=== PATIENT | male | born 1935 | race Caucasian/White ===

== ENCOUNTER → 2016-09-06 | Outpatient (CLI) | payer MEDICARE, BC | END | disposition home or self-care (01) | LOC: LABWHC1 11:57 | PROVIDERS: ATTEND Family Medicine | DX: E78.5 Hyperlipidemia, unspecified (principal) | CPT/HCPCS: 36415; 84132 ==

== ENCOUNTER → 2016-10-19 | Outpatient (CLI) | payer MEDICARE, BC ==
--- NOTE | 2016-10-20 10:49 | XR ---
Thoracic spine HISTORY: Pain 3 views of the thoracic spine Thoracic vertebral bodies show preserved height. There is a rotatory scoliosis S-shaped within the th oracic spine. Multilevel spondylosis is present. Bone mineralization is mildly reduced. Mild loss of disc height the lower intervertebral levels. IMPRESSION: Scoliosis, degenerative disc disease.
== END | disposition home or self-care (01) ==
LOC: RADXRYALE 14:40
PROVIDERS: ATTEND Family Medicine
DX: M41.9 Scoliosis, unspecified (principal); M51.34 Other intervertebral disc degeneration, thoracic region
CPT/HCPCS: 72072

== ENCOUNTER → 2016-11-09 | Outpatient (CLI) | payer MEDICARE, BC ==
--- NOTE | 2016-11-09 11:01 | MR ---
EXAMINATION TYPE: MR thoracic spine wo con DATE OF EXAM ORDERED: 11/09/2016 10:20 AM HISTORY: M546 tsp pain. COMPARISON: None. FINDINGS: There is a thoracic aortic aneurysm. The level of the distal large the aorta measures 3 cm . At the level of the aortic hiatus the aorta measures 3.6 cm. Paraspinal soft tissues are otherwise unremarkable. There is an S-shaped scoliosis involving the thoracic spine convex to the left in the upper thoracic spine and to the right in the lower thoracic spine. Vertebral body height and alignment are maintaine d. No fractures are seen. Cord signal is maintained. There is mild, bilateral intervertebral foraminal narrowing at C7-T1. There is mild, diffuse hypertro phic spondylosis throughout the thoracic spine. There is bilateral intervertebral foraminal narrowing at T1 to, worse on the left than the right. There is no significant compressive discopathy. At T2-3, there is bilateral intervertebral foraminal narrowing. There is a small right paracentral di sc displacement. This mildly deforming the thecal sac without cord contact. At T3-4, there is bilateral intervertebral foraminal narrowing, greater on the right than the left. T here is no significant compressive discopathy. At T4-5 and T5-6, no definite abnormality is seen. At T6-7, there is mild, bilateral intervertebral foraminal narrowing. There is no significant everardo sive discopathy. At T7-8, the intervertebral foramina are incompletely visualized. There is a diffuse disc displacemen t. This is deforming the thecal sac without cord contact. At T8-9, there is disc space loss. The intervertebral foramina are incompletely visualized. There is no significant compressive discopathy. At T9-10, the intervertebral foramina are well maintained. There is a right paracentral disc protrusi on mildly deforming the thecal sac without cord contact. At T10-11, there is a bilobed disc displacement. Intervertebral foramina appear reasonably well-maint ained. T11-12, there is disc space loss. There is hypertrophic spondylosis both anteriorly and posteriorly. There is a bilobed disc displacement. There is hypertrophic change and capsulitis within the facets. There is mild central canal stenosis. There is bilateral intervertebral foraminal narrowing. At T12-L1, the intervertebral foramina are well maintained. There is no significant compressive disco jef. There is hypertrophic change in the facets. IMPRESSION: 1. DIFFUSE DEGENERATIVE DISC DISEASE. 2. MULTILEVEL INTERVERTEBRAL FORAMINAL NARROWING. 3. RIGHT PARACENTRAL DISC PROTRUSION, T9-10, MILDLY DEFORMING THE THECAL SAC WITHOUT CORD CONTACT. 4. THORACIC AORTIC ANEURYSM. 5. FACET ARTHROPATHY AT T11-12 AND T12-L1.
== END | disposition home or self-care (01) ==
LOC: RADMRIMAIN 09:18
PROVIDERS: ATTEND Family Medicine
DX: M99.72 Connective tissue and disc stenosis of intervertebral foramina of thoracic region (principal); M51.24 Other intervertebral disc displacement, thoracic region; M51.34 Other intervertebral disc degeneration, thoracic region; M46.94 Unspecified inflammatory spondylopathy, thoracic region
CPT/HCPCS: 72146

== ENCOUNTER 2017-01-15 12:58 | Inpatient (IN) | payer MEDICARE, BC ==
--- NOTE | 2017-01-15 13:21 | ED ---
General Adult HPI - General Chief complaint: Chest Pain Stated complaint: Chest Tightness Time Seen by Provider: 01/15/17 13:00 Source: patient, RN notes reviewed Mode of arrival: ambulatory Limitations: no limitations - History of Present Illness Initial comments: This is a 81-year-old male who presents to the emergency department complaining of chest pain this morning while in bed. Patient states the pain was a heaviness on the left side of his chest and then became a tightness. Patient states he thinks when he takes a deep breath might be a little worse. Patient did not notice any shortness of breath patient denied any radiation of the pain. Patient denies any fever chills or cough. Patient denies any headache patient denies numbness weakness. Patient denies lightheadedness dizziness or near syncopal episode. - Related Data Home Medications Medication Instructions Recorded Confirmed Citalopram Hydrobromide 40 mg PO DAILY 07/15/14 01/15/17 [Citalopram HBr] Levothyroxine Sodium [Synthroid] 150 mcg PO DAILY 07/15/14 01/15/17 Losartan Potassium 50 mg PO DAILY 07/15/14 01/15/17 Aspirin EC [Ecotrin Low Dose] 81 mg PO DAILY 05/08/16 01/15/17 HYDROcodone/APAP 7.5-325MG [[place] 1 tab PO TID 05/08/16 01/15/17 7.5-325] Multivitamins, Thera [Multivitamin 1 tab PO DAILY 05/08/16 01/15/17 (formulary)] Terazosin [Hytrin] 5 mg PO HS 05/08/16 01/15/17 Montelukast Sodium [Singulair] 10 mg PO HS 01/15/17 01/15/17 Ranitidine HCl 300 mg PO BID 01/15/17 01/15/17 Allergies Allergy/AdvReac Type Severity Reaction Status Date / Time iodine AdvReac Anaphylaxis Verified 01/15/17 14:35 Penicillins AdvReac Rash/Hives Verified 01/15/17 14:35 Review of Systems ROS Statement: Those systems with pertinent positive or pertinent negative responses have been documented in the HPI. ROS Other: All systems not noted in ROS Statement are negative. Past Medical History Past Medical History: GERD/Reflux, Hypertension, Pulmonary Embolus (PE), Sleep Apnea/CPAP/BIPAP, Syncope, Thyroid Disorder Additional Past Medical History / Comment(s): cardai arrest d/t pe in 1985, bronchitis, cysts on kidneys-some los of kidney fx, psoriases,arthirstis, chronic back pain, cataracts, red cliff wears linda hearing aids,glasses,upper partial plate. History of Any Multi-Drug Resistant Organisms: None Reported Past Surgical History: Adenoidectomy, Back Surgery, Orthopedic Surgery, Tonsillectomy Additional Past Surgical History / Comment(s): left shoulder hemiarthroplasty then 2nd sx-total replacment, x3 back sx, rt knee replacement, rt shoulder rotator cuff sx, lt heel spur, egd/colonoscopy, rt inguinal hernia repair, lt ear drum repair, CATARACTS, PT STATED HAS 3 ANEURYSMS "AAA AND GROIN AREA" Past Anesthesia/Blood Transfusion Reactions: Postoperative Nausea & Vomiting ( PONV) Past Psychological History: Depression Smoking Status: Former smoker Past Alcohol Use History: None Reported Past Drug Use History: None Reported - Past Family History Father Family Medical History: Asthma Mother Family Medical History: Coronary Artery Disease (CAD) Additional Family Medical History / Comment(s): PACEMAKER General Exam - General Exam Comments Initial Comments: GENERAL: Patient is well-developed and well-nourished. Patient is nontoxic and well- hydrated and is in mild distress. ENT: Neck is soft and supple. No significant lymphadenopathy is noted. Oropharynx is clear. Moist mucous membranes. Neck has full range of motion without eliciting any pain. EYES: The sclera were anicteric and conjunctiva were pink and moist. Extraocular movements were intact and pupils were equal round and reactive to light. Eyelids were unremarkable. PULMONARY: Unlabored respirations. Good breath sounds bilaterally. No audible rales rhonchi or wheezing was noted. CARDIOVASCULAR: There is a regular rate and rhythm without any murmurs gallops or rubs. ABDOMEN: Soft and nontender with normal bowel sounds. No palpable organomegaly was noted. There is no palpable pulsatile mass. SKIN: Skin is clear with no lesions or rashes and otherwise unremarkable. NEUROLOGIC: Patient is alert and oriented x3. Cranial nerves II through XII are grossly intact. Motor and sensory are also intact. Normal speech, volume and content. Symmetrical smile. MUSCULOSKELETAL: Normal extremities with adequate strength and full range of motion. No lower extremity swelling or edema. No calf tenderness. LYMPHATICS: No significant lymphadenopathy is noted PSYCHIATRIC: Normal psychiatric evaluation. Limitations: no limitations Course Vital Signs 01/15/17 13:01 Temperature 98.6 F Pulse Rate 98 Respiratory 18 Rate Blood Pressure 166/92 O2 Sat by Pulse 100 Oximetry Medical Decision Making - Medical Decision Making EKG shows sinus rhythm with occasional PAC at 71 bpm [place] interval 190 QRS 98 QT interval is 44 QTC is 439. Patient's EKG shows no ST segment elevation or depression or T wave normalities are noted. Chest x-ray shows no acute abnormality. Patient continues to have intermittent chest pain while in the emergency department. I spoke with Dr. Forbes he agreed to admit the patient I wrote admitting orders and I consult to cardiology - Lab Data Result diagrams: 01/15/17 13:40 01/15/17 13:40 Lab Results 01/15/17 01/15/17 01/15/17 Range/Units 13:40 13:40 13:40 WBC 8.4 (3.8-10.6) k/uL RBC 3.77 L (4.30-5.90) m/uL Hgb 12.4 L (13.0-17.5) gm/dL Hct 36.3 L (39.0-53.0) % MCV 96.3 (80.0-100.0) fL MCH 33.0 (25.0-35.0) pg MCHC 34.2 (31.0-37.0) g/dL RDW 12.8 (11.5-15.5) % Plt Count 173 (150-450) k/uL Neutrophils % 78 % Lymphocytes % 11 % Monocytes % 6 % Eosinophils % 3 % Basophils % 1 % Neutrophils # 6.6 (1.3-7.7) k/uL Lymphocytes # 0.9 L (1.0-4.8) k/uL Monocytes # 0.5 (0-1.0) k/uL Eosinophils # 0.2 (0-0.7) k/uL Basophils # 0.0 (0-0.2) k/uL PT (9.0-12.0) sec INR (<1.2) APTT (22.0-30.0) sec Sodium 138 (137-145) mmol/L Potassium 4.7 (3.5-5.1) mmol/L Chloride 104 (98-107) mmol/L Carbon Dioxide 24 (22-30) mmol/L Anion Gap 10 mmol/L BUN 25 H (9-20) mg/dL Creatinine 1.80 H (0.66-1.25) mg/dL Est GFR (MDRD) Af Amer 44 (>60 ml/min/1.73 sqM) Est GFR (MDRD) Non-Af 37 (>60 ml/min/1.73 sqM) Glucose 129 H (74-99) mg/dL Calcium 9.3 (8.4-10.2) mg/dL Magnesium 1.8 (1.6-2.3) mg/dL Total Bilirubin 0.5 (0.2-1.3) mg/dL AST 24 (17-59) U/L ALT 40 (21-72) U/L Alkaline Phosphatase 77 (38-126) U/L Total Creatine Kinase 110 (55-170) U/L CK-MB (CK-2) 2.8 H* (0.0-2.4) ng/mL CK-MB (CK-2) Rel Index 2.5 Troponin I <0.012 (0.000-0.034) ng/mL Total Protein 7.0 (6.3-8.2) g/dL Albumin 4.0 (3.5-5.0) g/dL 01/15/17 Range/Units 13:40 WBC (3.8-10.6) k/uL RBC (4.30-5.90) m/uL Hgb (13.0-17.5) gm/dL Hct (39.0-53.0) % MCV (80.0-100.0) fL MCH (25.0-35.0) pg MCHC (31.0-37.0) g/dL RDW (11.5-15.5) % Plt Count (150-450) k/uL Neutrophils % % Lymphocytes % % Monocytes % % Eosinophils % % Basophils % % Neutrophils # (1.3-7.7) k/uL Lymphocytes # (1.0-4.8) k/uL Monocytes # (0-1.0) k/uL Eosinophils # (0-0.7) k/uL Basophils # (0-0.2) k/uL PT 11.0 (9.0-12.0) sec INR 1.1 (<1.2) APTT 24.8 (22.0-30.0) sec Sodium (137-145) mmol/L Potassium (3.5-5.1) mmol/L Chloride (98-107) mmol/L Carbon Dioxide (22-30) mmol/L Anion Gap mmol/L BUN (9-20) mg/dL Creatinine (0.66-1.25) mg/dL Est GFR (MDRD) Af Amer (>60 ml/min/1.73 sqM) Est GFR (MDRD) Non-Af (>60 ml/min/1.73 sqM) Glucose (74-99) mg/dL Calcium (8.4-10.2) mg/dL Magnesium (1.6-2.3) mg/dL Total Bilirubin (0.2-1.3) mg/dL AST (17-59) U/L ALT (21-72) U/L Alkaline Phosphatase (38-126) U/L Total Creatine Kinase (55-170) U/L CK-MB (CK-2) (0.0-2.4) ng/mL CK-MB (CK-2) Rel Index Troponin I (0.000-0.034) ng/mL Total Protein (6.3-8.2) g/dL Albumin (3.5-5.0) g/dL Disposition Clinical Impression: Chest pain Disposition: ADMITTED IP TO THIS HOSP Referrals: Guera Vieira DO [Primary Care Provider] - 1-2 days Time of Disposition: 15:17
[2017-01-15] MEDS ORDERED: ASPIRIN 81 MG CHEW PO STA (13:36)
[2017-01-15] MEDS ORDERED: NITROGLYCERIN OINT 1 INCH/GM PACKET TOPICAL STA (13:36)
[2017-01-15] MEDS ORDERED: SODIUM CHLORIDE 0.9% 500 ML IV ONE (13:42)
[2017-01-15] MEDS ORDERED: MECLIZINE 25 MG TAB PO STA (13:42)
[2017-01-15] MEDS ORDERED: DIAZEPAM 5 MG/ML 2 ML SYRINGE IVP STA (13:42)
[2017-01-15 13:58] LABS: Basophils % (A) 1 %; CH 33.4; CHCM 34.8; Eosinophils # (A) 0.2 k/uL (0-0.7); Eosinophils % (A) 3 %; HCT 36.3 % (39.0-53.0); HGB 12.4 gm/dL (13.0-17.5); Luc % (Auto) 2; Lymphocytes # (A) 0.9 k/uL (1.0-4.8); Lymphocytes % (A) 11 %; MCHC 34.2 g/dL (31.0-37.0); MCV 96.3 fL (80.0-100.0); Mean Platelet Volume 7.6; Monocytes # (A) 0.5 k/uL (0-1.0); Monocytes % (A) 6 %; Neutrophils # (A) 6.6 k/uL (1.3-7.7); Neutrophils % (A) 78 %; RBC 3.77 m/uL (4.30-5.90); RDW 12.8 % (11.5-15.5); WBC 8.4 k/uL (3.8-10.6); WBC (Perox) 9.04
[2017-01-15 14:03] LABS: Calcium 9.3 mg/dL (8.4-10.2); Magnesium 1.8 mg/dL (1.6-2.3); Potassium 4.7 mmol/L (3.5-5.1); Total Bilirubin 0.5 mg/dL (0.2-1.3)
[2017-01-15 14:08] LABS: INR 1.1 (<1.2); Partial Thromboplastin Time 24.8 sec (22.0-30.0)
[2017-01-15 14:21] LABS: Creatine Kinase 110 U/L (55-170)
--- NOTE | 2017-01-15 14:25 | XR ---
EXAMINATION TYPE: XR chest 2V DATE OF EXAM: 01/15/2017 COMPARISON: Chest x-ray May 08, 2016 HISTORY: Chest pain. TECHNIQUE: Frontal and lateral views of the chest are obtained. FINDINGS: There is no focal air space opacity, pleural effusion, or pneumothorax seen. The cardiac silhouette size is within normal limits. Metallic hardware from left shoulder arthroplasty is redemon strated. Degenerative spurring right glenohumeral joint is redemonstrated. IMPRESSION: No acute cardiopulmonary process. No significant change from prior.
[2017-01-15 14:33] LABS: Troponin I <0.012 ng/mL (0.000-0.034)
[2017-01-15 14:39] LABS: Creatine Kinase MB 2.8 ng/mL (0.0-2.4)
--- NOTE | 2017-01-15 14:42 | CT ---
EXAMINATION TYPE: CT brain wo con DATE OF EXAM: 01/15/2017 HISTORY: Headache per order. CT DLP: 1064.3 mGycm. Automated Exposure Control for Dose Reduction was Utilized. TECHNIQUE: CT scan of the head is performed without contrast. COMPARISON: CT brain May 08, 2016 FINDINGS: There is no acute intracranial hemorrhage or midline shift identified. There is diffuse v entricular and sulcal prominence consistent with diffuse age-related cerebral atrophy. There is low- attenuation in the periventricular white matter consistent with chronic small vessel ischemic change. There is persistent mild mucosal thickening involving ethmoid sinuses bilaterally and visualized por tion of bilateral maxillary sinuses. There is air-fluid level dependently in right maxillary sinus on axial image 6. There is dependent and patchy opacification in the left maxillary sinus on axial imag e 1. There is evidence of prior sinus surgery level ostiomeatal complex bilaterally. The globes are i ntact bilaterally. There complete opacification of left mastoid air cells is redemonstrated IMPRESSION: No acute intracranial hemorrhage or midline shift. There is mild diffuse age-related ce rebral atrophy and chronic small vessel ischemic change redemonstrated without significant interval c chris. Possible left-sided mastoiditis, clinical correlation advised, no significant change from prio r. Possible mild bilateral acute maxillary sinus disease, clinical correlation advised.
[2017-01-15] MEDS ORDERED: NITROGLYCERIN SL TABS 0.4 MG TAB SUBLINGUAL PRN (15:18)
[2017-01-15] MEDS ORDERED: RX INFO: IV CONTRAST WAS GIVEN 1 EACH MISC MISCELLANE PRN (15:43)
[2017-01-15] MEDS ORDERED: SODIUM CHLORIDE 0.9% 1,000 ML IV ONE (15:50)
[2017-01-15] MEDS ORDERED: diphenhydrAMINE 50 MG/ML 1 ML VIAL IVP STA (15:50)
[2017-01-15] MEDS ORDERED: FAMOTIDINE 20 MG/2 ML VIAL IV STA (15:50)
[2017-01-15] MEDS ORDERED: methylPREDNISolone SOD SUCCI 125 MG/2 ML VIAL IV STA (15:50)
--- NOTE | 2017-01-15 16:58 | CT ---
EXAMINATION TYPE: CT chest angio for PE DATE OF EXAM: 01/15/2017 COMPARISON: NONE HISTORY: Difficulty breathing. CT DLP: 451.5 mGycm Automated exposure control for dose reduction was used. CONTRAST: CT Chest for pulmonary embolism performed with with IV Contrast, patient injected with 70 mL of Visip aque 320. There are 3-D post processed images. FINDINGS: The lungs are clear of consolidation. There is no pleural effusion. Heart size is normal. There is no pericardial effusion. I see no filling defects in the pulmonary arteries. Thoracic aorta is atheromatous. There is ectasia of the aorta that measures up to 4 cm. There is coronary artery calcification. The bony thorax appear s intact. There is spurring in the thoracic spine. There is mild linear density at the lung bases. There is no mediastinal adenopathy. There are no hilar masses. IMPRESSION: No evidence of pulmonary embolism. Atheromatous aorta with minimal 4 cm aortic aneurysm. Atherosclero tic vascular disease. Minimal subsegmental atelectasis or scarring at the lung bases. Large right janna al cortical cyst is noted.
[2017-01-15] MEDS ORDERED: TEMAZEPAM 15 MG CAP PO PRN (18:18)
[2017-01-15] MEDS ORDERED: HYDROmorphone 1 MG/ML 1 ML SYRINGE IVP PRN (18:18)
[2017-01-15] MEDS ORDERED: ALPRAZolam 0.25 MG TAB PO PRN (18:18)
[2017-01-15] MEDS: NITROGLYCERIN OINT 1 INCH/GM PACKET TOPICAL SCH ×2 (18:40→23:41)
[2017-01-15 19:45] LABS: Creatine Kinase 83 U/L (55-170)
[2017-01-15 19:58] LABS: Troponin I <0.012 ng/mL (0.000-0.034)
[2017-01-15 20:08] LABS: Appearance,Urine Clear (Clear); Bilirubin,Urine Negative (Negative); Glucose,Urine (UA) Negative (Negative); Ketones,Urine Negative (Negative); Leukocyte Esterase,Urine Negative (Negative); Nitrite,Urine Negative (Negative); Protein,Urine Negative (Negative); Specific Gravity,Urine 1.011 (1.001-1.035); UA Billing (MACRO vs. MICRO) CHEM; Urobilinogen,Urine <2.0 mg/dL (<2.0)
[2017-01-15] MEDS: FAMOTIDINE 20 MG TAB PO SCH (20:13)
[2017-01-15] MEDS: MONTELUKAST 10 MG TAB PO SCH (20:13)
[2017-01-15] MEDS: HYDROcodone/APAP 7.5-325MG 1 EACH TAB PO PRN (20:13)
[2017-01-15] MEDS: TERAZOSIN 5 MG CAP PO SCH (20:13)
[2017-01-16 06:34] LABS: Basophils % (A) 0 %; CH 33.4; CHCM 34.4; Eosinophils % (A) 0 %; HCT 37.4 % (39.0-53.0); HDW 2.66; HGB 12.5 gm/dL (13.0-17.5); Luc # (Auto) 0.03; Luc % (Auto) 0; Lymphocytes # (A) 0.7 k/uL (1.0-4.8); Lymphocytes % (A) 6 %; MCH 32.7 pg (25.0-35.0); MCHC 33.5 g/dL (31.0-37.0); MCV 97.6 fL (80.0-100.0); Mean Platelet Volume 7.8; Monocytes # (A) 0.2 k/uL (0-1.0); Monocytes % (A) 2 %; Neutrophils # (A) 10.1 k/uL (1.3-7.7); Neutrophils % (A) 92 %; RBC 3.84 m/uL (4.30-5.90); RDW 12.8 % (11.5-15.5); WBC (Perox) 11.48
[2017-01-16] MEDS: NITROGLYCERIN OINT 1 INCH/GM PACKET TOPICAL SCH ×3 (06:54→22:30)
[2017-01-16] MEDS: LEVOTHYROXINE 75 MCG TAB PO SCH (06:55)
[2017-01-16 07:00] LABS: Calcium 9.3 mg/dL (8.4-10.2); Potassium 4.8 mmol/L (3.5-5.1)
[2017-01-16 07:08] LABS: Creatine Kinase 57 U/L (55-170)
[2017-01-16 07:20] LABS: Creatine Kinase MB 1.5 ng/mL (0.0-2.4); Troponin I <0.012 ng/mL (0.000-0.034)
[2017-01-16] MEDS ORDERED: NON-FORMULARY DRUG (Aspirin Ec 81 MG) PO SCH (09:00)
[2017-01-16] MEDS ORDERED: AMINOPHYLLINE 500 MG/20 ML VIAL IV PRN (10:09)
[2017-01-16] MEDS ORDERED: REGADENOSON 0.4 MG/5 ML SYRINGE IV ONE (10:09)
--- NOTE | 2017-01-16 10:41 | HP ---
DATE OF ADMISSION: 01/15/17 CHIEF COMPLAINT: Chest pain. HISTORY OF PRESENT ILLNESS: This 81-year-old gentleman with past medical history of multiple medical problems including GERD, hypertension, history of pulmonary embolism, being followed by Dr. Vieira in the outpatient setting also had history of aneurysm also. The patient complained of chest pain, started this morning which is felt in the epigastrium initially but subsequently after two hours, the patient had chest pressure which was felt in the anterior part of the chest without any radiation. The pain is also increased with inspiration and the patient came to [facility] and was admitted to the hospital for further evaluation and treatment. The patient had multiple evaluations and CKMB was 2.8. Otherwise, troponins are negative. The EKG done in the emergency room showed no acute changes. Otherwise, the brain Ct was done. The patient also complaining of right sided numbness. CT of the brain showed no acute abnormality, otherwise, chest x-ray was done which showed no acute abnormality and chest CT was also done which showed no evidence of pulmonary embolism. 4 cm aortic aneurysm was also noted. There is no history of fever, rigors or chills. No history of headache, loss of consciousness or seizure. Past medical history of GERD, hypertension, pulmonary embolism, sleep apnea. Medications prior to admission are: Home medications are: 1. Hytrin 5 mg po q.h.s. 2. Ranitidine 300 mg b.i.d. 3. Multivitamins one po daily. 4. Singulair 10 mg q.h.s. 5. Losartan 50 mg daily. 6. Synthroid 150 mcg po daily. 7. [place] t.i.d. 8. Celexa 40 mg daily. 9. Ecotrin 81 mg daily. ALLERGIES: IODINE, PENICILLIN. FAMILY HISTORY: History of asthma, pacemaker. SOCIAL HISTORY: Previous history of smoking. No history of alcohol. REVIEW OF SYSTEMS: HEENT: No diminished vision. No diminished hearing. Cardiovascular system: As mentioned earlier. Respiratory: As mentioned earlier. GI: No nausea or vomiting. : No dysuria. Nervous system: No numbness or weakness. Allergy/Immunology: No asthma or hayfever. Musculoskeletal: As mentioned earlier. Hematology/oncology: No history of anemia. Endocrine: No history of diabetes. Constitutional: As mentioned earlier. Dermatology: Negative. Rheumatology: Negative. Psychiatry: As mentioned earlier. PHYSICAL EXAMINATION: Alert and oriented times three. Pulse 70. Blood pressure 103/59. Respiratory rate 17, temperature 98.1 degrees. Pulse ox 97% on 2 L. HEENT: Conjunctivae normal. Oral mucosa moist. NECK: No JVD. Cardiovascular: S1, S2 muffled. Respiratory: Breath sounds diminished at the bases. A few scattered rhonchi and no crackles. Abdomen is soft. Nontender. No mass. Legs: No edema. No swelling. Nervous system: No focal deficits. LABS: Hemoglobin 12.4, creatinine 1.8. D. dimer 4.20. ASSESSMENT: 1. Chest pain for evaluation, rule out coronary artery disease. 2. Rule out pericarditis. 3. Elevated D. dimer without any evidence of pulmonary embolism. 4. Chronic kidney disease stage III. 5. Anemia, normocytic. 6. History of pulmonary embolism. 7. History of hypertension. 8. Gastroesophageal reflux disease. 9. Adenoidectomy. 10. Depression. RECOMMENDATIONS AND DISCUSSION: In this 81 -year-old gentleman who presented with multiple complex medical issues, we will monitor the patient closely, continue the current medications. Continue symptomatic treatment. Unstable angina protocol. Cardiology consultation. Possible stress test. I would also recommend repeat labs in the morning and would also obtain a 2D echo to rule out the possibility of pericardial effusion. Otherwise, we will continue to monitor. Resume the home medications. Further recommendations to follow. A copy of dictation being forwarded to Dr. Vieira who is the primary care physician. Discussed with the patient, understands and agrees. LATOSHA
--- NOTE | 2017-01-16 11:13 | ECHOF ---
Referral Reason:pericarditis MEASUREMENTS -------- HEIGHT: 180.3 cm WEIGHT: 99.3 kg BP: 141/80 RVIDd: 3.3 cm (< 3.3) IVSd: 1.2 cm (0.6 - 1.1) LVIDd: 5.1 cm (3.9 - 5.3) LVPWd: 1.3 cm (0.6 - 1.1) EDV(Teich): 124 ml IVSs: 1.6 cm LVIDs: 3.8 cm LVPWs: 1.7 cm %IVS Thck: 38 % ESV(Teich): 61 ml EF(Teich): 51 % %FS: 26 % SV(Teich): 63 ml LA Diam: 4.4 cm (2.7 - 3.8) LVOT Diam: 2.3 cm IVC: 1.9 cm LALs A4C: 4.9 cm LAAs A4C: 19.4 cm LAESV A-L A4C: 65 ml LAESV MOD A4C: 59 ml LALs A2C: 5.6 cm LAAs A2C: 18.7 cm LAESV A-L A2C: 52 ml LAESV MOD A2C: 52 ml LAESV(A-L): 63 ml LAESV Index (A-L): 28.56 ml/m Ao Diam: 3.5 cm (2.0 - 3.7) AV Cusp: 2.1 cm (1.5 - 2.6) MV EXCURSION: 11.800 mm (> 18.000) MV EF SLOPE: 45 mm/s (70 - 150) EPSS: 1.2 cm MV E Kai: 0.81 m/s MV DecT: 188 ms MV Dec [place]: 4.3 m/s MV A Kai: 0.97 m/s MV E/A Ratio: 0.83 MV PHT: 55 ms E/E': 11.90 E': 0.07 m/s AV Vmax: 1.71 m/s AV maxP.65 mmHg TR Vmax: 2.15 m/s TR maxP.43 mmHg RAP: 5.00 mmHg RVSP: 23.43 mmHg FINDINGS -------- Sinus rhythm. This was a technically good study. The left ventricular size is normal. There is mild concentric left ventricular hypertrophy. Overall left ventricular systolic function is normal with, an EF between 55 - 60 %. The right ventricle is mildly enlarged. Normal LA size by volume 22+/-6 ml/m2. The right atrium is normal in size. Aortic valve is trileaflet and is mildly thickened. Trace tricuspid regurgitation present. Right ventricular systolic pressure is normal at < 35 mmHg. Trace/mild (physiologic) pulmonic regurgitation. The aortic root size is normal. Normal inferior vena cava with normal inspiratory collapse consistent with estimated right atrial pressure of 5 mmHg. There is no pericardial effusion. CONCLUSIONS -------- 1. Sinus rhythm. 2. Trace tricuspid regurgitation present. 3. Right ventricular systolic pressure is normal at < 35 mmHg. 4. Trace/mild (physiologic) pulmonic regurgitation. 5. The aortic root size is normal. 6. Normal inferior vena cava with normal inspiratory collapse consistent with estimated right atrial pressure of 5 mmHg. 7. There is no pericardial effusion. 8. This was a technically good study. 9. The left ventricular size is normal. 10. There is mild concentric left ventricular hypertrophy. 11. Overall left ventricular systolic function is normal with, an EF between 55 - 60 %. 12. The right ventricle is mildly enlarged. 13. Normal LA size by volume 22+/-6 ml/m2. 14. The right atrium is normal in size. 15. Aortic valve is trileaflet and is mildly thickened. EDGE STAINER MACHINE: Beverly Kendall RDCS
--- NOTE | 2017-01-16 12:04 | P.STRESS ---
- Stress Test Note Stress Test Results/Findings: Exam Performed: NM stress lexiscan cardiolite Exam Date: 01/16/17 Reason for Exam: chest pain Height: 5 ft 5 in Weight: 99.4 kg Protocol: Nichole Stage: N/A Duration of Exercise: N/A Resting Heart Rate: 85 Resting Blood Pressure: 146/72 Maximum Achieved Heart Rate: 104 Maximum Achieved Blood Pressure: 153/83 85% PMHR: 129 100% PMHR: 141 METS: N/A Technologist Comment: Stress Test Results/Findings: Patient was given Lexiscan injection over a period of 15 seconds. Resting EKG shows normal sinus rhythm without any ischemic changes. No ST segment depression suggestive ischemia was noted after the Lexiscan injection. Results of the nuclear study will follow.
[2017-01-16] MEDS: CITALOPRAM HYDROBROMIDE 20 MG TAB PO SCH (12:49)
[2017-01-16] MEDS: PANTOPRAZOLE 40 MG TABLET PO SCH (12:49)
[2017-01-16] MEDS: LOSARTAN 50 MG TAB PO SCH (12:49)
[2017-01-16] MEDS: FAMOTIDINE 20 MG TAB PO SCH ×2 (12:49→21:34)
[2017-01-16] MEDS: MULTIVITAMINS, THERA 1 EACH TAB PO SCH (12:50)
[2017-01-16] MEDS: ASPIRIN 325 MG TAB PO SCH (12:55)
--- NOTE | 2017-01-16 13:24 | NM ---
EXAMINATION TYPE: NM stress lexiscan cardiolite DATE OF EXAM: 01/16/2017 COMPARISON: Chest CT 01/15/2017 HISTORY: Chest pain TECHNIQUE: After the intravenous administration of 11.0 mCi Tc 99m Sestamibi - Cardiolite resting SP ECT images acquired 45 minutes post injection. The patient received 0.4mg Lexiscan, 23.9 mCi Tc 99m Sestamibi - Stress images obtained [address] injection FINDINGS: Review of stress and rest SPECT images demonstrates decreased radio pharmaceutical uptake along the i nferior wall of the left ventricle. Decreased reaffirms uptake along the anteroseptal and apical reg ions on stress images as compared to rest images also noted. Gated analysis shows normal wall motion with an estimated left ventricular ejection fraction of 56 %. 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
[2017-01-16] MEDS ORDERED: ALPRAZolam 0.25 MG TAB PO PRN (14:16)
[2017-01-16] MEDS ORDERED: NITROGLYCERIN SL TABS 0.4 MG TAB SUBLINGUAL PRN (14:16)
[2017-01-16] MEDS ORDERED: ALPRAZolam 0.5 MG TAB PO PRN (14:16)
[2017-01-16] MEDS ORDERED: SODIUM CHLORIDE 0.9% 1,000 ML in EMPTY BAG 1 BAG IV ONE (14:16)
[2017-01-16] MEDS ORDERED: ASPIRIN 325 MG TAB PO STA (14:16)
[2017-01-16] MEDS ORDERED: ATORVASTATIN 80 MG TAB PO STA (14:16)
--- NOTE | 2017-01-16 14:16 | P.CRDCN ---
History of Present Illness Consult date: 01/16/17 History of present illness: This is a 81-year-old male who presents to the emergency department with complaints of epigastric pain. He states he woke up tonight felt the discomfort. He was able to fall back asleep without difficulty. When he arose again around 9 AM the pain was there and stronger. He states the pain is worse with inspiration and is associated with shortness of breath. He cannot verbalize any specific alleviating or aggravating factors. Upon examination he is seen resting comfortably in bed in no acute distress. He also complained of some right arm numbness, CT of the head was negative for acute process. Chest x -ray shows no acute abnormality. Patient has significant history for pulmonary embolism in the past with cardiac arrest. CT angios was negative for PE at this time. He has a significant history of GERD, hypertension, PE and vertigo. He states he does not have a allergy specialist. His current medications include Hytrin 5 mg by mouth daily, aspirin 81 mg by mouth daily. Review of Systems REVIEW OF SYSTEMS: Patient denies any shortness of breath at this time. No diaphoresis. He denies headache, dizziness, blurred vision, double vision. No dyspnea on exertion. Patient denies any stomach discomfort. No nausea, vomiting. No hematochezia. No hematemesis. Denies any black stools or blood in his stools. No syncope. No palpitations. No cough. No recent fever or chills. Denies dysuria or hematuria. 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 History of Any Multi-Drug Resistant Organisms: None Reported Past Surgical History: Adenoidectomy, Back Surgery, Orthopedic Surgery, Tonsillectomy Additional Past Surgical History / Comment(s): left shoulder hemiarthroplasty then 2nd sx-total replacment, x3 back sx, rt knee replacement, rt shoulder rotator cuff sx, lt heel spur, egd/colonoscopy, rt inguinal hernia repair, lt ear drum sx"failed", CATARACTS. Past Anesthesia/Blood Transfusion Reactions: Postoperative Nausea & Vomiting ( PONV) Smoking Status: Former smoker - Past Family History Father Family Medical History: Asthma Mother Family Medical History: Coronary Artery Disease (CAD) Additional Family Medical History / Comment(s): PACEMAKER Medications and Allergies Home Medications Medication Instructions Recorded Confirmed Type Citalopram Hydrobromide 40 mg PO DAILY 07/15/14 01/15/17 History [Citalopram HBr] Levothyroxine Sodium [Synthroid] 150 mcg PO DAILY 07/15/14 01/15/17 History Losartan Potassium 50 mg PO DAILY 07/15/14 01/15/17 History Aspirin EC [Ecotrin Low Dose] 81 mg PO DAILY 05/08/16 01/15/17 History HYDROcodone/APAP 7.5-325MG [[place] 1 tab PO TID 05/08/16 01/15/17 History 7.5-325] Multivitamins, Thera [Multivitamin 1 tab PO DAILY 05/08/16 01/15/17 History (formulary)] Terazosin [Hytrin] 5 mg PO HS 05/08/16 01/15/17 History Montelukast Sodium [Singulair] 10 mg PO HS 01/15/17 01/15/17 History Ranitidine HCl 300 mg PO BID 01/15/17 01/15/17 History Allergies Allergy/AdvReac Type Severity Reaction Status Date / Time iodine AdvReac Anaphylaxis Verified 01/15/17 14:35 Penicillins AdvReac Rash/Hives Verified 01/15/17 14:35 Physical Exam Vitals: Vital Signs Temp Pulse Pulse Resp BP BP Pulse Ox 01/16/17 08:00 97.5 F L 85 18 145/84 97 01/16/17 04:00 18 01/16/17 03:52 97.7 F 81 18 141/80 99 01/16/17 00:00 16 01/15/17 23:14 98.3 F 68 16 144/79 97 01/15/17 20:00 16 01/15/17 19:41 98.9 F 65 16 129/75 97 01/15/17 17:57 70 17 01/15/17 17:39 98.1 F 70 17 103/59 97 01/15/17 16:05 78 18 155/87 99 01/15/17 15:04 67 16 147/86 99 Intake and Output 01/15/17 01/16/17 01/16/17 22:59 06:59 14:59 Other: Voiding Method Toilet Toilet Toilet # Voids 1 1 Weight 99.4 kg GENERAL: This is a 81-year-old male in no apparent distress at the time of my examination. HEENT: Head is atraumatic, normocephalic. Pupils are equal, round. Sclerae anicteric. Conjunctivae are clear. Mucous membranes of the mouth are moist. Neck is supple. There is no jugular venous distention. No carotid bruit is heard. LUNGS: Clear to auscultation and precussion. No chest wall tenderness is noted on palpation or with deep breathing. HEART: Regular rate and rhythm without murmurs, rubs or gallops. S1 and S2 heard. ABDOMEN: Soft, nontender. Bowel sounds are heard. No organomegaly noted. EXTREMITIES: 2+ peripheral pulses with trace evidence of edema to left lower extremity, no calf tenderness noted. NEUROLOGIC: Patient is awake, alert and oriented x3. Results 01/16/17 06:00 01/16/17 06:00 Cardiac Enzymes 01/15/17 01/15/17 01/15/17 Range/Units 13:40 13:40 19:12 AST 24 (17-59) U/L CK-MB (CK-2) 2.8 H* 2.0 (0.0-2.4) ng/mL Troponin I <0.012 <0.012 (0.000-0.034) ng/mL 01/15/17 01/16/17 Range/Units 23:34 06:00 AST (17-59) U/L CK-MB (CK-2) 1.5 (0.0-2.4) ng/mL Troponin I <0.012 <0.012 (0.000-0.034) ng/mL Coagulation 01/15/17 Range/Units 13:40 PT 11.0 (9.0-12.0) sec APTT 24.8 (22.0-30.0) sec Lipids 01/16/17 Range/Units 06:00 Triglycerides 80 (<150) mg/dL Cholesterol 157 (<200) mg/dL HDL Cholesterol 36 L (40-60) mg/dL CBC 01/15/17 01/16/17 Range/Units 13:40 06:00 WBC 8.4 11.0 H (3.8-10.6) k/uL RBC 3.77 L 3.84 L (4.30-5.90) m/uL Hgb 12.4 L 12.5 L (13.0-17.5) gm/dL Hct 36.3 L 37.4 L (39.0-53.0) % Plt Count 173 170 (150-450) k/uL Comprehensive Metabolic Panel 01/15/17 01/16/17 Range/Units 13:40 06:00 Sodium 138 140 (137-145) mmol/L Potassium 4.7 4.8 (3.5-5.1) mmol/L Chloride 104 107 (98-107) mmol/L Carbon Dioxide 24 21 L (22-30) mmol/L BUN 25 H 25 H (9-20) mg/dL Creatinine 1.80 H 1.88 H (0.66-1.25) mg/dL Glucose 129 H 139 H (74-99) mg/dL Calcium 9.3 9.3 (8.4-10.2) mg/dL AST 24 (17-59) U/L ALT 40 (21-72) U/L Alkaline Phosphatase 77 (38-126) U/L Total Protein 7.0 (6.3-8.2) g/dL Albumin 4.0 (3.5-5.0) g/dL Current Medications Generic Name Dose Route Start Last Admin Trade Name Freq PRN Reason Stop Dose Admin Hydrocodone Bitart/Acetaminophen 1 each 01/15/17 16:24 01/15/17 20:13 [place] 7.5-325 PO 1 each TID PRN Administration Pain Alprazolam 0.25 mg 01/15/17 18:18 Xanax PO TID PRN Anxiety Aminophylline 100 mg 01/16/17 10:09 Aminophylline IV 01/16/17 23:00 ONCE PRN Patient Response Aspirin 325 mg 01/16/17 09:00 01/16/17 12:55 Aspirin PO Not Given DAILY AZAEL Citalopram Hydrobromide 40 mg 01/16/17 09:00 01/16/17 12:49 Celexa PO 40 mg DAILY AZAEL Administration Famotidine 20 mg 01/15/17 21:00 01/16/17 12:49 Pepcid PO 20 mg BID AZAEL Administration Hydromorphone HCl 0.5 mg 01/15/17 18:18 Dilaudid IVP Q6HR PRN Severe Pain Levothyroxine Sodium 150 mcg 01/16/17 06:30 01/16/17 06:55 Synthroid PO 150 mcg DAILY@0630 AZAEL Administration Losartan Potassium 50 mg 01/16/17 09:00 01/16/17 12:49 Cozaar PO 50 mg DAILY AZAEL Administration Miscellaneous Information 1 each 01/15/17 15:43 Rx Info: Iv Contrast Was Given MISCELLANE 01/17/17 15:43 DAILY PRN Per Protocol Montelukast Sodium 10 mg 01/15/17 21:00 01/15/17 20:13 Singulair PO 10 mg HS [facility] Administration Multivitamins 1 each 01/16/17 12:00 01/16/17 12:50 Theragran PO 1 each DAILY@1200 [facility] Administration Nitroglycerin 1 inch 01/15/17 18:00 01/16/17 12:55 Nitro-Bid Oint TOPICAL Not Given Q6HR [facility] Nitroglycerin 0.4 mg 01/15/17 15:18 Nitrostat SUBLINGUAL Q5M PRN Chest Pain Pantoprazole Sodium 40 mg 01/16/17 07:30 01/16/17 12:49 Protonix PO 40 mg [id number] [facility] Administration Temazepam 15 mg 01/15/17 18:18 Restoril PO HS PRN Insomnia Terazosin HCl 5 mg 01/15/17 21:00 01/15/17 20:13 Hytrin PO 5 mg HS [facility] Administration Intake and Output 01/15/17 01/16/17 01/16/17 22:59 06:59 14:59 Other: Voiding Method Toilet Toilet Toilet # Voids 1 1 Weight 99.4 kg 01/16/17 06:00 01/16/17 06:00 - EKG Interpretation EKG: sinus rhythm, normal ST/T Assessment and Plan Plan: ASSESSMENT 1. Chest pain, suggestive of unstable angina. 2. Hypertension. 3. Hyperlipidemia. PLAN We will order a Cardiolite Lexiscan stress test and echocardiogram. We will also add Lipitor 80 mg by mouth daily to his daily regimen. Patient's symptoms are suggestive of unstable angina. Further recommendations to follow. Nurse Practitioner note has been reviewed, I agree with a documented findings and plan of care. Patient was seen and examined.
[2017-01-16] MEDS: HYDROcodone/APAP 7.5-325MG 1 EACH TAB PO PRN (17:30)
[2017-01-16] MEDS: TERAZOSIN 5 MG CAP PO SCH (21:34)
[2017-01-16] MEDS: MONTELUKAST 10 MG TAB PO SCH (21:34)
[2017-01-17] MEDS: NITROGLYCERIN OINT 1 INCH/GM PACKET TOPICAL SCH ×2 (03:46→12:27)
[2017-01-17] MEDS: LEVOTHYROXINE 75 MCG TAB PO SCH (06:57)
[2017-01-17] MEDS: CITALOPRAM HYDROBROMIDE 20 MG TAB PO SCH (06:57)
[2017-01-17] MEDS: FAMOTIDINE 20 MG TAB PO SCH ×2 (06:57→21:04)
[2017-01-17] MEDS: LOSARTAN 50 MG TAB PO SCH (06:57)
[2017-01-17] MEDS: ASPIRIN 325 MG TAB PO SCH (06:59)
[2017-01-17] MEDS: PANTOPRAZOLE 40 MG TABLET PO SCH (07:01)
[2017-01-17] MEDS: MULTIVITAMINS, THERA 1 EACH TAB PO SCH (09:39)
--- NOTE | 2017-01-17 11:47 | PN ---
DATE OF SERVICE: 01/16/2017 This 81-year-old gentleman admitted with chest pain, is being closely monitored at this time. The patient had Lexiscan stress test, which showed pharmacologic induced left ventricular myocardial ischemia of ludwin-infarct areas of the left ventricular. On exam, patient is alert and oriented x3. Pulse is 80, blood pressure 150/84, respirations 18, temperature 98 degrees, pulse ox 98% on 3-L. HEENT: Conjunctivae normal. NECK: No jugular venous distention. CARDIOVASCULAR: S1, S2 muffled. RESPIRATORY: Breath sounds diminished at the bases. A few scattered rhonchi. No crackles. ABDOMEN: Soft, nontender, no mass palpable. LEGS: No edema, no swelling. NERVOUS SYSTEM: No focal deficits. LABS: WBC 11, hemoglobin 12.5, and creatinine is 1.88. ASSESSMENT: 1. Chest pain, possibly coronary artery disease with positive stress test. 2. Rule out pericarditis. 3. Elevated d-dimer without any evidence of pulmonary embolism. 4. Chronic kidney disease, stage III. 5. Anemia, normocytic. 6. History of pulmonary embolism. 7. History of hypertension. 8. History of gastroesophageal reflux disease. 9. Adenoidectomy. 10. History of depression. RECOMMENDATIONS AND DISCUSSION: In this 81-year-old gentleman who presented with multiple complex medical issues, we well monitor the patient closely. Continue the current medications. Otherwise guarded prognosis. Abnormal stress test is a concern. We will continue to follow with Cardiology. Otherwise a 2-D echo was also done which showed ejection fraction of 50 to 60%. [facility]
[2017-01-17] MEDS ORDERED: LIDOCAINE 2% INJ 20 MG/ML (20 ML MDV) ONE (12:08)
[2017-01-17] MEDS ORDERED: fentaNYL (PF) 50 MCG/ML 2 ML AMP ONE (12:08)
[2017-01-17] MEDS ORDERED: MIDAZOLAM 2 MG/2 ML VIAL ONE (12:08)
[2017-01-17] MEDS ORDERED: diphenhydrAMINE 50 MG/ML 1 ML VIAL ONE (12:24)
[2017-01-17] MEDS ORDERED: methylPREDNISolone SOD SUCCI 125 MG/2 ML VIAL ONE (12:25)
[2017-01-17] MEDS ORDERED: SODIUM CHLORIDE 0.9% 1,000 ML IV ONE (12:26)
[2017-01-17] MEDS ORDERED: methylPREDNISolone SOD SUCCI 125 MG/2 ML VIAL IV ONE (12:47)
[2017-01-17] MEDS ORDERED: diphenhydrAMINE 50 MG/ML 1 ML VIAL IVP ONE (12:47)
[2017-01-17] MEDS ORDERED: MIDAZOLAM 2 MG/2 ML VIAL IVP ONE (12:47)
[2017-01-17] MEDS ORDERED: fentaNYL (PF) 50 MCG/ML 2 ML AMP IV ONE (12:47)
[2017-01-17] MEDS ORDERED: LIDOCAINE 2% INJ 20 MG/ML SQ ONE (12:53)
[2017-01-17] MEDS ORDERED: IODIXANOL 320 MG/ML 100 ML INTRAARTER ONE (13:13)
--- NOTE | 2017-01-17 13:38 | P.OP ---
Preoperative Diagnosis: Postoperative Diagnosis: Procedure(s) Performed: Implants: Indications for Procedure: Operative Findings: Description of Procedure: Cardiac catheterization report on Lebron Vila. History. Mr. Vila is a 81-year-old gentleman who was admitted to the hospital with the symptoms suggestive of unstable angina syndrome. EKG and the cardiac enzymes are normal. Stress test showed fixed defect in the inferior wall and reversible perfusion defect in the apical septum echocardiogram was normal as a history of chronic kidney disease U of the abnormal stress test patient was recommended to have a cardiac catheterization for definitive diagnosis. Procedure right groin was prepped and draped in the usual manner and the right femoral artery was entered using Seldinger technique #6-Turkmen sheath was placed in active coronary angiography was then performed in multiple projections and left ventricular pressures were obtained and tolerated the procedure well. Sheath was removed and the good hemostasis was achieved with the use of Angio-Seal. Hemodynamics left ventricle and diastolic pressure is 18-20 mmHg. No gradient is noted across the aortic valve. Coronary angiography. Main coronary artery shows a distal 50-60% stenosis. LAD is a good caliber blood vessels and is calcified. The LAD has a 90% stenosis. Circumflex coronary artery is of good caliber blood vessel. Mid circumflex coronary artery has about 50% stenosis. Right coronary artery is diffusely calcified and proximally has a 85-90% stenosis. Mid RCA has a diffuse atherosclerotic process noted. Impression study reveals a diffuse triple-vessel disease. Patient has a 50-60% left main stenosis. LAD has a 90% stenosis. Complex coronary artery has a 50% stenosis. Right coronary artery proximally as a 85-90% stenosis. His blood vessels are diffusely calcified. We will get a surgical opinion for coronary artery bypass surgery.
[2017-01-17] MEDS ORDERED: RX INFO: IV CONTRAST WAS GIVEN 1 EACH MISC MISCELLANE PRN (15:45)
[2017-01-17] MEDS ORDERED: MD COMMUNICATION TO PHARMACY 1 EACH MISC PO ONE (16:07)
[2017-01-17] MEDS: HYDROcodone/APAP 7.5-325MG 1 EACH TAB PO PRN (16:59)
[2017-01-17] MEDS: SODIUM CHLORIDE 0.9% 1,000 ML IV SCH (18:01)
[2017-01-17 18:21] LABS: ALT 37 U/L (21-72); AST 18 U/L (17-59); Alkaline Phosphatase 66 U/L (38-126); Anion Gap 10 mmol/L; Basophils % (A) 0 %; Blood Urea Nitrogen 32 mg/dL (9-20); CH 33.3; CHCM 34.2; Calcium 9.1 mg/dL (8.4-10.2); Carbon Dioxide 21 mmol/L (22-30); Chloride 108 mmol/L (98-107); Eosinophils % (A) 0 %; Glucose 161 mg/dL (74-99); HCT 37.5 % (39.0-53.0); HDW 2.63; HGB 12.7 gm/dL (13.0-17.5); Luc # (Auto) 0.02; Luc % (Auto) 0; Lymphocytes # (A) 0.4 k/uL (1.0-4.8); Lymphocytes % (A) 5 %; MCH 33.1 pg (25.0-35.0); MCHC 33.8 g/dL (31.0-37.0); Magnesium 1.8 mg/dL (1.6-2.3); Mean Platelet Volume 7.8; Monocytes # (A) 0.1 k/uL (0-1.0); Monocytes % (A) 1 %; Neutrophils # (A) 7.7 k/uL (1.3-7.7); Neutrophils % (A) 94 %; Non-African American GFR(MDRD) 35 (>60 ml/min/1.73 sqM); Potassium 4.3 mmol/L (3.5-5.1); RBC 3.82 m/uL (4.30-5.90); RDW 12.8 % (11.5-15.5); Sodium 139 mmol/L (137-145); Total Bilirubin 0.5 mg/dL (0.2-1.3); Total Protein 7.1 g/dL (6.3-8.2); WBC 8.2 k/uL (3.8-10.6); WBC (Perox) 8.52
[2017-01-17 18:25] LABS: INR 1.1 (<1.2); Prothrombin Time 10.9 sec (9.0-12.0)
[2017-01-17 18:52] LABS: Hepatitis B Surface Ag Index 0.06
[2017-01-17 18:58] LABS: Hepatitis B Core IgM Index 0.02
[2017-01-17 19:09] LABS: Hepatitis C Virus IgG Ab Negative (Negative); Hepatitis C Virus IgG Index 0.11
[2017-01-17] MEDS: METOPROLOL TARTRATE 25 MG TAB PO SCH (21:04)
[2017-01-17] MEDS: ATORVASTATIN 40 MG TAB PO SCH (21:04)
[2017-01-17] MEDS: TERAZOSIN 5 MG CAP PO SCH (21:04)
[2017-01-17] MEDS: MONTELUKAST 10 MG TAB PO SCH (21:04)
--- NOTE | 2017-01-17 22:25 | PN ---
DATE OF SERVICE: 01/17/17 This 81 -year-old gentleman admitted with chest pain, had abnormal stress test. No fever. No cough. On exam, alert and oriented times three. Pulse 85, Blood pressure 114/80. Respiratory rate 16. Temperature 98.2 degrees. Pulse ox 98% on room air. HEENT: Conjunctivae normal. NECK: No JVD. CARDIOVASCULAR: S1, S2 muffled. RESPIRATORY: Breath sounds diminished at the bases. No rhonchi and no crackles. Abdomen is soft. Nontender. LEGS: No edema. No swelling. Nervous system: No focal deficits. LABS: WBC 11, otherwise creatinine 1.8. ASSESSMENT: 1. Chest pain, possible coronary artery disease, positive stress test. 2. Rule out pericarditis. 3. Elevated D. dimer without any evidence of pulmonary embolism. 4. Chronic renal disease Stage III. RECOMMENDATIONS AND DISCUSSION: Continue the current medications. Continue symptomatic treatment. Monitor creatinine closely. Cardiac catheterization by cardiology. Guarded prognosis. Further recommendations to follow. MEENAKSHID
[2017-01-18 03:36] LABS: Appearance,Urine Clear (Clear); Bilirubin,Urine Negative (Negative); Glucose,Urine (UA) Negative (Negative); Ketones,Urine Negative (Negative); Leukocyte Esterase,Urine Negative (Negative); Nitrite,Urine Negative (Negative); Particle Count 379; Protein,Urine Negative (Negative); RBC,Urine 1 /hpf (0-5); Specific Gravity,Urine 1.019 (1.001-1.035); UA Billing (MACRO vs. MICRO) CHEM; Urobilinogen,Urine <2.0 mg/dL (<2.0); WBC,Urine <1 /hpf (0-5)
[2017-01-18] MEDS: SODIUM CHLORIDE 0.9% 1,000 ML IV SCH (05:54)
[2017-01-18] MEDS: LEVOTHYROXINE 75 MCG TAB PO SCH (06:06)
[2017-01-18 06:33] LABS: Calcium 9.1 mg/dL (8.4-10.2); Potassium 4.7 mmol/L (3.5-5.1)
--- NOTE | 2017-01-18 08:16 | US ---
EXAMINATION TYPE: US carotid duplex BILAT DATE OF EXAM: 01/18/2017 COMPARISON: US CLINICAL HISTORY: Ankle Brachial Index ([place]) . Pre Op CABG EXAM MEASUREMENTS: RIGHT: Peak Systolic Velocity (PSV) cm/sec ----- Right CCA: 59.7 ----- Right ICA: 70.2 ----- Right ECA: 71.8 ICA/CCA ratio: 1.2 RIGHT: End Diastole cm/sec ----- Right CCA: 10.9 ----- Right ICA: 30.1 ----- Right ECA: 11.7 LEFT: Peak Systolic Velocity (PSV) cm/sec ----- Left CCA: 64.3 ----- Left ICA: 70.9 ----- Left ECA: 86.0 ICA/CCA ratio: 1.1 LEFT: End Diastole cm/sec ----- Left CCA: 19.3 ----- Left ICA: 23.3 ----- Left ECA: 15.7 VERTEBRALS (direction of flow): Right Vertebral: Antegrade Left Vertebral: Antegrade No elevated velocities, no significant stenosis IMPRESSION: No evidence of hemodynamically significant stenosis without either carotid system.
[2017-01-18] MEDS: CITALOPRAM HYDROBROMIDE 20 MG TAB PO SCH (09:27)
[2017-01-18] MEDS: ASPIRIN 325 MG TAB PO SCH (09:27)
[2017-01-18] MEDS: FAMOTIDINE 20 MG TAB PO SCH (09:27)
[2017-01-18] MEDS: ISOSORBIDE MONONITRATE ER 30 MG TAB.ER.24H PO SCH (09:27)
[2017-01-18] MEDS: METOPROLOL TARTRATE 25 MG TAB PO SCH ×2 (09:27→21:13)
[2017-01-18] MEDS: LOSARTAN 50 MG TAB PO SCH (09:27)
--- NOTE | 2017-01-18 11:28 | P.GSCN ---
History of Present Illness Consult date: 01/17/17 Reason for Consult: Severe triple vessel coronary artery disease including left main stenosis, surgical recommendations. Requesting physician: Pamela Finn History of present illness: This 81-year-old gentleman presented to the emergency department with complaints of chest pain while in bed. Apparently he woke up with the feeling of heaviness over the left side is chest which progressed to tightness. He denies that he had any shortness of breath, nausea, radiation of the chest pain. He also denied any lightheadedness, dizziness, syncope. In the emergency room he had a 12-lead EKG which demonstrated normal sinus rhythm with no ischemic changes. He had a chest x-ray which demonstrated no acute process. He had a CTA of the chest which did not show any evidence of pulmonary embolism. He was admitted for chest pain workup with a consult for cardiology associates. He had an echocardiogram which demonstrated an ejection fraction between 55-60%, trace tricuspid regurgitation, physiologic pulmonic regurgitation, and mild concentric left ventricular hypertrophy. In addition he had a Lexiscan Cardiolite stress test which demonstrated decreased uptake along the inferior wall as well as decreased uptake along the anterior septal and apical regions on the stress images with normal wall motion and an ejection fraction of 56%. Subsequently he underwent a heart catheterization by Dr. Finn which demonstrated left main distal stenosis 50-60%, LAD with 90% stenosis, mid circumflex with 50% stenosis, and right coronary artery with proximal 85-90% stenosis. Due to these findings, Dr. Munoz from cardiothoracic surgery was consulted for surgical recommendations. Review of Systems 14 point review of systems was completed and was negative except as noted. 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 History of Any Multi-Drug Resistant Organisms: None Reported Past Surgical History: Adenoidectomy, Back Surgery, Orthopedic Surgery, Tonsillectomy Additional Past Surgical History / Comment(s): left shoulder hemiarthroplasty then 2nd sx-total replacment, x3 back sx, rt knee replacement, rt shoulder rotator cuff sx, lt heel spur, egd/colonoscopy, rt inguinal hernia repair, lt ear drum sx"failed", CATARACTS. Past Anesthesia/Blood Transfusion Reactions: Postoperative Nausea & Vomiting ( PONV) Past Psychological History: Depression Smoking Status: Former smoker Past Alcohol Use History: None Reported Past Drug Use History: None Reported - Past Family History Father Family Medical History: Asthma Mother Family Medical History: Coronary Artery Disease (CAD) Additional Family Medical History / Comment(s): PACEMAKER Brother(s) Family Medical History: Coronary Artery Disease (CAD) Additional Family Medical History / Comment(s): Brother had recent double coronary artery bypass graft surgery. Medications and Allergies Home Medications Medication Instructions Recorded Confirmed Type Citalopram Hydrobromide 40 mg PO DAILY 07/15/14 01/15/17 History [Citalopram HBr] Levothyroxine Sodium [Synthroid] 150 mcg PO DAILY 07/15/14 01/15/17 History Losartan Potassium 50 mg PO DAILY 07/15/14 01/15/17 History Aspirin EC [Ecotrin Low Dose] 81 mg PO DAILY 05/08/16 01/15/17 History HYDROcodone/APAP 7.5-325MG [[place] 1 tab PO TID 05/08/16 01/15/17 History 7.5-325] Multivitamins, Thera [Multivitamin 1 tab PO DAILY 05/08/16 01/15/17 History (formulary)] Terazosin [Hytrin] 5 mg PO HS 05/08/16 01/15/17 History Montelukast Sodium [Singulair] 10 mg PO HS 01/15/17 01/15/17 History Ranitidine HCl 300 mg PO BID 01/15/17 01/15/17 History Allergies Allergy/AdvReac Type Severity Reaction Status Date / Time iodine AdvReac Anaphylaxis Verified 01/15/17 14:35 Penicillins AdvReac Rash/Hives Verified 01/15/17 14:35 Surgical - Exam Vital Signs Temp Pulse Resp BP Pulse Ox 98.6 F 98 18 166/92 100 01/15/17 13:01 01/15/17 13:01 01/15/17 13:01 01/15/17 13:01 01/15/17 13:01 - General well developed, well nourished, no distress, no pain - Eyes normal ocular movement - ENT decreased hearing - Neck no masses, no bruits, trachea midline, no lymphadectomy, no venous distension - Respiratory Respirations even, nonlabored. Currently on room air with oxygen saturation 93- 95%. normal expansion, normal respiratory effort, clear to auscultation - Cardiovascular Normal sinus rhythm on telemetry. Palpable radial/DP/PT pulses bilaterally. Bilateral lower extremities without significant varicosities. No edema present. Rhythm: regular Heart Sounds: normal: S1, S2 - Abdomen Abdomen: soft, non tender, bowel sounds - Genitourinary Deferred - Rectum Deferred - Integumentary no rash, no growths - Neurologic normal coordination, normal sensation - Musculoskeletal normal gait, normal posture - Psychiatric oriented to time, oriented to person, oriented to place, speech is normal, memory intact Results - Labs 01/17/17 18:00 01/18/17 05:49 Abnormal Lab Results - Last 24 Hours (Table) 01/17/17 01/17/17 01/18/17 Range/Units 18:00 18:00 05:49 RBC 3.82 L (4.30-5.90) m/uL Hgb 12.7 L (13.0-17.5) gm/dL Hct 37.5 L (39.0-53.0) % Lymphocytes # 0.4 L (1.0-4.8) k/uL Chloride 108 H 108 H (98-107) mmol/L Carbon Dioxide 21 L (22-30) mmol/L BUN 32 H 35 H (9-20) mg/dL Creatinine 1.87 H 1.79 H (0.66-1.25) mg/dL Glucose 161 H 115 H (74-99) mg/dL Microbiology - Last 24 Hours (Table) 01/17/17 18:55 Urine Culture - Preliminary Urine,Voided Diabetes panel 01/17/17 01/18/17 Range/Units 18:00 05:49 Sodium 139 140 (137-145) mmol/L Potassium 4.3 4.7 (3.5-5.1) mmol/L Chloride 108 H 108 H (98-107) mmol/L Carbon Dioxide 21 L 23 (22-30) mmol/L BUN 32 H 35 H (9-20) mg/dL Creatinine 1.87 H 1.79 H (0.66-1.25) mg/dL Glucose 161 H 115 H (74-99) mg/dL Calcium 9.1 9.1 (8.4-10.2) mg/dL AST 18 (17-59) U/L ALT 37 (21-72) U/L Alkaline Phosphatase 66 (38-126) U/L Total Protein 7.1 (6.3-8.2) g/dL Albumin 4.0 (3.5-5.0) g/dL Thyroid panel 01/17/17 Range/Units 18:00 TSH 0.524 (0.465-4.680) mIU/L Calcium panel 01/17/17 01/18/17 Range/Units 18:00 05:49 Calcium 9.1 9.1 (8.4-10.2) mg/dL Albumin 4.0 (3.5-5.0) g/dL Pituitary panel 01/17/17 01/18/17 Range/Units 18:00 05:49 Sodium 139 140 (137-145) mmol/L Potassium 4.3 4.7 (3.5-5.1) mmol/L Chloride 108 H 108 H (98-107) mmol/L Carbon Dioxide 21 L 23 (22-30) mmol/L BUN 32 H 35 H (9-20) mg/dL Creatinine 1.87 H 1.79 H (0.66-1.25) mg/dL Glucose 161 H 115 H (74-99) mg/dL Calcium 9.1 9.1 (8.4-10.2) mg/dL TSH 0.524 (0.465-4.680) mIU/L Adrenal panel 01/17/17 01/18/17 Range/Units 18:00 05:49 Sodium 139 140 (137-145) mmol/L Potassium 4.3 4.7 (3.5-5.1) mmol/L Chloride 108 H 108 H (98-107) mmol/L Carbon Dioxide 21 L 23 (22-30) mmol/L BUN 32 H 35 H (9-20) mg/dL Creatinine 1.87 H 1.79 H (0.66-1.25) mg/dL Glucose 161 H 115 H (74-99) mg/dL Calcium 9.1 9.1 (8.4-10.2) mg/dL Total Bilirubin 0.5 (0.2-1.3) mg/dL AST 18 (17-59) U/L ALT 37 (21-72) U/L Alkaline Phosphatase 66 (38-126) U/L Total Protein 7.1 (6.3-8.2) g/dL Albumin 4.0 (3.5-5.0) g/dL - Imaging Chest x-ray: report reviewed, image reviewed CT scan - chest: report reviewed, image reviewed EKG: image reviewed Additional studies: Carotid Doppler, echocardiogram, cardiac catheterization reviewed. Assessment and Plan (1) Chest pain Status: Acute (2) Hypertension Status: Acute (3) History of pulmonary embolism Status: Acute (4) History of cardiac arrest Status: Acute (5) Hypothyroid Status: Acute (6) Chronic kidney disease Status: Acute (7) Tobacco dependence in remission Status: Acute (8) Family history of coronary artery disease Status: Acute (9) Chronic low back pain Status: Acute (10) History of syncope Status: Acute (11) Obstructive sleep apnea on CPAP Status: Acute Plan: 1. Continue aspirin, Lipitor, Cozaar, Lopressor. 2. Preoperative testing completed and reviewed. 3. Preoperative teaching initiated, will reinforce. 4. Risks and benefits were explained in detail to the patient and his . They are agreeable to surgery. Anticipate coronary artery bypass graft surgery on 01/22/2017. 5. Supportive care. Medical management per primary care service. Thank you Dr. Finn for this consult. We look forward to working to the care of your patient. Time with Patient: Greater than 30
[2017-01-18 12:23] LABS: Hemoglobin A1C 5.3 % (4.2-6.1)
--- NOTE | 2017-01-18 12:49 | P.PN ---
Subjective Principal diagnosis: CAD This is a 81-year-old gentleman with history of hypertension, hypothyroidism, sleep apnea, prior PE, who presented to the hospital with symptoms of chest discomfort. He was taken to the cardiac catheterization lab by Dr. VC Finn, and was found to have significant triple-vessel coronary artery disease. He was seen in consultation by cardiothoracic surgery and is scheduled to undergo coronary artery bypass grafting surgery tomorrow. Patient was seen and examined this morning, denies any chest pain or difficulty in breathing. He has been up ambulating without any difficulty. BUN 35, creatinine 1.7 today. Objective - Vital Signs Vital signs: Vital Signs Temp 98.4 F 01/18/17 08:00 Pulse 77 01/18/17 08:00 Resp 16 01/18/17 08:00 BP 169/92 01/18/17 08:00 Pulse Ox 93 L 01/18/17 04:00 Intake & Output 01/17/17 01/18/17 01/18/17 18:59 06:59 18:59 Intake Total 400 240 Output Total 300 600 Balance 100 -600 240 Weight 94.9 kg Intake: IV 200 Sodium Chloride 0.9% 1, 100 000 ml As IV .[facility] Rx#:[id number] Oral 200 240 Output: Urine 300 600 Other: Voiding Method Urinal Urinal Urinal # Voids 1 - Exam PHYSICAL EXAMINATION: HEENT: Head is atraumatic, normocephalic. Pupils equal, round. Neck is supple. There is no elevated jugular venous pressure. HEART EXAMINATION: Heart S1, S2 normal. No murmur or gallop heard. CHEST EXAMINATION: Lungs are clear to auscultation and precussion. No chest wall tenderness is noted on palpation or with deep breathing. ABDOMEN: Soft, nontender. Bowel sounds are heard. No organomegaly noted. Right groin soft, no evidence of any hematoma. EXTREMITIES: 2+ peripheral pulses with no evidence of peripheral edema and no calf tenderness noted. NEUROLOGIC patient is awake, alert and oriented -3. . - Labs CBC & Chem 7: 01/17/17 18:00 01/18/17 05:49 Labs: Abnormal Lab Results - Last 24 Hours (Table) 01/17/17 01/17/17 01/18/17 Range/Units 18:00 18:00 05:49 RBC 3.82 L (4.30-5.90) m/uL Hgb 12.7 L (13.0-17.5) gm/dL Hct 37.5 L (39.0-53.0) % Lymphocytes # 0.4 L (1.0-4.8) k/uL Chloride 108 H 108 H (98-107) mmol/L Carbon Dioxide 21 L (22-30) mmol/L BUN 32 H 35 H (9-20) mg/dL Creatinine 1.87 H 1.79 H (0.66-1.25) mg/dL Glucose 161 H 115 H (74-99) mg/dL Microbiology - Last 24 Hours (Table) 01/18/17 06:00 Nasal Screen MRSA/MSSA (DEVIN) - Preliminary Nasal Swab 01/17/17 18:55 Urine Culture - Preliminary Urine,Voided Assessment and Plan (1) Hyperlipemia Status: Acute (2) S/P cardiac catheterization Status: Acute (3) CAD (coronary artery disease) Status: Acute (4) Chest pain Status: Acute (5) Chronic kidney disease Status: Acute (6) Family history of coronary artery disease Status: Acute (7) History of pulmonary embolism Status: Acute (8) Hypertension Status: Acute (9) Hypothyroid Status: Acute (10) Obstructive sleep apnea on CPAP Status: Acute Plan: From cardiology's perspective, we will continue the patient on his current medications. He will be scheduled to undergo coronary artery bypass grafting surgery on Sunday. We will continue to follow. DNP note has been reviewed, I agree with a documented findings and plan of care. Patient was seen and examined.
[2017-01-18] MEDS: MULTIVITAMINS, THERA 1 EACH TAB PO SCH (12:58)
[2017-01-18] MEDS: ATORVASTATIN 40 MG TAB PO SCH (21:13)
[2017-01-18] MEDS: MONTELUKAST 10 MG TAB PO SCH (21:13)
[2017-01-18] MEDS: TERAZOSIN 5 MG CAP PO SCH (21:13)
[2017-01-19] MEDS: MUPIROCIN 2% OINT 22 GM TUBE NASAL SCH ×3 (06:15→22:31)
[2017-01-19] MEDS: SODIUM CHLORIDE 0.9% 1,000 ML IV SCH ×4 (06:17→15:25)
[2017-01-19] MEDS: LEVOTHYROXINE 75 MCG TAB PO SCH (06:24)
--- NOTE | 2017-01-19 07:42 | PN ---
DATE OF SERVICE: 01/18/2017 This is a 81-year-old gentleman admitted with chest pain, had abnormal stress test and 3-vessel coronary artery disease. The patient is slated to have CABG. No chest pain or palpitation, no fever. On exam, alert and oriented x3. Pulse 61, blood pressure 122/65, respirations 18 , temperature is normal, pulse ox is 98% on room air. HEENT: Conjunctivae normal. NECK: No jugular venous distension. CARDIOVASCULAR SYSTEM: S1, S2. RESPIRATORY: Breath sounds diminished at the bases. No rhonchi, no crackles. ABDOMEN: Soft, nontender. LEGS: No edema, no swelling. NERVOUS SYSTEM: No focal deficits. LABS: WBC is 8.8, hemoglobin is 12.7 and creatinine is 1.79. ASSESSMENT: 1. Coronary artery disease, status post cardiac catheterization, 3-vessel coronary artery disease. 2. Chronic kidney disease, stage III. 3. Anemia. 4. Elevated d-dimer without any evidence of pulmonary embolism. RECOMMENDATION: Recommend to continue with the current medication. Continue with the symptomatic treatment. Otherwise, at this time I would recommend continue with the patient closely with Cardiothoracic Surgery. Otherwise, I would also recommend consultation with Dr. Chang because of the chronic kidney disease, also. Otherwise, will follow the patient closely with you and repeat labs, monitor for ( ) closely. Prognosis guarded. Discussed with patient and family who understand and further recommendations to follow. LATOSHA
[2017-01-19] MEDS: ASPIRIN 325 MG TAB PO SCH (08:28)
[2017-01-19] MEDS: ISOSORBIDE MONONITRATE ER 30 MG TAB.ER.24H PO SCH (08:28)
[2017-01-19] MEDS: LOSARTAN 50 MG TAB PO SCH (08:28)
[2017-01-19] MEDS: METOPROLOL TARTRATE 25 MG TAB PO SCH ×2 (08:28→22:30)
[2017-01-19] MEDS: CITALOPRAM HYDROBROMIDE 20 MG TAB PO SCH (08:28)
[2017-01-19] MEDS: FAMOTIDINE 20 MG TAB PO SCH (08:28)
[2017-01-19 10:22] LABS: CH 32.9; CHCM 34.2; HCT 37.3 % (39.0-53.0); HDW 2.67; HGB 12.8 gm/dL (13.0-17.5); MCH 33.3 pg (25.0-35.0); MCHC 34.3 g/dL (31.0-37.0); MCV 96.8 fL (80.0-100.0); Mean Platelet Volume 7.4; RBC 3.86 m/uL (4.30-5.90); RDW 12.5 % (11.5-15.5); WBC 7.8 k/uL (3.8-10.6)
[2017-01-19 10:29] LABS: Potassium 4.4 mmol/L (3.5-5.1)
--- NOTE | 2017-01-19 13:49 | CONS ---
REASON FOR CONSULTATION: Renal failure. HISTORY OF PRESENT ILLNESS: The patient is a 81-year-old white male who was admitted to the hospital on 01/15/2017 with complaints of chest pain. The patients cardiac enzymes were not elevated. The patient had a stress test which turned out to be positive and he is scheduled for coronary artery bypass surgery on 01/22/2017. The cardiac catheterization was done on 01/17/17. The patient was found to have 90% stenosis of LAD. Circumflex was about 50% stenosis and right coronary artery was diffusely calcified with 85 to 90% stenosis. The patient also had chest CTA on 01/15/2017 at the time of admission to rule out underlying PE. This was negative. Serum creatinine was at 1.8 at the time of admission. It is at 2.07 today. Previously at noon, in the computer it showed reading of 1.[address] back to 2013. Currently, the patient is not on IV fluids. He did receive IV hydration at the time of the cardiac catheterization. The patient denies any difficulty in passing urine. His blood pressures have been around 120s for systolic blood pressure. The patient is on Cozaar at 50 mg daily. He is voiding in a urinal. PAST MEDICAL HISTORY: CKD serum creatinine has been at 1.[address] back to 2013, NKF stage IIIB. Etiology is nephrosclerosis with urinalysis completely benign with no evidence of blood or protein in the urine. Hypertension. Previous history of PE. Obstructive sleep apnea, hypothyroidism , history of cardiac arrest, hearing loss. Past surgical history: Appendectomy, back surgery, orthopedic surgery, tonsillectomy, left shoulder hemiarthroplasty, right knee arthroplasty, surgery for right and left heel spur, EGD, right inguinal hernia repair, cataract surgery. SOCIAL HISTORY: The patient is an ex-smoker. No history of drug abuse or alcohol use. ALLERGIES: PENICILLIN AND IODINE WHICH CAUSED RASH AND HIVES. REVIEW OF SYSTEMS: As per HPI. Other systems negative. Medications at home prior to admission include: 1. Citalopram. 2. Synthroid. 3. Losartan. 4. Aspirin. 5. Cleghorn. 6. Hytrin. 7. Singulair. 8. Ranitidine. On examination, the patient is comfortable, awake, not in any acute distress. Blood pressure is 122/65, heart rate 60 per minute, he is afebrile. Examination of the heart S1, S2. Examination of the lungs bilateral breath sounds are heard. Abdomen soft, nontender. Examination of the lower extremities shows no evidence of edema. EDITOR PUBLICATIONS: Grossly intact. Moves all four extremities. Labs show from today sodium 141, potassium 4.4, chloride 105, BUN 37, and serum creatinine 2.07, hemoglobin 12.8. Urine is completely benign with no evidence of blood or protein. ASSESSMENT: 1. Acute kidney injury most likely acute tubular necrosis, currently nonoliguric. The patient has had IV contrast twice during this admission. Initially he had TPA on 01/15/2017 and then had cardiac catheterization on 01/17. He is currently nonoliguric. The patient is maintained on Cozaar. His creatinine did go up from 1.7 to 2.0. His blood pressure is slightly on the lower side. I will decrease Cozaar and if the renal function continues worsen, we will need to hold the Cozaar for now. 2. Chronic kidney disease, NKF Stage IIIB with renal function at about Stage III with GFR [address] back to 2013 secondary to nephrosclerosis. We will check ultrasound of the kidneys if not done yet. 3. Unstable angina with significant coronary artery disease, scheduled for coronary artery bypass surgery on 01/22/2017. 4. Hypertension, blood pressure is slightly on the lower side. Decrease Cozaar. PLAN: Decrease Cozaar. Check ultrasound of the kidneys. Repeat labs in the a.m. We may need to hold off on Cozaar if renal function continues to worsen. Thank you for this consultation. I will continue to follow the patient with you during this hospitalization. LATOSHA
--- NOTE | 2017-01-19 14:11 | P.CNPUL ---
History of Present Illness Consult date: 01/19/17 Requesting physician: Cristo Munoz Reason for consult: other Chief complaint: Chest pain History of present illness: This is a very pleasant 81-year-old gentleman follows with Dr. Antonio as his primary care physician. He has a history of esophageal reflux disease, hypertension, pulmonary embolism causing cardiac arrest in 1985, obstructive sleep apnea, hypothyroidism, arthritis, chronic back pain, multiple orthopedic surgeries, depression. He has a remote history of smoking for approximate 10 years 1-2 packs per day but quit 43 years ago. He presented here on 01/15/2017 with complaints of left-sided chest pain. He had been seen and followed by cardiology. He had undergone a stress testing which revealed some evidence of ischemia with subsequent cardiac catheterization revealing diffuse triple- vessel disease including a 50-60% left main stenosis, 90% LAD stenosis, 50% circumflex and 85-90% right coronary artery stenosis. Echocardiogram revealed preserved left ventricular systolic function with estimated ejection fraction 55 -60%. CT angiogram ruled out pulmonary embolism. The lungs were clear of consolidation. No pleural effusion. He is seen today in consultation in anticipation of coronary artery revascularization on 01/22/2017. He is awake and alert in no acute distress. He has been up ambulating in the hallway without any significant chest discomfort, no palpitations, lightheadedness or dizziness. No worsening shortness of breath. No cough or congestion. No leukocytosis. Hemoglobin 12.8. Creatinine 2.07. He is maintaining good O2 saturations in the upper 90s on room air. He is afebrile. Hemodynamically stable. Review of Systems 14 point review of system was conducted. All negative other than as mentioned the HPI. 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 History of Any Multi-Drug Resistant Organisms: None Reported Past Surgical History: Adenoidectomy, Back Surgery, Orthopedic Surgery, Tonsillectomy Additional Past Surgical History / Comment(s): left shoulder hemiarthroplasty then 2nd sx-total replacment, x3 back sx, rt knee replacement, rt shoulder rotator cuff sx, lt heel spur, egd/colonoscopy, rt inguinal hernia repair, lt ear drum sx"failed", CATARACTS. Past Anesthesia/Blood Transfusion Reactions: Postoperative Nausea & Vomiting ( PONV) Past Psychological History: Depression Smoking Status: Former smoker Past Alcohol Use History: None Reported Past Drug Use History: None Reported - Past Family History Father Family Medical History: Asthma Mother Family Medical History: Coronary Artery Disease (CAD) Additional Family Medical History / Comment(s): PACEMAKER Brother(s) Family Medical History: Coronary Artery Disease (CAD) Additional Family Medical History / Comment(s): Brother had recent double coronary artery bypass graft surgery. Medications and Allergies Home Medications Medication Instructions Recorded Confirmed Type Citalopram Hydrobromide 40 mg PO DAILY 07/15/14 01/15/17 History [Citalopram HBr] Levothyroxine Sodium [Synthroid] 150 mcg PO DAILY 07/15/14 01/15/17 History Losartan Potassium 50 mg PO DAILY 07/15/14 01/15/17 History Aspirin EC [Ecotrin Low Dose] 81 mg PO DAILY 05/08/16 01/15/17 History HYDROcodone/APAP 7.5-325MG [[place] 1 tab PO TID 05/08/16 01/15/17 History 7.5-325] Multivitamins, Thera [Multivitamin 1 tab PO DAILY 05/08/16 01/15/17 History (formulary)] Terazosin [Hytrin] 5 mg PO HS 05/08/16 01/15/17 History Montelukast Sodium [Singulair] 10 mg PO HS 01/15/17 01/15/17 History Ranitidine HCl 300 mg PO BID 01/15/17 01/15/17 History Allergies Allergy/AdvReac Type Severity Reaction Status Date / Time iodine AdvReac Anaphylaxis Verified 01/15/17 14:35 Penicillins AdvReac Rash/Hives Verified 01/15/17 14:35 Physical Exam Vitals: Vital Signs Temp Pulse Resp BP Pulse Ox 01/19/17 12:00 63 16 117/75 98 01/19/17 08:00 98.0 F 66 18 154/77 96 01/19/17 04:00 96.7 F L 60 18 122/65 96 01/19/17 03:00 96.7 F L 60 18 122/65 96 01/19/17 00:00 97.2 F L 62 18 129/75 97 01/18/17 20:00 98.5 F 61 18 126/75 95 01/18/17 16:00 63 18 130/69 94 L Intake and Output 01/18/17 01/19/17 01/19/17 22:59 06:59 14:59 Intake Total 480 320 Balance 480 320 Intake: Oral 480 320 Other: Voiding Method Urinal Urinal Weight 94.6 kg 94.6 kg Patient Weight 01/20/17 06:59 Weight 94.6 kg GENERAL EXAM: Alert, active, comfortable in no apparent distress. HEAD: Normocephalic. EYES: Normal reaction of pupils, equal size. NOSE: Clear with pink turbinates. THROAT: No erythema or exudates. NECK: No masses, no JVD. CHEST: No chest wall deformity. LUNGS: Equal air entry with no crackles, wheeze, rhonchi or dullness. CVS: S1 and S2 normal with no audible murmurs, regular rhythm. ABDOMEN: No hepatosplenomegaly, normal bowel sounds, no guarding or rigidity. SPINE: No scoliosis or deformity SKIN: No rashes CENTRAL NERVOUS SYSTEM: No focal deficits, tone is normal in all 4 extremities. Extremities: There is no peripheral edema. No clubbing, no cyanosis. Peripheral pulses are intact. Results - Laboratory Findings CBC and BMP: 01/19/17 09:55 01/19/17 09:55 PT/INR, D-dimer PT 10.9 sec (9.0-12.0) 01/17/17 18:00 INR 1.1 (<1.2) 01/17/17 18:00 D-Dimer 4.20 mg/L FEU (<0.60) H 01/15/17 13:40 Abnormal lab findings: Abnormal Labs 01/15/17 01/15/17 01/15/17 13:40 13:40 13:40 WBC RBC 3.77 L Hgb 12.4 L Hct 36.3 L Neutrophils # Lymphocytes # 0.9 L ESR D-Dimer Chloride Carbon Dioxide BUN 25 H Creatinine 1.80 H Glucose 129 H CK-MB (CK-2) 2.8 H* LDL Cholesterol, Calc HDL Cholesterol 01/15/17 01/15/17 01/16/17 13:40 13:40 06:00 WBC RBC Hgb Hct Neutrophils # Lymphocytes # ESR 25 H D-Dimer 4.20 H Chloride Carbon Dioxide 21 L BUN 25 H Creatinine 1.88 H Glucose 139 H CK-MB (CK-2) LDL Cholesterol, Calc 105 H HDL Cholesterol 36 L 01/16/17 01/17/17 01/17/17 06:00 18:00 18:00 WBC 11.0 H RBC 3.84 L 3.82 L Hgb 12.5 L 12.7 L Hct 37.4 L 37.5 L Neutrophils # 10.1 H Lymphocytes # 0.7 L 0.4 L ESR D-Dimer Chloride 108 H Carbon Dioxide 21 L BUN 32 H Creatinine 1.87 H Glucose 161 H CK-MB (CK-2) LDL Cholesterol, Calc HDL Cholesterol 01/18/17 01/19/17 01/19/17 05:49 09:55 09:55 WBC RBC 3.86 L Hgb 12.8 L Hct 37.3 L Neutrophils # Lymphocytes # ESR D-Dimer Chloride 108 H Carbon Dioxide BUN 35 H 37 H Creatinine 1.79 H 2.07 H Glucose 115 H CK-MB (CK-2) LDL Cholesterol, Calc HDL Cholesterol - Diagnostic Findings Chest x-ray: image reviewed Assessment and Plan Plan: Impression: #1 Chest pain in a patient found to have diffuse triple-vessel disease with preserved left ventricular systolic function. The plan is for coronary revascularization on 01/22/2017. #2 Remote history of chronic tobacco dependence. #3 Hypertension. #4 Hyperlipidemia. #5 History of cardiac arrest secondary to pulmonary embolism back in 1985. #6 Hypothyroidism. #7 Chronic back pain. #8 Obstructive sleep apnea. Plan: The patient was seen and evaluated by Dr. Monae. His chest x-ray and CT angiograms were reviewed. There is no immediate concerns regarding postoperative pulmonary issues. He is educated regarding the use of the incentive spirometer and cough and deep breathing exercises. He'll be on bronchodilators. We will follow him closely in the postoperative period. Time with Patient: Greater than 30
--- NOTE | 2017-01-19 14:32 | P.PN ---
Subjective Principal diagnosis: Severe triple-vessel coronary artery disease, including left main stenosis, history of pulmonary embolus, sleep apnea with CPAP, syncope, thyroid disorder, history of cyst on his kidneys with chronic kidney disease, stage III, hypertension and hyperlipidemia. He is scheduled for coronary artery bypass grafting surgery on Sunday, 2016 which is to be performed by Dr. Cristo Munoz. He is sitting up to the edge of his bed, eating his breakfast. He denies complaints of pain, denies complaints of chest pain and reports that his last episode of chest pain was Sunday evening. No acute distress. Objective - Vital Signs Vital signs: Vital Signs Temp 98.0 F 01/19/17 08:00 Pulse 66 01/19/17 08:00 Resp 18 01/19/17 08:00 BP 154/77 01/19/17 08:00 Pulse Ox 96 01/19/17 08:00 Intake & Output 01/18/17 01/19/17 01/19/17 18:59 06:59 18:59 Intake Total 960 320 Balance 960 320 Weight 94.6 kg 94.6 kg Intake: Oral 960 320 Other: Voiding Method Urinal Urinal Urinal - Constitutional General appearance: Present: cooperative, no acute distress - EENT Eyes: Present: PERRLA, normal appearance ENT: Present: hearing grossly normal - Neck Details: No JVD. - Respiratory Details: Essentially clear throughout, diminished to his bilateral bases. Respirations are symmetrical and unlabored. Oxygen saturations are 98% on room air. He is achieving 3750 mL on his incentive spirometry. His FEV1 predicted is 86%. - Cardiovascular Details: Regular rhythm and rate, normal S1-S2. Negative for S3, gallop or murmur. Remote telemetry showing normal sinus rhythm heart rate 68. No edema present. Knee-high SUZY hose and sequential compression devices in place to his bilateral lower extremities. - Gastrointestinal Gastrointestinal Comment(s): Abdomen is soft, nontender and nondistended. Positive bowel sounds to all 4 abdominal quadrants. - Genitourinary Genitourinary Comment(s): Adequate urine output. Clear yellow urine. - Integumentary Integumentary: Present: normal, normal turgor - Neurologic Neurologic: Present: CNII-XII intact - Musculoskeletal Musculoskeletal: Present: gait normal, strength equal bilaterally - Psychiatric Psychiatric: Present: A&O x's 3, appropriate affect, intact judgment & insight - Allied health notes Allied health notes reviewed: nursing - Labs CBC & Chem 7: 01/19/17 09:55 01/19/17 09:55 Labs: Abnormal Lab Results - Last 24 Hours (Table) 01/19/17 01/19/17 Range/Units 09:55 09:55 RBC 3.86 L (4.30-5.90) m/uL Hgb 12.8 L (13.0-17.5) gm/dL Hct 37.3 L (39.0-53.0) % BUN 37 H (9-20) mg/dL Creatinine 2.07 H (0.66-1.25) mg/dL Microbiology - Last 24 Hours (Table) 01/18/17 06:00 Nasal Screen MRSA/MSSA (DEVIN) - Final Nasal Swab 01/17/17 18:55 Urine Culture - Final Urine,Voided - Imaging and Cardiology Chest x-ray: report reviewed, image reviewed Carotid Doppler report reviewed. Vein mapping report reviewed. Bedside FEV1 report reviewed. 2-D echo report reviewed, trace tricuspid regurgitation, mild pulmonic regurgitation, overall left ventricular systolic function is normal with an ejection fraction between 55 and 60%. 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 He is scheduled for an on pump coronary artery bypass grafting surgery with placement of his left internal mammary artery, endoscopic vein harvesting, intraoperative epi-aortic scanning, transesophageal echocardiogram and graft flow measurement using the [employer] ([employer]IE)stim system. 2. 5 m walk test completed by cardiac rehab Time1 :4.78 ,Time 2: 3.78, Time 3: 4.16. 3. STS risk score discussed with the patient by Dr. Munoz. 4. Preoperative teaching reinforced with patient. 5. Supportive care, medical management per primary care services Time with Patient: Greater than 30
--- NOTE | 2017-01-19 15:20 | P.PN ---
Subjective This is a 81-year-old gentleman with history of hypertension, hypothyroidism, sleep apnea, prior PE, who presented to the hospital with symptoms of chest discomfort. He was taken to the cardiac catheterization lab by Dr. VC Finn, and was found to have significant triple-vessel coronary artery disease. He was seen in consultation by cardiothoracic surgery and is scheduled to undergo coronary artery bypass grafting surgery tomorrow. Patient was seen and examined this morning, denies any chest pain or difficulty in breathing. He has been up ambulating without any difficulty. BUN 37, creatinine 2.07 today. Objective - Vital Signs Vital signs: Vital Signs Temp 98.0 F 01/19/17 08:00 Pulse 63 01/19/17 12:00 Resp 16 01/19/17 12:00 BP 117/75 01/19/17 12:00 Pulse Ox 98 01/19/17 12:00 Intake & Output 01/18/17 01/19/17 01/19/17 18:59 06:59 18:59 Intake Total 960 320 Balance 960 320 Weight 94.6 kg 94.6 kg Intake: Oral 960 320 Other: Voiding Method Urinal Urinal Urinal - Exam PHYSICAL EXAMINATION: HEENT: Head is atraumatic, normocephalic. Pupils equal, round. Neck is supple. There is no elevated jugular venous pressure. HEART EXAMINATION: Heart S1, S2 normal. No murmur or gallop heard. CHEST EXAMINATION: Lungs are clear to auscultation and precussion. No chest wall tenderness is noted on palpation or with deep breathing. ABDOMEN: Soft, nontender. Bowel sounds are heard. No organomegaly noted. Right groin soft, no evidence of any hematoma. EXTREMITIES: 2+ peripheral pulses with no evidence of peripheral edema and no calf tenderness noted. NEUROLOGIC patient is awake, alert and oriented x3. - Labs CBC & Chem 7: 01/19/17 09:55 01/19/17 09:55 Labs: Abnormal Lab Results - Last 24 Hours (Table) 01/19/17 01/19/17 Range/Units 09:55 09:55 RBC 3.86 L (4.30-5.90) m/uL Hgb 12.8 L (13.0-17.5) gm/dL Hct 37.3 L (39.0-53.0) % BUN 37 H (9-20) mg/dL Creatinine 2.07 H (0.66-1.25) mg/dL Microbiology - Last 24 Hours (Table) 01/18/17 06:00 Nasal Screen MRSA/MSSA (DEVIN) - Final Nasal Swab 01/17/17 18:55 Urine Culture - Final Urine,Voided Assessment and Plan Plan: Assessment and plan #1 hyperlipidemia #2 coronary artery disease, awaiting CABG #3 chest pain #4 chronic kidney disease #5 history of PE #6 hypertension 7 hypothyroidism #8 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 He is scheduled to undergo coronary artery bypass grafting surgery on Sunday. We will continue to follow the patient and provide further recommendations accordingly. OVEN STRIPPER note has been reviewed, I agree with a documented findings and plan of care. Patient was seen and examined.
[2017-01-19] MEDS: MULTIVITAMINS, THERA 1 EACH TAB PO SCH (15:24)
--- NOTE | 2017-01-19 16:46 | PN ---
DATE OF SERVICE: 01/19/2017 This 81-year-old gentleman who was admitted with CAD has had a cardiac catheterization, coronary artery disease. The patient is slated for CABG. No chest pain, no palpitation, no fever. The patient was started on IV fluids for renal failure. On exam, alert and oriented x3. Pulse 63, blood pressure 111/75, respirations 16, temperature 98 degrees, pulse ox 98% on room air. HEENT: Conjunctivae normal. NECK: No JVD. CARDIAC: S1/S2 normal. RESPIRATORY: Diminished breath sounds at the bases. Scattered rhonchi, no crackles. ABDOMEN: Soft, nontender. LEGS: No swelling. NEURO: No focal deficit. LABS: WBC 7, hemoglobin 12.8. Creatinine is 2.07. ASSESSMENT: 1. Coronary artery disease status post cardiac catheterization, coronary artery disease. 2. Chronic kidney disease stage 3. 3. Anemia. 4. Elevated d-dimer without any evidence of pulmonary embolism. RECOMMENDATIONS AND DISCUSSION: Continue current medication, continue to monitor, continue symptomatic treatment. Otherwise, continue with IV fluids. Monitor creatinine closely. Prognosis guarded. Further recommendations to follow. MTDD
[2017-01-19] MEDS: MONTELUKAST 10 MG TAB PO SCH (22:30)
[2017-01-19] MEDS: TERAZOSIN 5 MG CAP PO SCH (22:31)
[2017-01-19] MEDS: ATORVASTATIN 40 MG TAB PO SCH (22:31)
[2017-01-20] MEDS: HYDROcodone/APAP 7.5-325MG 1 EACH TAB PO PRN (00:09)
[2017-01-20] MEDS: SODIUM CHLORIDE 0.9% 1,000 ML IV SCH ×3 (06:24→23:59)
[2017-01-20 06:35] LABS: Calcium 8.6 mg/dL (8.4-10.2); Potassium 4.3 mmol/L (3.5-5.1)
[2017-01-20] MEDS: ASPIRIN 325 MG TAB PO SCH (08:52)
[2017-01-20] MEDS: FAMOTIDINE 20 MG TAB PO SCH (08:53)
[2017-01-20] MEDS: ISOSORBIDE MONONITRATE ER 30 MG TAB.ER.24H PO SCH (08:53)
[2017-01-20] MEDS: CITALOPRAM HYDROBROMIDE 20 MG TAB PO SCH (08:53)
[2017-01-20] MEDS: METOPROLOL TARTRATE 25 MG TAB PO SCH ×2 (08:53→20:44)
--- NOTE | 2017-01-20 09:28 | P.PN ---
Subjective Principal diagnosis: This is a 81-year-old male with acute kidney injury secondary to contrast and chronic kidney disease with baseline creatinine of 1.6-1.7 in 2014 and subsequently. He was admitted with chest pain. He has history of hypertension , hypothyroidism, sleep apnea, prior PE,. He was taken to the cardiac catheterization lab by Dr. VC Finn, and was found to have significant triple- vessel coronary artery disease. He was seen in consultation by cardiothoracic surgery and is scheduled to undergo coronary artery bypass grafting surgery day after tomorrow Sunday. His creatinine after peaking at 2 has come down to 1.8 as of this morning. Objective is feeling well no chest pain shortness of breath dizziness no nausea vomiting diarrhea abdominal pain no leg pain. Had a good night sleep. Objective - Vital Signs Vital signs: Vital Signs Temp 96.7 F L 01/20/17 04:00 Pulse 55 L 01/20/17 04:00 Resp 16 01/20/17 04:00 BP 120/84 01/20/17 04:00 Pulse Ox 99 01/20/17 04:00 Intake & Output 01/19/17 01/20/17 01/20/17 18:59 06:59 18:59 Intake Total 560 180 Output Total 1200 300 Balance 560 -1200 -120 Weight 94.6 kg 93.8 kg Intake: Oral 560 180 Output: Urine 1200 300 Other: Voiding Method Urinal Urinal # Voids 1 Admission is awake alert oriented comfortable A chin exam no JVP neck is supple no facial asymmetry Lungs are clear to auscultation percussion good air entry bilaterally Heart sounds are unremarkable for any murmur rub gallop Abdomen soft nontender no masses felt. Extremity exam was no edema Neurologically awake alert oriented No Focal motor deficit - Labs CBC & Chem 7: 01/19/17 09:55 01/20/17 05:32 Labs: Abnormal Lab Results - Last 24 Hours (Table) 01/19/17 01/19/17 01/20/17 Range/Units 09:55 09:55 05:32 RBC 3.86 L (4.30-5.90) m/uL Hgb 12.8 L (13.0-17.5) gm/dL Hct 37.3 L (39.0-53.0) % BUN 37 H 34 H (9-20) mg/dL Creatinine 2.07 H 1.81 H (0.66-1.25) mg/dL Microbiology - Last 24 Hours (Table) 01/18/17 06:00 Nasal Screen MRSA/MSSA (DEVIN) - Final Nasal Swab Assessment and Plan Plan: Impression. 1. Acute kidney injury secondary to contrast. Creatinine back down to nearly baseline 1.8 as of this morning, his baseline is 1.6 mg to 1.7. 2. Hypertension controlled, off ARB 3. Coronary artery disease, status post cardiac cath 4. History of PE, rule out this admission with CTA. 5. History of obstructive sleep apnea. Recommendations. Maintain current medications. Maintain current blood pressure. Is cleared to undergo coronary artery bypass graft blood pressure at target should be 120 mm to 140 mm. Follow-up renal function postop
--- NOTE | 2017-01-20 10:02 | P.PN ---
Subjective Principal diagnosis: Severe triple vessel coronary artery disease including left main stenosis. Hypertension. History of pulmonary embolus. Obstructive sleep apnea with CPAP use. History of syncope. Hypothyroid. History of cardiac arrest. Chronic kidney disease stage III. Chronic low back pain. Previous tobacco dependence. Family history of coronary artery disease. Currently ambulating in the room in no acute distress. States he is ready for surgery. Denies chest pain. Objective - Vital Signs Vital signs: Vital Signs Temp 97.1 F L 01/20/17 09:02 Pulse 62 01/20/17 09:02 Resp 17 01/20/17 09:02 BP 118/83 01/20/17 09:02 Pulse Ox 98 01/20/17 09:02 Intake & Output 01/19/17 01/20/17 01/20/17 18:59 06:59 18:59 Intake Total 560 180 Output Total 1200 300 Balance 560 -1200 -120 Weight 94.6 kg 93.8 kg Intake: Oral 560 180 Output: Urine 1200 300 Other: Voiding Method Urinal Urinal Toilet # Voids 1 - Constitutional General appearance: Present: cooperative, no acute distress - Respiratory Details: Lungs sounds diminished bilaterally. Respirations even, nonlabored. Currently on room air with oxygen saturation 99%. - Cardiovascular Details: S1, S2 present. Slow rate and rhythm, sinus bradycardia on telemetry. No edema present. Palpable pulses bilaterally. - Gastrointestinal Gastrointestinal Comment(s): Abdomen soft, nontender, nondistended. Active bowel sounds 4 quadrants. Tolerating diet. - Genitourinary Genitourinary Comment(s): Continues to void clear, yellow urine. - Musculoskeletal Musculoskeletal: Present: gait normal, strength equal bilaterally - Psychiatric Psychiatric: Present: A&O x's 3, appropriate affect, intact judgment & insight - Allied health notes Allied health notes reviewed: nursing - Labs CBC & Chem 7: 01/19/17 09:55 01/20/17 05:32 Labs: Abnormal Lab Results - Last 24 Hours (Table) 01/19/17 01/19/17 01/20/17 Range/Units 09:55 09:55 05:32 RBC 3.86 L (4.30-5.90) m/uL Hgb 12.8 L (13.0-17.5) gm/dL Hct 37.3 L (39.0-53.0) % BUN 37 H 34 H (9-20) mg/dL Creatinine 2.07 H 1.81 H (0.66-1.25) mg/dL Microbiology - Last 24 Hours (Table) 01/18/17 06:00 Nasal Screen MRSA/MSSA (DEVIN) - Final Nasal Swab Assessment and Plan (1) Chest pain Status: Acute (2) Hypertension Status: Acute (3) History of pulmonary embolism Status: Acute (4) History of cardiac arrest Status: Acute (5) Hypothyroid Status: Acute (6) Chronic kidney disease Status: Acute (7) Tobacco dependence in remission Status: Acute (8) Family history of coronary artery disease Status: Acute (9) Chronic low back pain Status: Acute (10) History of syncope Status: Acute (11) Obstructive sleep apnea on CPAP Status: Acute Plan: 1. Continue aspirin, Lipitor, Lopressor. 2. Preoperative testing completed and reviewed. 3. Preoperative teaching reinforced. 4. Ultrasound of kidneys completed per nephrology. Target systolic blood pressure should remain 120-140mmHg. 5. Continue supportive care. Encourage incentive spirometry use, ambulation in the hallway. 6. Will monitor daily lab work. 7. Plan is for on pump coronary artery bypass graft surgery on Sunday, 2016. 8. More recommendations as patient progresses. Time with Patient: Greater than 30
--- NOTE | 2017-01-20 10:08 | P.PN ---
Subjective Principal diagnosis: CAD This is a 81-year-old gentleman with history of hypertension, hypothyroidism, sleep apnea, prior PE, who presented to the hospital with symptoms of chest discomfort. He was taken to the cardiac catheterization lab by Dr. VC Finn, and was found to have significant triple-vessel coronary artery disease. He was seen in consultation by cardiothoracic surgery and is scheduled to undergo coronary artery bypass grafting surgery tomorrow. Patient was seen and examined this morning, denies any chest pain or difficulty in breathing. He has been up ambulating without any difficulty. BUN 35, creatinine 1.7 today. 01/20/2017 Patient seen and examined this morning, denies any chest pain or difficulty in breathing. Scheduled for coronary artery bypass grafting surgery tomorrow. Let pressure 118/80 with a heart rate in the 60s. Objective - Vital Signs Vital signs: Vital Signs Temp 97.1 F L 01/20/17 09:02 Pulse 62 01/20/17 09:02 Resp 17 01/20/17 09:02 BP 118/83 01/20/17 09:02 Pulse Ox 98 01/20/17 09:02 Intake & Output 01/19/17 01/20/17 01/20/17 18:59 06:59 18:59 Intake Total 560 180 Output Total 1200 300 Balance 560 -1200 -120 Weight 94.6 kg 93.8 kg Intake: Oral 560 180 Output: Urine 1200 300 Other: Voiding Method Urinal Urinal Toilet # Voids 1 - Exam PHYSICAL EXAMINATION: HEENT: Head is atraumatic, normocephalic. Pupils equal, round. Neck is supple. There is no elevated jugular venous pressure. HEART EXAMINATION: Heart S1, S2 normal. No murmur or gallop heard. CHEST EXAMINATION: Lungs are clear to auscultation and precussion. No chest wall tenderness is noted on palpation or with deep breathing. ABDOMEN: Soft, nontender. Bowel sounds are heard. No organomegaly noted. Right groin soft, no evidence of any hematoma. EXTREMITIES: 2+ peripheral pulses with no evidence of peripheral edema and no calf tenderness noted. NEUROLOGIC patient is awake, alert and oriented -3. . - Labs CBC & Chem 7: 01/19/17 09:55 01/20/17 05:32 Labs: Abnormal Lab Results - Last 24 Hours (Table) 01/19/17 01/19/17 01/20/17 Range/Units 09:55 09:55 05:32 RBC 3.86 L (4.30-5.90) m/uL Hgb 12.8 L (13.0-17.5) gm/dL Hct 37.3 L (39.0-53.0) % BUN 37 H 34 H (9-20) mg/dL Creatinine 2.07 H 1.81 H (0.66-1.25) mg/dL Microbiology - Last 24 Hours (Table) 01/18/17 06:00 Nasal Screen MRSA/MSSA (DEVIN) - Final Nasal Swab Assessment and Plan (1) Hyperlipemia Status: Acute (2) S/P cardiac catheterization Status: Acute (3) CAD (coronary artery disease) Status: Acute (4) Chest pain Status: Acute (5) Chronic kidney disease Status: Acute (6) Family history of coronary artery disease Status: Acute (7) History of pulmonary embolism Status: Acute (8) Hypertension Status: Acute (9) Hypothyroid Status: Acute (10) Obstructive sleep apnea on CPAP Status: Acute Plan: From cardiology's perspective, we will continue the patient on his current medications. He will be scheduled to undergo coronary artery bypass grafting surgery on Sunday. We will continue to follow. DNP note has been reviewed, I agree with a documented findings and plan of care. Patient was seen and examined.
[2017-01-20] MEDS: LEVOTHYROXINE 75 MCG TAB PO SCH (12:02)
[2017-01-20] MEDS: MUPIROCIN 2% OINT 22 GM TUBE NASAL SCH ×2 (12:02→20:44)
[2017-01-20] MEDS: MULTIVITAMINS, THERA 1 EACH TAB PO SCH (12:02)
--- NOTE | 2017-01-20 13:25 | P.PN ---
Subjective This is a very pleasant 81-year-old gentleman follows with Dr. Antonio as his primary care physician. He has a history of esophageal reflux disease, hypertension, pulmonary embolism causing cardiac arrest in 1985, obstructive sleep apnea, hypothyroidism, arthritis, chronic back pain, multiple orthopedic surgeries, depression. He has a remote history of smoking for approximate 10 years 1-2 packs per day but quit 43 years ago. He presented here on 01/15/2017 with complaints of left-sided chest pain. He had been seen and followed by cardiology. He had undergone a stress testing which revealed some evidence of ischemia with subsequent cardiac catheterization revealing diffuse triple- vessel disease including a 50-60% left main stenosis, 90% LAD stenosis, 50% circumflex and 85-90% right coronary artery stenosis. Echocardiogram revealed preserved left ventricular systolic function with estimated ejection fraction 55 -60%. CT angiogram ruled out pulmonary embolism. The lungs were clear of consolidation. No pleural effusion. He is seen today in consultation in anticipation of coronary artery revascularization on 01/22/2017. He is awake and alert in no acute distress. He has been up ambulating in the hallway without any significant chest discomfort, no palpitations, lightheadedness or dizziness. No worsening shortness of breath. No cough or congestion. No leukocytosis. Hemoglobin 12.8. Creatinine 2.07. He is maintaining good O2 saturations in the upper 90s on room air. He is afebrile. Hemodynamically stable. The patient is seen again today 01/20/2017 in follow-up on the selective care unit. He is awake and alert in no acute distress. He is now ambulating in the hallway. He states he did have some level of anxiety last evening and did receive Xanax. He slept well after that. He denies any chest pain currently. No shortness of breath cough or congestion. Continues to maintain good O2 saturations in the high 90s on room air. He is afebrile. Hemodynamically stable. His creatinine is improving currently 1.81. Objective - Vital Signs Vital signs: Vital Signs Temp 97.1 F L 01/20/17 09:02 Pulse 62 01/20/17 09:02 Resp 17 01/20/17 09:02 BP 118/83 01/20/17 09:02 Pulse Ox 98 01/20/17 09:02 Intake & Output 08/10/0201/20/17 01/20/17 18:59 06:59 18:59 Intake Total 560 180 Output Total 1200 300 Balance 560 -1200 -120 Weight 94.6 kg 93.8 kg Intake: Oral 560 180 Output: Urine 1200 300 Other: Voiding Method Urinal Urinal Toilet # Voids 1 - Exam GENERAL EXAM: Alert, active, comfortable in no apparent distress. HEAD: Normocephalic. EYES: Normal reaction of pupils, equal size. NOSE: Clear with pink turbinates. THROAT: No erythema or exudates. NECK: No masses, no JVD. CHEST: No chest wall deformity. LUNGS: Equal air entry with no crackles, wheeze, rhonchi or dullness. CVS: S1 and S2 normal with no audible murmurs, regular rhythm. ABDOMEN: No hepatosplenomegaly, normal bowel sounds, no guarding or rigidity. SPINE: No scoliosis or deformity SKIN: No rashes CENTRAL NERVOUS SYSTEM: No focal deficits, tone is normal in all 4 extremities. Extremities: There is no peripheral edema. No clubbing, no cyanosis. Peripheral pulses are intact. - Labs CBC & Chem 7: 01/19/17 09:55 01/20/17 05:32 Labs: Abnormal Lab Results - Last 24 Hours (Table) 01/20/17 Range/Units 05:32 BUN 34 H (9-20) mg/dL Creatinine 1.81 H (0.66-1.25) mg/dL Microbiology - Last 24 Hours (Table) 01/18/17 06:00 Nasal Screen MRSA/MSSA (DEVIN) - Final Nasal Swab Assessment and Plan Plan: Impression: #1 Chest pain in a patient found to have diffuse triple-vessel disease with preserved left ventricular systolic function. The plan is for coronary revascularization on 01/22/2017. #2 Remote history of chronic tobacco dependence. #3 Hypertension. #4 Hyperlipidemia. #5 History of cardiac arrest secondary to pulmonary embolism back in 1985. #6 Hypothyroidism. #7 Chronic back pain. #8 Obstructive sleep apnea. Plan: The patient was seen and evaluated by Dr. Monae. He is currently stable from the pulmonary standpoint. He is in again educated regarding the use of the incentive spirometer and cough and deep breathing exercises. We will follow him closely in the postoperative period.
[2017-01-20] MEDS: ATORVASTATIN 40 MG TAB PO SCH (20:44)
[2017-01-20] MEDS: TERAZOSIN 5 MG CAP PO SCH (20:44)
[2017-01-20] MEDS: MONTELUKAST 10 MG TAB PO SCH (20:44)
[2017-01-21] MEDS: LEVOTHYROXINE 75 MCG TAB PO SCH (06:00)
[2017-01-21 06:35] LABS: Basophils % (A) 0 %; CH 33.1; CHCM 34.4; Eosinophils # (A) 0.7 k/uL (0-0.7); Eosinophils % (A) 7 %; HCT 37.1 % (39.0-53.0); HDW 2.66; HGB 12.8 gm/dL (13.0-17.5); Luc # (Auto) 0.15; Luc % (Auto) 2; Lymphocytes # (A) 1.5 k/uL (1.0-4.8); Lymphocytes % (A) 15 %; MCH 33.4 pg (25.0-35.0); MCHC 34.5 g/dL (31.0-37.0); MCV 96.7 fL (80.0-100.0); Mean Platelet Volume 7.3; Monocytes # (A) 0.6 k/uL (0-1.0); Monocytes % (A) 6 %; Neutrophils # (A) 6.6 k/uL (1.3-7.7); Neutrophils % (A) 69 %; RBC 3.84 m/uL (4.30-5.90); RDW 12.5 % (11.5-15.5); WBC 9.6 k/uL (3.8-10.6); WBC (Perox) 10.08
[2017-01-21 06:50] LABS: Calcium 8.9 mg/dL (8.4-10.2); Potassium 4.9 mmol/L (3.5-5.1)
[2017-01-21] MEDS: ASPIRIN 325 MG TAB PO SCH (08:30)
[2017-01-21] MEDS: MUPIROCIN 2% OINT 22 GM TUBE NASAL SCH ×2 (08:30→21:30)
[2017-01-21] MEDS: CITALOPRAM HYDROBROMIDE 20 MG TAB PO SCH (08:30)
[2017-01-21] MEDS: FAMOTIDINE 20 MG TAB PO SCH (08:30)
[2017-01-21] MEDS: ISOSORBIDE MONONITRATE ER 30 MG TAB.ER.24H PO SCH (08:30)
[2017-01-21] MEDS: METOPROLOL TARTRATE 25 MG TAB PO SCH ×2 (08:31→21:52)
--- NOTE | 2017-01-21 09:07 | PN ---
DATE OF SERVICE: 01/20/2017 This 81-year-old gentleman who was admitted with previously coronary artery disease being closely monitored. The patient also had chronic renal failure and also CABG planned. On exam, alert and oriented x3. Pulse 60, blood pressure 124/76, respirations 18, temperature 97.0, pulse ox 99% on room air. HEENT: Conjunctivae normal. NECK: No JVD. CARDIOVASCULAR: S1/S2. RESPIRATORY: Diminished breath sounds especially in the bases. No rhonchi, no crackle.s ABDOMEN: Soft, nontender. No mass palpable. NERVOUS SYSTEM: No focal deficits. LABS: Creatinine 1.81. Hemoglobin is 12.8. ASSESSMENT: 1. Coronary artery disease status post cardiac catheterization and three vessel coronary artery disease. 2. Chronic kidney disease stage 3. 3. Anemia. 4. Elevated d-dimer without any evidence of pulmonary embolism. RECOMMENDATIONS AND DISCUSSION: Recommend to continue current medication, continue to monitor, continue symptomatic treatment. Monitor creatinine closely. CABG per cardiology. Continue the rest of the medications. Further recommendations to follow. The patient is stable. MTDD
--- NOTE | 2017-01-21 09:11 | P.PN ---
Subjective Principal diagnosis: This is a 81-year-old male with acute kidney injury secondary to contrast and chronic kidney disease with baseline creatinine of 1.6-1.7 in 2014 and subsequently. He was admitted with chest pain. He underwent computed tomography scan to rule out a PE as well as a heart catheterization. He has history of hypertension, hypothyroidism, sleep apnea, prior PE,. He was taken to the cardiac catheterization lab by Dr. VC Finn, and was found to have significant triple-vessel coronary artery disease. He was seen in consultation by cardiothoracic surgery and is scheduled to undergo coronary artery bypass grafting surgery tomorrow Sunday. His creatinine after peaking at 2 has come down to 1.7 as of this morning. He continues to be stable without any chest pain shortness of breath dizziness fever chills cough. No nausea vomiting appetite is good. Slept well. His vital signs are stable. He is making fair amount of urine Objective - Vital Signs Vital signs: Vital Signs Temp 97.8 F 01/21/17 08:00 Pulse 62 01/21/17 08:49 Resp 16 01/21/17 08:49 BP 152/83 01/21/17 08:00 Pulse Ox 97 01/21/17 08:00 Intake & Output 01/20/17 01/21/17 01/21/17 18:59 06:59 18:59 Intake Total 180 Output Total 600 2350 Balance -420 -2350 Weight 93.8 kg Intake: Oral 180 Output: Urine 600 2350 Other: Voiding Method Toilet Toilet Toilet Urinal Urinal # Voids 2 On examination is awake alert oriented comfortable HEENT exam no JVP lymphadenopathy neck is supple no facial asymmetry Lungs are clear to auscultation percussion good air entry bilaterally. Heart sounds are unremarkable for any murmur rub gallop Abdomen soft nontender no organomegaly status masses Extremity exam was no edema Warm to touch. Neurologically awake alert oriented without any focal motor deficit - Labs CBC & Chem 7: 01/21/17 05:47 01/21/17 05:47 Labs: Abnormal Lab Results - Last 24 Hours (Table) 01/21/17 01/21/17 01/21/17 Range/Units 05:47 05:47 05:47 RBC 3.84 L (4.30-5.90) m/uL Hgb 12.8 L (13.0-17.5) gm/dL Hct 37.1 L (39.0-53.0) % BUN 31 H (9-20) mg/dL Creatinine 1.75 H (0.66-1.25) mg/dL Crossmatch See Detail Assessment and Plan Plan: Impression. 1. Acute kidney injury secondary to contrast. Creatinine back down to nearly baseline 1.7 as of this morning, his baseline is 1.6 mg to 1.7. 2. Hypertension slightly about target, off ARB 3. Coronary artery disease, status post cardiac cath 4. History of PE, ruled out this admission with CTA. 5. History of obstructive sleep apnea. Recommendations. Maintain current medications. Maintain current blood pressure. Follow-up renal function postop. He is cleared to undergo surgery tomorrow for a coronary artery bypass graft. Discontinue his IV fluid and hopefully his blood pressure may be somewhat better
--- NOTE | 2017-01-21 10:08 | P.PN ---
Subjective Principal diagnosis: Severe triple vessel coronary artery disease including left main stenosis. Hypertension. History of pulmonary embolus. Obstructive sleep apnea with CPAP use. History of syncope. Hypothyroid. History of cardiac arrest. Chronic kidney disease stage III. Chronic low back pain. Previous tobacco dependence. Family history of coronary artery disease. Preoperative coronary artery bypass graft surgery. Currently ambulating in the hallway in no acute distress. States he is ready for surgery. Denies chest pain. No new questions at this time Objective - Vital Signs Vital signs: Vital Signs Temp 97.8 F 01/21/17 08:00 Pulse 62 01/21/17 08:49 Resp 16 01/21/17 08:49 BP 152/83 01/21/17 08:00 Pulse Ox 97 01/21/17 08:00 Intake & Output 01/20/17 01/21/17 01/21/17 18:59 06:59 18:59 Intake Total 180 Output Total 600 2350 Balance -420 -2350 Weight 93.8 kg Intake: Oral 180 Output: Urine 600 2350 Other: Voiding Method Toilet Toilet Toilet Urinal Urinal # Voids 2 - Constitutional General appearance: Present: cooperative, no acute distress - Respiratory Details: Lungs sounds clear to auscultation. Respirations even, nonlabored. Currently on room air with oxygen saturation 99%. Able to achieve 4000 mL on his incentive spirometry. - Cardiovascular Details: S1, S2 present. Slow rate and rhythm, sinus bradycardia on telemetry. No edema present. Palpable pulses bilaterally. - Gastrointestinal Gastrointestinal Comment(s): Abdomen soft, nontender, nondistended. Active bowel sounds 4 quadrants. Tolerating diet. - Genitourinary Genitourinary Comment(s): Continues to void clear, yellow urine. - Musculoskeletal Musculoskeletal: Present: gait normal, strength equal bilaterally - Psychiatric Psychiatric: Present: A&O x's 3, appropriate affect, intact judgment & insight - Allied health notes Allied health notes reviewed: nursing - Labs CBC & Chem 7: 01/21/17 05:47 01/21/17 05:47 Labs: Abnormal Lab Results - Last 24 Hours (Table) 01/21/17 01/21/17 01/21/17 Range/Units 05:47 05:47 05:47 RBC 3.84 L (4.30-5.90) m/uL Hgb 12.8 L (13.0-17.5) gm/dL Hct 37.1 L (39.0-53.0) % BUN 31 H (9-20) mg/dL Creatinine 1.75 H (0.66-1.25) mg/dL Crossmatch See Detail Assessment and Plan (1) Chest pain Status: Acute (2) Hypertension Status: Acute (3) History of pulmonary embolism Status: Acute (4) History of cardiac arrest Status: Acute (5) Hypothyroid Status: Acute (6) Chronic kidney disease Status: Acute (7) Tobacco dependence in remission Status: Acute (8) Family history of coronary artery disease Status: Acute (9) Chronic low back pain Status: Acute (10) History of syncope Status: Acute (11) Obstructive sleep apnea on CPAP Status: Acute Plan: 1. Continue aspirin, Lipitor, Lopressor. 2. Preoperative testing completed and reviewed. 3. Preoperative teaching reinforced. 4. Ultrasound of kidneys completed per nephrology. Target systolic blood pressure should remain 120-140mmHg. 5. Continue supportive care. Encourage incentive spirometry use, ambulation in the hallway. 6. Plan is for on pump coronary artery bypass graft surgery on Sunday, 2016. 7. More recommendations as patient progresses. Time with Patient: Greater than 30
--- NOTE | 2017-01-21 12:49 | P.PN ---
Subjective Principal diagnosis: Severe CAD This is a pleasant 81-year-old gentleman who presented to the hospital with a chest discomfort and underwent a heart catheterization by Dr. 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 The patient was seen and evaluated by surgeon and he is going to undergo CABG tomorrow. From a perivascular standpoint of view she is asymptomatic. Objective - Vital Signs Vital signs: Vital Signs Temp 97.8 F 01/21/17 08:00 Pulse 62 01/21/17 08:49 Resp 16 01/21/17 08:49 BP 152/83 01/21/17 08:00 Pulse Ox 97 01/21/17 08:00 Intake & Output 01/20/17 01/21/17 01/21/17 18:59 06:59 18:59 Intake Total 180 Output Total 600 2350 Balance -420 -2350 Weight 93.8 kg Intake: Oral 180 Output: Urine 600 2350 Other: Voiding Method Toilet Toilet Toilet Urinal Urinal # Voids 2 - Constitutional General appearance: Present: no acute distress - Respiratory Respiratory: bilateral: CTA - Cardiovascular Rhythm: regular - Labs CBC & Chem 7: 01/21/17 05:47 01/21/17 05:47 Labs: Abnormal Lab Results - Last 24 Hours (Table) 01/21/17 01/21/17 01/21/17 Range/Units 05:47 05:47 05:47 RBC 3.84 L (4.30-5.90) m/uL Hgb 12.8 L (13.0-17.5) gm/dL Hct 37.1 L (39.0-53.0) % BUN 31 H (9-20) mg/dL Creatinine 1.75 H (0.66-1.25) mg/dL Crossmatch See Detail Assessment and Plan Plan: This is a pleasant 81-year-old gentleman who was found to have severe triple CAD and he is going to have CABG tomorrow.
[2017-01-21] MEDS: HEPARIN SODIUM,PORCINE 5,000 UNIT/ML 1 ML VIAL SQ SCH ×2 (12:58→16:02)
[2017-01-21] MEDS: MULTIVITAMINS, THERA 1 EACH TAB PO SCH (12:58)
[2017-01-21] MEDS: SODIUM CHLORIDE 0.9% 1,000 ML IV SCH ×2 (12:59)
[2017-01-21] MEDS: TERAZOSIN 5 MG CAP PO SCH (21:30)
[2017-01-21] MEDS: ATORVASTATIN 40 MG TAB PO SCH (21:52)
[2017-01-21] MEDS: MONTELUKAST 10 MG TAB PO SCH (21:53)
[2017-01-21] MEDS: HYDROcodone/APAP 7.5-325MG 1 EACH TAB PO PRN (21:53)
[2017-01-22] MEDS ORDERED: MANNITOL 25% 12.5 GM/50 ML VIAL IV ONE ×2 (05:00)
[2017-01-22] MEDS ORDERED: CALCIUM CHLORIDE 100 MG/ML 10 ML SYRINGE IVP ONE (05:00)
[2017-01-22] MEDS ORDERED: DEXTROSE 5% IN WATER 1,000 ML with POTASSIUM CHLORIDE 25 MEQ, SODIUM CHLORIDE 4MEQ/ML V... IV ONE ×6 (05:00)
[2017-01-22] MEDS ORDERED: MAGNESIUM SULFATE SYG 4.06 MEQ/ML SYRINGE IV ONE (05:00)
[2017-01-22] MEDS ORDERED: NOREPINEPHRIN 4 MG-0.9% NS PMX 4 MG/250 ML ML IV SCH (05:00)
[2017-01-22] MEDS ORDERED: HEPARIN SODIUM,PORCINE 5,000 UNIT in SODIUM CHLORIDE 0.9% 500 ML IV ONE (05:00)
[2017-01-22] MEDS ORDERED: AMINOCAPROIC ACID 250 MG/ML 20 ML VIAL IV ONE (05:00)
[2017-01-22] MEDS ORDERED: CLEVIDIPINE BUTYRATE 25 MG in EMPTY BAG 1 BAG IV ONE (05:00)
[2017-01-22] MEDS ORDERED: CHLORHEXIDINE GLUCONATE 15 ML CUP MUCOUS MEM ONE (05:00)
[2017-01-22] MEDS ORDERED: METOPROLOL TARTRATE 12.5 MG TAB PO ONE (05:00)
[2017-01-22] MEDS ORDERED: ceFAZolin 2,000 MG in SODIUM CHLORIDE 0.9% 30 ML IVPB ONE (05:00)
[2017-01-22] MEDS ORDERED: ASPIRIN 325 MG TAB PO ONE (05:00)
[2017-01-22] MEDS ORDERED: DEXTROSE 5% IN WATER 1,000 ML with POTASSIUM CHLORIDE 110 MEQ, MAGNESIUM SULFATE 16 MEQ... IV ONE ×5 (05:00)
[2017-01-22] MEDS ORDERED: ceFAZolin 2 GM in SODIUM CHLORIDE 0.9% 30 ML IVPB ONE (05:00)
[2017-01-22] MEDS ORDERED: PHENYLEPHRINE-0.9% NACL SYG 1 MG/10 ML SYRINGE IV ONE ×4 (05:00)
[2017-01-22] MEDS ORDERED: NITROGLYCERIN-D5W PMX 50 MG in DEXTROSE/WATER 1 250ML.BAG IV ONE (05:00)
[2017-01-22] MEDS ORDERED: ceFAZolin 1,000 MG in SODIUM CHLORIDE 0.9% IRRIGATIO 1,000 ML IRRIGATION ONE (05:00)
[2017-01-22] MEDS ORDERED: HEPARIN SODIUM 1,000 UN/ML (10ML VL) IV ONE (05:00)
[2017-01-22] MEDS ORDERED: PROTAMINE SULFATE 10 MG/ML 25 ML VIAL IV ONE ×2 (05:00→08:10)
[2017-01-22] MEDS ORDERED: ALBUMIN HUMAN 25% 50 ML in EMPTY BAG 1 BAG IVPB ONE (05:00)
[2017-01-22] MEDS ORDERED: AMINOCAPROIC ACID 5,000 MG in DEXTROSE 5% IN WATER 50 ML IV ONE ×4 (05:00)
[2017-01-22] MEDS ORDERED: PROTAMINE SULFATE 250 MG in EMPTY BAG 1 BAG IV ONE (05:00)
[2017-01-22] MEDS ORDERED: ALBUMIN HUMAN 5% 500 ML in EMPTY BAG 1 BAG IVPB ONE ×6 (05:00)
[2017-01-22] MEDS ORDERED: ATORVASTATIN 10 MG TAB PO ONE (05:00)
[2017-01-22] MEDS ORDERED: INSULIN REGULAR 100 UNIT in SODIUM CHLORIDE 0.9% 100 ML IV ONE (05:00)
[2017-01-22] MEDS ORDERED: NITROGLYCERIN-D5W PMX 25 MG/250 ML BTL IV ONE (05:00)
[2017-01-22] MEDS ORDERED: PAPAVERINE 360 MG in SODIUM CHLORIDE 0.9% 90 ML IV ONE (05:00)
[2017-01-22] MEDS: SODIUM CHLORIDE 0.9% 1,000 ML IV SCH ×3 (05:09→17:11)
[2017-01-22] MEDS: HYDROcodone/APAP 7.5-325MG 1 EACH TAB PO PRN (05:11)
[2017-01-22] MEDS ORDERED: LACTATED RINGERS 1,000 ML IV SCH (05:17)
[2017-01-22] MEDS ORDERED: MIDAZOLAM 2 MG/2 ML VIAL IV PRN (05:17)
[2017-01-22] MEDS ORDERED: PHENYLEPHRINE 40 MG in SODIUM CHLORIDE 0.9% 250 ML IV SCH (06:30)
[2017-01-22 06:49] LABS: CH 33.2; CHCM 34.6; HDW 2.68; Lymphocytes % (A) 18 %; MCH 33.1 pg (25.0-35.0); MCHC 34.3 g/dL (31.0-37.0); MCV 96.4 fL (80.0-100.0); Mean Platelet Volume 7.5; Monocytes % (A) 8 %; Neutrophils % (A) 65 %; RBC 3.63 m/uL (4.30-5.90); RDW 12.7 % (11.5-15.5); WBC 8.2 k/uL (3.8-10.6); WBC (Perox) 8.94
[2017-01-22 06:50] LABS: Basophils % (A) 0 %; Eosinophils # (A) 0.5 k/uL (0-0.7); Eosinophils % (A) 7 %; Luc # (Auto) 0.15; Luc % (Auto) 2; Lymphocytes # (A) 1.5 k/uL (1.0-4.8); Monocytes # (A) 0.7 k/uL (0-1.0); Neutrophils # (A) 5.4 k/uL (1.3-7.7)
[2017-01-22 07:07] LABS: Calcium 8.8 mg/dL (8.4-10.2); Potassium 4.4 mmol/L (3.5-5.1); Total Bilirubin 0.7 mg/dL (0.2-1.3); Total Protein 6.2 g/dL (6.3-8.2)
--- NOTE | 2017-01-22 08:06 | US ---
"EXAMINATION TYPE: US renals and bladder DATE OF EXAM: 01/19/2017 COMPARISON: NONE CLINICAL HISTORY: renal failure. renal cysts EXAM MEASUREMENTS: Right Kidney: 12.7 x 11.8 x 6.5 cm Left Kidney: 12.5 x 8.1 x 5.5 cm Post Void Residual Volume: not assessed on inpatient mL Poor corticomedullary differentiation and cortical thinning is noted bilaterally. Right Kidney: multiple renal cysts throughout with largest at midpole = 7.5 x 9.4 x 5.8 Left Kidney: couple renal cysts with larger at upper pole = 3.4 x 3.1 x 3.0 cm; crescentic area of hy poechogenicity is noted along the mid and lower pole adjacent to renal periphery on image #53 and 46a a. Bladder: wnl Bilateral Jets seen: Yes IMPRESSION: 1. Crescentic area of hypoechogenicity along the left renal periphery which may represent perinephric fluid, subcapsular hematoma, or partial visualization of an exophytic elongated renal cyst. CT abdom en pelvis could be performed for further characterization. 2. Multiple bilateral renal cysts in the setting of medical renal disease, the largest on the right m easuring up to 9.4 cm. A [employer] message has been communicated to Kacy Chang MD~[id number] via the [employer] | Critical Re sult system on 01/22/2017 8:03 AM, Message ID [id number]."
[2017-01-22] MEDS ORDERED: VECURONIUM 10 MG VIAL IV ONE (08:10)
[2017-01-22] MEDS ORDERED: fentaNYL (PF) 50 MCG/ML 2 ML AMP ONE (08:10)
[2017-01-22] MEDS ORDERED: LIDOCAINE 2% SYG (PF) 100 MG/5 ML ONE (08:10)
[2017-01-22] MEDS ORDERED: HEPARIN SODIUM,PORCINE 10,000 UNIT/ML 1 ML VIAL ONE (08:10)
[2017-01-22] MEDS ORDERED: fentaNYL (PF) 50 MCG/ML 50 ML VIAL ONE (08:10)
[2017-01-22] MEDS ORDERED: GLYCOPYRROLATE 0.2 MG/ML 2 ML VIAL ONE (08:10)
[2017-01-22] MEDS ORDERED: MAGNESIUM SULFATE 4 MEQ/ML 2 ML VIAL ONE (08:10)
[2017-01-22] MEDS ORDERED: MIDAZOLAM 2 MG/2 ML VIAL ONE (08:10)
[2017-01-22] MEDS ORDERED: PROPOFOL 10 MG/ML 20 ML VIAL IV ONE (08:10)
[2017-01-22 08:50] LABS: Glucose,Whole Blood 104 mg/dL (75-99)
--- NOTE | 2017-01-22 09:13 | PN ---
This is a very pleasant 81-year-old male who was discovered to have a triple vessel coronary artery disease after he presented to the hospital with chest discomfort. He is scheduled to have revascularization surgery tomorrow with Dr. Munoz on January 22, 2017. He has a history of remote tobacco use, hypertension, hyperlipidemia, cardiac arrest secondary to PE back in 1985, hypothyroidism, chronic back pain and sleep apnea syndrome. The patient is doing relatively well. Has had some restless nights here. Some of it relates to anxiety more than anything else. Currently, vital signs are stable. Temperature is 97.8, heart rate 62, respiratory rate 16, blood pressure 152/83, mean 106, room air saturation 99%. Appears in no acute distress. Lots of family members in the room. HEENT examination is grossly unremarkable. Mucous membranes are moist. NECK: Supple. Full range of motion. No adenopathy or thyromegaly or neck vein distention. Cardiovascular examination reveals regular rhythm and rate. S1 and S2 normal. Lungs are clear. Breath sounds are equal. No wheezing, rhonchi or crackles. Abdomen is soft. Bowel sounds are heard. Extremities are intact. No cyanosis, clubbing or edema Skin without rash. Neurologic examination is ( ), but nonfocal. Labs are reviewed. White count 9.6, hemoglobin 12.8, hematocrit 37.1, platelet count normal. Sodium, potassium, chloride, CO2 all normal. Anion gap normal. BUN and creatinine were 31 and 1.75. No recent chest x-ray to review. ASSESSMENT: 1. Chest pain, in a patient discovered to have diffuse severe triple vessel disease with preserved ventricular systolic function, to undergo bypass grafting tomorrow. 2. Remote history of chronic tobacco dependence, without any significant chronic obstructive pulmonary disease. 3. Hypertension. 4. Hyperlipidemia. 5. History of prior PE back in 1985, which resulted in a cardiac arrest. 6. Hypothyroidism. 7. Chronic back pain. 8. Sleep apnea syndrome. PLAN: The patient looks like he is ready for surgery. No additional recommendations made. Will continue to follow. Prognosis is generally good. No additional recommendations are made. [facility]
[2017-01-22 11:39] LABS: Glucose,Whole Blood 96 mg/dL (75-99)
--- NOTE | 2017-01-22 11:55 | PN ---
DATE OF SERVICE: 01/21/2017 This 81-year-old gentleman admitted after CAD, had a cardiac catheterization. Patient awaiting CABG tomorrow. No chest pain or palpitation. No fever. On exam, alert and oriented x3. Pules 64, blood pressure is 143/82, respirations 18, temperature 97.2, pulse ox 97% on room air. HEENT: Conjunctivae normal. NECK: No jugular venous distention. CARDIOVASCULAR: S1 and S2 muffled. RESPIRATORY: Breath sounds diminished at the bases. No rhonchi. No crackles. Abdomen is soft, nontender. NERVOUS SYSTEM: No focal deficits. Labs are creatinine 1.75. Hemoglobin 12.8. ASSESSMENT: 1. Coronary artery disease, status post cardiac catheterization with 3-vessel coronary artery disease for CABG. 2. Chronic kidney disease, stage III, stable. 3. Anemia. 4. Elevated D-dimer without any evidence of pulmonary embolism. RECOMMENDATIONS AND DISCUSSION: Continue current medications. Continue symptomatic treatment. Monitor closely. Follow closely with cardiothoracic surgery. Further recommendations to follow. [facility]
[2017-01-22 12:19] LABS: Glucose,Whole Blood 217 mg/dL (75-99)
[2017-01-22 13:06] LABS: Glucose,Whole Blood 218 mg/dL (75-99)
[2017-01-22 13:38] LABS: Glucose,Whole Blood 241 mg/dL (75-99)
[2017-01-22 14:26] LABS: Glucose,Whole Blood 201 mg/dL (75-99)
[2017-01-22] MEDS ORDERED: DESMOPRESSIN IVPB ONE (15:00)
[2017-01-22] MEDS ORDERED: SODIUM CHLORIDE 0.9% IVPB ONE (15:00)
[2017-01-22] MEDS ORDERED: Phosphorus Replacement Protoco 1 EACH MISC MISCELLANE PRN (16:02)
[2017-01-22] MEDS ORDERED: BENZOCAINE/MENTHOL LOZENG 1 EACH LOZENGE MUCOUS MEM PRN (16:02)
[2017-01-22] MEDS ORDERED: Potassium Replacement Protocol 1 EACH MISC MISCELLANE PRN (16:02)
[2017-01-22] MEDS ORDERED: CLEVIDIPINE BUTYRATE 25 MG in EMPTY BAG 1 BAG IV SCH (16:02)
[2017-01-22] MEDS ORDERED: PROPOFOL 1,000 MG/100 ML VIAL IV SCH (16:02)
[2017-01-22] MEDS ORDERED: MORPHINE SULFATE 2 MG/ML SYRINGE IVP PRN (16:02)
[2017-01-22] MEDS ORDERED: METOCLOPRAMIDE 5 MG/ML 2 ML VIAL IVP PRN (16:02)
[2017-01-22] MEDS ORDERED: ONDANSETRON 4 MG/2 ML VIAL IVP PRN (16:02)
[2017-01-22] MEDS ORDERED: Magnesium Replacement Protocol 1 EACH MISC MISCELLANE PRN (16:02)
[2017-01-22 16:07] LABS: Glucose,Whole Blood 156 mg/dL (75-99)
[2017-01-22 16:19] LABS: Ionized Calcium 4.5 mg/dL (4.5-5.3)
[2017-01-22 16:21] LABS: CH 32.7; HCT 22.7 % (39.0-53.0); MCHC 34.2 g/dL (31.0-37.0); MCV 96.6 fL (80.0-100.0); Mean Platelet Volume 7.9; RBC 2.35 m/uL (4.30-5.90); RDW 12.7 % (11.5-15.5); WBC 12.2 k/uL (3.8-10.6); WBC (Perox) 12.07
[2017-01-22 16:22] LABS: HGB 7.7 gm/dL (13.0-17.5)
[2017-01-22 16:30] LABS: Calcium 7.3 mg/dL (8.4-10.2); Magnesium 2.2 mg/dL (1.6-2.3); Potassium 4.5 mmol/L (3.5-5.1); Total Bilirubin 0.8 mg/dL (0.2-1.3); Total Protein 4.6 g/dL (6.3-8.2)
[2017-01-22] MEDS: ceFAZolin 2 GM in SODIUM CHLORIDE 0.9% 100 ML IVPB SCH (16:39)
[2017-01-22] MEDS: LACTATED RINGERS 1,000 ML IV SCH (16:39)
[2017-01-22 16:44] LABS: ABG Base Excess -4.1 mmol/L; ABG HCO3 22 mmol/L (21-25); ABG PCO2 48 mmHg (35-45); ABG PH 7.28 (7.35-7.45); ABG PO2 381 mmHg (83-108); ABG TCO2 23 mmol/L (19-24)
--- NOTE | 2017-01-22 16:52 | XR ---
EXAMINATION TYPE: XR chest 1V portable DATE OF EXAM: 01/22/2017 COMPARISON: Prior chest x-ray 01/15/2017 HISTORY: Postop cardiac surgery TECHNIQUE: Single frontal view of the chest is obtained. FINDINGS: Patient is post median sternotomy. Endotracheal tube, NG tube, left and right chest tube, right jugular central venous catheter and epicardial pacing leads are present and overlying appropria te position. No sizable pneumothorax. There may be small left pleural effusion, left hemidiaphragm is obscured by retrocardiac density. There are overlying cardiac leads. Heart is enlarged although lashonda ent is rotated. Lung volumes are low. Perihilar increased density is present. No other significant in terval changes. IMPRESSION: Satisfactory postoperative chest x-ray. There may be component of volume overload, pulmo nary venous hypertension and interstitial edema, left lower lobe atelectasis and associated effusion.
[2017-01-22] MEDS ORDERED: PROPOFOL 1,000 MG/100 ML VIAL IV ONE (17:00)
[2017-01-22] MEDS ORDERED: CALCIUM GLUCONATE 2,000 MG in SODIUM CHLORIDE 0.9% 100 ML IVPB PRN (17:00)
[2017-01-22 17:07] LABS: Glucose,Whole Blood 145 mg/dL (75-99)
[2017-01-22] MEDS ORDERED: INSULIN REGULAR 100 UNIT in SODIUM CHLORIDE 0.9% 100 ML IV SCH (17:15)
[2017-01-22 17:27] LABS: Add Differential Manual Differential
[2017-01-22 17:31] LABS: Nucleated Red Blood Cells 0 /100 WBC (0-0); Total Cells Counted 100
[2017-01-22 17:32] LABS: Manual Review Performed; RBC Morphology Normal; Toxic Granulation Present
--- NOTE | 2017-01-22 18:00 | P.PN ---
Subjective This is a very pleasant 81-year-old gentleman follows with Dr. Antonio as his primary care physician. He has a history of esophageal reflux disease, hypertension, pulmonary embolism causing cardiac arrest in 1985, obstructive sleep apnea, hypothyroidism, arthritis, chronic back pain, multiple orthopedic surgeries, depression. He has a remote history of smoking for approximate 10 years 1-2 packs per day but quit 43 years ago. He presented here on 01/15/2017 with complaints of left-sided chest pain. He had been seen and followed by cardiology. He had undergone a stress testing which revealed some evidence of ischemia with subsequent cardiac catheterization revealing diffuse triple- vessel disease including a 50-60% left main stenosis, 90% LAD stenosis, 50% circumflex and 85-90% right coronary artery stenosis. Echocardiogram revealed preserved left ventricular systolic function with estimated ejection fraction 55 -60%. CT angiogram ruled out pulmonary embolism. The lungs were clear of consolidation. No pleural effusion. On 01/22/2017 I'm seeing this patient in follow-up. The patient underwent coronary artery bypass surgery, 5-vessel bypass and currently is in the intensive care unit. He is on sedation with 25 mics of the prevent. Is on a mechanical ventilator on assist control mode rate of 12, tidal volume of 500, FiO2 of 100% and PEEP of 5. The blood gases showed a pH of 7.28 with a pCO2 of 48 and pO2 of 381. Based on this, I increase the tidal volume to 600 and drop the FiO2 down to 50%. His chest x-ray showed adequate expansion of both lungs. There may be a component of volume overload. Left basilar atelectatic changes seen. The patient has an ET tube in place, NG tube in place, 2 pleural chest tubes the right and left and mediastinal chest tube in place, and Edwall- Yulia catheter in place. Cardiac output is 10 with an index of 5.0. PA artery pressures are 32/15. Producing adequate amount of urine output. Ultrasound the chest tubes out approximately 30-40 mL an hour from each of the chest tubes. Postoperative hemoglobin is at 7.7 with a platelet count of 67. The patient has a component of chronic renal failure. Postoperative renal function showed a creatinine of 1.42. Objective - Vital Signs Vital signs: Vital Signs Temp 95.8 F L 01/22/17 17:00 Pulse 76 01/22/17 17:30 Resp 16 01/22/17 06:25 BP 158/88 01/22/17 06:25 Pulse Ox 100 01/22/17 17:30 Intake & Output 01/21/17 01/22/17 01/22/17 18:59 06:59 18:59 Intake Total 83 Output Total 950 3460 Balance -950 -6437 Weight 93.8 kg 93.8 kg Intake: IV 33 Intake, IV Titration 50 Amount Lactated Ringers 1,000 ml 50 @ 50 mls/hr IV .Q20H [facility] Rx#:[id number] Output: Chest Tube Drainage 230 Chest Tube Left Pleural/ 80 Mediastinal Chest Tube Mediastinal 70 Chest Tube Right 80 Drainage 60 Left Calf 40 Right Calf 20 Urine 950 1170 Estimated Blood Loss 2000 Other: Voiding Method Toilet Toilet Urinal Urinal # Voids 2 ABP, PAP, CO, CI - Last Documented Arterial Blood Pressure 119/54 Pulmonary Artery Pressure 58/25 Cardiac Output 10 Cardiac Index 4.5 - Exam Head exam was generally normal. There was no scleral icterus or corneal arcus. Mucous membranes were moist.Neck was supple and without jugular venous distension, thyromegaly, or carotid bruits. Carotids were easily palpable bilaterally. There was no adenopathy. Patient has a right IJ Edwall-Yulia catheter and the Cordis in place. The patient has an orogastric tube and orotracheal tube which is a #92. No neck stiffness. Lungs are equal and symmetrical breath sounds and there is no wheeze or rhonchi any crackles. Heart sounds are regular, normal S1-S2, no significant murmurs, no significant drops, sternum stable clean and intact. 3 chest tubes right pleural, left pleural, and mediastinal.Abdominal exam revealed normal bowel sounds. The abdomen was soft, non-tender, and without masses, organomegaly, or appreciable enlargement of the abdominal aorta.Examination of the extremities revealed easily palpable radial, femoral and pedal pulses. There was no cyanosis, clubbing or edema. The patient has a soft hematoma extubating in the medial aspect of the left thigh. A smaller one is also noted on the right. Pulses in lower eczematous of diminished at the present. No cyanosis or clubbing at this point. Neurologically patient is sedated. - Labs CBC & Chem 7: 01/22/17 16:00 01/22/17 16:00 Labs: Abnormal Lab Results - Last 24 Hours (Table) 01/21/17 01/22/17 01/22/17 Range/Units 05:47 05:32 05:32 WBC (3.8-10.6) k/uL RBC 3.63 L (4.30-5.90) m/uL Hgb 12.0 L (13.0-17.5) gm/dL Hct 35.0 L (39.0-53.0) % Plt Count (150-450) k/uL Neutrophils # (Manual) (1.3-7.7) k/uL ABG pH (7.35-7.45) ABG pCO2 (35-45) mmHg ABG pO2 (83-108) mmHg ABG O2 Saturation (94-97) % Carbon Dioxide 21 L (22-30) mmol/L BUN 29 H (9-20) mg/dL Creatinine 1.90 H (0.66-1.25) mg/dL Glucose (74-99) mg/dL POC Glucose (mg/dL) (75-99) mg/dL Calcium (8.4-10.2) mg/dL AST 14 L (17-59) U/L ALT (21-72) U/L Alkaline Phosphatase (38-126) U/L Total Protein 6.2 L (6.3-8.2) g/dL Albumin (3.5-5.0) g/dL Crossmatch See Detail 01/22/17 01/22/17 01/22/17 Range/Units 08:47 12:17 12:52 WBC (3.8-10.6) k/uL RBC (4.30-5.90) m/uL Hgb (13.0-17.5) gm/dL Hct (39.0-53.0) % Plt Count (150-450) k/uL Neutrophils # (Manual) (1.3-7.7) k/uL ABG pH (7.35-7.45) ABG pCO2 (35-45) mmHg ABG pO2 (83-108) mmHg ABG O2 Saturation (94-97) % Carbon Dioxide (22-30) mmol/L BUN (9-20) mg/dL Creatinine (0.66-1.25) mg/dL Glucose (74-99) mg/dL POC Glucose (mg/dL) 104 H 217 H 218 H (75-99) mg/dL Calcium (8.4-10.2) mg/dL AST (17-59) U/L ALT (21-72) U/L Alkaline Phosphatase (38-126) U/L Total Protein (6.3-8.2) g/dL Albumin (3.5-5.0) g/dL Crossmatch 01/22/17 01/22/17 01/22/17 Range/Units 13:36 14:25 16:00 WBC 12.2 H (3.8-10.6) k/uL RBC 2.35 L (4.30-5.90) m/uL Hgb 7.7 L D (13.0-17.5) gm/dL Hct 22.7 L (39.0-53.0) % Plt Count 67 L D (150-450) k/uL Neutrophils # (Manual) 10.6 H (1.3-7.7) k/uL ABG pH (7.35-7.45) ABG pCO2 (35-45) mmHg ABG pO2 (83-108) mmHg ABG O2 Saturation (94-97) % Carbon Dioxide (22-30) mmol/L BUN (9-20) mg/dL Creatinine (0.66-1.25) mg/dL Glucose (74-99) mg/dL POC Glucose (mg/dL) 241 H 201 H (75-99) mg/dL Calcium (8.4-10.2) mg/dL AST (17-59) U/L ALT (21-72) U/L Alkaline Phosphatase (38-126) U/L Total Protein (6.3-8.2) g/dL Albumin (3.5-5.0) g/dL Crossmatch 01/22/17 01/22/17 01/22/17 Range/Units 16:00 16:05 16:35 WBC (3.8-10.6) k/uL RBC (4.30-5.90) m/uL Hgb (13.0-17.5) gm/dL Hct (39.0-53.0) % Plt Count (150-450) k/uL Neutrophils # (Manual) (1.3-7.7) k/uL ABG pH 7.28 L (7.35-7.45) ABG pCO2 48 H (35-45) mmHg ABG pO2 381 H (83-108) mmHg ABG O2 Saturation 100.0 H (94-97) % Carbon Dioxide 20 L (22-30) mmol/L BUN 23 H (9-20) mg/dL Creatinine 1.42 H (0.66-1.25) mg/dL Glucose 124 H (74-99) mg/dL POC Glucose (mg/dL) 156 H (75-99) mg/dL Calcium 7.3 L (8.4-10.2) mg/dL AST (17-59) U/L ALT 20 L (21-72) U/L Alkaline Phosphatase 28 L (38-126) U/L Total Protein 4.6 L (6.3-8.2) g/dL Albumin 2.9 L (3.5-5.0) g/dL Crossmatch 01/22/17 Range/Units 17:06 WBC (3.8-10.6) k/uL RBC (4.30-5.90) m/uL Hgb (13.0-17.5) gm/dL Hct (39.0-53.0) % Plt Count (150-450) k/uL Neutrophils # (Manual) (1.3-7.7) k/uL ABG pH (7.35-7.45) ABG pCO2 (35-45) mmHg ABG pO2 (83-108) mmHg ABG O2 Saturation (94-97) % Carbon Dioxide (22-30) mmol/L BUN (9-20) mg/dL Creatinine (0.66-1.25) mg/dL Glucose (74-99) mg/dL POC Glucose (mg/dL) 145 H (75-99) mg/dL Calcium (8.4-10.2) mg/dL AST (17-59) U/L ALT (21-72) U/L Alkaline Phosphatase (38-126) U/L Total Protein (6.3-8.2) g/dL Albumin (3.5-5.0) g/dL Crossmatch Assessment and Plan Plan: Assessment 1 Multivessel coronary artery disease/diffuse triple-vessel coronary artery disease status post carotid bypass surgery. The patient underwent 5-vessel bypass. Currently postop day #0 2 postoperative intubation mechanical ventilator. Expected outcome of coronary artery bypass surgery. The patient is in the process of being weaned 3 postoperative chest tubes, 2 pleural and 1 mediastinal within output ranging between 30-50 mL an hour. 4 postoperative anemia with a hemoglobin of 7.7, and expected outcome of surgery 5 postoperative thrombocytopenia, and expected outcome of surgery 6 hypertension 7 hyperlipidemia 8 and send her for blood sugar control 9 hypothyroidism 10 chronic back pain 11 obstructive sleep apnea. Plan Discussed with cardiothoracic surgery. Consider packed RBC and platelet transfusion specially the chest tube output is quite considerably high summer between 30-50 mL an hour. Meanwhile, for the pulmonary standpoint, keep the patient assist-control mode with tidal volume of 600. Up to further down to 40 % as long as saturation allows and maintain a pulse ox above 92%. Anticipate extubation if the patient remains hemodynamically stable without any bleeding complication over the next few hours. Hemodynamically stable at this point. Continue insulin drip. Proceed with a
[2017-01-22 18:13] LABS: Glucose,Whole Blood 136 mg/dL (75-99)
[2017-01-22] MEDS: ACETAMINOPHEN IV (For NPO) 1,000 MG in EMPTY BAG 1 BAG IVPB SCH ×2 (18:31→23:27)
[2017-01-22 18:57] LABS: Glucose,Whole Blood 135 mg/dL (75-99)
[2017-01-22 19:44] LABS: Glucose,Whole Blood 132 mg/dL (75-99)
[2017-01-22] MEDS ORDERED: IPRATROPIUM-ALBUTEROL 3 ML NEB INHALATION SCH (20:00)
[2017-01-22 20:05] LABS: Basophils % (A) 0 %; CH 33.5; Eosinophils # (A) 0.1 k/uL (0-0.7); Eosinophils % (A) 1 %; HCT 24.3 % (39.0-53.0); HDW 2.67; HGB 8.2 gm/dL (13.0-17.5); Luc # (Auto) 0.06; Luc % (Auto) 1; Lymphocytes # (A) 0.5 k/uL (1.0-4.8); Lymphocytes % (A) 6 %; MCH 33.1 pg (25.0-35.0); MCHC 33.5 g/dL (31.0-37.0); MCV 98.9 fL (80.0-100.0); Monocytes # (A) 0.5 k/uL (0-1.0); Monocytes % (A) 5 %; Neutrophils # (A) 7.6 k/uL (1.3-7.7); Neutrophils % (A) 87 %; RBC 2.46 m/uL (4.30-5.90); RDW 13.4 % (11.5-15.5); WBC 8.8 k/uL (3.8-10.6); WBC (Perox) 8.76
[2017-01-22 20:11] LABS: Ionized Calcium 4.6 mg/dL (4.5-5.3)
[2017-01-22 20:14] LABS: INR 1.3 (<1.2); Partial Thromboplastin Time 29.8 sec (22.0-30.0); Prothrombin Time 12.8 sec (9.0-12.0)
[2017-01-22 20:22] LABS: Calcium 7.6 mg/dL (8.4-10.2); Magnesium 2.2 mg/dL (1.6-2.3); Phosphorous 4.2 mg/dL (2.5-4.5); Potassium 4.9 mmol/L (3.5-5.1)
[2017-01-22 20:57] LABS: Glucose,Whole Blood 131 mg/dL (75-99)
[2017-01-22] MEDS: MUPIROCIN 2% OINT 22 GM TUBE NASAL SCH (21:11)
[2017-01-22 21:39] LABS: ABG HCO3 21 mmol/L (21-25); ABG PCO2 42 mmHg (35-45); ABG PH 7.32 (7.35-7.45); ABG PO2 139 mmHg (83-108); ABG TCO2 23 mmol/L (19-24)
[2017-01-22 21:40] LABS: ABG Base Excess -3.8 mmol/L
[2017-01-22 22:11] LABS: Glucose,Whole Blood 149 mg/dL (75-99)
[2017-01-22 22:21] LABS: Basophils % (A) 0 %; CH 33.3; CHCM 33.6; Eosinophils # (A) 0.1 k/uL (0-0.7); Eosinophils % (A) 1 %; HCT 25.8 % (39.0-53.0); HDW 2.67; HGB 8.3 gm/dL (13.0-17.5); Luc # (Auto) 0.09; Luc % (Auto) 1; Lymphocytes # (A) 0.5 k/uL (1.0-4.8); Lymphocytes % (A) 5 %; MCH 32.1 pg (25.0-35.0); MCHC 32.2 g/dL (31.0-37.0); MCV 99.6 fL (80.0-100.0); Mean Platelet Volume 9.7; Monocytes # (A) 0.5 k/uL (0-1.0); Monocytes % (A) 5 %; Neutrophils # (A) 7.7 k/uL (1.3-7.7); Neutrophils % (A) 88 %; RBC 2.59 m/uL (4.30-5.90); RDW 13.2 % (11.5-15.5); WBC 8.8 k/uL (3.8-10.6); WBC (Perox) 9.03
[2017-01-22 22:30] LABS: INR 1.2 (<1.2); Ionized Calcium 4.7 mg/dL (4.5-5.3); Partial Thromboplastin Time 32.3 sec (22.0-30.0); Prothrombin Time 12.3 sec (9.0-12.0)
[2017-01-22 22:38] LABS: Calcium 7.9 mg/dL (8.4-10.2); Magnesium 2.1 mg/dL (1.6-2.3); Phosphorous 4.5 mg/dL (2.5-4.5); Potassium 4.9 mmol/L (3.5-5.1)
[2017-01-22 23:03] LABS: Glucose,Whole Blood 152 mg/dL (75-99)
[2017-01-23] MEDS: HEPARIN SODIUM,PORCINE 5,000 UNIT/ML 1 ML VIAL SQ SCH ×3 (00:02→18:15)
[2017-01-23 00:07] LABS: Glucose,Whole Blood 141 mg/dL (75-99)
[2017-01-23] MEDS: ceFAZolin 2 GM in SODIUM CHLORIDE 0.9% 100 ML IVPB SCH ×2 (00:14→08:08)
[2017-01-23 01:11] LABS: Glucose,Whole Blood 135 mg/dL (75-99)
[2017-01-23 02:05] LABS: Glucose,Whole Blood 126 mg/dL (75-99)
[2017-01-23 03:03] LABS: Glucose,Whole Blood 129 mg/dL (75-99)
[2017-01-23 04:03] LABS: Glucose,Whole Blood 133 mg/dL (75-99)
[2017-01-23 04:08] LABS: Basophils % (A) 0 %; CH 33.3; CHCM 33.6; Eosinophils % (A) 0 %; HCT 26.3 % (39.0-53.0); HDW 2.72; HGB 8.6 gm/dL (13.0-17.5); Luc # (Auto) 0.09; Luc % (Auto) 1; Lymphocytes # (A) 0.5 k/uL (1.0-4.8); Lymphocytes % (A) 6 %; MCH 32.7 pg (25.0-35.0); MCHC 32.8 g/dL (31.0-37.0); MCV 99.7 fL (80.0-100.0); Mean Platelet Volume 10.2; Monocytes # (A) 0.5 k/uL (0-1.0); Monocytes % (A) 6 %; Neutrophils # (A) 8.4 k/uL (1.3-7.7); Neutrophils % (A) 88 %; RBC 2.64 m/uL (4.30-5.90); RDW 13.3 % (11.5-15.5); WBC 9.6 k/uL (3.8-10.6); WBC (Perox) 9.57
[2017-01-23 04:22] LABS: INR 1.2 (<1.2); Partial Thromboplastin Time 25.5 sec (22.0-30.0); Prothrombin Time 12.1 sec (9.0-12.0)
[2017-01-23 04:28] LABS: Ionized Calcium 4.7 mg/dL (4.5-5.3)
[2017-01-23 04:35] LABS: Calcium 8.1 mg/dL (8.4-10.2); Magnesium 2.2 mg/dL (1.6-2.3); Phosphorous 5.6 mg/dL (2.5-4.5); Potassium 5.2 mmol/L (3.5-5.1); Total Bilirubin 0.5 mg/dL (0.2-1.3); Total Protein 5.1 g/dL (6.3-8.2)
[2017-01-23] MEDS ORDERED: SODIUM BICARB 8.4% 50 ML SYR (1 MEQ/ML) IV ONE (05:00)
[2017-01-23 05:59] LABS: Glucose,Whole Blood 136 mg/dL (75-99)
[2017-01-23] MEDS: ACETAMINOPHEN IV (For NPO) 1,000 MG in EMPTY BAG 1 BAG IVPB SCH ×3 (06:09→18:16)
[2017-01-23] MEDS: ALBUMIN HUMAN 5% 250 ML in EMPTY BAG 1 BAG IVPB PRN ×3 (06:14→18:19)
[2017-01-23 06:42] LABS: Glucose,Whole Blood 121 mg/dL (75-99)
[2017-01-23 08:03] LABS: Glucose,Whole Blood 140 mg/dL (75-99)
[2017-01-23] MEDS: LEVOTHYROXINE 75 MCG TAB PO SCH (08:07)
[2017-01-23] MEDS: CLOPIDOGREL 75 MG TAB PO SCH (08:08)
[2017-01-23] MEDS: ASPIRIN 325 MG TAB PO SCH (08:08)
[2017-01-23] MEDS: ATORVASTATIN 40 MG TAB PO SCH (08:08)
[2017-01-23] MEDS: PANTOPRAZOLE 40 MG TABLET PO SCH (08:08)
[2017-01-23] MEDS: MUPIROCIN 2% OINT 22 GM TUBE NASAL SCH ×2 (08:09→20:26)
[2017-01-23] MEDS: METOPROLOL TARTRATE 12.5 MG TAB PO SCH ×2 (08:09→20:26)
[2017-01-23] MEDS: CITALOPRAM HYDROBROMIDE 20 MG TAB PO SCH (08:09)
[2017-01-23] MEDS ORDERED: METOCLOPRAMIDE 5 MG/ML 2 ML VIAL IVP STA (08:30)
--- NOTE | 2017-01-23 08:49 | XR ---
EXAMINATION TYPE: XR chest 1V portable DATE OF EXAM: 01/23/2017 COMPARISON: Prior chest x-ray 01/22/2017 HISTORY: Chest tube, extubated TECHNIQUE: Single frontal view of the chest is obtained. FINDINGS: Left and right chest tubes, right jugular central venous catheter, mediastinal drain remai n in place. There are overlying cardiac leads. Interval removal of the endotracheal tube and NG tube. Lung volumes are low and the patient is rotated. No sizable pneumothorax is evident. Patchy basilar density is present, no definite effusion. Postop changes are noted to the shoulders. IMPRESSION: Interval extubation. Probable basilar atelectasis. Expiratory rotated exam, follow-up re commended.
--- NOTE | 2017-01-23 08:56 | P.PN ---
Subjective This is a very pleasant 81-year-old gentleman follows with Dr. Antonio as his primary care physician. He has a history of esophageal reflux disease, hypertension, pulmonary embolism causing cardiac arrest in 1985, obstructive sleep apnea, hypothyroidism, arthritis, chronic back pain, multiple orthopedic surgeries, depression. He has a remote history of smoking for approximate 10 years 1-2 packs per day but quit 43 years ago. He presented here on 01/15/2017 with complaints of left-sided chest pain. He had been seen and followed by cardiology. He had undergone a stress testing which revealed some evidence of ischemia with subsequent cardiac catheterization revealing diffuse triple- vessel disease including a 50-60% left main stenosis, 90% LAD stenosis, 50% circumflex and 85-90% right coronary artery stenosis. Echocardiogram revealed preserved left ventricular systolic function with estimated ejection fraction 55 -60%. CT angiogram ruled out pulmonary embolism. The lungs were clear of consolidation. No pleural effusion. On 01/22/2017 I'm seeing this patient in follow-up. The patient underwent coronary artery bypass surgery, 5-vessel bypass and currently is in the intensive care unit. He is on sedation with 25 mics of the prevent. Is on a mechanical ventilator on assist control mode rate of 12, tidal volume of 500, FiO2 of 100% and PEEP of 5. The blood gases showed a pH of 7.28 with a pCO2 of 48 and pO2 of 381. Based on this, I increase the tidal volume to 600 and drop the FiO2 down to 50%. His chest x-ray showed adequate expansion of both lungs. There may be a component of volume overload. Left basilar atelectatic changes seen. The patient has an ET tube in place, NG tube in place, 2 pleural chest tubes the right and left and mediastinal chest tube in place, and Norfolk- Yulia catheter in place. Cardiac output is 10 with an index of 5.0. PA artery pressures are 32/15. Producing adequate amount of urine output. Ultrasound the chest tubes out approximately 30-40 mL an hour from each of the chest tubes. Postoperative hemoglobin is at 7.7 with a platelet count of 67. The patient has a component of chronic renal failure. Postoperative renal function showed a creatinine of 1.42. On 01/23/2017 I'm seeing this patient in follow-up. The patient underwent four- vessel bypass surgery. The patient was weaned off the mechanical ventilator other major difficulties and he was extubated yesterday at around 9 PM. It morning it is on oxygen at 2 L per minute nasal cannula. His chest x-ray showing postoperative surgical changes with some elevation of left hemidiaphragm. The mediastinal chest tubes and pleural chest tubes are all in place. Output from the chest tube has been approximately 50 mL an hour total. The patient did not require any packed RBC transfusions. His hemoglobin is up to 8.6. The patient also has a chronic renal failure. Creatinine is at 2.0. Producing adequate amount of urine output. No nausea. No vomiting no focal logical deficits. Patient is counseled also improving is up to 86. Objective - Vital Signs Vital signs: Vital Signs Temp 95.8 F L 01/22/17 17:00 Pulse 66 01/23/17 08:00 Resp 14 01/23/17 08:00 BP 158/88 01/22/17 06:25 Pulse Ox 98 01/23/17 08:00 Intake & Output 01/22/17 01/23/17 01/23/17 18:59 06:59 18:59 Intake Total 383 1041.416 284.511 Output Total 3690 1600 100 Balance -3307 -558.584 184.511 Weight 93.8 kg 96.9 kg 96.9 kg Intake: IV 33 969 160 0.9 flush 69 ACETAMINOPHEN IV (For NPO 100 ) 1,000 mg In Empty Bag 1 bag @ 400 mls/hr IVPB Q6HR [facility] Rx#:[id number] Lactated Ringers 1,000 ml 570 50 @ 20 mls/hr IV .Q24H [facility] Rx#:[id number] cardiac output 130 10 ceFAZolin 2 gm In Sodium 100 100 Chloride 0.9% 100 ml @ 100 mls/hr IVPB Q8HR [facility] Rx#:[id number] Intake, IV Titration 350 72.416 4.511 Amount ACETAMINOPHEN IV (For NPO 100 ) 1,000 mg In Empty Bag 1 bag @ 400 mls/hr IVPB Q6HR [facility] Rx#:[id number] Insulin Regular 100 unit 18.101 4.511 In Sodium Chloride 0.9% 100 ml @ Per Protocol IV .Q0M [facility] Rx#:[id number] Lactated Ringers 1,000 ml 150 50 @ 20 mls/hr IV .Q24H [facility] Rx#:[id number] Propofol 1,000 mg In 100 4.315 ml @ Titrate IV .Q0M [facility] Rx#:[id number] ceFAZolin 2 gm In Sodium 100 Chloride 0.9% 100 ml @ 100 mls/hr IVPB Q8HR [facility] Rx#:[id number] Oral 120 Output: Chest Tube Drainage 330 575 50 Chest Tube Left Pleural/ 115 79 0 Mediastinal Chest Tube Mediastinal 125 400 50 Chest Tube Right 90 96 0 Drainage 60 80 Left Calf 40 30 Right Calf 20 50 Urine 1300 945 50 Estimated Blood Loss 1999 Other: Voiding Method Indwelling Catheter Indwelling Catheter Indwelling Catheter ABP, PAP, CO, CI - Last Documented Arterial Blood Pressure 125/58 Pulmonary Artery Pressure 36/19 Cardiac Output 7.4 Cardiac Index 3.7 - Exam Head exam was generally normal. There was no scleral icterus or corneal arcus. Mucous membranes were moist.Neck was supple and without jugular venous distension, thyromegaly, or carotid bruits. Carotids were easily palpable bilaterally. There was no adenopathy. The patient has a right IJ Norfolk-Yulia catheter and Cordis in place. Lung sounds are diminished bilaterally otherwise clear. Sternum stable clean and intact. Chest tubes are all in place.Cardiac exam revealed the PMI to be normally situated and sized. The rhythm was regular and no extrasystoles were noted during several minutes of auscultation. The first and second heart sounds were normal and physiologic splitting of the second heart sound was noted. There were no murmurs, rubs, clicks, or gallops.Abdominal exam revealed normal bowel sounds. The abdomen was soft, non- tender, and without masses, organomegaly, or appreciable enlargement of the abdominal aorta.Examination of the extremities revealed easily palpable radial, femoral and pedal pulses. There was no cyanosis, clubbing or edema. The hematoma in the left thigh is unchanged on today's evaluation. Patient has 2 WESLY drains one in each lower extremity at the surgical wound site. Total amount of output has been around 70 over the past 12 hours - Labs CBC & Chem 7: 01/23/17 04:01 01/23/17 04:01 Labs: Abnormal Lab Results - Last 24 Hours (Table) 01/21/17 01/22/17 01/22/17 Range/Units 05:47 08:47 12:17 WBC (3.8-10.6) k/uL RBC (4.30-5.90) m/uL Hgb (13.0-17.5) gm/dL Hct (39.0-53.0) % Plt Count (150-450) k/uL Neutrophils # (1.3-7.7) k/uL Neutrophils # (Manual) (1.3-7.7) k/uL Lymphocytes # (1.0-4.8) k/uL PT (9.0-12.0) sec INR (<1.2) APTT (22.0-30.0) sec ABG pH (7.35-7.45) ABG pCO2 (35-45) mmHg ABG pO2 (83-108) mmHg ABG O2 Saturation (94-97) % Sodium (137-145) mmol/L Potassium (3.5-5.1) mmol/L Carbon Dioxide (22-30) mmol/L BUN (9-20) mg/dL Creatinine (0.66-1.25) mg/dL Glucose (74-99) mg/dL POC Glucose (mg/dL) 104 H 217 H (75-99) mg/dL Calcium (8.4-10.2) mg/dL Phosphorus (2.5-4.5) mg/dL ALT (21-72) U/L Alkaline Phosphatase (38-126) U/L Total Protein (6.3-8.2) g/dL Albumin (3.5-5.0) g/dL Crossmatch See Detail 01/22/17 01/22/17 01/22/17 Range/Units 12:52 13:36 14:25 WBC (3.8-10.6) k/uL RBC (4.30-5.90) m/uL Hgb (13.0-17.5) gm/dL Hct (39.0-53.0) % Plt Count (150-450) k/uL Neutrophils # (1.3-7.7) k/uL Neutrophils # (Manual) (1.3-7.7) k/uL Lymphocytes # (1.0-4.8) k/uL PT (9.0-12.0) sec INR (<1.2) APTT (22.0-30.0) sec ABG pH (7.35-7.45) ABG pCO2 (35-45) mmHg ABG pO2 (83-108) mmHg ABG O2 Saturation (94-97) % Sodium (137-145) mmol/L Potassium (3.5-5.1) mmol/L Carbon Dioxide (22-30) mmol/L BUN (9-20) mg/dL Creatinine (0.66-1.25) mg/dL Glucose (74-99) mg/dL POC Glucose (mg/dL) 218 H 241 H 201 H (75-99) mg/dL Calcium (8.4-10.2) mg/dL Phosphorus (2.5-4.5) mg/dL ALT (21-72) U/L Alkaline Phosphatase (38-126) U/L Total Protein (6.3-8.2) g/dL Albumin (3.5-5.0) g/dL Crossmatch 01/22/17 01/22/17 01/22/17 Range/Units 16:00 16:00 16:05 WBC 12.2 H (3.8-10.6) k/uL RBC 2.35 L (4.30-5.90) m/uL Hgb 7.7 L D (13.0-17.5) gm/dL Hct 22.7 L (39.0-53.0) % Plt Count 67 L D (150-450) k/uL Neutrophils # (1.3-7.7) k/uL Neutrophils # (Manual) 10.6 H (1.3-7.7) k/uL Lymphocytes # (1.0-4.8) k/uL PT (9.0-12.0) sec INR (<1.2) APTT (22.0-30.0) sec ABG pH (7.35-7.45) ABG pCO2 (35-45) mmHg ABG pO2 (83-108) mmHg ABG O2 Saturation (94-97) % Sodium (137-145) mmol/L Potassium (3.5-5.1) mmol/L Carbon Dioxide 20 L (22-30) mmol/L BUN 23 H (9-20) mg/dL Creatinine 1.42 H (0.66-1.25) mg/dL Glucose 124 H (74-99) mg/dL POC Glucose (mg/dL) 156 H (75-99) mg/dL Calcium 7.3 L (8.4-10.2) mg/dL Phosphorus (2.5-4.5) mg/dL ALT 20 L (21-72) U/L Alkaline Phosphatase 28 L (38-126) U/L Total Protein 4.6 L (6.3-8.2) g/dL Albumin 2.9 L (3.5-5.0) g/dL Crossmatch 01/22/17 01/22/17 01/22/17 Range/Units 16:35 17:06 18:10 WBC (3.8-10.6) k/uL RBC (4.30-5.90) m/uL Hgb (13.0-17.5) gm/dL Hct (39.0-53.0) % Plt Count (150-450) k/uL Neutrophils # (1.3-7.7) k/uL Neutrophils # (Manual) (1.3-7.7) k/uL Lymphocytes # (1.0-4.8) k/uL PT (9.0-12.0) sec INR (<1.2) APTT (22.0-30.0) sec ABG pH 7.28 L (7.35-7.45) ABG pCO2 48 H (35-45) mmHg ABG pO2 381 H (83-108) mmHg ABG O2 Saturation 100.0 H (94-97) % Sodium (137-145) mmol/L Potassium (3.5-5.1) mmol/L Carbon Dioxide (22-30) mmol/L BUN (9-20) mg/dL Creatinine (0.66-1.25) mg/dL Glucose (74-99) mg/dL POC Glucose (mg/dL) 145 H 136 H (75-99) mg/dL Calcium (8.4-10.2) mg/dL Phosphorus (2.5-4.5) mg/dL ALT (21-72) U/L Alkaline Phosphatase (38-126) U/L Total Protein (6.3-8.2) g/dL Albumin (3.5-5.0) g/dL Crossmatch 01/22/17 01/22/17 01/22/17 Range/Units 18:56 19:42 19:49 WBC (3.8-10.6) k/uL RBC (4.30-5.90) m/uL Hgb (13.0-17.5) gm/dL Hct (39.0-53.0) % Plt Count (150-450) k/uL Neutrophils # (1.3-7.7) k/uL Neutrophils # (Manual) (1.3-7.7) k/uL Lymphocytes # (1.0-4.8) k/uL PT (9.0-12.0) sec INR (<1.2) APTT (22.0-30.0) sec ABG pH (7.35-7.45) ABG pCO2 (35-45) mmHg ABG pO2 (83-108) mmHg ABG O2 Saturation (94-97) % Sodium 136 L (137-145) mmol/L Potassium (3.5-5.1) mmol/L Carbon Dioxide (22-30) mmol/L BUN 25 H (9-20) mg/dL Creatinine 1.61 H (0.66-1.25) mg/dL Glucose 111 H (74-99) mg/dL POC Glucose (mg/dL) 135 H 132 H (75-99) mg/dL Calcium 7.6 L (8.4-10.2) mg/dL Phosphorus (2.5-4.5) mg/dL ALT (21-72) U/L Alkaline Phosphatase (38-126) U/L Total Protein (6.3-8.2) g/dL Albumin (3.5-5.0) g/dL Crossmatch 01/22/17 01/22/17 01/22/17 Range/Units 19:49 19:49 20:56 WBC (3.8-10.6) k/uL RBC 2.46 L (4.30-5.90) m/uL Hgb 8.2 L (13.0-17.5) gm/dL Hct 24.3 L (39.0-53.0) % Plt Count 79 L (150-450) k/uL Neutrophils # (1.3-7.7) k/uL Neutrophils # (Manual) (1.3-7.7) k/uL Lymphocytes # 0.5 L (1.0-4.8) k/uL PT 12.8 H (9.0-12.0) sec INR 1.3 H (<1.2) APTT (22.0-30.0) sec ABG pH (7.35-7.45) ABG pCO2 (35-45) mmHg ABG pO2 (83-108) mmHg ABG O2 Saturation (94-97) % Sodium (137-145) mmol/L Potassium (3.5-5.1) mmol/L Carbon Dioxide (22-30) mmol/L BUN (9-20) mg/dL Creatinine (0.66-1.25) mg/dL Glucose (74-99) mg/dL POC Glucose (mg/dL) 131 H (75-99) mg/dL Calcium (8.4-10.2) mg/dL Phosphorus (2.5-4.5) mg/dL ALT (21-72) U/L Alkaline Phosphatase (38-126) U/L Total Protein (6.3-8.2) g/dL Albumin (3.5-5.0) g/dL Crossmatch 01/22/17 01/22/17 01/22/17 Range/Units 21:32 22:10 22:11 WBC (3.8-10.6) k/uL RBC (4.30-5.90) m/uL Hgb (13.0-17.5) gm/dL Hct (39.0-53.0) % Plt Count (150-450) k/uL Neutrophils # (1.3-7.7) k/uL Neutrophils # (Manual) (1.3-7.7) k/uL Lymphocytes # (1.0-4.8) k/uL PT (9.0-12.0) sec INR (<1.2) APTT (22.0-30.0) sec ABG pH 7.32 L (7.35-7.45) ABG pCO2 (35-45) mmHg ABG pO2 139 H (83-108) mmHg ABG O2 Saturation 99.0 H (94-97) % Sodium (137-145) mmol/L Potassium (3.5-5.1) mmol/L Carbon Dioxide (22-30) mmol/L BUN 25 H (9-20) mg/dL Creatinine 1.70 H (0.66-1.25) mg/dL Glucose 130 H (74-99) mg/dL POC Glucose (mg/dL) 149 H (75-99) mg/dL Calcium 7.9 L (8.4-10.2) mg/dL Phosphorus (2.5-4.5) mg/dL ALT (21-72) U/L Alkaline Phosphatase (38-126) U/L Total Protein (6.3-8.2) g/dL Albumin (3.5-5.0) g/dL Crossmatch 01/22/17 01/22/17 01/22/17 Range/Units 22:11 22:11 23:01 WBC (3.8-10.6) k/uL RBC 2.59 L (4.30-5.90) m/uL Hgb 8.3 L (13.0-17.5) gm/dL Hct 25.8 L (39.0-53.0) % Plt Count 75 L (150-450) k/uL Neutrophils # (1.3-7.7) k/uL Neutrophils # (Manual) (1.3-7.7) k/uL Lymphocytes # 0.5 L (1.0-4.8) k/uL PT 12.3 H (9.0-12.0) sec INR 1.2 H (<1.2) APTT 32.3 H (22.0-30.0) sec ABG pH (7.35-7.45) ABG pCO2 (35-45) mmHg ABG pO2 (83-108) mmHg ABG O2 Saturation (94-97) % Sodium (137-145) mmol/L Potassium (3.5-5.1) mmol/L Carbon Dioxide (22-30) mmol/L BUN (9-20) mg/dL Creatinine (0.66-1.25) mg/dL Glucose (74-99) mg/dL POC Glucose (mg/dL) 152 H (75-99) mg/dL Calcium (8.4-10.2) mg/dL Phosphorus (2.5-4.5) mg/dL ALT (21-72) U/L Alkaline Phosphatase (38-126) U/L Total Protein (6.3-8.2) g/dL Albumin (3.5-5.0) g/dL Crossmatch 01/23/17 01/23/17 01/23/17 Range/Units 00:05 01:09 02:03 WBC (3.8-10.6) k/uL RBC (4.30-5.90) m/uL Hgb (13.0-17.5) gm/dL Hct (39.0-53.0) % Plt Count (150-450) k/uL Neutrophils # (1.3-7.7) k/uL Neutrophils # (Manual) (1.3-7.7) k/uL Lymphocytes # (1.0-4.8) k/uL PT (9.0-12.0) sec INR (<1.2) APTT (22.0-30.0) sec ABG pH (7.35-7.45) ABG pCO2 (35-45) mmHg ABG pO2 (83-108) mmHg ABG O2 Saturation (94-97) % Sodium (137-145) mmol/L Potassium (3.5-5.1) mmol/L Carbon Dioxide (22-30) mmol/L BUN (9-20) mg/dL Creatinine (0.66-1.25) mg/dL Glucose (74-99) mg/dL POC Glucose (mg/dL) 141 H 135 H 126 H (75-99) mg/dL Calcium (8.4-10.2) mg/dL Phosphorus (2.5-4.5) mg/dL ALT (21-72) U/L Alkaline Phosphatase (38-126) U/L Total Protein (6.3-8.2) g/dL Albumin (3.5-5.0) g/dL Crossmatch 01/23/17 01/23/17 01/23/17 Range/Units 03:02 04:01 04:01 WBC (3.8-10.6) k/uL RBC 2.64 L (4.30-5.90) m/uL Hgb 8.6 L (13.0-17.5) gm/dL Hct 26.3 L (39.0-53.0) % Plt Count 86 L (150-450) k/uL Neutrophils # 8.4 H (1.3-7.7) k/uL Neutrophils # (Manual) (1.3-7.7) k/uL Lymphocytes # 0.5 L (1.0-4.8) k/uL PT (9.0-12.0) sec INR (<1.2) APTT (22.0-30.0) sec ABG pH (7.35-7.45) ABG pCO2 (35-45) mmHg ABG pO2 (83-108) mmHg ABG O2 Saturation (94-97) % Sodium (137-145) mmol/L Potassium 5.2 H (3.5-5.1) mmol/L Carbon Dioxide (22-30) mmol/L BUN 29 H (9-20) mg/dL Creatinine 2.00 H (0.66-1.25) mg/dL Glucose 112 H (74-99) mg/dL POC Glucose (mg/dL) 129 H (75-99) mg/dL Calcium 8.1 L (8.4-10.2) mg/dL Phosphorus 5.6 H (2.5-4.5) mg/dL ALT (21-72) U/L Alkaline Phosphatase 37 L (38-126) U/L Total Protein 5.1 L (6.3-8.2) g/dL Albumin 3.3 L (3.5-5.0) g/dL Crossmatch 01/23/17 01/23/17 01/23/17 Range/Units 04:01 04:01 05:58 WBC (3.8-10.6) k/uL RBC (4.30-5.90) m/uL Hgb (13.0-17.5) gm/dL Hct (39.0-53.0) % Plt Count (150-450) k/uL Neutrophils # (1.3-7.7) k/uL Neutrophils # (Manual) (1.3-7.7) k/uL Lymphocytes # (1.0-4.8) k/uL PT 12.1 H (9.0-12.0) sec INR 1.2 H (<1.2) APTT (22.0-30.0) sec ABG pH (7.35-7.45) ABG pCO2 (35-45) mmHg ABG pO2 (83-108) mmHg ABG O2 Saturation (94-97) % Sodium (137-145) mmol/L Potassium (3.5-5.1) mmol/L Carbon Dioxide (22-30) mmol/L BUN (9-20) mg/dL Creatinine (0.66-1.25) mg/dL Glucose (74-99) mg/dL POC Glucose (mg/dL) 133 H 136 H (75-99) mg/dL Calcium (8.4-10.2) mg/dL Phosphorus (2.5-4.5) mg/dL ALT (21-72) U/L Alkaline Phosphatase (38-126) U/L Total Protein (6.3-8.2) g/dL Albumin (3.5-5.0) g/dL Crossmatch 01/23/17 01/23/17 Range/Units 06:41 08:02 WBC (3.8-10.6) k/uL RBC (4.30-5.90) m/uL Hgb (13.0-17.5) gm/dL Hct (39.0-53.0) % Plt Count (150-450) k/uL Neutrophils # (1.3-7.7) k/uL Neutrophils # (Manual) (1.3-7.7) k/uL Lymphocytes # (1.0-4.8) k/uL PT (9.0-12.0) sec INR (<1.2) APTT (22.0-30.0) sec ABG pH (7.35-7.45) ABG pCO2 (35-45) mmHg ABG pO2 (83-108) mmHg ABG O2 Saturation (94-97) % Sodium (137-145) mmol/L Potassium (3.5-5.1) mmol/L Carbon Dioxide (22-30) mmol/L BUN (9-20) mg/dL Creatinine (0.66-1.25) mg/dL Glucose (74-99) mg/dL POC Glucose (mg/dL) 121 H 140 H (75-99) mg/dL Calcium (8.4-10.2) mg/dL Phosphorus (2.5-4.5) mg/dL ALT (21-72) U/L Alkaline Phosphatase (38-126) U/L Total Protein (6.3-8.2) g/dL Albumin (3.5-5.0) g/dL Crossmatch Assessment and Plan Plan: Assessment 1 Multivessel coronary artery disease/diffuse triple-vessel coronary artery disease status post carotid bypass surgery. The patient underwent 5-vessel bypass. Currently postop day #1 2 postoperative intubation mechanical ventilator. Expected outcome of coronary artery bypass surgery. The patient was extubated without any major difficulties. 3 postoperative chest tubes, 2 pleural and 1 mediastinal within output ranging between 50 mL an hour total and output is considerably less compared to yesterday with a stable hemoglobin. 4 postoperative anemia with a hemoglobin of 8.6 5 postoperative thrombocytopenia, and expected outcome of surgery, improving 6 hypertension 7 hyperlipidemia 8 and send her for blood sugar control 9 hypothyroidism 10 chronic back pain 11 obstructive sleep apnea. Plan Remove the Norfolk-Yulia catheter. Continue using incentive spirometer. Aggressive pulmonary toileting. Ambulate this patient the hallway. Repeat labs in the morning. Keep him in ICU for another 24 hours. We'll follow. Monitor the output from the chest tube and the WESLY drains. Gradually to diet as tolerated. We'll continue to follow.
[2017-01-23] MEDS ORDERED: PANTOPRAZOLE 40 MG/10 ML VIAL IVP SCH (09:00)
[2017-01-23 09:08] LABS: Glucose,Whole Blood 137 mg/dL (75-99)
--- NOTE | 2017-01-23 09:41 | P.PN ---
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 Hypertension. History of pulmonary embolus. Obstructive sleep apnea with CPAP use. History of syncope. Hypothyroid. History of cardiac arrest. Chronic kidney disease stage III. Chronic low back pain. Previous tobacco dependence. Family history of coronary artery disease. POD #1 urgent coronary artery bypass grafting with left internal mammary artery to the left anterior descending artery, reverse saphenous vein graft to the diagonal artery, reverse saphenous vein graft to the obtuse marginal 1 artery, and reverse saphenous vein graft to the posterior descending artery. Bilateral endoscopic vein harvest. Epi-aortic scanning. Intraoperative transesophageal echocardiogram. Graft flow measurement using the [employer] system. Currently sitting up in recliner in no acute distress. Was extubated last night. Denies pain, shortness of breath. Tolerating clear liquids. No complaints at this time. Objective - Vital Signs Vital signs: Vital Signs Temp 95.8 F L 01/22/17 17:00 Pulse 71 01/23/17 09:00 Resp 14 01/23/17 08:00 BP 158/88 01/22/17 06:25 Pulse Ox 99 01/23/17 09:00 Intake & Output 01/22/17 01/23/17 01/23/17 18:59 06:59 18:59 Intake Total 383 1041.416 334.511 Output Total 3690 1600 160 Balance -3307 -558.584 174.511 Weight 93.8 kg 96.9 kg 96.9 kg Intake: IV 33 969 210 0.9 flush 69 ACETAMINOPHEN IV (For NPO 100 ) 1,000 mg In Empty Bag 1 bag @ 400 mls/hr IVPB Q6HR [facility] Rx#:[id number] Lactated Ringers 1,000 ml 570 100 @ 20 mls/hr IV .Q24H [facility] Rx#:[id number] cardiac output 130 10 ceFAZolin 2 gm In Sodium 100 100 Chloride 0.9% 100 ml @ 100 mls/hr IVPB Q8HR [facility] Rx#:[id number] Intake, IV Titration 350 72.416 4.511 Amount ACETAMINOPHEN IV (For NPO 100 ) 1,000 mg In Empty Bag 1 bag @ 400 mls/hr IVPB Q6HR [facility] Rx#:[id number] Insulin Regular 100 unit 18.101 4.511 In Sodium Chloride 0.9% 100 ml @ Per Protocol IV .Q0M [facility] Rx#:[id number] Lactated Ringers 1,000 ml 150 50 @ 20 mls/hr IV .Q24H [facility] Rx#:[id number] Propofol 1,000 mg In 100 4.315 ml @ Titrate IV .Q0M [facility] Rx#:[id number] ceFAZolin 2 gm In Sodium 100 Chloride 0.9% 100 ml @ 100 mls/hr IVPB Q8HR [facility] Rx#:[id number] Oral 120 Output: Chest Tube Drainage 330 575 50 Chest Tube Left Pleural/ 115 79 0 Mediastinal Chest Tube Mediastinal 125 400 50 Chest Tube Right 90 96 0 Drainage 60 80 Left Calf 40 30 Right Calf 20 50 Urine 1300 945 110 Estimated Blood Loss 1999 Other: Voiding Method Indwelling Catheter Indwelling Catheter Indwelling Catheter ABP, PAP, CO, CI - Last Documented Arterial Blood Pressure 122/51 Pulmonary Artery Pressure 35/16 Cardiac Output 6.4 Cardiac Index 3.2 - Constitutional General appearance: Present: cooperative, no acute distress - Respiratory Details: Lungs sounds diminished bilaterally. Respirations even, nonlabored. Currently on 2 L nasal cannula with oxygen saturation 99%. Able to achieve 500 mL on his incentive spirometer. Left pleural chest tube to -20 cm wall suction, 60 mL serosanguineous drainage overnight, 200 mL since surgery. Mediastinal chest tube to -20 cm wall suction, 290 mL serosanguineous drainage overnight, 600 mL since surgery. Right pleural chest tube -20 cm wall suction, 60 mL serosanguineous drainage overnight, 190 mL since surgery. No air leaks present. - Cardiovascular Details: S1, S2 present. Regular rate and rhythm, normal sinus rhythm on telemetry. A/ V epicardial pacemaker wires present, connected to generator, VVI mode with backup rate 50 bpm. Sternum stable. No edema present. Palpable pulses bilaterally. Right internal jugular [place], right radial arterial line present. Heart hugger in place patient demonstrating appropriate use. Teds/ SCDs present. - Gastrointestinal Gastrointestinal Comment(s): Abdomen soft, nontender, nondistended. Hypoactive bowel sounds present 4 quadrants. Tolerating clear liquids. Negative flatus - Genitourinary Genitourinary Comment(s): [place] present draining clear, yellow urine. Output 35-75 mL/h overnight. - Integumentary Integumentary Comment(s): Anterior chest incision well approximated, dry intact dressing. Bilateral lower extremity EVH sites well approximated, WESLY drains present with minimal serosanguineous drainage. - Neurologic Neurologic: Present: CNII-XII intact - Musculoskeletal Musculoskeletal: Present: strength equal bilaterally - Psychiatric Psychiatric: Present: A&O x's 3, appropriate affect, intact judgment & insight - Allied health notes Allied health notes reviewed: nursing - Labs CBC & Chem 7: 01/23/17 04:01 01/23/17 04:01 Labs: Abnormal Lab Results - Last 24 Hours (Table) 01/21/17 01/22/17 01/22/17 Range/Units 05:47 12:17 12:52 WBC (3.8-10.6) k/uL RBC (4.30-5.90) m/uL Hgb (13.0-17.5) gm/dL Hct (39.0-53.0) % Plt Count (150-450) k/uL Neutrophils # (1.3-7.7) k/uL Neutrophils # (Manual) (1.3-7.7) k/uL Lymphocytes # (1.0-4.8) k/uL PT (9.0-12.0) sec INR (<1.2) APTT (22.0-30.0) sec ABG pH (7.35-7.45) ABG pCO2 (35-45) mmHg ABG pO2 (83-108) mmHg ABG O2 Saturation (94-97) % Sodium (137-145) mmol/L Potassium (3.5-5.1) mmol/L Carbon Dioxide (22-30) mmol/L BUN (9-20) mg/dL Creatinine (0.66-1.25) mg/dL Glucose (74-99) mg/dL POC Glucose (mg/dL) 217 H 218 H (75-99) mg/dL Calcium (8.4-10.2) mg/dL Phosphorus (2.5-4.5) mg/dL ALT (21-72) U/L Alkaline Phosphatase (38-126) U/L Total Protein (6.3-8.2) g/dL Albumin (3.5-5.0) g/dL Crossmatch See Detail 01/22/17 01/22/17 01/22/17 Range/Units 13:36 14:25 16:00 WBC 12.2 H (3.8-10.6) k/uL RBC 2.35 L (4.30-5.90) m/uL Hgb 7.7 L D (13.0-17.5) gm/dL Hct 22.7 L (39.0-53.0) % Plt Count 67 L D (150-450) k/uL Neutrophils # (1.3-7.7) k/uL Neutrophils # (Manual) 10.6 H (1.3-7.7) k/uL Lymphocytes # (1.0-4.8) k/uL PT (9.0-12.0) sec INR (<1.2) APTT (22.0-30.0) sec ABG pH (7.35-7.45) ABG pCO2 (35-45) mmHg ABG pO2 (83-108) mmHg ABG O2 Saturation (94-97) % Sodium (137-145) mmol/L Potassium (3.5-5.1) mmol/L Carbon Dioxide (22-30) mmol/L BUN (9-20) mg/dL Creatinine (0.66-1.25) mg/dL Glucose (74-99) mg/dL POC Glucose (mg/dL) 241 H 201 H (75-99) mg/dL Calcium (8.4-10.2) mg/dL Phosphorus (2.5-4.5) mg/dL ALT (21-72) U/L Alkaline Phosphatase (38-126) U/L Total Protein (6.3-8.2) g/dL Albumin (3.5-5.0) g/dL Crossmatch 01/22/17 01/22/17 01/22/17 Range/Units 16:00 16:05 16:35 WBC (3.8-10.6) k/uL RBC (4.30-5.90) m/uL Hgb (13.0-17.5) gm/dL Hct (39.0-53.0) % Plt Count (150-450) k/uL Neutrophils # (1.3-7.7) k/uL Neutrophils # (Manual) (1.3-7.7) k/uL Lymphocytes # (1.0-4.8) k/uL PT (9.0-12.0) sec INR (<1.2) APTT (22.0-30.0) sec ABG pH 7.28 L (7.35-7.45) ABG pCO2 48 H (35-45) mmHg ABG pO2 381 H (83-108) mmHg ABG O2 Saturation 100.0 H (94-97) % Sodium (137-145) mmol/L Potassium (3.5-5.1) mmol/L Carbon Dioxide 20 L (22-30) mmol/L BUN 23 H (9-20) mg/dL Creatinine 1.42 H (0.66-1.25) mg/dL Glucose 124 H (74-99) mg/dL POC Glucose (mg/dL) 156 H (75-99) mg/dL Calcium 7.3 L (8.4-10.2) mg/dL Phosphorus (2.5-4.5) mg/dL ALT 20 L (21-72) U/L Alkaline Phosphatase 28 L (38-126) U/L Total Protein 4.6 L (6.3-8.2) g/dL Albumin 2.9 L (3.5-5.0) g/dL Crossmatch 01/22/17 01/22/17 01/22/17 Range/Units 17:06 18:10 18:56 WBC (3.8-10.6) k/uL RBC (4.30-5.90) m/uL Hgb (13.0-17.5) gm/dL Hct (39.0-53.0) % Plt Count (150-450) k/uL Neutrophils # (1.3-7.7) k/uL Neutrophils # (Manual) (1.3-7.7) k/uL Lymphocytes # (1.0-4.8) k/uL PT (9.0-12.0) sec INR (<1.2) APTT (22.0-30.0) sec ABG pH (7.35-7.45) ABG pCO2 (35-45) mmHg ABG pO2 (83-108) mmHg ABG O2 Saturation (94-97) % Sodium (137-145) mmol/L Potassium (3.5-5.1) mmol/L Carbon Dioxide (22-30) mmol/L BUN (9-20) mg/dL Creatinine (0.66-1.25) mg/dL Glucose (74-99) mg/dL POC Glucose (mg/dL) 145 H 136 H 135 H (75-99) mg/dL Calcium (8.4-10.2) mg/dL Phosphorus (2.5-4.5) mg/dL ALT (21-72) U/L Alkaline Phosphatase (38-126) U/L Total Protein (6.3-8.2) g/dL Albumin (3.5-5.0) g/dL Crossmatch 01/22/17 01/22/17 01/22/17 Range/Units 19:42 19:49 19:49 WBC (3.8-10.6) k/uL RBC 2.46 L (4.30-5.90) m/uL Hgb 8.2 L (13.0-17.5) gm/dL Hct 24.3 L (39.0-53.0) % Plt Count 79 L (150-450) k/uL Neutrophils # (1.3-7.7) k/uL Neutrophils # (Manual) (1.3-7.7) k/uL Lymphocytes # 0.5 L (1.0-4.8) k/uL PT (9.0-12.0) sec INR (<1.2) APTT (22.0-30.0) sec ABG pH (7.35-7.45) ABG pCO2 (35-45) mmHg ABG pO2 (83-108) mmHg ABG O2 Saturation (94-97) % Sodium 136 L (137-145) mmol/L Potassium (3.5-5.1) mmol/L Carbon Dioxide (22-30) mmol/L BUN 25 H (9-20) mg/dL Creatinine 1.61 H (0.66-1.25) mg/dL Glucose 111 H (74-99) mg/dL POC Glucose (mg/dL) 132 H (75-99) mg/dL Calcium 7.6 L (8.4-10.2) mg/dL Phosphorus (2.5-4.5) mg/dL ALT (21-72) U/L Alkaline Phosphatase (38-126) U/L Total Protein (6.3-8.2) g/dL Albumin (3.5-5.0) g/dL Crossmatch 01/22/17 01/22/17 01/22/17 Range/Units 19:49 20:56 21:32 WBC (3.8-10.6) k/uL RBC (4.30-5.90) m/uL Hgb (13.0-17.5) gm/dL Hct (39.0-53.0) % Plt Count (150-450) k/uL Neutrophils # (1.3-7.7) k/uL Neutrophils # (Manual) (1.3-7.7) k/uL Lymphocytes # (1.0-4.8) k/uL PT 12.8 H (9.0-12.0) sec INR 1.3 H (<1.2) APTT (22.0-30.0) sec ABG pH 7.32 L (7.35-7.45) ABG pCO2 (35-45) mmHg ABG pO2 139 H (83-108) mmHg ABG O2 Saturation 99.0 H (94-97) % Sodium (137-145) mmol/L Potassium (3.5-5.1) mmol/L Carbon Dioxide (22-30) mmol/L BUN (9-20) mg/dL Creatinine (0.66-1.25) mg/dL Glucose (74-99) mg/dL POC Glucose (mg/dL) 131 H (75-99) mg/dL Calcium (8.4-10.2) mg/dL Phosphorus (2.5-4.5) mg/dL ALT (21-72) U/L Alkaline Phosphatase (38-126) U/L Total Protein (6.3-8.2) g/dL Albumin (3.5-5.0) g/dL Crossmatch 01/22/17 01/22/17 01/22/17 Range/Units 22:10 22:11 22:11 WBC (3.8-10.6) k/uL RBC 2.59 L (4.30-5.90) m/uL Hgb 8.3 L (13.0-17.5) gm/dL Hct 25.8 L (39.0-53.0) % Plt Count 75 L (150-450) k/uL Neutrophils # (1.3-7.7) k/uL Neutrophils # (Manual) (1.3-7.7) k/uL Lymphocytes # 0.5 L (1.0-4.8) k/uL PT (9.0-12.0) sec INR (<1.2) APTT (22.0-30.0) sec ABG pH (7.35-7.45) ABG pCO2 (35-45) mmHg ABG pO2 (83-108) mmHg ABG O2 Saturation (94-97) % Sodium (137-145) mmol/L Potassium (3.5-5.1) mmol/L Carbon Dioxide (22-30) mmol/L BUN 25 H (9-20) mg/dL Creatinine 1.70 H (0.66-1.25) mg/dL Glucose 130 H (74-99) mg/dL POC Glucose (mg/dL) 149 H (75-99) mg/dL Calcium 7.9 L (8.4-10.2) mg/dL Phosphorus (2.5-4.5) mg/dL ALT (21-72) U/L Alkaline Phosphatase (38-126) U/L Total Protein (6.3-8.2) g/dL Albumin (3.5-5.0) g/dL Crossmatch 01/22/17 01/22/17 01/23/17 Range/Units 22:11 23:01 00:05 WBC (3.8-10.6) k/uL RBC (4.30-5.90) m/uL Hgb (13.0-17.5) gm/dL Hct (39.0-53.0) % Plt Count (150-450) k/uL Neutrophils # (1.3-7.7) k/uL Neutrophils # (Manual) (1.3-7.7) k/uL Lymphocytes # (1.0-4.8) k/uL PT 12.3 H (9.0-12.0) sec INR 1.2 H (<1.2) APTT 32.3 H (22.0-30.0) sec ABG pH (7.35-7.45) ABG pCO2 (35-45) mmHg ABG pO2 (83-108) mmHg ABG O2 Saturation (94-97) % Sodium (137-145) mmol/L Potassium (3.5-5.1) mmol/L Carbon Dioxide (22-30) mmol/L BUN (9-20) mg/dL Creatinine (0.66-1.25) mg/dL Glucose (74-99) mg/dL POC Glucose (mg/dL) 152 H 141 H (75-99) mg/dL Calcium (8.4-10.2) mg/dL Phosphorus (2.5-4.5) mg/dL ALT (21-72) U/L Alkaline Phosphatase (38-126) U/L Total Protein (6.3-8.2) g/dL Albumin (3.5-5.0) g/dL Crossmatch 01/23/17 01/23/17 01/23/17 Range/Units 01:09 02:03 03:02 WBC (3.8-10.6) k/uL RBC (4.30-5.90) m/uL Hgb (13.0-17.5) gm/dL Hct (39.0-53.0) % Plt Count (150-450) k/uL Neutrophils # (1.3-7.7) k/uL Neutrophils # (Manual) (1.3-7.7) k/uL Lymphocytes # (1.0-4.8) k/uL PT (9.0-12.0) sec INR (<1.2) APTT (22.0-30.0) sec ABG pH (7.35-7.45) ABG pCO2 (35-45) mmHg ABG pO2 (83-108) mmHg ABG O2 Saturation (94-97) % Sodium (137-145) mmol/L Potassium (3.5-5.1) mmol/L Carbon Dioxide (22-30) mmol/L BUN (9-20) mg/dL Creatinine (0.66-1.25) mg/dL Glucose (74-99) mg/dL POC Glucose (mg/dL) 135 H 126 H 129 H (75-99) mg/dL Calcium (8.4-10.2) mg/dL Phosphorus (2.5-4.5) mg/dL ALT (21-72) U/L Alkaline Phosphatase (38-126) U/L Total Protein (6.3-8.2) g/dL Albumin (3.5-5.0) g/dL Crossmatch 01/23/17 01/23/17 01/23/17 Range/Units 04:01 04:01 04:01 WBC (3.8-10.6) k/uL RBC 2.64 L (4.30-5.90) m/uL Hgb 8.6 L (13.0-17.5) gm/dL Hct 26.3 L (39.0-53.0) % Plt Count 86 L (150-450) k/uL Neutrophils # 8.4 H (1.3-7.7) k/uL Neutrophils # (Manual) (1.3-7.7) k/uL Lymphocytes # 0.5 L (1.0-4.8) k/uL PT 12.1 H (9.0-12.0) sec INR 1.2 H (<1.2) APTT (22.0-30.0) sec ABG pH (7.35-7.45) ABG pCO2 (35-45) mmHg ABG pO2 (83-108) mmHg ABG O2 Saturation (94-97) % Sodium (137-145) mmol/L Potassium 5.2 H (3.5-5.1) mmol/L Carbon Dioxide (22-30) mmol/L BUN 29 H (9-20) mg/dL Creatinine 2.00 H (0.66-1.25) mg/dL Glucose 112 H (74-99) mg/dL POC Glucose (mg/dL) (75-99) mg/dL Calcium 8.1 L (8.4-10.2) mg/dL Phosphorus 5.6 H (2.5-4.5) mg/dL ALT (21-72) U/L Alkaline Phosphatase 37 L (38-126) U/L Total Protein 5.1 L (6.3-8.2) g/dL Albumin 3.3 L (3.5-5.0) g/dL Crossmatch 01/23/17 01/23/17 01/23/17 Range/Units 04:01 05:58 06:41 WBC (3.8-10.6) k/uL RBC (4.30-5.90) m/uL Hgb (13.0-17.5) gm/dL Hct (39.0-53.0) % Plt Count (150-450) k/uL Neutrophils # (1.3-7.7) k/uL Neutrophils # (Manual) (1.3-7.7) k/uL Lymphocytes # (1.0-4.8) k/uL PT (9.0-12.0) sec INR (<1.2) APTT (22.0-30.0) sec ABG pH (7.35-7.45) ABG pCO2 (35-45) mmHg ABG pO2 (83-108) mmHg ABG O2 Saturation (94-97) % Sodium (137-145) mmol/L Potassium (3.5-5.1) mmol/L Carbon Dioxide (22-30) mmol/L BUN (9-20) mg/dL Creatinine (0.66-1.25) mg/dL Glucose (74-99) mg/dL POC Glucose (mg/dL) 133 H 136 H 121 H (75-99) mg/dL Calcium (8.4-10.2) mg/dL Phosphorus (2.5-4.5) mg/dL ALT (21-72) U/L Alkaline Phosphatase (38-126) U/L Total Protein (6.3-8.2) g/dL Albumin (3.5-5.0) g/dL Crossmatch 01/23/17 01/23/17 Range/Units 08:02 09:04 WBC (3.8-10.6) k/uL RBC (4.30-5.90) m/uL Hgb (13.0-17.5) gm/dL Hct (39.0-53.0) % Plt Count (150-450) k/uL Neutrophils # (1.3-7.7) k/uL Neutrophils # (Manual) (1.3-7.7) k/uL Lymphocytes # (1.0-4.8) k/uL PT (9.0-12.0) sec INR (<1.2) APTT (22.0-30.0) sec ABG pH (7.35-7.45) ABG pCO2 (35-45) mmHg ABG pO2 (83-108) mmHg ABG O2 Saturation (94-97) % Sodium (137-145) mmol/L Potassium (3.5-5.1) mmol/L Carbon Dioxide (22-30) mmol/L BUN (9-20) mg/dL Creatinine (0.66-1.25) mg/dL Glucose (74-99) mg/dL POC Glucose (mg/dL) 140 H 137 H (75-99) mg/dL Calcium (8.4-10.2) mg/dL Phosphorus (2.5-4.5) mg/dL ALT (21-72) U/L Alkaline Phosphatase (38-126) U/L Total Protein (6.3-8.2) g/dL Albumin (3.5-5.0) g/dL Crossmatch - Imaging and Cardiology Chest x-ray: report reviewed, image reviewed Assessment and Plan (1) Chest pain Status: Acute (2) Hypertension Status: Acute (3) History of pulmonary embolism Status: Acute (4) History of cardiac arrest Status: Acute (5) Hypothyroid Status: Acute (6) Chronic kidney disease Status: Acute (7) Tobacco dependence in remission Status: Acute (8) Family history of coronary artery disease Status: Acute (9) Chronic low back pain Status: Acute (10) History of syncope Status: Acute (11) Obstructive sleep apnea on CPAP Status: Acute Plan: 1. Continue aspirin, Lipitor, Plavix, Lopressor. Will maximize beta skip therapy as tolerated. 2. Wean O2 as tolerated. Encourage incentive spirometry use. 3. Discontinue [place]. [place] to continue CVP monitoring. 4. Increase activity. Out of bed to chair all day. Physical therapy to follow. 5. GI/DVT prophylaxis. Reglan 10 mg IV push 1 for gastroparesis. 6. Daily labs, chest x-rays 7. Insulin management per primary care service 8. Discontinue nitroglycerin drip. 9. More recommendations as patient progresses. Time with Patient: Greater than 30
--- NOTE | 2017-01-23 09:52 | P.PN ---
Subjective Principal diagnosis: Severe CAD This is a pleasant 81-year-old gentleman who presented to the hospital with a chest discomfort and underwent a heart catheterization by Dr. 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 The patient underwent CABG yesterday. He was extubated yesterday as well as. He is maintaining normal sinus mechanism. He is hemodynamically stable. He continues to be on dual antiplatelet therapy and statin. He is making good urine as well. Objective - Vital Signs Vital signs: Vital Signs Temp 95.8 F L 01/22/17 17:00 Pulse 71 01/23/17 09:00 Resp 14 01/23/17 08:00 BP 158/88 01/22/17 06:25 Pulse Ox 99 01/23/17 09:00 Intake & Output 01/22/17 01/23/17 01/23/17 18:59 06:59 18:59 Intake Total 383 1041.416 334.511 Output Total 3690 1600 160 Balance -3307 -558.584 174.511 Weight 93.8 kg 96.9 kg 96.9 kg Intake: IV 33 969 210 0.9 flush 69 ACETAMINOPHEN IV (For NPO 100 ) 1,000 mg In Empty Bag 1 bag @ 400 mls/hr IVPB Q6HR [facility] Rx#:[id number] Lactated Ringers 1,000 ml 570 100 @ 20 mls/hr IV .Q24H [facility] Rx#:[id number] cardiac output 130 10 ceFAZolin 2 gm In Sodium 100 100 Chloride 0.9% 100 ml @ 100 mls/hr IVPB Q8HR [facility] Rx#:[id number] Intake, IV Titration 350 72.416 4.511 Amount ACETAMINOPHEN IV (For NPO 100 ) 1,000 mg In Empty Bag 1 bag @ 400 mls/hr IVPB Q6HR [facility] Rx#:[id number] Insulin Regular 100 unit 18.101 4.511 In Sodium Chloride 0.9% 100 ml @ Per Protocol IV .Q0M [facility] Rx#:[id number] Lactated Ringers 1,000 ml 150 50 @ 20 mls/hr IV .Q24H [facility] Rx#:[id number] Propofol 1,000 mg In 100 4.315 ml @ Titrate IV .Q0M [facility] Rx#:[id number] ceFAZolin 2 gm In Sodium 100 Chloride 0.9% 100 ml @ 100 mls/hr IVPB Q8HR [facility] Rx#:[id number] Oral 120 Output: Chest Tube Drainage 330 575 50 Chest Tube Left Pleural/ 115 79 0 Mediastinal Chest Tube Mediastinal 125 400 50 Chest Tube Right 90 96 0 Drainage 60 80 Left Calf 40 30 Right Calf 20 50 Urine 1300 945 110 Estimated Blood Loss 2000 Other: Voiding Method Indwelling Catheter Indwelling Catheter Indwelling Catheter ABP, PAP, CO, CI - Last Documented Arterial Blood Pressure 122/51 Pulmonary Artery Pressure 35/16 Cardiac Output 6.4 Cardiac Index 3.2 - Constitutional General appearance: Present: no acute distress - Labs CBC & Chem 7: 01/23/17 04:01 01/23/17 04:01 Labs: Abnormal Lab Results - Last 24 Hours (Table) 01/21/17 01/22/17 01/22/17 Range/Units 05:47 12:17 12:52 WBC (3.8-10.6) k/uL RBC (4.30-5.90) m/uL Hgb (13.0-17.5) gm/dL Hct (39.0-53.0) % Plt Count (150-450) k/uL Neutrophils # (1.3-7.7) k/uL Neutrophils # (Manual) (1.3-7.7) k/uL Lymphocytes # (1.0-4.8) k/uL PT (9.0-12.0) sec INR (<1.2) APTT (22.0-30.0) sec ABG pH (7.35-7.45) ABG pCO2 (35-45) mmHg ABG pO2 (83-108) mmHg ABG O2 Saturation (94-97) % Sodium (137-145) mmol/L Potassium (3.5-5.1) mmol/L Carbon Dioxide (22-30) mmol/L BUN (9-20) mg/dL Creatinine (0.66-1.25) mg/dL Glucose (74-99) mg/dL POC Glucose (mg/dL) 217 H 218 H (75-99) mg/dL Calcium (8.4-10.2) mg/dL Phosphorus (2.5-4.5) mg/dL ALT (21-72) U/L Alkaline Phosphatase (38-126) U/L Total Protein (6.3-8.2) g/dL Albumin (3.5-5.0) g/dL Crossmatch See Detail 01/22/17 01/22/17 01/22/17 Range/Units 13:36 14:25 16:00 WBC 12.2 H (3.8-10.6) k/uL RBC 2.35 L (4.30-5.90) m/uL Hgb 7.7 L D (13.0-17.5) gm/dL Hct 22.7 L (39.0-53.0) % Plt Count 67 L D (150-450) k/uL Neutrophils # (1.3-7.7) k/uL Neutrophils # (Manual) 10.6 H (1.3-7.7) k/uL Lymphocytes # (1.0-4.8) k/uL PT (9.0-12.0) sec INR (<1.2) APTT (22.0-30.0) sec ABG pH (7.35-7.45) ABG pCO2 (35-45) mmHg ABG pO2 (83-108) mmHg ABG O2 Saturation (94-97) % Sodium (137-145) mmol/L Potassium (3.5-5.1) mmol/L Carbon Dioxide (22-30) mmol/L BUN (9-20) mg/dL Creatinine (0.66-1.25) mg/dL Glucose (74-99) mg/dL POC Glucose (mg/dL) 241 H 201 H (75-99) mg/dL Calcium (8.4-10.2) mg/dL Phosphorus (2.5-4.5) mg/dL ALT (21-72) U/L Alkaline Phosphatase (38-126) U/L Total Protein (6.3-8.2) g/dL Albumin (3.5-5.0) g/dL Crossmatch 01/22/17 01/22/17 01/22/17 Range/Units 16:00 16:05 16:35 WBC (3.8-10.6) k/uL RBC (4.30-5.90) m/uL Hgb (13.0-17.5) gm/dL Hct (39.0-53.0) % Plt Count (150-450) k/uL Neutrophils # (1.3-7.7) k/uL Neutrophils # (Manual) (1.3-7.7) k/uL Lymphocytes # (1.0-4.8) k/uL PT (9.0-12.0) sec INR (<1.2) APTT (22.0-30.0) sec ABG pH 7.28 L (7.35-7.45) ABG pCO2 48 H (35-45) mmHg ABG pO2 381 H (83-108) mmHg ABG O2 Saturation 100.0 H (94-97) % Sodium (137-145) mmol/L Potassium (3.5-5.1) mmol/L Carbon Dioxide 20 L (22-30) mmol/L BUN 23 H (9-20) mg/dL Creatinine 1.42 H (0.66-1.25) mg/dL Glucose 124 H (74-99) mg/dL POC Glucose (mg/dL) 156 H (75-99) mg/dL Calcium 7.3 L (8.4-10.2) mg/dL Phosphorus (2.5-4.5) mg/dL ALT 20 L (21-72) U/L Alkaline Phosphatase 28 L (38-126) U/L Total Protein 4.6 L (6.3-8.2) g/dL Albumin 2.9 L (3.5-5.0) g/dL Crossmatch 01/22/17 01/22/17 01/22/17 Range/Units 17:06 18:10 18:56 WBC (3.8-10.6) k/uL RBC (4.30-5.90) m/uL Hgb (13.0-17.5) gm/dL Hct (39.0-53.0) % Plt Count (150-450) k/uL Neutrophils # (1.3-7.7) k/uL Neutrophils # (Manual) (1.3-7.7) k/uL Lymphocytes # (1.0-4.8) k/uL PT (9.0-12.0) sec INR (<1.2) APTT (22.0-30.0) sec ABG pH (7.35-7.45) ABG pCO2 (35-45) mmHg ABG pO2 (83-108) mmHg ABG O2 Saturation (94-97) % Sodium (137-145) mmol/L Potassium (3.5-5.1) mmol/L Carbon Dioxide (22-30) mmol/L BUN (9-20) mg/dL Creatinine (0.66-1.25) mg/dL Glucose (74-99) mg/dL POC Glucose (mg/dL) 145 H 136 H 135 H (75-99) mg/dL Calcium (8.4-10.2) mg/dL Phosphorus (2.5-4.5) mg/dL ALT (21-72) U/L Alkaline Phosphatase (38-126) U/L Total Protein (6.3-8.2) g/dL Albumin (3.5-5.0) g/dL Crossmatch 01/22/17 01/22/17 01/22/17 Range/Units 19:42 19:49 19:49 WBC (3.8-10.6) k/uL RBC 2.46 L (4.30-5.90) m/uL Hgb 8.2 L (13.0-17.5) gm/dL Hct 24.3 L (39.0-53.0) % Plt Count 79 L (150-450) k/uL Neutrophils # (1.3-7.7) k/uL Neutrophils # (Manual) (1.3-7.7) k/uL Lymphocytes # 0.5 L (1.0-4.8) k/uL PT (9.0-12.0) sec INR (<1.2) APTT (22.0-30.0) sec ABG pH (7.35-7.45) ABG pCO2 (35-45) mmHg ABG pO2 (83-108) mmHg ABG O2 Saturation (94-97) % Sodium 136 L (137-145) mmol/L Potassium (3.5-5.1) mmol/L Carbon Dioxide (22-30) mmol/L BUN 25 H (9-20) mg/dL Creatinine 1.61 H (0.66-1.25) mg/dL Glucose 111 H (74-99) mg/dL POC Glucose (mg/dL) 132 H (75-99) mg/dL Calcium 7.6 L (8.4-10.2) mg/dL Phosphorus (2.5-4.5) mg/dL ALT (21-72) U/L Alkaline Phosphatase (38-126) U/L Total Protein (6.3-8.2) g/dL Albumin (3.5-5.0) g/dL Crossmatch 01/22/17 01/22/17 01/22/17 Range/Units 19:49 20:56 21:32 WBC (3.8-10.6) k/uL RBC (4.30-5.90) m/uL Hgb (13.0-17.5) gm/dL Hct (39.0-53.0) % Plt Count (150-450) k/uL Neutrophils # (1.3-7.7) k/uL Neutrophils # (Manual) (1.3-7.7) k/uL Lymphocytes # (1.0-4.8) k/uL PT 12.8 H (9.0-12.0) sec INR 1.3 H (<1.2) APTT (22.0-30.0) sec ABG pH 7.32 L (7.35-7.45) ABG pCO2 (35-45) mmHg ABG pO2 139 H (83-108) mmHg ABG O2 Saturation 99.0 H (94-97) % Sodium (137-145) mmol/L Potassium (3.5-5.1) mmol/L Carbon Dioxide (22-30) mmol/L BUN (9-20) mg/dL Creatinine (0.66-1.25) mg/dL Glucose (74-99) mg/dL POC Glucose (mg/dL) 131 H (75-99) mg/dL Calcium (8.4-10.2) mg/dL Phosphorus (2.5-4.5) mg/dL ALT (21-72) U/L Alkaline Phosphatase (38-126) U/L Total Protein (6.3-8.2) g/dL Albumin (3.5-5.0) g/dL Crossmatch 01/22/17 01/22/17 01/22/17 Range/Units 22:10 22:11 22:11 WBC (3.8-10.6) k/uL RBC 2.59 L (4.30-5.90) m/uL Hgb 8.3 L (13.0-17.5) gm/dL Hct 25.8 L (39.0-53.0) % Plt Count 75 L (150-450) k/uL Neutrophils # (1.3-7.7) k/uL Neutrophils # (Manual) (1.3-7.7) k/uL Lymphocytes # 0.5 L (1.0-4.8) k/uL PT (9.0-12.0) sec INR (<1.2) APTT (22.0-30.0) sec ABG pH (7.35-7.45) ABG pCO2 (35-45) mmHg ABG pO2 (83-108) mmHg ABG O2 Saturation (94-97) % Sodium (137-145) mmol/L Potassium (3.5-5.1) mmol/L Carbon Dioxide (22-30) mmol/L BUN 25 H (9-20) mg/dL Creatinine 1.70 H (0.66-1.25) mg/dL Glucose 130 H (74-99) mg/dL POC Glucose (mg/dL) 149 H (75-99) mg/dL Calcium 7.9 L (8.4-10.2) mg/dL Phosphorus (2.5-4.5) mg/dL ALT (21-72) U/L Alkaline Phosphatase (38-126) U/L Total Protein (6.3-8.2) g/dL Albumin (3.5-5.0) g/dL Crossmatch 01/22/17 01/22/17 01/23/17 Range/Units 22:11 23:01 00:05 WBC (3.8-10.6) k/uL RBC (4.30-5.90) m/uL Hgb (13.0-17.5) gm/dL Hct (39.0-53.0) % Plt Count (150-450) k/uL Neutrophils # (1.3-7.7) k/uL Neutrophils # (Manual) (1.3-7.7) k/uL Lymphocytes # (1.0-4.8) k/uL PT 12.3 H (9.0-12.0) sec INR 1.2 H (<1.2) APTT 32.3 H (22.0-30.0) sec ABG pH (7.35-7.45) ABG pCO2 (35-45) mmHg ABG pO2 (83-108) mmHg ABG O2 Saturation (94-97) % Sodium (137-145) mmol/L Potassium (3.5-5.1) mmol/L Carbon Dioxide (22-30) mmol/L BUN (9-20) mg/dL Creatinine (0.66-1.25) mg/dL Glucose (74-99) mg/dL POC Glucose (mg/dL) 152 H 141 H (75-99) mg/dL Calcium (8.4-10.2) mg/dL Phosphorus (2.5-4.5) mg/dL ALT (21-72) U/L Alkaline Phosphatase (38-126) U/L Total Protein (6.3-8.2) g/dL Albumin (3.5-5.0) g/dL Crossmatch 01/23/17 01/23/17 01/23/17 Range/Units 01:09 02:03 03:02 WBC (3.8-10.6) k/uL RBC (4.30-5.90) m/uL Hgb (13.0-17.5) gm/dL Hct (39.0-53.0) % Plt Count (150-450) k/uL Neutrophils # (1.3-7.7) k/uL Neutrophils # (Manual) (1.3-7.7) k/uL Lymphocytes # (1.0-4.8) k/uL PT (9.0-12.0) sec INR (<1.2) APTT (22.0-30.0) sec ABG pH (7.35-7.45) ABG pCO2 (35-45) mmHg ABG pO2 (83-108) mmHg ABG O2 Saturation (94-97) % Sodium (137-145) mmol/L Potassium (3.5-5.1) mmol/L Carbon Dioxide (22-30) mmol/L BUN (9-20) mg/dL Creatinine (0.66-1.25) mg/dL Glucose (74-99) mg/dL POC Glucose (mg/dL) 135 H 126 H 129 H (75-99) mg/dL Calcium (8.4-10.2) mg/dL Phosphorus (2.5-4.5) mg/dL ALT (21-72) U/L Alkaline Phosphatase (38-126) U/L Total Protein (6.3-8.2) g/dL Albumin (3.5-5.0) g/dL Crossmatch 01/23/17 01/23/17 01/23/17 Range/Units 04:01 04:01 04:01 WBC (3.8-10.6) k/uL RBC 2.64 L (4.30-5.90) m/uL Hgb 8.6 L (13.0-17.5) gm/dL Hct 26.3 L (39.0-53.0) % Plt Count 86 L (150-450) k/uL Neutrophils # 8.4 H (1.3-7.7) k/uL Neutrophils # (Manual) (1.3-7.7) k/uL Lymphocytes # 0.5 L (1.0-4.8) k/uL PT 12.1 H (9.0-12.0) sec INR 1.2 H (<1.2) APTT (22.0-30.0) sec ABG pH (7.35-7.45) ABG pCO2 (35-45) mmHg ABG pO2 (83-108) mmHg ABG O2 Saturation (94-97) % Sodium (137-145) mmol/L Potassium 5.2 H (3.5-5.1) mmol/L Carbon Dioxide (22-30) mmol/L BUN 29 H (9-20) mg/dL Creatinine 2.00 H (0.66-1.25) mg/dL Glucose 112 H (74-99) mg/dL POC Glucose (mg/dL) (75-99) mg/dL Calcium 8.1 L (8.4-10.2) mg/dL Phosphorus 5.6 H (2.5-4.5) mg/dL ALT (21-72) U/L Alkaline Phosphatase 37 L (38-126) U/L Total Protein 5.1 L (6.3-8.2) g/dL Albumin 3.3 L (3.5-5.0) g/dL Crossmatch 01/23/17 01/23/17 01/23/17 Range/Units 04:01 05:58 06:41 WBC (3.8-10.6) k/uL RBC (4.30-5.90) m/uL Hgb (13.0-17.5) gm/dL Hct (39.0-53.0) % Plt Count (150-450) k/uL Neutrophils # (1.3-7.7) k/uL Neutrophils # (Manual) (1.3-7.7) k/uL Lymphocytes # (1.0-4.8) k/uL PT (9.0-12.0) sec INR (<1.2) APTT (22.0-30.0) sec ABG pH (7.35-7.45) ABG pCO2 (35-45) mmHg ABG pO2 (83-108) mmHg ABG O2 Saturation (94-97) % Sodium (137-145) mmol/L Potassium (3.5-5.1) mmol/L Carbon Dioxide (22-30) mmol/L BUN (9-20) mg/dL Creatinine (0.66-1.25) mg/dL Glucose (74-99) mg/dL POC Glucose (mg/dL) 133 H 136 H 121 H (75-99) mg/dL Calcium (8.4-10.2) mg/dL Phosphorus (2.5-4.5) mg/dL ALT (21-72) U/L Alkaline Phosphatase (38-126) U/L Total Protein (6.3-8.2) g/dL Albumin (3.5-5.0) g/dL Crossmatch 01/23/17 01/23/17 Range/Units 08:02 09:04 WBC (3.8-10.6) k/uL RBC (4.30-5.90) m/uL Hgb (13.0-17.5) gm/dL Hct (39.0-53.0) % Plt Count (150-450) k/uL Neutrophils # (1.3-7.7) k/uL Neutrophils # (Manual) (1.3-7.7) k/uL Lymphocytes # (1.0-4.8) k/uL PT (9.0-12.0) sec INR (<1.2) APTT (22.0-30.0) sec ABG pH (7.35-7.45) ABG pCO2 (35-45) mmHg ABG pO2 (83-108) mmHg ABG O2 Saturation (94-97) % Sodium (137-145) mmol/L Potassium (3.5-5.1) mmol/L Carbon Dioxide (22-30) mmol/L BUN (9-20) mg/dL Creatinine (0.66-1.25) mg/dL Glucose (74-99) mg/dL POC Glucose (mg/dL) 140 H 137 H (75-99) mg/dL Calcium (8.4-10.2) mg/dL Phosphorus (2.5-4.5) mg/dL ALT (21-72) U/L Alkaline Phosphatase (38-126) U/L Total Protein (6.3-8.2) g/dL Albumin (3.5-5.0) g/dL Crossmatch Assessment and Plan Plan: This is a pleasant 81-year-old gentleman who underwent CABG yesterday and he was extubated yesterday. We'll continue the current medical treatment which included dual antiplatelet therapy and statin as well as beta skip.
[2017-01-23 10:03] LABS: ABG Base Excess -1.4 mmol/L; ABG HCO3 22 mmol/L (21-25); ABG PCO2 32 mmHg (35-45); ABG PH 7.45 (7.35-7.45); ABG PO2 377 mmHg (83-108); ABG TCO2 23 mmol/L (19-24)
[2017-01-23 10:05] LABS: ABG Base Excess -1.6 mmol/L; ABG HCO3 23 mmol/L (21-25); ABG Oxygen Saturation 99.7 % (94-97); ABG PCO2 40 mmHg (35-45); ABG PH 7.38 (7.35-7.45); ABG PO2 204 mmHg (83-108); ABG TCO2 24 mmol/L (19-24)
[2017-01-23 10:06] LABS: ABG Base Excess -1.8 mmol/L; ABG HCO3 23 mmol/L (21-25); ABG Oxygen Saturation 99.9 % (94-97); ABG PCO2 42 mmHg (35-45); ABG PH 7.36 (7.35-7.45); ABG PO2 354 mmHg (83-108); ABG TCO2 24 mmol/L (19-24)
[2017-01-23 10:07] LABS: ABG Base Excess -2.1 mmol/L; ABG HCO3 23 mmol/L (21-25); ABG Oxygen Saturation 99.8 % (94-97); ABG PCO2 46 mmHg (35-45); ABG PH 7.32 (7.35-7.45); ABG PO2 243 mmHg (83-108); ABG TCO2 25 mmol/L (19-24)
[2017-01-23 10:08] LABS: ABG Base Excess -2.4 mmol/L; ABG HCO3 23 mmol/L (21-25); ABG Oxygen Saturation 99.9 % (94-97); ABG PCO2 43 mmHg (35-45); ABG PH 7.34 (7.35-7.45); ABG PO2 343 mmHg (83-108); ABG TCO2 24 mmol/L (19-24)
[2017-01-23 10:09] LABS: ABG Base Excess -3.4 mmol/L; ABG HCO3 21 mmol/L (21-25); ABG Oxygen Saturation 99.8 % (94-97); ABG PCO2 40 mmHg (35-45); ABG PH 7.35 (7.35-7.45); ABG PO2 253 mmHg (83-108); ABG TCO2 23 mmol/L (19-24)
[2017-01-23 10:15] LABS: Glucose,Whole Blood 132 mg/dL (75-99)
--- NOTE | 2017-01-23 10:20 | PN ---
Patient is seen for follow up for acute kidney injury on top of chronic kidney disease. He is status post coronary artery bypass surgery for severe triple vessel disease. He is postop day #1. Patient is extubated. He is sitting up in a bedside chair. He has had urine output about 40 to 60 mL an hour. Patient is on IV fluids at 50, which will be discontinued. His creatinine is at 2 mg/dL. Yesterday his serum creatinine was at 1.7, which is his baseline. On examination today, blood pressure is 122/51, heart rate is 71 per minute. He is afebrile. Examination of the heart: S1, S2. Examination of lungs: Bilateral breath sounds are heard. The patient has chest tubes. Abdomen is soft, nontender. Both lower extremities are wrapped. There are drains in his left lower extremity. Labs show sodium of 138, potassium 5.2, serum creatinine 22, BUN 29, hemoglobin 8.6 grams/dL. ASSESSMENT: 1. Chronic kidney disease secondary to nephrosclerosis with baseline creatinine about 1.6 to 1.7 mg/dL. 2. Acute kidney injury postop from coronary artery bypass surgery as well as anemia. Patient currently has good urine output, will continue to monitor for now. 3. Severe triple vessel coronary artery disease, status post coronary bypass surgery. 4. Anemia, postoperatively. Patient did not require packed RBC transfusion. His hemoglobin is up to 8.6. Will continue to monitor for now. 5. Mild hyperkalemia. Will monitor for now and repeat labs in the a.m. PLAN: Repeat labs in a.m. Monitor CBC and electrolytes. LATOSHA
[2017-01-23 11:08] LABS: Glucose,Whole Blood 125 mg/dL (75-99)
--- NOTE | 2017-01-23 11:30 | OP ---
DATE OF SERVICE: 01/22/2017 SURGEON: TOBY WHALEN MD OPERATIONS BOARDMAN: SHARLA MICHELE ANESTHESIA: DR. MONET PREOPERATIVE DIAGNOSES: 1. Unstable angina. 2. Triple vessel coronary artery disease. 3. Preserved left ventricular function. 4. Chronic kidney disease. 5. Hypertension. 6. History of pulmonary embolism. 7. Sleep apnea. 8. Hypothyroidism. POSTOPERATIVE DIAGNOSES: 1. Unstable angina. 2. Triple vessel coronary artery disease. 3. Preserved left ventricular function. 4. Chronic kidney disease. 5. Hypertension. 6. History of pulmonary embolism. 7. Sleep apnea. 8. Hypothyroidism. PROCEDURE: 1. Quintuple coronary artery bypass grafting using the left internal mammary artery to the left anterior descending artery. . Reverse saphenous vein graft from the aorta to the first diagonal artery., . Reverse saphenous vein graft from the aorta to the obtuse marginal artery, . Reverse saphenous vein graft from the aorta sequentially in a [id number] fashion to the posterior descending artery, then in an end-to-side fashion to the posterolateral branch of the right coronary artery. 5. Bilateral endoscopic vein harvest except for the left below-knee segment. 6. Intra-operative transesophageal echocardiogram and epiaortic scanning. INDICATION FOR SURGERY: Patient is a 81-year-old gentleman who presented with chest pain. He had the stress test that showed inferior as well as anterior ischemia. The left ventricular function was overall preserved. Cardiac catheterization showed distal left main disease and triple vessel coronary artery disease. The risks, benefits and alternatives were discussed with him and his family. They understood them and agreed to proceed. DESCRIPTION OF THE PROCEDURE: Patient in supine position in the preoperative holding area, right internal jugular Delavan Yulia catheter and right radial arterial line were placed. Patient had a PA pressure of 50/25; however, his arterial pressure was 180/100. Cardiac index was 2.3. Subsequently, as brought to the operating room where general endotracheal anesthesia was induced uneventfully. The Chamberlain catheter was inserted. The chest, abdomen and both lower extremities were prepped and draped using ChloraPrep. Ioban was used to cover the skin. Patient received 2 gm of cefazolin intravenously. Transesophageal echocardiogram confirmed the preoperative findings of normal left ventricular function and no significant valvular abnormalities. Midline sternotomy was performed and no bone wax was used. The bone was reasonably dense. The left darrian-sternum was elevated and the left internal mammary artery was harvested in a semi-skeletonized fashion. The left pleural was intentionally opened in this process and was drained with a 28 Norwegian chest tube. We had right pleural breech that warranted also drainage of the right side with a 28 Norwegian chest tube. In the same setting, the right greater saphenous vein was harvested endoscopically from groin to above ankle level after administration of 2500 units of heparin. The leg incision was closed over a drain. The vein was prepared and appeared that it had segment that was not usable and we needed to harvest the left greater saphenous vein between the groin and the knee level, also endoscopically. Both legs incisions were closed over drains. The vein was prepared and appeared to be of reasonable quality around 4 mm in diameter and thin-walled. Mediastinal fat was transected between 2 thighs and epiaortic scanning revealed normal ascending aorta. The pericardium was opened in an inverted T-fashion and pericardial crater was created. Finding included a normal aorta and a normal-sized heart. After systemic heparinization, after placement of respective pledget purse- strings, aortic cannulation with a 21 Norwegian Soft-Flow cannula, venous cannulation with a double-stage 29/37 cannula was performed. Antegrade as well as retrograde cardioplegia catheters were placed. The mammary artery was double clipped distally than transected, had an excellent pulsatile through it and was around 1.75 mm in diameter. Cardiopulmonary bypass was initiated and with the heart warm and empty, we looked at the target and it appeared that the LAD, diagonal, obtuse marginal and both branches of the right coronary artery will be the site for bypass. During 98 minutes of aortic clamping, myocardial protection was achieved with initial dose of cold blood cardioplegia followed by a dose of retrograde cold blood cardioplegia. All subsequent doses were given retrograde at 15 minute interval. The first anastomosis in the reverse saphenous vein graft and the posterolateral branch of the right coronary artery which was around 1.75 mm in diameter using a Prolene 7-0 in continuous fashion. The second distal anastomosis was with the previous graft and the posterior descending artery in a [id number] wanda shape fashion using Prolene 7.0 in continuous fashion. There was excellent flow through both anastomosis. The third distal anastomosis using another vein and the obtuse marginal artery which was around 1.75 mm in diameter using Prolene 7.0 in a continuous fashion. The fourth distal anastomosis using another segment of reverse saphenous vein graft and the diagonal artery which also was around 1.75 mm in diameter. The fifth and last distal anastomosis ibetween the left internal mammary artery and the mid- left anterior descending artery which was opened was around 2 mm in diameter and thin-walled using Prolene 7.0 in continuous fashion. The mammary pedicle was affixed to the epicardium with two Prolene 6.0 sutures. Satisfied with the distal anastomosis, rewarming was started. We punched out three buttons of 5 mm each of the ascending aorta and the three proximal anastomosis were completely used Prolene 6.0 in a continuous fashion. Patient was given Lidocaine and magnesium and we did some deairing maneuver before unclamping the aorta. We had given 1 L of warm blood via the retrograde route before unclamping. The patient regained spontaneous sinus rhythm. Two monopolar atrial pacing wires were affixed to the right atrium and 1 bipolar ventricular pacing wire was inserted via the inferior aspect of the right ventricle. A groove was made in the left pleural pericardial fat to accommodate the mammary artery medial to the lung and away from the posterior sternal table. After a period of reperfusion, we were able to wean off bypass without the need of any ionotropic or vasopressor support. However, we instituted atrial pacing at 80 in view of sinus bradycardia which was his baseline. Test dose than full dose protamine given. The hemodynamic were excellent. CHONG showed preserved left ventricular function. Decannulation followed. The atrial cannulation site was reinforced with running 4-0 Prolene, not pledgeted. Substernal 32 Norwegian chest tube was placed. Precordial fat was loosely approximated over the heart and mediastinal fat was approximated over the aorta and the proximal anastomosis. After ensuring adequate anesthesia and hemodynamic and after correct sponge, instrument and needle count, the sternum was closed using 5 [id number] fine needle cable after interposing fibrillar between the sternal edges. Thorough irrigation of cefazolin followed. The rest of the closure proceeded in layers. Skin glue was applied. Patient did not receive any blood bank product, but received 900 mL of Cell Saver blood and received a dose of DDAVP. He was transferred to the ICU with excellent hemodynamics, normal EKG, atrial pacing to 80 , on low does Nitroglycerine . [facility]
[2017-01-23 12:01] LABS: Glucose,Whole Blood 119 mg/dL (75-99)
[2017-01-23] MEDS: MULTIVITAMINS, THERA 1 EACH TAB PO SCH (12:01)
[2017-01-23] MEDS ORDERED: HYDROcodone/APAP 5-325MG 1 EACH TAB PO PRN (13:29)
[2017-01-23] MEDS ORDERED: BISACODYL 10 MG SUPP RECTAL PRN (13:30)
[2017-01-23] MEDS ORDERED: IPRATROPIUM-ALBUTEROL 3 ML NEB INHALATION PRN (13:30)
[2017-01-23 14:00] LABS: Glucose,Whole Blood 138 mg/dL (75-99)
--- NOTE | 2017-01-23 14:23 | P.PN ---
Subjective This is a 81-year-old gentleman who underwent CABG 5 postop day 1 Patient is seen today in consultation/progress. Patient underwent a cardiac catheterization initially thereafter was noted to have triple-vessel disease. Patient was seen by cardio thoracic surgery and was taken to the OR yesterday. Patient is extubated is currently on 2 units of insulin patient does not have a history of diabetes in the past Patient continues to have chest tubes in place on no other overnight events were noted Appears to have good urine output Denies having any complaints at this time. Objective - Vital Signs Vital signs: Vital Signs Temp 98.6 F 01/23/17 12:00 Pulse 65 01/23/17 12:00 Resp 14 01/23/17 12:00 BP 158/88 01/22/17 06:25 Pulse Ox 99 01/23/17 12:00 Intake & Output 01/22/17 01/23/17 01/23/17 18:59 06:59 18:59 Intake Total 383 1041.416 524.087 Output Total 3690 1600 465 Balance -3307 -558.584 59.087 Weight 93.8 kg 96.9 kg 96.9 kg Intake: IV 33 969 360 0.9 flush 69 ACETAMINOPHEN IV (For NPO 100 100 ) 1,000 mg In Empty Bag 1 bag @ 400 mls/hr IVPB Q6HR [facility] Rx#:[id number] Lactated Ringers 1,000 ml 570 150 @ 20 mls/hr IV .Q24H [facility] Rx#:[id number] cardiac output 130 10 ceFAZolin 2 gm In Sodium 100 100 Chloride 0.9% 100 ml @ 100 mls/hr IVPB Q8HR [facility] Rx#:[id number] Intake, IV Titration 350 72.416 44.087 Amount ACETAMINOPHEN IV (For NPO 100 ) 1,000 mg In Empty Bag 1 bag @ 400 mls/hr IVPB Q6HR [facility] Rx#:[id number] Insulin Regular 100 unit 18.101 14.087 In Sodium Chloride 0.9% 100 ml @ Per Protocol IV .Q0M [facility] Rx#:[id number] Lactated Ringers 1,000 ml 150 50 30 @ 20 mls/hr IV .Q24H [facility] Rx#:[id number] Propofol 1,000 mg In 100 4.315 ml @ Titrate IV .Q0M [facility] Rx#:[id number] ceFAZolin 2 gm In Sodium 100 Chloride 0.9% 100 ml @ 100 mls/hr IVPB Q8HR [facility] Rx#:[id number] Oral 120 Output: Chest Tube Drainage 330 575 170 Chest Tube Left Pleural/ 115 79 30 Mediastinal Chest Tube Mediastinal 125 400 120 Chest Tube Right 90 96 20 Drainage 60 80 40 Left Calf 40 30 20 Right Calf 20 50 20 Urine 1300 945 255 Estimated Blood Loss 1999 Other: Voiding Method Indwelling Catheter Indwelling Catheter Indwelling Catheter ABP, PAP, CO, CI - Last Documented Arterial Blood Pressure 105/43 Pulmonary Artery Pressure 32/16 Cardiac Output 6.4 Cardiac Index 3.2 - Exam In appearance no acute distress Neck is supple no JVD however Central line is noted Lungs diminished bases no rhonchi air movement is noted Heart S1-S2 heard no murmurs appreciated Abdomen is soft nontender no organomegaly Lower extremities nontender Genitourinary Chamberlain catheter in place - Labs CBC & Chem 7: 01/23/17 04:01 01/23/17 04:01 Labs: Abnormal Lab Results - Last 24 Hours (Table) 01/21/17 01/22/17 01/22/17 Range/Units 05:47 08:44 11:31 WBC (3.8-10.6) k/uL RBC (4.30-5.90) m/uL Hgb (13.0-17.5) gm/dL Hct (39.0-53.0) % Plt Count (150-450) k/uL Neutrophils # (1.3-7.7) k/uL Neutrophils # (Manual) (1.3-7.7) k/uL Lymphocytes # (1.0-4.8) k/uL PT (9.0-12.0) sec INR (<1.2) APTT (22.0-30.0) sec ABG pH (7.35-7.45) ABG pCO2 32 L (35-45) mmHg ABG pO2 377 H 204 H (83-108) mmHg ABG Total CO2 (19-24) mmol/L ABG O2 Saturation 100.0 H 99.7 H (94-97) % ABG Hematocrit 33 L 30 L (34.0-46.0) % ABG Potassium 4.6 H (3.4-4.5) mmol/L Sodium (137-145) mmol/L Potassium (3.5-5.1) mmol/L Carbon Dioxide (22-30) mmol/L BUN (9-20) mg/dL Creatinine (0.66-1.25) mg/dL Glucose (74-99) mg/dL POC Glucose (mg/dL) (75-99) mg/dL Calcium (8.4-10.2) mg/dL Phosphorus (2.5-4.5) mg/dL ALT (21-72) U/L Alkaline Phosphatase (38-126) U/L Total Protein (6.3-8.2) g/dL Albumin (3.5-5.0) g/dL Arterial Blood Potassium 4.6 H (3.4-4.5) mmol/L Crossmatch See Detail 01/22/17 01/22/17 01/22/17 Range/Units 12:16 12:52 13:36 WBC (3.8-10.6) k/uL RBC (4.30-5.90) m/uL Hgb (13.0-17.5) gm/dL Hct (39.0-53.0) % Plt Count (150-450) k/uL Neutrophils # (1.3-7.7) k/uL Neutrophils # (Manual) (1.3-7.7) k/uL Lymphocytes # (1.0-4.8) k/uL PT (9.0-12.0) sec INR (<1.2) APTT (22.0-30.0) sec ABG pH 7.32 L 7.34 L (7.35-7.45) ABG pCO2 46 H (35-45) mmHg ABG pO2 354 H 243 H 343 H (83-108) mmHg ABG Total CO2 25 H (19-24) mmol/L ABG O2 Saturation 99.9 H 99.8 H 99.9 H (94-97) % ABG Hematocrit 28 L 30 L 29 L (34.0-46.0) % ABG Potassium 5.4 H 5.3 H 5.1 H (3.4-4.5) mmol/L Sodium (137-145) mmol/L Potassium (3.5-5.1) mmol/L Carbon Dioxide (22-30) mmol/L BUN (9-20) mg/dL Creatinine (0.66-1.25) mg/dL Glucose (74-99) mg/dL POC Glucose (mg/dL) (75-99) mg/dL Calcium (8.4-10.2) mg/dL Phosphorus (2.5-4.5) mg/dL ALT (21-72) U/L Alkaline Phosphatase (38-126) U/L Total Protein (6.3-8.2) g/dL Albumin (3.5-5.0) g/dL Arterial Blood Potassium 5.4 H 5.3 H 5.1 H (3.4-4.5) mmol/L Crossmatch 01/22/17 01/22/17 01/22/17 Range/Units 14:25 14:25 16:00 WBC 12.2 H (3.8-10.6) k/uL RBC 2.35 L (4.30-5.90) m/uL Hgb 7.7 L D (13.0-17.5) gm/dL Hct 22.7 L (39.0-53.0) % Plt Count 67 L D (150-450) k/uL Neutrophils # (1.3-7.7) k/uL Neutrophils # (Manual) 10.6 H (1.3-7.7) k/uL Lymphocytes # (1.0-4.8) k/uL PT (9.0-12.0) sec INR (<1.2) APTT (22.0-30.0) sec ABG pH (7.35-7.45) ABG pCO2 (35-45) mmHg ABG pO2 253 H (83-108) mmHg ABG Total CO2 (19-24) mmol/L ABG O2 Saturation 99.8 H (94-97) % ABG Hematocrit 26 L (34.0-46.0) % ABG Potassium (3.4-4.5) mmol/L Sodium (137-145) mmol/L Potassium (3.5-5.1) mmol/L Carbon Dioxide (22-30) mmol/L BUN (9-20) mg/dL Creatinine (0.66-1.25) mg/dL Glucose (74-99) mg/dL POC Glucose (mg/dL) 201 H (75-99) mg/dL Calcium (8.4-10.2) mg/dL Phosphorus (2.5-4.5) mg/dL ALT (21-72) U/L Alkaline Phosphatase (38-126) U/L Total Protein (6.3-8.2) g/dL Albumin (3.5-5.0) g/dL Arterial Blood Potassium (3.4-4.5) mmol/L Crossmatch 01/22/17 01/22/17 01/22/17 Range/Units 16:00 16:05 16:35 WBC (3.8-10.6) k/uL RBC (4.30-5.90) m/uL Hgb (13.0-17.5) gm/dL Hct (39.0-53.0) % Plt Count (150-450) k/uL Neutrophils # (1.3-7.7) k/uL Neutrophils # (Manual) (1.3-7.7) k/uL Lymphocytes # (1.0-4.8) k/uL PT (9.0-12.0) sec INR (<1.2) APTT (22.0-30.0) sec ABG pH 7.28 L (7.35-7.45) ABG pCO2 48 H (35-45) mmHg ABG pO2 381 H (83-108) mmHg ABG Total CO2 (19-24) mmol/L ABG O2 Saturation 100.0 H (94-97) % ABG Hematocrit (34.0-46.0) % ABG Potassium (3.4-4.5) mmol/L Sodium (137-145) mmol/L Potassium (3.5-5.1) mmol/L Carbon Dioxide 20 L (22-30) mmol/L BUN 23 H (9-20) mg/dL Creatinine 1.42 H (0.66-1.25) mg/dL Glucose 124 H (74-99) mg/dL POC Glucose (mg/dL) 156 H (75-99) mg/dL Calcium 7.3 L (8.4-10.2) mg/dL Phosphorus (2.5-4.5) mg/dL ALT 20 L (21-72) U/L Alkaline Phosphatase 28 L (38-126) U/L Total Protein 4.6 L (6.3-8.2) g/dL Albumin 2.9 L (3.5-5.0) g/dL Arterial Blood Potassium (3.4-4.5) mmol/L Crossmatch 01/22/17 01/22/17 01/22/17 Range/Units 17:06 18:10 18:56 WBC (3.8-10.6) k/uL RBC (4.30-5.90) m/uL Hgb (13.0-17.5) gm/dL Hct (39.0-53.0) % Plt Count (150-450) k/uL Neutrophils # (1.3-7.7) k/uL Neutrophils # (Manual) (1.3-7.7) k/uL Lymphocytes # (1.0-4.8) k/uL PT (9.0-12.0) sec INR (<1.2) APTT (22.0-30.0) sec ABG pH (7.35-7.45) ABG pCO2 (35-45) mmHg ABG pO2 (83-108) mmHg ABG Total CO2 (19-24) mmol/L ABG O2 Saturation (94-97) % ABG Hematocrit (34.0-46.0) % ABG Potassium (3.4-4.5) mmol/L Sodium (137-145) mmol/L Potassium (3.5-5.1) mmol/L Carbon Dioxide (22-30) mmol/L BUN (9-20) mg/dL Creatinine (0.66-1.25) mg/dL Glucose (74-99) mg/dL POC Glucose (mg/dL) 145 H 136 H 135 H (75-99) mg/dL Calcium (8.4-10.2) mg/dL Phosphorus (2.5-4.5) mg/dL ALT (21-72) U/L Alkaline Phosphatase (38-126) U/L Total Protein (6.3-8.2) g/dL Albumin (3.5-5.0) g/dL Arterial Blood Potassium (3.4-4.5) mmol/L Crossmatch 01/22/17 01/22/17 01/22/17 Range/Units 19:42 19:49 19:49 WBC (3.8-10.6) k/uL RBC 2.46 L (4.30-5.90) m/uL Hgb 8.2 L (13.0-17.5) gm/dL Hct 24.3 L (39.0-53.0) % Plt Count 79 L (150-450) k/uL Neutrophils # (1.3-7.7) k/uL Neutrophils # (Manual) (1.3-7.7) k/uL Lymphocytes # 0.5 L (1.0-4.8) k/uL PT (9.0-12.0) sec INR (<1.2) APTT (22.0-30.0) sec ABG pH (7.35-7.45) ABG pCO2 (35-45) mmHg ABG pO2 (83-108) mmHg ABG Total CO2 (19-24) mmol/L ABG O2 Saturation (94-97) % ABG Hematocrit (34.0-46.0) % ABG Potassium (3.4-4.5) mmol/L Sodium 136 L (137-145) mmol/L Potassium (3.5-5.1) mmol/L Carbon Dioxide (22-30) mmol/L BUN 25 H (9-20) mg/dL Creatinine 1.61 H (0.66-1.25) mg/dL Glucose 111 H (74-99) mg/dL POC Glucose (mg/dL) 132 H (75-99) mg/dL Calcium 7.6 L (8.4-10.2) mg/dL Phosphorus (2.5-4.5) mg/dL ALT (21-72) U/L Alkaline Phosphatase (38-126) U/L Total Protein (6.3-8.2) g/dL Albumin (3.5-5.0) g/dL Arterial Blood Potassium (3.4-4.5) mmol/L Crossmatch 01/22/17 01/22/17 01/22/17 Range/Units 19:49 20:56 21:32 WBC (3.8-10.6) k/uL RBC (4.30-5.90) m/uL Hgb (13.0-17.5) gm/dL Hct (39.0-53.0) % Plt Count (150-450) k/uL Neutrophils # (1.3-7.7) k/uL Neutrophils # (Manual) (1.3-7.7) k/uL Lymphocytes # (1.0-4.8) k/uL PT 12.8 H (9.0-12.0) sec INR 1.3 H (<1.2) APTT (22.0-30.0) sec ABG pH 7.32 L (7.35-7.45) ABG pCO2 (35-45) mmHg ABG pO2 139 H (83-108) mmHg ABG Total CO2 (19-24) mmol/L ABG O2 Saturation 99.0 H (94-97) % ABG Hematocrit (34.0-46.0) % ABG Potassium (3.4-4.5) mmol/L Sodium (137-145) mmol/L Potassium (3.5-5.1) mmol/L Carbon Dioxide (22-30) mmol/L BUN (9-20) mg/dL Creatinine (0.66-1.25) mg/dL Glucose (74-99) mg/dL POC Glucose (mg/dL) 131 H (75-99) mg/dL Calcium (8.4-10.2) mg/dL Phosphorus (2.5-4.5) mg/dL ALT (21-72) U/L Alkaline Phosphatase (38-126) U/L Total Protein (6.3-8.2) g/dL Albumin (3.5-5.0) g/dL Arterial Blood Potassium (3.4-4.5) mmol/L Crossmatch 01/22/17 01/22/17 01/22/17 Range/Units 22:10 22:11 22:11 WBC (3.8-10.6) k/uL RBC 2.59 L (4.30-5.90) m/uL Hgb 8.3 L (13.0-17.5) gm/dL Hct 25.8 L (39.0-53.0) % Plt Count 75 L (150-450) k/uL Neutrophils # (1.3-7.7) k/uL Neutrophils # (Manual) (1.3-7.7) k/uL Lymphocytes # 0.5 L (1.0-4.8) k/uL PT (9.0-12.0) sec INR (<1.2) APTT (22.0-30.0) sec ABG pH (7.35-7.45) ABG pCO2 (35-45) mmHg ABG pO2 (83-108) mmHg ABG Total CO2 (19-24) mmol/L ABG O2 Saturation (94-97) % ABG Hematocrit (34.0-46.0) % ABG Potassium (3.4-4.5) mmol/L Sodium (137-145) mmol/L Potassium (3.5-5.1) mmol/L Carbon Dioxide (22-30) mmol/L BUN 25 H (9-20) mg/dL Creatinine 1.70 H (0.66-1.25) mg/dL Glucose 130 H (74-99) mg/dL POC Glucose (mg/dL) 149 H (75-99) mg/dL Calcium 7.9 L (8.4-10.2) mg/dL Phosphorus (2.5-4.5) mg/dL ALT (21-72) U/L Alkaline Phosphatase (38-126) U/L Total Protein (6.3-8.2) g/dL Albumin (3.5-5.0) g/dL Arterial Blood Potassium (3.4-4.5) mmol/L Crossmatch 01/22/17 01/22/17 01/23/17 Range/Units 22:11 23:01 00:05 WBC (3.8-10.6) k/uL RBC (4.30-5.90) m/uL Hgb (13.0-17.5) gm/dL Hct (39.0-53.0) % Plt Count (150-450) k/uL Neutrophils # (1.3-7.7) k/uL Neutrophils # (Manual) (1.3-7.7) k/uL Lymphocytes # (1.0-4.8) k/uL PT 12.3 H (9.0-12.0) sec INR 1.2 H (<1.2) APTT 32.3 H (22.0-30.0) sec ABG pH (7.35-7.45) ABG pCO2 (35-45) mmHg ABG pO2 (83-108) mmHg ABG Total CO2 (19-24) mmol/L ABG O2 Saturation (94-97) % ABG Hematocrit (34.0-46.0) % ABG Potassium (3.4-4.5) mmol/L Sodium (137-145) mmol/L Potassium (3.5-5.1) mmol/L Carbon Dioxide (22-30) mmol/L BUN (9-20) mg/dL Creatinine (0.66-1.25) mg/dL Glucose (74-99) mg/dL POC Glucose (mg/dL) 152 H 141 H (75-99) mg/dL Calcium (8.4-10.2) mg/dL Phosphorus (2.5-4.5) mg/dL ALT (21-72) U/L Alkaline Phosphatase (38-126) U/L Total Protein (6.3-8.2) g/dL Albumin (3.5-5.0) g/dL Arterial Blood Potassium (3.4-4.5) mmol/L Crossmatch 01/23/17 01/23/17 01/23/17 Range/Units 01:09 02:03 03:02 WBC (3.8-10.6) k/uL RBC (4.30-5.90) m/uL Hgb (13.0-17.5) gm/dL Hct (39.0-53.0) % Plt Count (150-450) k/uL Neutrophils # (1.3-7.7) k/uL Neutrophils # (Manual) (1.3-7.7) k/uL Lymphocytes # (1.0-4.8) k/uL PT (9.0-12.0) sec INR (<1.2) APTT (22.0-30.0) sec ABG pH (7.35-7.45) ABG pCO2 (35-45) mmHg ABG pO2 (83-108) mmHg ABG Total CO2 (19-24) mmol/L ABG O2 Saturation (94-97) % ABG Hematocrit (34.0-46.0) % ABG Potassium (3.4-4.5) mmol/L Sodium (137-145) mmol/L Potassium (3.5-5.1) mmol/L Carbon Dioxide (22-30) mmol/L BUN (9-20) mg/dL Creatinine (0.66-1.25) mg/dL Glucose (74-99) mg/dL POC Glucose (mg/dL) 135 H 126 H 129 H (75-99) mg/dL Calcium (8.4-10.2) mg/dL Phosphorus (2.5-4.5) mg/dL ALT (21-72) U/L Alkaline Phosphatase (38-126) U/L Total Protein (6.3-8.2) g/dL Albumin (3.5-5.0) g/dL Arterial Blood Potassium (3.4-4.5) mmol/L Crossmatch 01/23/17 01/23/17 01/23/17 Range/Units 04:01 04:01 04:01 WBC (3.8-10.6) k/uL RBC 2.64 L (4.30-5.90) m/uL Hgb 8.6 L (13.0-17.5) gm/dL Hct 26.3 L (39.0-53.0) % Plt Count 86 L (150-450) k/uL Neutrophils # 8.4 H (1.3-7.7) k/uL Neutrophils # (Manual) (1.3-7.7) k/uL Lymphocytes # 0.5 L (1.0-4.8) k/uL PT 12.1 H (9.0-12.0) sec INR 1.2 H (<1.2) APTT (22.0-30.0) sec ABG pH (7.35-7.45) ABG pCO2 (35-45) mmHg ABG pO2 (83-108) mmHg ABG Total CO2 (19-24) mmol/L ABG O2 Saturation (94-97) % ABG Hematocrit (34.0-46.0) % ABG Potassium (3.4-4.5) mmol/L Sodium (137-145) mmol/L Potassium 5.2 H (3.5-5.1) mmol/L Carbon Dioxide (22-30) mmol/L BUN 29 H (9-20) mg/dL Creatinine 2.00 H (0.66-1.25) mg/dL Glucose 112 H (74-99) mg/dL POC Glucose (mg/dL) (75-99) mg/dL Calcium 8.1 L (8.4-10.2) mg/dL Phosphorus 5.6 H (2.5-4.5) mg/dL ALT (21-72) U/L Alkaline Phosphatase 37 L (38-126) U/L Total Protein 5.1 L (6.3-8.2) g/dL Albumin 3.3 L (3.5-5.0) g/dL Arterial Blood Potassium (3.4-4.5) mmol/L Crossmatch 01/23/17 01/23/17 01/23/17 Range/Units 04:01 05:58 06:41 WBC (3.8-10.6) k/uL RBC (4.30-5.90) m/uL Hgb (13.0-17.5) gm/dL Hct (39.0-53.0) % Plt Count (150-450) k/uL Neutrophils # (1.3-7.7) k/uL Neutrophils # (Manual) (1.3-7.7) k/uL Lymphocytes # (1.0-4.8) k/uL PT (9.0-12.0) sec INR (<1.2) APTT (22.0-30.0) sec ABG pH (7.35-7.45) ABG pCO2 (35-45) mmHg ABG pO2 (83-108) mmHg ABG Total CO2 (19-24) mmol/L ABG O2 Saturation (94-97) % ABG Hematocrit (34.0-46.0) % ABG Potassium (3.4-4.5) mmol/L Sodium (137-145) mmol/L Potassium (3.5-5.1) mmol/L Carbon Dioxide (22-30) mmol/L BUN (9-20) mg/dL Creatinine (0.66-1.25) mg/dL Glucose (74-99) mg/dL POC Glucose (mg/dL) 133 H 136 H 121 H (75-99) mg/dL Calcium (8.4-10.2) mg/dL Phosphorus (2.5-4.5) mg/dL ALT (21-72) U/L Alkaline Phosphatase (38-126) U/L Total Protein (6.3-8.2) g/dL Albumin (3.5-5.0) g/dL Arterial Blood Potassium (3.4-4.5) mmol/L Crossmatch 01/23/17 01/23/17 01/23/17 Range/Units 08:02 09:04 10:13 WBC (3.8-10.6) k/uL RBC (4.30-5.90) m/uL Hgb (13.0-17.5) gm/dL Hct (39.0-53.0) % Plt Count (150-450) k/uL Neutrophils # (1.3-7.7) k/uL Neutrophils # (Manual) (1.3-7.7) k/uL Lymphocytes # (1.0-4.8) k/uL PT (9.0-12.0) sec INR (<1.2) APTT (22.0-30.0) sec ABG pH (7.35-7.45) ABG pCO2 (35-45) mmHg ABG pO2 (83-108) mmHg ABG Total CO2 (19-24) mmol/L ABG O2 Saturation (94-97) % ABG Hematocrit (34.0-46.0) % ABG Potassium (3.4-4.5) mmol/L Sodium (137-145) mmol/L Potassium (3.5-5.1) mmol/L Carbon Dioxide (22-30) mmol/L BUN (9-20) mg/dL Creatinine (0.66-1.25) mg/dL Glucose (74-99) mg/dL POC Glucose (mg/dL) 140 H 137 H 132 H (75-99) mg/dL Calcium (8.4-10.2) mg/dL Phosphorus (2.5-4.5) mg/dL ALT (21-72) U/L Alkaline Phosphatase (38-126) U/L Total Protein (6.3-8.2) g/dL Albumin (3.5-5.0) g/dL Arterial Blood Potassium (3.4-4.5) mmol/L Crossmatch 01/23/17 01/23/17 01/23/17 Range/Units 11:06 11:59 13:53 WBC (3.8-10.6) k/uL RBC (4.30-5.90) m/uL Hgb (13.0-17.5) gm/dL Hct (39.0-53.0) % Plt Count (150-450) k/uL Neutrophils # (1.3-7.7) k/uL Neutrophils # (Manual) (1.3-7.7) k/uL Lymphocytes # (1.0-4.8) k/uL PT (9.0-12.0) sec INR (<1.2) APTT (22.0-30.0) sec ABG pH (7.35-7.45) ABG pCO2 (35-45) mmHg ABG pO2 (83-108) mmHg ABG Total CO2 (19-24) mmol/L ABG O2 Saturation (94-97) % ABG Hematocrit (34.0-46.0) % ABG Potassium (3.4-4.5) mmol/L Sodium (137-145) mmol/L Potassium (3.5-5.1) mmol/L Carbon Dioxide (22-30) mmol/L BUN (9-20) mg/dL Creatinine (0.66-1.25) mg/dL Glucose (74-99) mg/dL POC Glucose (mg/dL) 125 H 119 H 138 H (75-99) mg/dL Calcium (8.4-10.2) mg/dL Phosphorus (2.5-4.5) mg/dL ALT (21-72) U/L Alkaline Phosphatase (38-126) U/L Total Protein (6.3-8.2) g/dL Albumin (3.5-5.0) g/dL Arterial Blood Potassium (3.4-4.5) mmol/L Crossmatch Assessment and Plan Plan: #1 CAD status post CABG postop day 1 #2 hypothyroidism #3 essential hypertension #4 stress-induced hyperglycemia #5 acute blood loss anemia as expected from surgery plan Insulin drip should be titrated off after the 48 hour. We'll evaluate if patient needs any insulin coverage thereafter Dual antiplatelet therapy GI prophylaxis We'll follow patient along with you
[2017-01-23 15:07] LABS: Glucose,Whole Blood 154 mg/dL (75-99)
[2017-01-23 17:04] LABS: Glucose,Whole Blood 129 mg/dL (75-99)
[2017-01-23] MEDS: HYDROcodone/APAP 5-325MG 1 EACH TAB PO PRN ×2 (18:15→22:07)
[2017-01-23 19:02] LABS: Glucose,Whole Blood 132 mg/dL (75-99)
[2017-01-23 20:06] LABS: Glucose,Whole Blood 139 mg/dL (75-99)
[2017-01-23] MEDS: LACTATED RINGERS 1,000 ML IV SCH (20:07)
[2017-01-23] MEDS: MONTELUKAST 10 MG TAB PO SCH (20:26)
[2017-01-23] MEDS: SENNOSIDES-DOCUSATE SODIUM 1 EACH TAB PO SCH (20:28)
[2017-01-23 21:07] LABS: Glucose,Whole Blood 135 mg/dL (75-99)
[2017-01-23 22:09] LABS: Glucose,Whole Blood 141 mg/dL (75-99)
[2017-01-23 23:17] LABS: Glucose,Whole Blood 102 mg/dL (75-99)
[2017-01-24] MEDS: HEPARIN SODIUM,PORCINE 5,000 UNIT/ML 1 ML VIAL SQ SCH ×6 (00:19→23:30)
[2017-01-24 00:49] LABS: Glucose,Whole Blood 121 mg/dL (75-99)
[2017-01-24 02:10] LABS: Glucose,Whole Blood 133 mg/dL (75-99)
[2017-01-24] MEDS: HYDROcodone/APAP 5-325MG 1 EACH TAB PO PRN ×2 (02:15→06:13)
[2017-01-24 04:12] LABS: Glucose,Whole Blood 135 mg/dL (75-99)
[2017-01-24 04:22] LABS: Basophils % (A) 0 %; CH 33.4; CHCM 33.2; Eosinophils # (A) 0.2 k/uL (0-0.7); Eosinophils % (A) 2 %; HCT 25.3 % (39.0-53.0); HDW 2.69; HGB 8.1 gm/dL (13.0-17.5); Luc # (Auto) 0.15; Luc % (Auto) 2; Lymphocytes # (A) 0.7 k/uL (1.0-4.8); Lymphocytes % (A) 8 %; MCH 32.5 pg (25.0-35.0); MCHC 32.2 g/dL (31.0-37.0); MCV 101.1 fL (80.0-100.0); Macrocytosis Slight; Mean Platelet Volume 9.2; Monocytes # (A) 0.6 k/uL (0-1.0); Monocytes % (A) 6 %; Neutrophils # (A) 8.2 k/uL (1.3-7.7); Neutrophils % (A) 83 %; RDW 13.7 % (11.5-15.5); WBC 9.8 k/uL (3.8-10.6); WBC (Perox) 10.48
[2017-01-24 04:28] LABS: Ionized Calcium 4.8 mg/dL (4.5-5.3)
[2017-01-24 04:31] LABS: INR 1.3 (<1.2); Partial Thromboplastin Time 26.4 sec (22.0-30.0); Prothrombin Time 12.4 sec (9.0-12.0)
[2017-01-24 04:40] LABS: Calcium 8.5 mg/dL (8.4-10.2); Magnesium 2.3 mg/dL (1.6-2.3); Phosphorous 4.1 mg/dL (2.5-4.5); Potassium 4.5 mmol/L (3.5-5.1); Total Bilirubin 0.5 mg/dL (0.2-1.3); Total Protein 5.4 g/dL (6.3-8.2)
[2017-01-24 06:03] LABS: Glucose,Whole Blood 111 mg/dL (75-99)
[2017-01-24] MEDS: LEVOTHYROXINE 75 MCG TAB PO SCH ×2 (06:15→21:56)
[2017-01-24] MEDS ORDERED: MORPHINE SULFATE 2 MG/ML SYRINGE IVP PRN (07:21)
[2017-01-24] MEDS ORDERED: HYDROcodone/APAP 7.5-325MG 1 EACH TAB PO PRN (07:31)
--- NOTE | 2017-01-24 08:01 | XR ---
EXAMINATION TYPE: XR chest 1V portable DATE OF EXAM: 01/24/2017 COMPARISON: 01/23/2017 HISTORY: Postop cardiac surgery TECHNIQUE: Single frontal view of the chest is obtained. FINDINGS: Postsurgical change involving the shoulders. Postsurgical change involving the mediastinum with mediastinal drain and chest tubes noted. No sizable pneumothorax. Bilateral areas of consolidat ion and small effusion noted. IMPRESSION: 1. Stable postoperative change with persistent bilateral consolidation and small effusion.
[2017-01-24 08:22] LABS: Glucose,Whole Blood 128 mg/dL (75-99)
[2017-01-24] MEDS: HYDROcodone/APAP 7.5-325MG 1 EACH TAB PO PRN ×4 (08:42→21:02)
[2017-01-24] MEDS: ATORVASTATIN 40 MG TAB PO SCH (08:43)
[2017-01-24] MEDS: ASPIRIN 325 MG TAB PO SCH ×2 (08:43→21:56)
[2017-01-24] MEDS: CITALOPRAM HYDROBROMIDE 20 MG TAB PO SCH ×2 (08:43→21:56)
[2017-01-24] MEDS: PANTOPRAZOLE 40 MG TABLET PO SCH (08:43)
[2017-01-24] MEDS: CLOPIDOGREL 75 MG TAB PO SCH (08:43)
[2017-01-24] MEDS: MUPIROCIN 2% OINT 22 GM TUBE NASAL SCH ×3 (08:44→21:57)
[2017-01-24] MEDS: METOPROLOL TARTRATE 25 MG TAB PO SCH ×3 (09:07→21:57)
[2017-01-24] MEDS: MAGNESIUM HYDROXIDE 2,400 MG/10 ML CUP PO PRN (09:11)
--- NOTE | 2017-01-24 09:12 | P.PN ---
Subjective Principal diagnosis: Severe CAD This is a pleasant 81-year-old gentleman who presented to the hospital with a chest discomfort and underwent a heart catheterization by Dr. 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 The patient underwent CABG yesterday. He is maintaining normal sinus mechanism. He is hemodynamically stable. He continues to be on dual antiplatelet therapy and statin. He is making good urine as well. The blood pressure today seems to be slightly uncontrolled and he was in pain and he did not sleep well last night. Objective - Vital Signs Vital signs: Vital Signs Temp 98.1 F 01/24/17 08:00 Pulse 79 01/24/17 08:00 Resp 20 01/24/17 08:00 BP 150/70 01/24/17 08:00 Pulse Ox 97 01/24/17 08:00 Intake & Output 01/23/17 01/24/17 01/24/17 18:59 06:59 18:59 Intake Total 988.768 337.998 120 Output Total 895 1510 305 Balance 93.768 -1172.002 -185 Weight 96.9 kg 97.9 kg Intake: IV 580 306 60 0.9 flush 36 20 ACETAMINOPHEN IV (For NPO 200 ) 1,000 mg In Empty Bag 1 bag @ 400 mls/hr IVPB Q6HR [facility] Rx#:[id number] Lactated Ringers 1,000 ml 270 270 40 @ 20 mls/hr IV .Q24H [facility] Rx#:[id number] cardiac output 10 ceFAZolin 2 gm In Sodium 100 Chloride 0.9% 100 ml @ 100 mls/hr IVPB Q8HR [facility] Rx#:[id number] Intake, IV Titration 48.768 31.998 Amount Insulin Regular 100 unit 18.768 31.998 In Sodium Chloride 0.9% 100 ml @ Per Protocol IV .Q0M [facility] Rx#:[id number] Lactated Ringers 1,000 ml 30 @ 20 mls/hr IV .Q24H [facility] Rx#:[id number] Oral 360 60 Output: Chest Tube Drainage 280 280 80 Chest Tube Left Pleural/ 40 60 20 Mediastinal Chest Tube Mediastinal 200 160 30 Chest Tube Right 40 60 30 Drainage 80 Left Calf 40 Right Calf 40 Urine 535 1230 225 Other: Voiding Method Indwelling Catheter Indwelling Catheter ABP, PAP, CO, CI - Last Documented Arterial Blood Pressure 138/61 Pulmonary Artery Pressure 32/16 Cardiac Output 6.4 Cardiac Index 3.2 - Constitutional General appearance: Present: no acute distress - Respiratory Respiratory: bilateral: CTA - Cardiovascular Rhythm: regular - Labs CBC & Chem 7: 01/24/17 04:12 01/24/17 04:12 Labs: Abnormal Lab Results - Last 24 Hours (Table) 01/22/17 01/22/17 01/22/17 Range/Units 08:44 11:31 12:16 RBC (4.30-5.90) m/uL Hgb (13.0-17.5) gm/dL Hct (39.0-53.0) % MCV (80.0-100.0) fL Plt Count (150-450) k/uL Neutrophils # (1.3-7.7) k/uL Lymphocytes # (1.0-4.8) k/uL PT (9.0-12.0) sec INR (<1.2) ABG pH (7.35-7.45) ABG pCO2 32 L (35-45) mmHg ABG pO2 377 H 204 H 354 H (83-108) mmHg ABG Total CO2 (19-24) mmol/L ABG O2 Saturation 100.0 H 99.7 H 99.9 H (94-97) % ABG Hematocrit 33 L 30 L 28 L (34.0-46.0) % ABG Potassium 4.6 H 5.4 H (3.4-4.5) mmol/L BUN (9-20) mg/dL Creatinine (0.66-1.25) mg/dL Glucose (74-99) mg/dL POC Glucose (mg/dL) (75-99) mg/dL ALT (21-72) U/L Total Protein (6.3-8.2) g/dL Albumin (3.5-5.0) g/dL Arterial Blood Potassium 4.6 H 5.4 H (3.4-4.5) mmol/L 01/22/17 01/22/17 01/22/17 Range/Units 12:52 13:36 14:25 RBC (4.30-5.90) m/uL Hgb (13.0-17.5) gm/dL Hct (39.0-53.0) % MCV (80.0-100.0) fL Plt Count (150-450) k/uL Neutrophils # (1.3-7.7) k/uL Lymphocytes # (1.0-4.8) k/uL PT (9.0-12.0) sec INR (<1.2) ABG pH 7.32 L 7.34 L (7.35-7.45) ABG pCO2 46 H (35-45) mmHg ABG pO2 243 H 343 H 253 H (83-108) mmHg ABG Total CO2 25 H (19-24) mmol/L ABG O2 Saturation 99.8 H 99.9 H 99.8 H (94-97) % ABG Hematocrit 30 L 29 L 26 L (34.0-46.0) % ABG Potassium 5.3 H 5.1 H (3.4-4.5) mmol/L BUN (9-20) mg/dL Creatinine (0.66-1.25) mg/dL Glucose (74-99) mg/dL POC Glucose (mg/dL) (75-99) mg/dL ALT (21-72) U/L Total Protein (6.3-8.2) g/dL Albumin (3.5-5.0) g/dL Arterial Blood Potassium 5.3 H 5.1 H (3.4-4.5) mmol/L 01/23/17 01/23/17 01/23/17 Range/Units 10:13 11:06 11:59 RBC (4.30-5.90) m/uL Hgb (13.0-17.5) gm/dL Hct (39.0-53.0) % MCV (80.0-100.0) fL Plt Count (150-450) k/uL Neutrophils # (1.3-7.7) k/uL Lymphocytes # (1.0-4.8) k/uL PT (9.0-12.0) sec INR (<1.2) ABG pH (7.35-7.45) ABG pCO2 (35-45) mmHg ABG pO2 (83-108) mmHg ABG Total CO2 (19-24) mmol/L ABG O2 Saturation (94-97) % ABG Hematocrit (34.0-46.0) % ABG Potassium (3.4-4.5) mmol/L BUN (9-20) mg/dL Creatinine (0.66-1.25) mg/dL Glucose (74-99) mg/dL POC Glucose (mg/dL) 132 H 125 H 119 H (75-99) mg/dL ALT (21-72) U/L Total Protein (6.3-8.2) g/dL Albumin (3.5-5.0) g/dL Arterial Blood Potassium (3.4-4.5) mmol/L 01/23/17 01/23/17 01/23/17 Range/Units 13:53 15:05 17:03 RBC (4.30-5.90) m/uL Hgb (13.0-17.5) gm/dL Hct (39.0-53.0) % MCV (80.0-100.0) fL Plt Count (150-450) k/uL Neutrophils # (1.3-7.7) k/uL Lymphocytes # (1.0-4.8) k/uL PT (9.0-12.0) sec INR (<1.2) ABG pH (7.35-7.45) ABG pCO2 (35-45) mmHg ABG pO2 (83-108) mmHg ABG Total CO2 (19-24) mmol/L ABG O2 Saturation (94-97) % ABG Hematocrit (34.0-46.0) % ABG Potassium (3.4-4.5) mmol/L BUN (9-20) mg/dL Creatinine (0.66-1.25) mg/dL Glucose (74-99) mg/dL POC Glucose (mg/dL) 138 H 154 H 129 H (75-99) mg/dL ALT (21-72) U/L Total Protein (6.3-8.2) g/dL Albumin (3.5-5.0) g/dL Arterial Blood Potassium (3.4-4.5) mmol/L 01/23/17 01/23/17 01/23/17 Range/Units 19:00 20:03 21:05 RBC (4.30-5.90) m/uL Hgb (13.0-17.5) gm/dL Hct (39.0-53.0) % MCV (80.0-100.0) fL Plt Count (150-450) k/uL Neutrophils # (1.3-7.7) k/uL Lymphocytes # (1.0-4.8) k/uL PT (9.0-12.0) sec INR (<1.2) ABG pH (7.35-7.45) ABG pCO2 (35-45) mmHg ABG pO2 (83-108) mmHg ABG Total CO2 (19-24) mmol/L ABG O2 Saturation (94-97) % ABG Hematocrit (34.0-46.0) % ABG Potassium (3.4-4.5) mmol/L BUN (9-20) mg/dL Creatinine (0.66-1.25) mg/dL Glucose (74-99) mg/dL POC Glucose (mg/dL) 132 H 139 H 135 H (75-99) mg/dL ALT (21-72) U/L Total Protein (6.3-8.2) g/dL Albumin (3.5-5.0) g/dL Arterial Blood Potassium (3.4-4.5) mmol/L 01/23/17 01/23/17 01/24/17 Range/Units 22:06 23:15 00:47 RBC (4.30-5.90) m/uL Hgb (13.0-17.5) gm/dL Hct (39.0-53.0) % MCV (80.0-100.0) fL Plt Count (150-450) k/uL Neutrophils # (1.3-7.7) k/uL Lymphocytes # (1.0-4.8) k/uL PT (9.0-12.0) sec INR (<1.2) ABG pH (7.35-7.45) ABG pCO2 (35-45) mmHg ABG pO2 (83-108) mmHg ABG Total CO2 (19-24) mmol/L ABG O2 Saturation (94-97) % ABG Hematocrit (34.0-46.0) % ABG Potassium (3.4-4.5) mmol/L BUN (9-20) mg/dL Creatinine (0.66-1.25) mg/dL Glucose (74-99) mg/dL POC Glucose (mg/dL) 141 H 102 H 121 H (75-99) mg/dL ALT (21-72) U/L Total Protein (6.3-8.2) g/dL Albumin (3.5-5.0) g/dL Arterial Blood Potassium (3.4-4.5) mmol/L 01/24/17 01/24/17 01/24/17 Range/Units 02:08 04:10 04:12 RBC (4.30-5.90) m/uL Hgb (13.0-17.5) gm/dL Hct (39.0-53.0) % MCV (80.0-100.0) fL Plt Count (150-450) k/uL Neutrophils # (1.3-7.7) k/uL Lymphocytes # (1.0-4.8) k/uL PT (9.0-12.0) sec INR (<1.2) ABG pH (7.35-7.45) ABG pCO2 (35-45) mmHg ABG pO2 (83-108) mmHg ABG Total CO2 (19-24) mmol/L ABG O2 Saturation (94-97) % ABG Hematocrit (34.0-46.0) % ABG Potassium (3.4-4.5) mmol/L BUN 36 H (9-20) mg/dL Creatinine 2.10 H (0.66-1.25) mg/dL Glucose 112 H (74-99) mg/dL POC Glucose (mg/dL) 133 H 135 H (75-99) mg/dL ALT 20 L (21-72) U/L Total Protein 5.4 L (6.3-8.2) g/dL Albumin 3.4 L (3.5-5.0) g/dL Arterial Blood Potassium (3.4-4.5) mmol/L 01/24/17 01/24/17 01/24/17 Range/Units 04:12 04:12 06:01 RBC 2.50 L (4.30-5.90) m/uL Hgb 8.1 L (13.0-17.5) gm/dL Hct 25.3 L (39.0-53.0) % MCV 101.1 H (80.0-100.0) fL Plt Count 84 L (150-450) k/uL Neutrophils # 8.2 H (1.3-7.7) k/uL Lymphocytes # 0.7 L (1.0-4.8) k/uL PT 12.4 H (9.0-12.0) sec INR 1.3 H (<1.2) ABG pH (7.35-7.45) ABG pCO2 (35-45) mmHg ABG pO2 (83-108) mmHg ABG Total CO2 (19-24) mmol/L ABG O2 Saturation (94-97) % ABG Hematocrit (34.0-46.0) % ABG Potassium (3.4-4.5) mmol/L BUN (9-20) mg/dL Creatinine (0.66-1.25) mg/dL Glucose (74-99) mg/dL POC Glucose (mg/dL) 111 H (75-99) mg/dL ALT (21-72) U/L Total Protein (6.3-8.2) g/dL Albumin (3.5-5.0) g/dL Arterial Blood Potassium (3.4-4.5) mmol/L 01/24/17 Range/Units 08:20 RBC (4.30-5.90) m/uL Hgb (13.0-17.5) gm/dL Hct (39.0-53.0) % MCV (80.0-100.0) fL Plt Count (150-450) k/uL Neutrophils # (1.3-7.7) k/uL Lymphocytes # (1.0-4.8) k/uL PT (9.0-12.0) sec INR (<1.2) ABG pH (7.35-7.45) ABG pCO2 (35-45) mmHg ABG pO2 (83-108) mmHg ABG Total CO2 (19-24) mmol/L ABG O2 Saturation (94-97) % ABG Hematocrit (34.0-46.0) % ABG Potassium (3.4-4.5) mmol/L BUN (9-20) mg/dL Creatinine (0.66-1.25) mg/dL Glucose (74-99) mg/dL POC Glucose (mg/dL) 128 H (75-99) mg/dL ALT (21-72) U/L Total Protein (6.3-8.2) g/dL Albumin (3.5-5.0) g/dL Arterial Blood Potassium (3.4-4.5) mmol/L Assessment and Plan Plan: This is a pleasant 81-year-old gentleman who underwent CABG yesterday and he was extubated yesterday. We'll continue the current medical treatment which included dual antiplatelet therapy and statin as well as beta skip.
[2017-01-24] MEDS ORDERED: MORPHINE SULFATE 2 MG/ML SYRINGE IVP ONE (09:46)
[2017-01-24] MEDS ORDERED: MORPHINE SULFATE 2 MG/ML SYRINGE ONE (09:48)
[2017-01-24 10:14] LABS: Glucose,Whole Blood 132 mg/dL (75-99)
--- NOTE | 2017-01-24 11:31 | P.PN ---
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 Preserved left ventricular function. Hypertension. History of pulmonary embolus. Obstructive sleep apnea with CPAP use. History of syncope. Hypothyroid. History of cardiac arrest. Chronic kidney disease stage III. Chronic low back pain. Previous tobacco dependence. Family history of coronary artery disease. POD #2 urgent quadruple coronary artery bypass grafting with left internal mammary artery to the left anterior descending artery, reverse saphenous vein graft from the aorta to the first diagonal artery, reverse saphenous vein graft from the aorta to the obtuse marginal artery, and reverse saphenous vein graft from the aorta sequentially in a [id number] fashion to the posterior descending artery, then in an end to side fashion to the posterolateral branch of the right coronary artery. Bilateral endoscopic vein harvest except for the left below knee segment. Epi-aortic scanning. Intraoperative transesophageal echocardiogram. Graft flow measurement using the VSoft[employer] system. Currently sitting up in recliner in bed no acute distress. Complains of significant pain overnight, unrelieved with medications this morning. Patient is very angry and feels he has been "bruised badly". Objective - Vital Signs Vital signs: Vital Signs Temp 98.1 F 01/24/17 08:00 Pulse 79 01/24/17 10:00 Resp 20 01/24/17 10:00 BP 150/70 01/24/17 08:00 Pulse Ox 99 01/24/17 10:00 Intake & Output 01/23/17 01/24/17 01/24/17 18:59 06:59 18:59 Intake Total 988.768 337.998 220 Output Total 895 1510 865 Balance 93.768 -1172.002 -645 Weight 96.9 kg 97.9 kg 97.9 kg Intake: IV 580 306 100 0.9 flush 36 20 ACETAMINOPHEN IV (For NPO 200 ) 1,000 mg In Empty Bag 1 bag @ 400 mls/hr IVPB Q6HR [facility] Rx#:[id number] Lactated Ringers 1,000 ml 270 270 80 @ 20 mls/hr IV .Q24H [facility] Rx#:[id number] cardiac output 10 ceFAZolin 2 gm In Sodium 100 Chloride 0.9% 100 ml @ 100 mls/hr IVPB Q8HR [facility] Rx#:[id number] Intake, IV Titration 48.768 31.998 Amount Insulin Regular 100 unit 18.768 31.998 In Sodium Chloride 0.9% 100 ml @ Per Protocol IV .Q0M [facility] Rx#:[id number] Lactated Ringers 1,000 ml 30 @ 20 mls/hr IV .Q24H [facility] Rx#:[id number] Oral 360 120 Output: Chest Tube Drainage 280 280 320 Chest Tube Left Pleural/ 40 60 80 Mediastinal Chest Tube Mediastinal 200 160 90 Chest Tube Right 40 60 120 Left Lateral Chest 30 Drainage 80 70 Left Calf 40 30 Right Calf 40 40 Urine 535 1230 475 Other: Voiding Method Indwelling Catheter Indwelling Catheter Indwelling Catheter # Voids 2 ABP, PAP, CO, CI - Last Documented Arterial Blood Pressure 122/52 Pulmonary Artery Pressure 32/16 Cardiac Output 6.4 Cardiac Index 3.2 - Constitutional General appearance: Present: no acute distress - Respiratory Details: Lungs sounds diminished bilaterally. Respirations even, nonlabored. Currently on 2 L nasal cannula with oxygen saturation 97%. Unable to use incentive spirometry at this time secondary to pain. - Cardiovascular Details: S1, S2 present. Regular rate and rhythm, normal sinus rhythm on telemetry. Sternum stable. A/V epicardial pacemaker wires present, grounded. Trace bilateral lower extremity edema present. Teds/SCDs/heart hugger in place. - Gastrointestinal Gastrointestinal Comment(s): Abdomen slightly firm, tender to touch, nondistended. Hypoactive bowel sounds present 4 quadrants. Tolerating clear liquid diet. Denies flatus. - Genitourinary Genitourinary Comment(s): Chamberlain present draining clear, yellow urine. Output 50-150 mL per hour overnight. - Integumentary Integumentary Comment(s): Anterior chest incision well approximated, dry intact dressing. Bilateral lower extremity EVH sites well approximated, WESLY is draining minimal fluid. - Neurologic Neurologic: Present: CNII-XII intact - Musculoskeletal Musculoskeletal: Present: strength equal bilaterally - Psychiatric Psychiatric: Present: A&O x's 3 - Allied health notes Allied health notes reviewed: nursing - Labs CBC & Chem 7: 01/24/17 04:12 01/24/17 04:12 Labs: Abnormal Lab Results - Last 24 Hours (Table) 01/23/17 01/23/17 01/23/17 Range/Units 11:59 13:53 15:05 RBC (4.30-5.90) m/uL Hgb (13.0-17.5) gm/dL Hct (39.0-53.0) % MCV (80.0-100.0) fL Plt Count (150-450) k/uL Neutrophils # (1.3-7.7) k/uL Lymphocytes # (1.0-4.8) k/uL PT (9.0-12.0) sec INR (<1.2) BUN (9-20) mg/dL Creatinine (0.66-1.25) mg/dL Glucose (74-99) mg/dL POC Glucose (mg/dL) 119 H 138 H 154 H (75-99) mg/dL ALT (21-72) U/L Total Protein (6.3-8.2) g/dL Albumin (3.5-5.0) g/dL 01/23/17 01/23/17 01/23/17 Range/Units 17:03 19:00 20:03 RBC (4.30-5.90) m/uL Hgb (13.0-17.5) gm/dL Hct (39.0-53.0) % MCV (80.0-100.0) fL Plt Count (150-450) k/uL Neutrophils # (1.3-7.7) k/uL Lymphocytes # (1.0-4.8) k/uL PT (9.0-12.0) sec INR (<1.2) BUN (9-20) mg/dL Creatinine (0.66-1.25) mg/dL Glucose (74-99) mg/dL POC Glucose (mg/dL) 129 H 132 H 139 H (75-99) mg/dL ALT (21-72) U/L Total Protein (6.3-8.2) g/dL Albumin (3.5-5.0) g/dL 01/23/17 01/23/17 01/23/17 Range/Units 21:05 22:06 23:15 RBC (4.30-5.90) m/uL Hgb (13.0-17.5) gm/dL Hct (39.0-53.0) % MCV (80.0-100.0) fL Plt Count (150-450) k/uL Neutrophils # (1.3-7.7) k/uL Lymphocytes # (1.0-4.8) k/uL PT (9.0-12.0) sec INR (<1.2) BUN (9-20) mg/dL Creatinine (0.66-1.25) mg/dL Glucose (74-99) mg/dL POC Glucose (mg/dL) 135 H 141 H 102 H (75-99) mg/dL ALT (21-72) U/L Total Protein (6.3-8.2) g/dL Albumin (3.5-5.0) g/dL 01/24/17 01/24/17 01/24/17 Range/Units 00:47 02:08 04:10 RBC (4.30-5.90) m/uL Hgb (13.0-17.5) gm/dL Hct (39.0-53.0) % MCV (80.0-100.0) fL Plt Count (150-450) k/uL Neutrophils # (1.3-7.7) k/uL Lymphocytes # (1.0-4.8) k/uL PT (9.0-12.0) sec INR (<1.2) BUN (9-20) mg/dL Creatinine (0.66-1.25) mg/dL Glucose (74-99) mg/dL POC Glucose (mg/dL) 121 H 133 H 135 H (75-99) mg/dL ALT (21-72) U/L Total Protein (6.3-8.2) g/dL Albumin (3.5-5.0) g/dL 01/24/17 01/24/17 01/24/17 Range/Units 04:12 04:12 04:12 RBC 2.50 L (4.30-5.90) m/uL Hgb 8.1 L (13.0-17.5) gm/dL Hct 25.3 L (39.0-53.0) % MCV 101.1 H (80.0-100.0) fL Plt Count 84 L (150-450) k/uL Neutrophils # 8.2 H (1.3-7.7) k/uL Lymphocytes # 0.7 L (1.0-4.8) k/uL PT 12.4 H (9.0-12.0) sec INR 1.3 H (<1.2) BUN 36 H (9-20) mg/dL Creatinine 2.10 H (0.66-1.25) mg/dL Glucose 112 H (74-99) mg/dL POC Glucose (mg/dL) (75-99) mg/dL ALT 20 L (21-72) U/L Total Protein 5.4 L (6.3-8.2) g/dL Albumin 3.4 L (3.5-5.0) g/dL 01/24/17 01/24/17 01/24/17 Range/Units 06:01 08:20 10:12 RBC (4.30-5.90) m/uL Hgb (13.0-17.5) gm/dL Hct (39.0-53.0) % MCV (80.0-100.0) fL Plt Count (150-450) k/uL Neutrophils # (1.3-7.7) k/uL Lymphocytes # (1.0-4.8) k/uL PT (9.0-12.0) sec INR (<1.2) BUN (9-20) mg/dL Creatinine (0.66-1.25) mg/dL Glucose (74-99) mg/dL POC Glucose (mg/dL) 111 H 128 H 132 H (75-99) mg/dL ALT (21-72) U/L Total Protein (6.3-8.2) g/dL Albumin (3.5-5.0) g/dL - Imaging and Cardiology Chest x-ray: report reviewed, image reviewed Assessment and Plan (1) Chest pain Status: Acute (2) Hypertension Status: Acute (3) History of pulmonary embolism Status: Acute (4) History of cardiac arrest Status: Acute (5) Hypothyroid Status: Acute (6) Chronic kidney disease Status: Acute (7) Tobacco dependence in remission Status: Acute (8) Family history of coronary artery disease Status: Acute (9) Chronic low back pain Status: Acute (10) History of syncope Status: Acute (11) Obstructive sleep apnea on CPAP Status: Acute Plan: 1. Continue aspirin, Lipitor, Plavix, Lopressor. Will maximize beta skip therapy as tolerated. 2. Wean O2 as tolerated. Encourage incentive spirometry use. 3. Pain medications increased. 4. Increase activity. Ambulate in hallway. Physical therapy to follow. 5. GI/DVT prophylaxis. Reglan 10 mg IV push 1 for gastroparesis. 6. Daily labs, chest x-rays 7. Insulin management per primary care service 8. Right, mediastinal chest tubes discontinued this morning without incident. Discontinue Chamberlain catheter, arterial line. 9. Will transfer patient to E. selective care. More recommendations as patient progresses. Time with Patient: Greater than 30
[2017-01-24 12:43] LABS: Glucose,Whole Blood 138 mg/dL (75-99)
[2017-01-24] MEDS: INSULIN LISPRO (humaLOG) 300 UNIT/3 ML VIAL SQ SCH ×3 (12:47→21:01)
[2017-01-24] MEDS: MULTIVITAMINS, THERA 1 EACH TAB PO SCH ×2 (12:48→21:57)
--- NOTE | 2017-01-24 13:42 | P.VSCSTY ---
Greater Saphenous Vein Mapping This is bilateral lower extremity greater saphenous vein mapping. Date of service 01/18/2017 Vein quality and ultrasound appearance normal. Vein size groin right 6.9 x 6.2 groin left 5.9 x 5.9 High thigh right 5.4 x 4.7 high thigh left 6.5 x 6.2 Mid thigh right 3.8 x 3.0 mid thigh left 2.8 x 2.1 Above-knee right 3.2 x 3.1 above- knee left 2.9 x 2.5 Below knee right 2.9 x 2.3 below-knee left 3.0 x 2.0 Mid calf right 3.7 x 3.0 mid calf left 2.9 x 2.3 Ankle right 3.9 x 2.8 ankle left 3.1 x 2.4 Impression usable bilateral greater saphenous vein.
--- NOTE | 2017-01-24 13:42 | P.PN ---
Subjective This is a very pleasant 81-year-old gentleman follows with Dr. Antonio as his primary care physician. He has a history of esophageal reflux disease, hypertension, pulmonary embolism causing cardiac arrest in 1985, obstructive sleep apnea, hypothyroidism, arthritis, chronic back pain, multiple orthopedic surgeries, depression. He has a remote history of smoking for approximate 10 years 1-2 packs per day but quit 43 years ago. He presented here on 01/15/2017 with complaints of left-sided chest pain. He had been seen and followed by cardiology. He had undergone a stress testing which revealed some evidence of ischemia with subsequent cardiac catheterization revealing diffuse triple- vessel disease including a 50-60% left main stenosis, 90% LAD stenosis, 50% circumflex and 85-90% right coronary artery stenosis. Echocardiogram revealed preserved left ventricular systolic function with estimated ejection fraction 55 -60%. CT angiogram ruled out pulmonary embolism. The lungs were clear of consolidation. No pleural effusion. He is seen today in consultation in anticipation of coronary artery revascularization on 01/22/2017. He is awake and alert in no acute distress. He has been up ambulating in the hallway without any significant chest discomfort, no palpitations, lightheadedness or dizziness. No worsening shortness of breath. No cough or congestion. No leukocytosis. Hemoglobin 12.8. Creatinine 2.07. He is maintaining good O2 saturations in the upper 90s on room air. He is afebrile. Hemodynamically stable. The patient is seen again today 01/20/2017 in follow-up on the selective care unit. He is awake and alert in no acute distress. He is now ambulating in the hallway. He states he did have some level of anxiety last evening and did receive Xanax. He slept well after that. He denies any chest pain currently. No shortness of breath cough or congestion. Continues to maintain good O2 saturations in the high 90s on room air. He is afebrile. Hemodynamically stable. His creatinine is improving currently 1.81. On 01/22/2017 I'm seeing this patient in follow-up. The patient underwent coronary artery bypass surgery, 5-vessel bypass and currently is in the intensive care unit. He is on sedation with 25 mics of the prevent. Is on a mechanical ventilator on assist control mode rate of 12, tidal volume of 500, FiO2 of 100% and PEEP of 5. The blood gases showed a pH of 7.28 with a pCO2 of 48 and pO2 of 381. Based on this, I increase the tidal volume to 600 and drop the FiO2 down to 50%. His chest x-ray showed adequate expansion of both lungs. There may be a component of volume overload. Left basilar atelectatic changes seen. The patient has an ET tube in place, NG tube in place, 2 pleural chest tubes the right and left and mediastinal chest tube in place, and Austin- Yulia catheter in place. Cardiac output is 10 with an index of 5.0. PA artery pressures are 32/15. Producing adequate amount of urine output. Ultrasound the chest tubes out approximately 30-40 mL an hour from each of the chest tubes. Postoperative hemoglobin is at 7.7 with a platelet count of 67. The patient has a component of chronic renal failure. Postoperative renal function showed a creatinine of 1.42. On 01/23/2017 I'm seeing this patient in follow-up. The patient underwent four- vessel bypass surgery. The patient was weaned off the mechanical ventilator other major difficulties and he was extubated yesterday at around 9 PM. It morning it is on oxygen at 2 L per minute nasal cannula. His chest x-ray showing postoperative surgical changes with some elevation of left hemidiaphragm. The mediastinal chest tubes and pleural chest tubes are all in place. Output from the chest tube has been approximately 50 mL an hour total. The patient did not require any packed RBC transfusions. His hemoglobin is up to 8.6. The patient also has a chronic renal failure. Creatinine is at 2.0. Producing adequate amount of urine output. No nausea. No vomiting no focal logical deficits. The patient was seen again on 01/24/2017 in follow-up in the intensive care unit. He is currently resting fairly comfortably in bed. He is awake and alert in no acute distress. Pain is fairly well controlled. He's been gaining good O2 saturations in the mid to upper 90s on 2 L/m per nasal cannula. He is afebrile. His chest x-ray reveals persistent bilateral consolidations with small effusions. His right and mediastinal chest tubes have been discontinued. He's been hemodynamically stable. Currently on no drips. Objective - Vital Signs Vital signs: Vital Signs Temp 98.9 F 01/24/17 12:00 Pulse 71 01/24/17 12:00 Resp 18 08/09/17 12:00 BP 150/70 01/24/17 08:00 Pulse Ox 97 01/24/17 12:00 Intake & Output 01/23/17 01/24/17 01/24/17 18:59 06:59 18:59 Intake Total 988.768 337.998 240 Output Total 895 1510 955 Balance 93.768 -1172.002 -715 Weight 96.9 kg 97.9 kg 97.9 kg Intake: IV 580 306 120 0.9 flush 36 20 ACETAMINOPHEN IV (For NPO 200 ) 1,000 mg In Empty Bag 1 bag @ 400 mls/hr IVPB Q6HR [facility]AEL Rx#:[id number] Lactated Ringers 1,000 ml 270 270 100 @ 20 mls/hr IV .Q24H AZAEL Rx#:[id number] cardiac output 10 ceFAZolin 2 gm In Sodium 100 Chloride 0.9% 100 ml @ 100 mls/hr IVPB Q8HR [facility]AEL Rx#:[id number] Intake, IV Titration 48.768 31.998 Amount Insulin Regular 100 unit 18.768 31.998 In Sodium Chloride 0.9% 100 ml @ Per Protocol IV .Q0M AZAEL Rx#:[id number] Lactated Ringers 1,000 ml 30 @ 20 mls/hr IV .Q24H AZAEL Rx#:[id number] Oral 360 120 Output: Chest Tube Drainage 280 280 410 Chest Tube Left Pleural/ 40 60 80 Mediastinal Chest Tube Mediastinal 200 160 120 Chest Tube Right 40 60 150 Left Lateral Chest 60 Drainage 80 70 Left Calf 40 30 Right Calf 40 40 Urine 535 1230 475 Other: Voiding Method Indwelling Catheter Indwelling Catheter Indwelling Catheter # Voids 2 ABP, PAP, CO, CI - Last Documented Arterial Blood Pressure 112/54 Pulmonary Artery Pressure 32/16 Cardiac Output 6.4 Cardiac Index 3.2 - Exam GENERAL EXAM: Alert, active, comfortable in no apparent distress. HEAD: Normocephalic. EYES: Normal reaction of pupils, equal size. NOSE: Clear with pink turbinates. THROAT: No erythema or exudates. NECK: No masses, no JVD. CHEST: Sternal dressing is dry and intact. LUNGS: Equal air entry with crackles in the posterior bases. Left chest tube remains. CVS: S1 and S2 normal with no audible murmurs, regular rhythm. ABDOMEN: No hepatosplenomegaly, normal bowel sounds, no guarding or rigidity. SPINE: No scoliosis or deformity SKIN: No rashes CENTRAL NERVOUS SYSTEM: No focal deficits, tone is normal in all 4 extremities. Extremities: There is trace peripheral edema. No clubbing, no cyanosis. Peripheral pulses are intact. - Labs CBC & Chem 7: 01/24/17 04:12 01/24/17 04:12 Labs: Abnormal Lab Results - Last 24 Hours (Table) 01/23/17 01/23/17 01/23/17 Range/Units 13:53 15:05 17:03 RBC (4.30-5.90) m/uL Hgb (13.0-17.5) gm/dL Hct (39.0-53.0) % MCV (80.0-100.0) fL Plt Count (150-450) k/uL Neutrophils # (1.3-7.7) k/uL Lymphocytes # (1.0-4.8) k/uL PT (9.0-12.0) sec INR (<1.2) BUN (9-20) mg/dL Creatinine (0.66-1.25) mg/dL Glucose (74-99) mg/dL POC Glucose (mg/dL) 138 H 154 H 129 H (75-99) mg/dL ALT (21-72) U/L Total Protein (6.3-8.2) g/dL Albumin (3.5-5.0) g/dL 01/23/17 01/23/17 01/23/17 Range/Units 19:00 20:03 21:05 RBC (4.30-5.90) m/uL Hgb (13.0-17.5) gm/dL Hct (39.0-53.0) % MCV (80.0-100.0) fL Plt Count (150-450) k/uL Neutrophils # (1.3-7.7) k/uL Lymphocytes # (1.0-4.8) k/uL PT (9.0-12.0) sec INR (<1.2) BUN (9-20) mg/dL Creatinine (0.66-1.25) mg/dL Glucose (74-99) mg/dL POC Glucose (mg/dL) 132 H 139 H 135 H (75-99) mg/dL ALT (21-72) U/L Total Protein (6.3-8.2) g/dL Albumin (3.5-5.0) g/dL 01/23/17 01/23/17 01/24/17 Range/Units 22:06 23:15 00:47 RBC (4.30-5.90) m/uL Hgb (13.0-17.5) gm/dL Hct (39.0-53.0) % MCV (80.0-100.0) fL Plt Count (150-450) k/uL Neutrophils # (1.3-7.7) k/uL Lymphocytes # (1.0-4.8) k/uL PT (9.0-12.0) sec INR (<1.2) BUN (9-20) mg/dL Creatinine (0.66-1.25) mg/dL Glucose (74-99) mg/dL POC Glucose (mg/dL) 141 H 102 H 121 H (75-99) mg/dL ALT (21-72) U/L Total Protein (6.3-8.2) g/dL Albumin (3.5-5.0) g/dL 01/24/17 01/24/17 01/24/17 Range/Units 02:08 04:10 04:12 RBC (4.30-5.90) m/uL Hgb (13.0-17.5) gm/dL Hct (39.0-53.0) % MCV (80.0-100.0) fL Plt Count (150-450) k/uL Neutrophils # (1.3-7.7) k/uL Lymphocytes # (1.0-4.8) k/uL PT (9.0-12.0) sec INR (<1.2) BUN 36 H (9-20) mg/dL Creatinine 2.10 H (0.66-1.25) mg/dL Glucose 112 H (74-99) mg/dL POC Glucose (mg/dL) 133 H 135 H (75-99) mg/dL ALT 20 L (21-72) U/L Total Protein 5.4 L (6.3-8.2) g/dL Albumin 3.4 L (3.5-5.0) g/dL 01/24/17 01/24/17 01/24/17 Range/Units 04:12 04:12 06:01 RBC 2.50 L (4.30-5.90) m/uL Hgb 8.1 L (13.0-17.5) gm/dL Hct 25.3 L (39.0-53.0) % MCV 101.1 H (80.0-100.0) fL Plt Count 84 L (150-450) k/uL Neutrophils # 8.2 H (1.3-7.7) k/uL Lymphocytes # 0.7 L (1.0-4.8) k/uL PT 12.4 H (9.0-12.0) sec INR 1.3 H (<1.2) BUN (9-20) mg/dL Creatinine (0.66-1.25) mg/dL Glucose (74-99) mg/dL POC Glucose (mg/dL) 111 H (75-99) mg/dL ALT (21-72) U/L Total Protein (6.3-8.2) g/dL Albumin (3.5-5.0) g/dL 01/24/17 01/24/17 01/24/17 Range/Units 08:20 10:12 12:40 RBC (4.30-5.90) m/uL Hgb (13.0-17.5) gm/dL Hct (39.0-53.0) % MCV (80.0-100.0) fL Plt Count (150-450) k/uL Neutrophils # (1.3-7.7) k/uL Lymphocytes # (1.0-4.8) k/uL PT (9.0-12.0) sec INR (<1.2) BUN (9-20) mg/dL Creatinine (0.66-1.25) mg/dL Glucose (74-99) mg/dL POC Glucose (mg/dL) 128 H 132 H 138 H (75-99) mg/dL ALT (21-72) U/L Total Protein (6.3-8.2) g/dL Albumin (3.5-5.0) g/dL Assessment and Plan Plan: Impression: 1 Multivessel coronary artery disease/diffuse triple-vessel coronary artery disease status post carotid bypass surgery. The patient underwent 5-vessel bypass. Currently postop day #2 2 postoperative intubation mechanical ventilator. Expected outcome of coronary artery bypass surgery. The patient was extubated without any major difficulties. 3 postoperative chest tubes, right pleural and mediastinal he moved today. Left chest tube remains. 4 postoperative anemia with a hemoglobin of 8.1 expected outcome of surgery. 5 postoperative thrombocytopenia, and expected outcome of surgery, improving 6 hypertension 7 hyperlipidemia 8 and send her for blood sugar control 9 hypothyroidism 10 chronic back pain 11 obstructive sleep apnea. Plan: The patient was seen and evaluated by Dr. Heart. His chest x-ray and labs were reviewed and he is doing well from the pulmonary and critical care standpoint. He could be transferred out of the intensive care unit later today once cleared by cardiothoracic. We'll repeat his chest x-ray and labs in a.m. He is again encouraged regarding the increased use of the incentive spirometer and cough and deep breathing exercises. We'll continue to follow.
--- NOTE | 2017-01-24 13:46 | P.PN ---
Subjective This is a 81-year-old gentleman who underwent CABG 5 postop day 1 Patient is seen today in consultation/progress. Patient underwent a cardiac catheterization initially thereafter was noted to have triple-vessel disease. Patient was seen by cardio thoracic surgery and was taken to the OR yesterday. Patient is extubated is currently on 2 units of insulin patient does not have a history of diabetes in the past Patient continues to have chest tubes in place on no other overnight events were noted Appears to have good urine output Denies having any complaints at this time. 01/24/2017 Patient is also anxious about where she was placed back in bed overnight Denies having any additional complaints No chest pain nausea vomiting is reported has not had a bowel movement yet Objective - Vital Signs Vital signs: Vital Signs Temp 98.9 F 01/24/17 12:00 Pulse 71 01/24/17 12:00 Resp 18 01/24/17 12:00 BP 150/70 01/24/17 08:00 Pulse Ox 97 01/24/17 12:00 Intake & Output 01/23/17 01/24/17 01/24/17 18:59 06:59 18:59 Intake Total 988.768 337.998 240 Output Total 895 1510 955 Balance 93.768 -1172.002 -715 Weight 96.9 kg 97.9 kg 97.9 kg Intake: IV 580 306 120 0.9 flush 36 20 ACETAMINOPHEN IV (For NPO 200 ) 1,000 mg In Empty Bag 1 bag @ 400 mls/hr IVPB Q6HR [facility] Rx#:[id number] Lactated Ringers 1,000 ml 270 270 100 @ 20 mls/hr IV .Q24H [facility]AEL Rx#:[id number] cardiac output 10 ceFAZolin 2 gm In Sodium 100 Chloride 0.9% 100 ml @ 100 mls/hr IVPB Q8HR [facility] Rx#:[id number] Intake, IV Titration 48.768 31.998 Amount Insulin Regular 100 unit 18.768 31.998 In Sodium Chloride 0.9% 100 ml @ Per Protocol IV .Q0M [facility]EL Rx#:[id number] Lactated Ringers 1,000 ml 30 @ 20 mls/hr IV .Q24H AZAEL Rx#:[id number] Oral 360 120 Output: Chest Tube Drainage 280 280 410 Chest Tube Left Pleural/ 40 60 80 Mediastinal Chest Tube Mediastinal 200 160 120 Chest Tube Right 40 60 150 Left Lateral Chest 60 Drainage 80 70 Left Calf 40 30 Right Calf 40 40 Urine 535 1230 475 Other: Voiding Method Indwelling Catheter Indwelling Catheter Indwelling Catheter # Voids 2 ABP, PAP, CO, CI - Last Documented Arterial Blood Pressure 112/54 Pulmonary Artery Pressure 32/16 Cardiac Output 6.4 Cardiac Index 3.2 - Exam In appearance no acute distress Neck is supple no JVD Lungs diminished bases no rhonchi air movement is noted Heart S1-S2 heard no murmurs appreciated Abdomen is soft nontender no organomegaly Lower extremities nontender Neuro no focal motor or sensory deficits appreciated - Labs CBC & Chem 7: 01/24/17 04:12 01/24/17 04:12 Labs: Abnormal Lab Results - Last 24 Hours (Table) 01/23/17 01/23/17 01/23/17 Range/Units 13:53 15:05 17:03 RBC (4.30-5.90) m/uL Hgb (13.0-17.5) gm/dL Hct (39.0-53.0) % MCV (80.0-100.0) fL Plt Count (150-450) k/uL Neutrophils # (1.3-7.7) k/uL Lymphocytes # (1.0-4.8) k/uL PT (9.0-12.0) sec INR (<1.2) BUN (9-20) mg/dL Creatinine (0.66-1.25) mg/dL Glucose (74-99) mg/dL POC Glucose (mg/dL) 138 H 154 H 129 H (75-99) mg/dL ALT (21-72) U/L Total Protein (6.3-8.2) g/dL Albumin (3.5-5.0) g/dL 01/23/17 01/23/17 01/23/17 Range/Units 19:00 20:03 21:05 RBC (4.30-5.90) m/uL Hgb (13.0-17.5) gm/dL Hct (39.0-53.0) % MCV (80.0-100.0) fL Plt Count (150-450) k/uL Neutrophils # (1.3-7.7) k/uL Lymphocytes # (1.0-4.8) k/uL PT (9.0-12.0) sec INR (<1.2) BUN (9-20) mg/dL Creatinine (0.66-1.25) mg/dL Glucose (74-99) mg/dL POC Glucose (mg/dL) 132 H 139 H 135 H (75-99) mg/dL ALT (21-72) U/L Total Protein (6.3-8.2) g/dL Albumin (3.5-5.0) g/dL 01/23/17 01/23/17 01/24/17 Range/Units 22:06 23:15 00:47 RBC (4.30-5.90) m/uL Hgb (13.0-17.5) gm/dL Hct (39.0-53.0) % MCV (80.0-100.0) fL Plt Count (150-450) k/uL Neutrophils # (1.3-7.7) k/uL Lymphocytes # (1.0-4.8) k/uL PT (9.0-12.0) sec INR (<1.2) BUN (9-20) mg/dL Creatinine (0.66-1.25) mg/dL Glucose (74-99) mg/dL POC Glucose (mg/dL) 141 H 102 H 121 H (75-99) mg/dL ALT (21-72) U/L Total Protein (6.3-8.2) g/dL Albumin (3.5-5.0) g/dL 01/24/17 01/24/17 01/24/17 Range/Units 02:08 04:10 04:12 RBC (4.30-5.90) m/uL Hgb (13.0-17.5) gm/dL Hct (39.0-53.0) % MCV (80.0-100.0) fL Plt Count (150-450) k/uL Neutrophils # (1.3-7.7) k/uL Lymphocytes # (1.0-4.8) k/uL PT (9.0-12.0) sec INR (<1.2) BUN 36 H (9-20) mg/dL Creatinine 2.10 H (0.66-1.25) mg/dL Glucose 112 H (74-99) mg/dL POC Glucose (mg/dL) 133 H 135 H (75-99) mg/dL ALT 20 L (21-72) U/L Total Protein 5.4 L (6.3-8.2) g/dL Albumin 3.4 L (3.5-5.0) g/dL 01/24/17 01/24/17 01/24/17 Range/Units 04:12 04:12 06:01 RBC 2.50 L (4.30-5.90) m/uL Hgb 8.1 L (13.0-17.5) gm/dL Hct 25.3 L (39.0-53.0) % MCV 101.1 H (80.0-100.0) fL Plt Count 84 L (150-450) k/uL Neutrophils # 8.2 H (1.3-7.7) k/uL Lymphocytes # 0.7 L (1.0-4.8) k/uL PT 12.4 H (9.0-12.0) sec INR 1.3 H (<1.2) BUN (9-20) mg/dL Creatinine (0.66-1.25) mg/dL Glucose (74-99) mg/dL POC Glucose (mg/dL) 111 H (75-99) mg/dL ALT (21-72) U/L Total Protein (6.3-8.2) g/dL Albumin (3.5-5.0) g/dL 01/24/17 01/24/17 01/24/17 Range/Units 08:20 10:12 12:40 RBC (4.30-5.90) m/uL Hgb (13.0-17.5) gm/dL Hct (39.0-53.0) % MCV (80.0-100.0) fL Plt Count (150-450) k/uL Neutrophils # (1.3-7.7) k/uL Lymphocytes # (1.0-4.8) k/uL PT (9.0-12.0) sec INR (<1.2) BUN (9-20) mg/dL Creatinine (0.66-1.25) mg/dL Glucose (74-99) mg/dL POC Glucose (mg/dL) 128 H 132 H 138 H (75-99) mg/dL ALT (21-72) U/L Total Protein (6.3-8.2) g/dL Albumin (3.5-5.0) g/dL Assessment and Plan Plan: #1 CAD status post CABG postop day 2 #2 hypothyroidism #3 essential hypertension #4 stress-induced hyperglycemia #5 acute blood loss anemia as expected from surgery plan off insulin drip Dual antiplatelet therapy GI prophylaxis
[2017-01-24 17:04] LABS: Glucose,Whole Blood 131 mg/dL (75-99)
[2017-01-24] MEDS: MONTELUKAST 10 MG TAB PO SCH (20:09)
[2017-01-24] MEDS: SENNOSIDES-DOCUSATE SODIUM 1 EACH TAB PO SCH (20:09)
[2017-01-24 20:26] LABS: Glucose,Whole Blood 170 mg/dL (75-99)
[2017-01-24] MEDS: FAMOTIDINE 20 MG TAB PO SCH (21:56)
[2017-01-24] MEDS: ISOSORBIDE MONONITRATE ER 30 MG TAB.ER.24H PO SCH (21:57)
--- NOTE | 2017-01-24 22:31 | PN ---
Patient is seen for followup for acute kidney injury on top of chronic kidney disease. He is status post coronary artery bypass surgery, postoperative day number 2. He is currently having the chest tubes removed. The patient is complaining of pain. He has had good urine output; about 50 to 70 mL/hour. Serum creatinine is staying at about 2 to 2.1 mg/dL. Blood pressure has been slightly high secondary to pain. No other bleeding issues. No fever. On examination, blood pressure is noted to be 112/54, heart rate 71 per minute. Patient is afebrile. He currently has the chest tubing removed. He is sitting up in bed. He is awake and alert, oriented x3. Bilateral lower extremities are wrapped. Labs show sodium 137, potassium 4.5. BUN 36, serum creatinine 2.1. Hemoglobin 8.1 grams per dL. ASSESSMENT: 1. Acute kidney injury, post coronary artery bypass surgery, currently non- oliguric with stable renal function. No nephrotoxic agents on board. Blood pressure is not low. We will continue to monitor for now. Okay to discontinue the Chamberlain catheter. 2. Status post coronary artery bypass surgery, postoperative day number 2, doing well. 3. Anemia postoperatively with no active bleeding noted. Hemoglobin is staying at 8.1 grams per dL. 4. Chronic kidney disease, NKF stage III, with baseline creatinine at about 1.6 to 1.7 mg/dL secondary to nephrosclerosis. The UA is completely benign. PLAN: Continue the monitor the hemoglobin. No need for packed RBC transfusion yet. Repeat labs in a.m. MTDD
[2017-01-25 01:48] LABS: Glucose,Whole Blood 112 mg/dL (75-99)
[2017-01-25] MEDS: HYDROcodone/APAP 7.5-325MG 1 EACH TAB PO PRN (04:04)
[2017-01-25 05:52] LABS: Glucose,Whole Blood 107 mg/dL (75-99)
[2017-01-25] MEDS: INSULIN LISPRO (humaLOG) 300 UNIT/3 ML VIAL SQ SCH ×4 (05:56→21:09)
[2017-01-25] MEDS: LEVOTHYROXINE 75 MCG TAB PO SCH (06:22)
[2017-01-25] MEDS: PANTOPRAZOLE 40 MG TABLET PO SCH (06:22)
[2017-01-25 06:27] LABS: CHCM 32.6; HCT 24.4 % (39.0-53.0); HDW 2.65; HGB 7.9 gm/dL (13.0-17.5); MCH 33.1 pg (25.0-35.0); MCHC 32.5 g/dL (31.0-37.0); MCV 101.8 fL (80.0-100.0); Macrocytosis Slight; Mean Platelet Volume 8.8; RDW 13.3 % (11.5-15.5); WBC 13.3 k/uL (3.8-10.6)
[2017-01-25 06:38] LABS: Calcium 8.4 mg/dL (8.4-10.2); Potassium 4.8 mmol/L (3.5-5.1); Total Bilirubin 0.8 mg/dL (0.2-1.3); Total Protein 5.3 g/dL (6.3-8.2)
--- NOTE | 2017-01-25 09:14 | XR ---
EXAMINATION TYPE: XR chest 1V portable DATE OF EXAM: 01/25/2017 COMPARISON: 01/24/2017 HISTORY: Postop cardiac surgery TECHNIQUE: Single frontal view of the chest is obtained. FINDINGS: Postsurgical changes involving the shoulders mediastinum. Chest tube noted with no sizable thorax. Areas of consolidation and small effusion are stable. Heart remains enlarged. Exam limited b y poor inspiration. Extensive bowel gas seen in the upper abdomen IMPRESSION: 1. Stable bilateral infiltrate and small effusion 2. Postsurgical changes 3. Stable dilated bowel loops in the upper abdomen correlate clinically
[2017-01-25] MEDS: ASPIRIN 325 MG TAB PO SCH (09:22)
[2017-01-25] MEDS: ATORVASTATIN 40 MG TAB PO SCH (09:22)
[2017-01-25] MEDS: HEPARIN SODIUM,PORCINE 5,000 UNIT/ML 1 ML VIAL SQ SCH (09:22)
[2017-01-25] MEDS: MUPIROCIN 2% OINT 22 GM TUBE NASAL SCH ×2 (09:23→20:26)
[2017-01-25] MEDS: METOPROLOL TARTRATE 25 MG TAB PO SCH ×3 (09:23→20:26)
[2017-01-25] MEDS: CITALOPRAM HYDROBROMIDE 20 MG TAB PO SCH (09:23)
[2017-01-25] MEDS: CLOPIDOGREL 75 MG TAB PO SCH (09:23)
[2017-01-25] MEDS: HYDROcodone/APAP 10-325MG 1 EACH TAB PO PRN (09:24)
--- NOTE | 2017-01-25 11:27 | P.PN ---
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 Preserved left ventricular function. Hypertension. History of pulmonary embolus. Obstructive sleep apnea with CPAP use. History of syncope. Hypothyroid. History of cardiac arrest. Chronic kidney disease stage III. Chronic low back pain. Previous tobacco dependence. Family history of coronary artery disease. POD #3 urgent quadruple coronary artery bypass grafting with left internal mammary artery to the left anterior descending artery, reverse saphenous vein graft from the aorta to the first diagonal artery, reverse saphenous vein graft from the aorta to the obtuse marginal artery, and reverse saphenous vein graft from the aorta sequentially in a [id number] fashion to the posterior descending artery, then in an end to side fashion to the posterolateral branch of the right coronary artery. Bilateral endoscopic vein harvest except for the left below knee segment. Epi-aortic scanning. Intraoperative transesophageal echocardiogram. Graft flow measurement using the Arcivrstim system. Currently sitting up in bed in no acute distress. Still complains of sternal pain, however was sleeping deeply when I went to assess him this morning. Was transferred to [address] [place] [address] yesterday. He has been ambulating in the hallway. Objective - Vital Signs Vital signs: Vital Signs Temp 96.9 F L 01/25/17 08:00 Pulse 78 01/25/17 08:00 Resp 19 01/25/17 08:00 BP 125/71 01/25/17 08:00 Pulse Ox 95 01/25/17 08:00 Intake & Output 01/24/17 01/25/17 01/25/17 18:59 06:59 18:59 Intake Total 420 600 Output Total 1200 191 Balance -780 -191 600 Weight 97.9 kg Intake: IV 120 0.9 flush 20 Lactated Ringers 1,000 ml 100 @ 20 mls/hr IV .Q24H [facility] Rx#:[id number] Oral 300 600 Output: Chest Tube Drainage 460 100 Chest Tube Left Pleural/ 80 Mediastinal Chest Tube Mediastinal 120 Chest Tube Right 150 Left Lateral Chest 110 100 Drainage 190 90 Left Calf 60 5 Right Calf 130 85 Urine 550 Stool 1 Other: Voiding Method Indwelling Catheter Toilet Urinal # Voids 0 1 ABP, PAP, CO, CI - Last Documented Arterial Blood Pressure 113/56 Pulmonary Artery Pressure 32/16 Cardiac Output 6.4 Cardiac Index 3.2 - Constitutional General appearance: Present: cooperative, no acute distress, obese - Respiratory Details: Lungs sounds diminished bilaterally. Respirations even, nonlabored. Currently on room air with oxygen saturation 95%. Able to achieve 750 mL on his incentive spirometry. Left pleural chest tube was to -20 cm wall suction this morning, 70 mL output overnight, 200 mL in 24 hours. Chest tube was just discontinued without incident, patient tolerated well - Cardiovascular Details: S1, S2 present. Regular rate and rhythm, normal sinus rhythm on telemetry. Sternum stable. A/V epicardial pacemaker wires present, capped. Heart hugger in place with patient demonstrating appropriate use. Trace bilateral lower extremity edema present. Palpable pulses bilaterally. Teds/SCDs present. - Gastrointestinal Gastrointestinal Comment(s): Abdomen soft, nontender, distended. Hypoactive bowel sounds present 4 quadrants. Patient is tolerating diet. Positive flatus, no bowel movement yet since surgery. - Genitourinary Genitourinary Comment(s): Voiding clear, yellow urine. - Integumentary Integumentary Comment(s): Anterior chest incision well approximated covered with dry intact dressing. Bilateral lower except EVH sites well approximated, WESLY drains discontinued. - Neurologic Neurologic: Present: CNII-XII intact - Musculoskeletal Musculoskeletal: Present: gait normal, strength equal bilaterally - Psychiatric Psychiatric: Present: A&O x's 3, appropriate affect, intact judgment & insight - Allied health notes Allied health notes reviewed: nursing - Labs CBC & Chem 7: 01/25/17 06:00 01/25/17 06:00 Labs: Abnormal Lab Results - Last 24 Hours (Table) 01/24/17 01/24/17 01/24/17 Range/Units 12:40 17:00 20:25 WBC (3.8-10.6) k/uL RBC (4.30-5.90) m/uL Hgb (13.0-17.5) gm/dL Hct (39.0-53.0) % MCV (80.0-100.0) fL Plt Count (150-450) k/uL Chloride (98-107) mmol/L BUN (9-20) mg/dL Creatinine (0.66-1.25) mg/dL POC Glucose (mg/dL) 138 H 131 H 170 H (75-99) mg/dL Total Protein (6.3-8.2) g/dL Albumin (3.5-5.0) g/dL 01/25/17 01/25/17 01/25/17 Range/Units 01:46 05:50 06:00 WBC (3.8-10.6) k/uL RBC (4.30-5.90) m/uL Hgb (13.0-17.5) gm/dL Hct (39.0-53.0) % MCV (80.0-100.0) fL Plt Count (150-450) k/uL Chloride 108 H (98-107) mmol/L BUN 41 H (9-20) mg/dL Creatinine 2.24 H (0.66-1.25) mg/dL POC Glucose (mg/dL) 112 H 107 H (75-99) mg/dL Total Protein 5.3 L (6.3-8.2) g/dL Albumin 3.2 L (3.5-5.0) g/dL 01/25/17 Range/Units 06:00 WBC 13.3 H (3.8-10.6) k/uL RBC 2.40 L (4.30-5.90) m/uL Hgb 7.9 L (13.0-17.5) gm/dL Hct 24.4 L (39.0-53.0) % MCV 101.8 H (80.0-100.0) fL Plt Count 105 L (150-450) k/uL Chloride (98-107) mmol/L BUN (9-20) mg/dL Creatinine (0.66-1.25) mg/dL POC Glucose (mg/dL) (75-99) mg/dL Total Protein (6.3-8.2) g/dL Albumin (3.5-5.0) g/dL - Imaging and Cardiology Chest x-ray: report reviewed, image reviewed Assessment and Plan (1) Chest pain Status: Acute (2) Hypertension Status: Acute (3) History of pulmonary embolism Status: Acute (4) History of cardiac arrest Status: Acute (5) Hypothyroid Status: Acute (6) Chronic kidney disease Status: Acute (7) Tobacco dependence in remission Status: Acute (8) Family history of coronary artery disease Status: Acute (9) Chronic low back pain Status: Acute (10) History of syncope Status: Acute (11) Obstructive sleep apnea on CPAP Status: Acute Plan: 1. Continue aspirin, Lipitor, Plavix, Lopressor. Will maximize beta skip therapy as tolerated. 2. Encourage incentive spirometry use. 3. Pain medications increased. 4. Increase activity. Ambulate in hallway. Physical therapy to follow. 5. GI/DVT prophylaxis. 6. MiraLAX, simethicone ordered. 7. Daily labs, chest x-rays 8. Insulin management per primary care service 9. More recommendations as patient progresses. Discharge planning in progress. Time with Patient: Greater than 30
[2017-01-25 11:53] LABS: Glucose,Whole Blood 140 mg/dL (75-99)
[2017-01-25] MEDS ORDERED: HEPARIN SODIUM,PORCINE 5,000 UNIT/ML 1 ML VIAL IV PRN (12:02)
[2017-01-25] MEDS ORDERED: HEPARIN SODIUM,PORCINE 5,000 UNIT/ML 1 ML VIAL IV ONE (12:02)
[2017-01-25] MEDS ORDERED: HEPARIN SODIUM,PORCINE/D5W PMX 25,000 UNIT in DEXTROSE/WATER 1 500ML.BAG IV SCH (12:15)
[2017-01-25 12:19] LABS: Glucose,Whole Blood 147 mg/dL (75-99)
[2017-01-25 12:31] LABS: Basophils % (A) 0 %; CH 32.1; CHCM 32.4; Eosinophils # (A) 0.1 k/uL (0-0.7); Eosinophils % (A) 1 %; HCT 26.4 % (39.0-53.0); HDW 2.72; HGB 8.7 gm/dL (13.0-17.5); Luc # (Auto) 0.12; Luc % (Auto) 1; Lymphocytes # (A) 0.7 k/uL (1.0-4.8); Lymphocytes % (A) 6 %; MCH 32.8 pg (25.0-35.0); MCHC 32.8 g/dL (31.0-37.0); MCV 99.8 fL (80.0-100.0); Mean Platelet Volume 8.5; Monocytes # (A) 0.5 k/uL (0-1.0); Monocytes % (A) 4 %; Neutrophils # (A) 10.4 k/uL (1.3-7.7); Neutrophils % (A) 88 %; RBC 2.64 m/uL (4.30-5.90); RDW 12.9 % (11.5-15.5); WBC 11.8 k/uL (3.8-10.6)
[2017-01-25] MEDS: MULTIVITAMINS, THERA 1 EACH TAB PO SCH (12:46)
[2017-01-25] MEDS: SIMETHICONE 80 MG CHEWABLE PO SCH ×3 (12:46→23:16)
[2017-01-25 13:00] LABS: INR 1.2 (<1.2); Partial Thromboplastin Time 31.2 sec (22.0-30.0); Prothrombin Time 11.6 sec (9.0-12.0)
[2017-01-25 13:53] VITALS: BMI 35.9
[2017-01-25] MEDS: POLYETHYLENE GLYCOL 3350 17 GM POWD.PACK PO SCH (13:58)
--- NOTE | 2017-01-25 14:28 | P.PN ---
Subjective Patient is seen in follow-up for acute kidney injury on chronic kidney disease. Patient has chronic kidney disease stage III with baseline creatinine in the range of 1.6-1.8 secondary to nephrosclerosis. Urinalysis is noted to be benign. Renal function today is mildly worse with creatinine at 2.24. Patient had a CABG in 01/22/2017. Currently sitting up in chair. He's been ambulating but cannot go far distances during dyspneic. Hemoglobin is up to 8.7 today. Denies chest pain. Vital signs are stable. General: The patient appeared well nourished and normally developed. HEENT: Head exam is unremarkable. Neck is without jugular venous distension. LUNGS: Lungs are clear to auscultation and percussion. Breath sounds decreased. HEART: Rate and Rhythm are regular. First and second heart sounds normal. No murmurs, rubs or gallops. ABDOMEN: Abdominal exam reveals normal bowel sounds. Non-tender and non- distended. No evidence of peritonitis. EXTREMITITES: No clubbing, cyanosis, or edema. Objective - Vital Signs Vital signs: Vital Signs Temp 98.7 F 01/25/17 11:27 Pulse 67 01/25/17 12:00 Resp 16 01/25/17 12:00 BP 125/68 01/25/17 11:27 Pulse Ox 97 01/25/17 11:27 Intake & Output 01/24/17 01/25/17 01/25/17 18:59 06:59 18:59 Intake Total 420 600 Output Total 1200 191 Balance -780 -191 600 Weight 97.9 kg 97.9 kg Intake: IV 120 0.9 flush 20 Lactated Ringers 1,000 ml 100 @ 20 mls/hr IV .Q24H COUNTS INCLUDE 234 BEDS AT THE [facility] Rx#:[id number] Oral 300 600 Output: Chest Tube Drainage 460 100 Chest Tube Left Pleural/ 80 Mediastinal Chest Tube Mediastinal 120 Chest Tube Right 150 Left Lateral Chest 110 100 Drainage 190 90 Left Calf 60 5 Right Calf 130 85 Urine 550 Stool 1 Other: Voiding Method Indwelling Catheter Toilet Urinal # Voids 0 1 ABP, PAP, CO, CI - Last Documented Arterial Blood Pressure 113/56 Pulmonary Artery Pressure 32/16 Cardiac Output 6.4 Cardiac Index 3.2 - Labs CBC & Chem 7: 01/25/17 12:10 01/25/17 06:00 Labs: Abnormal Lab Results - Last 24 Hours (Table) 01/24/17 01/24/17 01/25/17 Range/Units 17:00 20:25 01:46 WBC (3.8-10.6) k/uL RBC (4.30-5.90) m/uL Hgb (13.0-17.5) gm/dL Hct (39.0-53.0) % MCV (80.0-100.0) fL Plt Count (150-450) k/uL Neutrophils # (1.3-7.7) k/uL Lymphocytes # (1.0-4.8) k/uL INR (<1.2) APTT (22.0-30.0) sec Chloride (98-107) mmol/L BUN (9-20) mg/dL Creatinine (0.66-1.25) mg/dL POC Glucose (mg/dL) 131 H 170 H 112 H (75-99) mg/dL Total Protein (6.3-8.2) g/dL Albumin (3.5-5.0) g/dL 01/25/17 01/25/17 01/25/17 Range/Units 05:50 06:00 06:00 WBC 13.3 H (3.8-10.6) k/uL RBC 2.40 L (4.30-5.90) m/uL Hgb 7.9 L (13.0-17.5) gm/dL Hct 24.4 L (39.0-53.0) % MCV 101.8 H (80.0-100.0) fL Plt Count 105 L (150-450) k/uL Neutrophils # (1.3-7.7) k/uL Lymphocytes # (1.0-4.8) k/uL INR (<1.2) APTT (22.0-30.0) sec Chloride 108 H (98-107) mmol/L BUN 41 H (9-20) mg/dL Creatinine 2.24 H (0.66-1.25) mg/dL POC Glucose (mg/dL) 107 H (75-99) mg/dL Total Protein 5.3 L (6.3-8.2) g/dL Albumin 3.2 L (3.5-5.0) g/dL 01/25/17 01/25/1701/25/17 Range/Units 11:25 12:00 12:10 WBC 11.8 H (3.8-10.6) k/uL RBC 2.64 L (4.30-5.90) m/uL Hgb 8.7 L (13.0-17.5) gm/dL Hct 26.4 L (39.0-53.0) % MCV (80.0-100.0) fL Plt Count 139 L (150-450) k/uL Neutrophils # 10.4 H (1.3-7.7) k/uL Lymphocytes # 0.7 L (1.0-4.8) k/uL INR (<1.2) APTT (22.0-30.0) sec Chloride (98-107) mmol/L BUN (9-20) mg/dL Creatinine (0.66-1.25) mg/dL POC Glucose (mg/dL) 140 H 147 H (75-99) mg/dL Total Protein (6.3-8.2) g/dL Albumin (3.5-5.0) g/dL 01/25/17 Range/Units 12:10 WBC (3.8-10.6) k/uL RBC (4.30-5.90) m/uL Hgb (13.0-17.5) gm/dL Hct (39.0-53.0) % MCV (80.0-100.0) fL Plt Count (150-450) k/uL Neutrophils # (1.3-7.7) k/uL Lymphocytes # (1.0-4.8) k/uL INR 1.2 H (<1.2) APTT 31.2 H (22.0-30.0) sec Chloride (98-107) mmol/L BUN (9-20) mg/dL Creatinine (0.66-1.25) mg/dL POC Glucose (mg/dL) (75-99) mg/dL Total Protein (6.3-8.2) g/dL Albumin (3.5-5.0) g/dL Assessment and Plan Plan: Assessment: #1. Nonoliguric acute kidney injury secondary to ischemic ATN status post CABG. Creatinine up to 2.24 today. #2. Chronic kidney disease stage III secondary to nephrosclerosis with baseline creatinine in the range of 1.6-1.8. #3. Postoperative anemia. Hemoglobin up to 8.7 today. #4. Status post CABG on 01/22/2017. Plan: Continue to avoid nephrotoxic agents and hypotensive episodes. Repeat electrolytes in the morning. Continue physical therapy.
--- NOTE | 2017-01-25 14:40 | P.PN ---
Subjective This is a very pleasant 81-year-old gentleman follows with Dr. Antonio as his primary care physician. He has a history of esophageal reflux disease, hypertension, pulmonary embolism causing cardiac arrest in 1985, obstructive sleep apnea, hypothyroidism, arthritis, chronic back pain, multiple orthopedic surgeries, depression. He has a remote history of smoking for approximate 10 years 1-2 packs per day but quit 43 years ago. He presented here on 01/15/2017 with complaints of left-sided chest pain. He had been seen and followed by cardiology. He had undergone a stress testing which revealed some evidence of ischemia with subsequent cardiac catheterization revealing diffuse triple- vessel disease including a 50-60% left main stenosis, 90% LAD stenosis, 50% circumflex and 85-90% right coronary artery stenosis. Echocardiogram revealed preserved left ventricular systolic function with estimated ejection fraction 55 -60%. CT angiogram ruled out pulmonary embolism. The lungs were clear of consolidation. No pleural effusion. He is seen today in consultation in anticipation of coronary artery revascularization on 01/22/2017. He is awake and alert in no acute distress. He has been up ambulating in the hallway without any significant chest discomfort, no palpitations, lightheadedness or dizziness. No worsening shortness of breath. No cough or congestion. No leukocytosis. Hemoglobin 12.8. Creatinine 2.07. He is maintaining good O2 saturations in the upper 90s on room air. He is afebrile. Hemodynamically stable. The patient is seen again today 01/20/2017 in follow-up on the selective care unit. He is awake and alert in no acute distress. He is now ambulating in the hallway. He states he did have some level of anxiety last evening and did receive Xanax. He slept well after that. He denies any chest pain currently. No shortness of breath cough or congestion. Continues to maintain good O2 saturations in the high 90s on room air. He is afebrile. Hemodynamically stable. His creatinine is improving currently 1.81. On 01/22/2017 I'm seeing this patient in follow-up. The patient underwent coronary artery bypass surgery, 5-vessel bypass and currently is in the intensive care unit. He is on sedation with 25 mics of the prevent. Is on a mechanical ventilator on assist control mode rate of 12, tidal volume of 500, FiO2 of 100% and PEEP of 5. The blood gases showed a pH of 7.28 with a pCO2 of 48 and pO2 of 381. Based on this, I increase the tidal volume to 600 and drop the FiO2 down to 50%. His chest x-ray showed adequate expansion of both lungs. There may be a component of volume overload. Left basilar atelectatic changes seen. The patient has an ET tube in place, NG tube in place, 2 pleural chest tubes the right and left and mediastinal chest tube in place, and [place]- Yulia catheter in place. Cardiac output is 10 with an index of 5.0. PA artery pressures are 32/15. Producing adequate amount of urine output. Ultrasound the chest tubes out approximately 30-40 mL an hour from each of the chest tubes. Postoperative hemoglobin is at 7.7 with a platelet count of 67. The patient has a component of chronic renal failure. Postoperative renal function showed a creatinine of 1.42. On 01/23/2017 I'm seeing this patient in follow-up. The patient underwent four- vessel bypass surgery. The patient was weaned off the mechanical ventilator other major difficulties and he was extubated yesterday at around 9 PM. It morning it is on oxygen at 2 L per minute nasal cannula. His chest x-ray showing postoperative surgical changes with some elevation of left hemidiaphragm. The mediastinal chest tubes and pleural chest tubes are all in place. Output from the chest tube has been approximately 50 mL an hour total. The patient did not require any packed RBC transfusions. His hemoglobin is up to 8.6. The patient also has a chronic renal failure. Creatinine is at 2.0. Producing adequate amount of urine output. No nausea. No vomiting no focal logical deficits. The patient was seen again on 01/24/2017 in follow-up in the intensive care unit. He is currently resting fairly comfortably in bed. He is awake and alert in no acute distress. Pain is fairly well controlled. He's been gaining good O2 saturations in the mid to upper 90s on 2 L/m per nasal cannula. He is afebrile. His chest x-ray reveals persistent bilateral consolidations with small effusions. His right and mediastinal chest tubes have been discontinued. He's been hemodynamically stable. Currently on no drips. On 01/25/2017 the patient is being seen in follow-up on a medical surgical floor with telemetry. The left pleural chest tube was also removed. The patient is pulling approximately thousand on incentive spirometer. Is on 2 L of oxygen nasal cannula. Further wound is dry clean and intact. No nausea. No vomiting. No syncope shortness of breath. He would like to gradually increase the level of activity as tolerated. He is tolerating his diet. No nausea. No vomiting. No abdominal distention. No emesis. He'll be given a laxative today. His hemoglobin is stable at 8.7. Renal function is impaired give the patient is a chronic renal failure. Creatinine is at 2.2. Objective - Vital Signs Vital signs: Vital Signs Temp 98.7 F 01/25/17 11:27 Pulse 67 01/25/17 12:00 Resp 16 01/25/17 12:00 BP 125/68 01/25/17 11:27 Pulse Ox 97 01/25/17 11:27 Intake & Output 01/24/17 01/25/17 01/25/17 18:59 06:59 18:59 Intake Total 420 600 Output Total 1200 191 Balance -780 -191 600 Weight 97.9 kg 97.9 kg Intake: IV 120 0.9 flush 20 Lactated Ringers 1,000 ml 100 @ 20 mls/hr IV .Q24H [facility] Rx#:[id number] Oral 300 600 Output: Chest Tube Drainage 460 100 Chest Tube Left Pleural/ 80 Mediastinal Chest Tube Mediastinal 120 Chest Tube Right 150 Left Lateral Chest 110 100 Drainage 190 90 Left Calf 60 5 Right Calf 130 85 Urine 550 Stool 1 Other: Voiding Method Indwelling Catheter Toilet Urinal # Voids 0 1 ABP, PAP, CO, CI - Last Documented Arterial Blood Pressure 113/56 Pulmonary Artery Pressure 32/16 Cardiac Output 6.4 Cardiac Index 3.2 - Exam Head exam was generally normal. There was no scleral icterus or corneal arcus. Mucous membranes were moist.Neck was supple and without jugular venous distension, thyromegaly, or carotid bruits. Carotids were easily palpable bilaterally. There was no adenopathy. Lung sounds are diminished bilaterally especially in the lung bases. Heart sounds are regular, sternum stable clean and intact. Normal S1-S2. No significant murmurs appreciated.Abdominal exam revealed normal bowel sounds. The abdomen was soft, non-tender, and without masses, organomegaly, or appreciable enlargement of the abdominal aorta. Extremities are slightly edematous. Surgical wound sites are clean and that WESLY drains are removed. Neurologically the patient is awake and alert. No focal neurological deficit at this point. - Labs CBC & Chem 7: 01/25/17 12:10 01/25/17 06:00 Labs: Abnormal Lab Results - Last 24 Hours (Table) 01/24/17 01/24/17 01/25/17 Range/Units 17:00 20:25 01:46 WBC (3.8-10.6) k/uL RBC (4.30-5.90) m/uL Hgb (13.0-17.5) gm/dL Hct (39.0-53.0) % MCV (80.0-100.0) fL Plt Count (150-450) k/uL Neutrophils # (1.3-7.7) k/uL Lymphocytes # (1.0-4.8) k/uL INR (<1.2) APTT (22.0-30.0) sec Chloride (98-107) mmol/L BUN (9-20) mg/dL Creatinine (0.66-1.25) mg/dL POC Glucose (mg/dL) 131 H 170 H 112 H (75-99) mg/dL Total Protein (6.3-8.2) g/dL Albumin (3.5-5.0) g/dL 01/25/17 01/25/17 01/25/17 Range/Units 05:50 06:00 06:00 WBC 13.3 H (3.8-10.6) k/uL RBC 2.40 L (4.30-5.90) m/uL Hgb 7.9 L (13.0-17.5) gm/dL Hct 24.4 L (39.0-53.0) % MCV 101.8 H (80.0-100.0) fL Plt Count 105 L (150-450) k/uL Neutrophils # (1.3-7.7) k/uL Lymphocytes # (1.0-4.8) k/uL INR (<1.2) APTT (22.0-30.0) sec Chloride 108 H (98-107) mmol/L BUN 41 H (9-20) mg/dL Creatinine 2.24 H (0.66-1.25) mg/dL POC Glucose (mg/dL) 107 H (75-99) mg/dL Total Protein 5.3 L (6.3-8.2) g/dL Albumin 3.2 L (3.5-5.0) g/dL 01/25/17 01/25/17 01/25/17 Range/Units 11:25 12:00 12:10 WBC 11.8 H (3.8-10.6) k/uL RBC 2.64 L (4.30-5.90) m/uL Hgb 8.7 L (13.0-17.5) gm/dL Hct 26.4 L (39.0-53.0) % MCV (80.0-100.0) fL Plt Count 139 L (150-450) k/uL Neutrophils # 10.4 H (1.3-7.7) k/uL Lymphocytes # 0.7 L (1.0-4.8) k/uL INR (<1.2) APTT (22.0-30.0) sec Chloride (98-107) mmol/L BUN (9-20) mg/dL Creatinine (0.66-1.25) mg/dL POC Glucose (mg/dL) 140 H 147 H (75-99) mg/dL Total Protein (6.3-8.2) g/dL Albumin (3.5-5.0) g/dL 01/25/17 Range/Units 12:10 WBC (3.8-10.6) k/uL RBC (4.30-5.90) m/uL Hgb (13.0-17.5) gm/dL Hct (39.0-53.0) % MCV (80.0-100.0) fL Plt Count (150-450) k/uL Neutrophils # (1.3-7.7) k/uL Lymphocytes # (1.0-4.8) k/uL INR 1.2 H (<1.2) APTT 31.2 H (22.0-30.0) sec Chloride (98-107) mmol/L BUN (9-20) mg/dL Creatinine (0.66-1.25) mg/dL POC Glucose (mg/dL) (75-99) mg/dL Total Protein (6.3-8.2) g/dL Albumin (3.5-5.0) g/dL Assessment and Plan Plan: Assessment 1 Multivessel coronary artery disease/diffuse triple-vessel coronary artery disease status post carotid bypass surgery. The patient underwent 5-vessel bypass. Currently postop day #3 2 postoperative atelectasis/small effusions, chest tubes are all removed. 3 skeletal postsurgical pain, expected and the patient is pulling approximately 800 on his incentive spirometer. 4 postoperative anemia with a hemoglobin of 8.7 5 postoperative thrombocytopenia, recovering 6 hypertension 7 hyperlipidemia 8 chronic renal failure creatinine is ranging to 1.8 and 2.2. Patient is nonoliguric at this stage. 9 hypothyroidism 10 chronic back pain 11 obstructive sleep apnea. Plan All of the chest tubes have been removed. WESLY drain has been removed. Increased level of activity as tolerated. Continue using incentive spirometer. Chest x-ray was reviewed. The patient continues recovered from surgery. Renal function needs to be monitored very critical continue to follow.
--- NOTE | 2017-01-25 14:40 | P.PN ---
Subjective Principal diagnosis: CAD This is a 81-year-old gentleman with history of hypertension, hypothyroidism, sleep apnea, prior PE, who presented to the hospital with symptoms of chest discomfort. He was taken to the cardiac catheterization lab by Dr. VC Finn, and was found to have significant triple-vessel coronary artery disease. He was seen in consultation by cardiothoracic surgery and is scheduled to undergo coronary artery bypass grafting surgery tomorrow. Patient was seen and examined this morning, denies any chest pain or difficulty in breathing. He has been up ambulating without any difficulty. BUN 35, creatinine 1.7 today. 01/20/2017 Patient seen and examined this morning, denies any chest pain or difficulty in breathing. Scheduled for coronary artery bypass grafting surgery tomorrow. Let pressure 118/80 with a heart rate in the 60s. 01/25/2017 Patient is status post coronary bypass grafting surgery, is being followed today on the telemetry unit. This morning around 9 AM patient went into atrial fibrillation with a rapid ventricular response. He was initiated on IV heparin , dose of beta skip increased to 3 times a day. Blood pressure 125/68, heart rate currently in the 1 teens. Objective - Vital Signs Vital signs: Vital Signs Temp 98.7 F 01/25/17 11:27 Pulse 67 01/25/17 12:00 Resp 16 01/25/17 12:00 BP 125/68 01/25/17 11:27 Pulse Ox 97 01/25/17 11:27 Intake & Output 01/24/17 01/25/17 01/25/17 18:59 06:59 18:59 Intake Total 420 600 Output Total 1200 191 Balance -780 -191 600 Weight 97.9 kg 97.9 kg Intake: IV 120 0.9 flush 20 Lactated Ringers 1,000 ml 100 @ 20 mls/hr IV .Q24H [facility] Rx#:[id number] Oral 300 600 Output: Chest Tube Drainage 460 100 Chest Tube Left Pleural/ 80 Mediastinal Chest Tube Mediastinal 120 Chest Tube Right 150 Left Lateral Chest 110 100 Drainage 190 90 Left Calf 60 5 Right Calf 130 85 Urine 550 Stool 1 Other: Voiding Method Indwelling Catheter Toilet Urinal # Voids 0 1 ABP, PAP, CO, CI - Last Documented Arterial Blood Pressure 113/56 Pulmonary Artery Pressure 32/16 Cardiac Output 6.4 Cardiac Index 3.2 - Exam PHYSICAL EXAMINATION: HEENT: Head is atraumatic, normocephalic. Pupils equal, round. Neck is supple. There is no elevated jugular venous pressure. HEART EXAMINATION: Heart S1, S2 irregularly irregular . No murmur or gallop heard. CHEST EXAMINATION: Lungs are clear to auscultation and precussion. No chest wall tenderness is noted on palpation or with deep breathing. ABDOMEN: Soft, nontender. Bowel sounds are heard. No organomegaly noted. Right groin soft, no evidence of any hematoma. EXTREMITIES: 2+ peripheral pulses with no evidence of peripheral edema and no calf tenderness noted. NEUROLOGIC patient is awake, alert and oriented -3. . - Labs CBC & Chem 7: 01/25/17 12:10 01/25/17 06:00 Labs: Abnormal Lab Results - Last 24 Hours (Table) 01/24/17 01/24/17 01/25/17 Range/Units 17:00 20:25 01:46 WBC (3.8-10.6) k/uL RBC (4.30-5.90) m/uL Hgb (13.0-17.5) gm/dL Hct (39.0-53.0) % MCV (80.0-100.0) fL Plt Count (150-450) k/uL Neutrophils # (1.3-7.7) k/uL Lymphocytes # (1.0-4.8) k/uL INR (<1.2) APTT (22.0-30.0) sec Chloride (98-107) mmol/L BUN (9-20) mg/dL Creatinine (0.66-1.25) mg/dL POC Glucose (mg/dL) 131 H 170 H 112 H (75-99) mg/dL Total Protein (6.3-8.2) g/dL Albumin (3.5-5.0) g/dL 01/25/17 01/25/17 01/25/17 Range/Units 05:50 06:00 06:00 WBC 13.3 H (3.8-10.6) k/uL RBC 2.40 L (4.30-5.90) m/uL Hgb 7.9 L (13.0-17.5) gm/dL Hct 24.4 L (39.0-53.0) % MCV 101.8 H (80.0-100.0) fL Plt Count 105 L (150-450) k/uL Neutrophils # (1.3-7.7) k/uL Lymphocytes # (1.0-4.8) k/uL INR (<1.2) APTT (22.0-30.0) sec Chloride 108 H (98-107) mmol/L BUN 41 H (9-20) mg/dL Creatinine 2.24 H (0.66-1.25) mg/dL POC Glucose (mg/dL) 107 H (75-99) mg/dL Total Protein 5.3 L (6.3-8.2) g/dL Albumin 3.2 L (3.5-5.0) g/dL 01/25/17 01/25/17 01/25/17 Range/Units 11:25 12:00 12:10 WBC 11.8 H (3.8-10.6) k/uL RBC 2.64 L (4.30-5.90) m/uL Hgb 8.7 L (13.0-17.5) gm/dL Hct 26.4 L (39.0-53.0) % MCV (80.0-100.0) fL Plt Count 139 L (150-450) k/uL Neutrophils # 10.4 H (1.3-7.7) k/uL Lymphocytes # 0.7 L (1.0-4.8) k/uL INR (<1.2) APTT (22.0-30.0) sec Chloride (98-107) mmol/L BUN (9-20) mg/dL Creatinine (0.66-1.25) mg/dL POC Glucose (mg/dL) 140 H 147 H (75-99) mg/dL Total Protein (6.3-8.2) g/dL Albumin (3.5-5.0) g/dL 01/25/17 Range/Units 12:10 WBC (3.8-10.6) k/uL RBC (4.30-5.90) m/uL Hgb (13.0-17.5) gm/dL Hct (39.0-53.0) % MCV (80.0-100.0) fL Plt Count (150-450) k/uL Neutrophils # (1.3-7.7) k/uL Lymphocytes # (1.0-4.8) k/uL INR 1.2 H (<1.2) APTT 31.2 H (22.0-30.0) sec Chloride (98-107) mmol/L BUN (9-20) mg/dL Creatinine (0.66-1.25) mg/dL POC Glucose (mg/dL) (75-99) mg/dL Total Protein (6.3-8.2) g/dL Albumin (3.5-5.0) g/dL Assessment and Plan (1) Hyperlipemia Status: Acute (2) S/P cardiac catheterization Status: Acute (3) CAD (coronary artery disease) Status: Acute (4) Chest pain Status: Acute (5) Chronic kidney disease Status: Acute (6) Family history of coronary artery disease Status: Acute (7) History of pulmonary embolism Status: Acute (8) Hypertension Status: Acute (9) Hypothyroid Status: Acute (10) Obstructive sleep apnea on CPAP Status: Acute Plan: From cardiology's perspective, we will initiate IV heparin drip per protocol. We will also increase the dose of beta skip to 3 times a day. Further recommendations to follow. DNP note has been reviewed, I agree with a documented findings and plan of care. Patient was seen and examined.
[2017-01-25] MEDS ORDERED: DEXTROSE 5% IN WATER 100 ML with AMIODARONE 150 MG IV ONE (15:00)
[2017-01-25] MEDS: AMIODARONE 450 MG in DEXTROSE 5% IN WATER 250 ML IV SCH ×4 (16:20→23:27)
--- NOTE | 2017-01-25 16:24 | P.PN ---
Subjective This is a 81-year-old gentleman who underwent CABG 5 postop day 1 Patient is seen today in consultation/progress. Patient underwent a cardiac catheterization initially thereafter was noted to have triple-vessel disease. Patient was seen by cardio thoracic surgery and was taken to the OR yesterday. Patient is extubated is currently on 2 units of insulin patient does not have a history of diabetes in the past Patient continues to have chest tubes in place on no other overnight events were noted Appears to have good urine output Denies having any complaints at this time. 01/24/2017 Patient is also anxious about where she was placed back in bed overnight Denies having any additional complaints No chest pain nausea vomiting is reported has not had a bowel movement yet 01/25/2017 Patient apparently is unstable with ambulation Chest tubes were removed. Objective - Vital Signs Vital signs: Vital Signs Temp 98.7 F 01/25/17 11:27 Pulse 67 01/25/17 12:00 Resp 16 01/25/17 12:00 BP 125/68 01/25/17 11:27 Pulse Ox 97 01/25/17 11:27 Intake & Output 01/24/17 01/25/17 01/25/17 18:59 06:59 18:59 Intake Total 420 600 Output Total 1200 191 301 Balance -780 -191 299 Weight 97.9 kg 97.9 kg Intake: IV 120 0.9 flush 20 Lactated Ringers 1,000 ml 100 @ 20 mls/hr IV .Q24H [facility] Rx#:[id number] Oral 300 600 Output: Chest Tube Drainage 460 100 Chest Tube Left Pleural/ 80 Mediastinal Chest Tube Mediastinal 120 Chest Tube Right 150 Left Lateral Chest 110 100 Drainage 190 90 Left Calf 60 5 Right Calf 130 85 Urine 550 300 Stool 1 1 Other: Voiding Method Indwelling Catheter Toilet Urinal # Voids 0 1 ABP, PAP, CO, CI - Last Documented Arterial Blood Pressure 113/56 Pulmonary Artery Pressure 32/16 Cardiac Output 6.4 Cardiac Index 3.2 - Exam In appearance no acute distress Neck is supple no JVD Lungs diminished bases no rhonchi air movement is noted Heart S1-S2 heard no murmurs appreciated Abdomen is soft nontender no organomegaly Lower extremities nontender Neuro no focal motor or sensory deficits appreciated - Labs CBC & Chem 7: 01/25/17 12:10 01/25/17 06:00 Labs: Abnormal Lab Results - Last 24 Hours (Table) 01/24/17 01/24/17 01/25/17 Range/Units 17:00 20:25 01:46 WBC (3.8-10.6) k/uL RBC (4.30-5.90) m/uL Hgb (13.0-17.5) gm/dL Hct (39.0-53.0) % MCV (80.0-100.0) fL Plt Count (150-450) k/uL Neutrophils # (1.3-7.7) k/uL Lymphocytes # (1.0-4.8) k/uL INR (<1.2) APTT (22.0-30.0) sec Chloride (98-107) mmol/L BUN (9-20) mg/dL Creatinine (0.66-1.25) mg/dL POC Glucose (mg/dL) 131 H 170 H 112 H (75-99) mg/dL Total Protein (6.3-8.2) g/dL Albumin (3.5-5.0) g/dL 01/25/17 01/25/17 01/25/17 Range/Units 05:50 06:00 06:00 WBC 13.3 H (3.8-10.6) k/uL RBC 2.40 L (4.30-5.90) m/uL Hgb 7.9 L (13.0-17.5) gm/dL Hct 24.4 L (39.0-53.0) % MCV 101.8 H (80.0-100.0) fL Plt Count 105 L (150-450) k/uL Neutrophils # (1.3-7.7) k/uL Lymphocytes # (1.0-4.8) k/uL INR (<1.2) APTT (22.0-30.0) sec Chloride 108 H (98-107) mmol/L BUN 41 H (9-20) mg/dL Creatinine 2.24 H (0.66-1.25) mg/dL POC Glucose (mg/dL) 107 H (75-99) mg/dL Total Protein 5.3 L (6.3-8.2) g/dL Albumin 3.2 L (3.5-5.0) g/dL 01/25/17 01/25/17 01/25/17 Range/Units 11:25 12:00 12:10 WBC 11.8 H (3.8-10.6) k/uL RBC 2.64 L (4.30-5.90) m/uL Hgb 8.7 L (13.0-17.5) gm/dL Hct 26.4 L (39.0-53.0) % MCV (80.0-100.0) fL Plt Count 139 L (150-450) k/uL Neutrophils # 10.4 H (1.3-7.7) k/uL Lymphocytes # 0.7 L (1.0-4.8) k/uL INR (<1.2) APTT (22.0-30.0) sec Chloride (98-107) mmol/L BUN (9-20) mg/dL Creatinine (0.66-1.25) mg/dL POC Glucose (mg/dL) 140 H 147 H (75-99) mg/dL Total Protein (6.3-8.2) g/dL Albumin (3.5-5.0) g/dL 01/25/17 Range/Units 12:10 WBC (3.8-10.6) k/uL RBC (4.30-5.90) m/uL Hgb (13.0-17.5) gm/dL Hct (39.0-53.0) % MCV (80.0-100.0) fL Plt Count (150-450) k/uL Neutrophils # (1.3-7.7) k/uL Lymphocytes # (1.0-4.8) k/uL INR 1.2 H (<1.2) APTT 31.2 H (22.0-30.0) sec Chloride (98-107) mmol/L BUN (9-20) mg/dL Creatinine (0.66-1.25) mg/dL POC Glucose (mg/dL) (75-99) mg/dL Total Protein (6.3-8.2) g/dL Albumin (3.5-5.0) g/dL Assessment and Plan Plan: #1 CAD status post CABG postop day 3 #2 hypothyroidism #3 essential hypertension #4 stress-induced hyperglycemia #5 acute blood loss anemia as expected from surgery plan PT/OT disposition patient may need rehab it does not show rapid improvement Dual antiplatelet therapy GI prophylaxis
[2017-01-25 16:56] LABS: Glucose,Whole Blood 125 mg/dL (75-99)
[2017-01-25] MEDS: SENNOSIDES-DOCUSATE SODIUM 1 EACH TAB PO SCH (20:26)
[2017-01-25] MEDS: MONTELUKAST 10 MG TAB PO SCH (20:26)
[2017-01-25 20:52] LABS: Glucose,Whole Blood 131 mg/dL (75-99)
[2017-01-26 02:04] LABS: Glucose,Whole Blood 125 mg/dL (75-99)
[2017-01-26] MEDS: HYDROcodone/APAP 10-325MG 1 EACH TAB PO PRN ×2 (03:15→16:39)
[2017-01-26] MEDS: AMIODARONE 450 MG in DEXTROSE 5% IN WATER 250 ML IV SCH ×4 (04:21→19:21)
[2017-01-26 05:42] LABS: Glucose,Whole Blood 131 mg/dL (75-99)
[2017-01-26] MEDS: PANTOPRAZOLE 40 MG TABLET PO SCH (06:22)
[2017-01-26] MEDS: INSULIN LISPRO (humaLOG) 300 UNIT/3 ML VIAL SQ SCH ×4 (06:22→20:52)
[2017-01-26] MEDS: LEVOTHYROXINE 75 MCG TAB PO SCH (06:22)
[2017-01-26 06:39] LABS: Basophils % (A) 0 %; CH 33.4; CHCM 33.2; Eosinophils # (A) 0.4 k/uL (0-0.7); Eosinophils % (A) 4 %; HCT 24.9 % (39.0-53.0); HDW 2.69; HGB 8.1 gm/dL (13.0-17.5); Luc # (Auto) 0.21; Luc % (Auto) 2; Lymphocytes % (A) 9 %; MCH 32.7 pg (25.0-35.0); MCHC 32.4 g/dL (31.0-37.0); Mean Platelet Volume 9.4; Monocytes # (A) 0.6 k/uL (0-1.0); Monocytes % (A) 6 %; Neutrophils % (A) 79 %; RBC 2.47 m/uL (4.30-5.90); RDW 13.5 % (11.5-15.5); WBC 10.1 k/uL (3.8-10.6); WBC (Perox) 10.32
[2017-01-26 07:18] LABS: Calcium 8.4 mg/dL (8.4-10.2); Potassium 5.4 mmol/L (3.5-5.1); Total Bilirubin 0.7 mg/dL (0.2-1.3); Total Protein 5.4 g/dL (6.3-8.2)
--- NOTE | 2017-01-26 07:34 | XR ---
EXAMINATION TYPE: XR chest 2V DATE OF EXAM: 01/26/2017 COMPARISON: Prior chest x-ray 01/25/2017 HISTORY: Postop cardiac surgery TECHNIQUE: Frontal and lateral views of the chest are obtained. FINDINGS: Lung volumes are low and the patient is rotated. Postop changes are noted in the shoulders , patient is post median sternotomy. There are overlying cardiac leads and the heart remains enlarged . No evident pneumothorax or sizable effusion. Left-sided chest tube has been removed. Patchy basilar density persists. IMPRESSION: No evident complication status post chest tube removal. Cardiomegaly. Basilar atelectasi s versus edema, correlate to exclude pneumonia. Expiratory rotated exam, follow-up recommended.
--- NOTE | 2017-01-26 07:54 | P.CONS ---
History of Present Illness - Chief Complaint Medical debility - History of Present Illness The op to see patient for inpatient rehab consultation with regard to medical debility. He was admitted to [facility] January 18 with acute onset chest pain. Workup revealed significant coronary artery disease. Seen in consultation by Letha Gamboa VC, karen Munoz. Undergo vessel coronary bypass. He is followed in note cardiomegaly and atelectasis only. PT reports minimal moderate assistance for bed mobility. Minimal assistance for transfers and gait 2 feet. Fatigues. OT reports moderate assistance for upper dressing and maximal assistance for lower dressing, bathing, toileting, functional mobility and transfers. Previous functional history as elicited from patient: 81-year-old right-handed white male who is lives in one floor home with . Retired. does the cooking and laundry. Patient dependent driving and standing shower and gait without device. Regular doctors Dr. Antonio. Family history cardiac disease and mother including heart attack. Review of Systems Review of systems: ENT: Denies sneezes or discharge. Eyes: Denies discharge or photophobia. Cardiac: Anterior chest discomfort related to surgery. Pulmonary: Denies cough or shortness of breath. Gastrointestinal: Denies nausea, emesis, constipation, diarrhea. Genitourinary: Denies discharge or frequency. Musculoskeletal: Denies muscle or bone aches. Back discomfort that is new Neurologic: At least mild generalized weakness. Endocrine: Denies shakes or sweats. Oncology: Denies cancers. Dermatologic: Denies rash, itching, pruritus. ALLERGY/immunology: Denies sneezes, rashes. 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 History of Any Multi-Drug Resistant Organisms: None Reported Past Surgical History: Adenoidectomy, Back Surgery, Orthopedic Surgery, Tonsillectomy Additional Past Surgical History / Comment(s): left shoulder hemiarthroplasty then 2nd sx-total replacment, x3 back sx, rt knee replacement, rt shoulder rotator cuff sx, lt heel spur, egd/colonoscopy, rt inguinal hernia repair, lt ear drum sx"failed", CATARACTS. Past Anesthesia/Blood Transfusion Reactions: Postoperative Nausea & Vomiting ( PONV) Past Psychological History: Depression Smoking Status: Former smoker Past Alcohol Use History: None Reported Past Drug Use History: None Reported - Past Family History Father Family Medical History: Asthma Mother Family Medical History: Coronary Artery Disease (CAD) Additional Family Medical History / Comment(s): PACEMAKER Brother(s) Family Medical History: Coronary Artery Disease (CAD) Additional Family Medical History / Comment(s): Brother had recent double coronary artery bypass graft surgery. Medications and Allergies Home Medications Medication Instructions Recorded Confirmed Type Citalopram Hydrobromide 40 mg PO DAILY 07/15/14 01/15/17 History [Citalopram HBr] Levothyroxine Sodium [Synthroid] 150 mcg PO DAILY 07/15/14 01/15/17 History Losartan Potassium 50 mg PO DAILY 07/15/14 01/15/17 History Aspirin EC [Ecotrin Low Dose] 81 mg PO DAILY 05/08/16 01/15/17 History HYDROcodone/APAP 7.5-325MG [[place] 1 tab PO TID 05/08/16 01/15/17 History 7.5-325] Multivitamins, Thera [Multivitamin 1 tab PO DAILY 05/08/16 01/15/17 History (formulary)] Terazosin [Hytrin] 5 mg PO HS 05/08/16 01/15/17 History Montelukast Sodium [Singulair] 10 mg PO HS 01/15/17 01/15/17 History Ranitidine HCl 300 mg PO BID 01/15/17 01/15/17 History Allergies Allergy/AdvReac Type Severity Reaction Status Date / Time iodine AdvReac Anaphylaxis Verified 01/22/17 06:25 Penicillins AdvReac Rash/Hives Verified 01/22/17 06:25 Physical Exam Vitals: Vital Signs Temp Pulse Pulse Resp BP BP Pulse Ox 01/26/17 04:00 72 20 01/26/17 03:18 98.5 F 72 20 162/88 98 01/25/17 23:47 82 20 01/25/17 23:32 99.3 F 82 20 133/75 97 01/25/17 20:00 98.5 F 86 20 115/73 98 01/25/17 12:00 67 16 01/25/17 11:27 98.7 F 67 16 125/68 97 01/25/17 08:00 96.9 F L 78 19 125/71 95 Intake and Output 01/25/17 01/26/17 01/26/17 22:59 06:59 14:59 Intake Total 623.869 406.131 Output Total 576 400 Balance 47.869 6.131 Intake: Intake, IV Titration 203.869 46.131 Amount Amiodarone 450 mg In 203.869 46.131 Dextrose 5% in Water 250 ml @ 1 MG/MIN 33.33 mls/ hr IV .[id number] [facility] Rx#: [id number] Oral 420 360 Output: Urine 575 400 Stool 1 Other: Voiding Method Toilet Urinal Urinal # Voids 1 1 Weight 100.4 kg Skin: Good color, texture, turgor. General: Medium build and comfortable appearance. Head: Normocephalic, atraumatic. Eyes: Symmetric. Pupils equal round. Ears: Symmetric. Hearing within normal limits. Mouth: Clear. Neck: Supple. Carotid without bruit. Cardiac: Regular rate and rhythm, but distant. Midline sternotomy scar clean and dressed. Wearing harness . Lungs: Clear anteriorly and posteriorly. Abdomen: Soft active nontender. Extremities: Normal tone.at least mild edema noted forelegs and feet Neurological: Mental status: Alert, cooperative, pleasant. Cranial nerves: Symmetric facial tone and trapezius. Motor: Normal strength and isolation all 4 limbs. Sensation: Intact throughout. DTRs: Symmetric and equal throughout. Mobility: Reports stands and transfers to bedside chair with 2 nurse assistance. Results CBC & Chem 7: 01/26/17 06:05 01/26/17 06:05 Labs: Abnormal Lab Results - Last 24 Hours (Table) 01/25/17 01/25/17 01/25/17 Range/Units 11:25 12:00 12:10 WBC 11.8 H (3.8-10.6) k/uL RBC 2.64 L (4.30-5.90) m/uL Hgb 8.7 L (13.0-17.5) gm/dL Hct 26.4 L (39.0-53.0) % MCV (80.0-100.0) fL Plt Count 139 L (150-450) k/uL Neutrophils # 10.4 H (1.3-7.7) k/uL Lymphocytes # 0.7 L (1.0-4.8) k/uL INR (<1.2) APTT (22.0-30.0) sec Sodium (137-145) mmol/L Potassium (3.5-5.1) mmol/L Carbon Dioxide (22-30) mmol/L BUN (9-20) mg/dL Creatinine (0.66-1.25) mg/dL Glucose (74-99) mg/dL POC Glucose (mg/dL) 140 H 147 H (75-99) mg/dL ALT (21-72) U/L Total Protein (6.3-8.2) g/dL Albumin (3.5-5.0) g/dL 01/25/17 01/25/17 01/25/17 Range/Units 12:10 16:45 18:25 WBC (3.8-10.6) k/uL RBC (4.30-5.90) m/uL Hgb (13.0-17.5) gm/dL Hct (39.0-53.0) % MCV (80.0-100.0) fL Plt Count (150-450) k/uL Neutrophils # (1.3-7.7) k/uL Lymphocytes # (1.0-4.8) k/uL INR 1.2 H (<1.2) APTT 31.2 H 49.8 H (22.0-30.0) sec Sodium (137-145) mmol/L Potassium (3.5-5.1) mmol/L Carbon Dioxide (22-30) mmol/L BUN (9-20) mg/dL Creatinine (0.66-1.25) mg/dL Glucose (74-99) mg/dL POC Glucose (mg/dL) 125 H (75-99) mg/dL ALT (21-72) U/L Total Protein (6.3-8.2) g/dL Albumin (3.5-5.0) g/dL 01/25/17 01/26/17 01/26/17 Range/Units 20:51 02:02 05:41 WBC (3.8-10.6) k/uL RBC (4.30-5.90) m/uL Hgb (13.0-17.5) gm/dL Hct (39.0-53.0) % MCV (80.0-100.0) fL Plt Count (150-450) k/uL Neutrophils # (1.3-7.7) k/uL Lymphocytes # (1.0-4.8) k/uL INR (<1.2) APTT (22.0-30.0) sec Sodium (137-145) mmol/L Potassium (3.5-5.1) mmol/L Carbon Dioxide (22-30) mmol/L BUN (9-20) mg/dL Creatinine (0.66-1.25) mg/dL Glucose (74-99) mg/dL POC Glucose (mg/dL) 131 H 125 H 131 H (75-99) mg/dL ALT (21-72) U/L Total Protein (6.3-8.2) g/dL Albumin (3.5-5.0) g/dL 01/26/17 01/26/17 01/26/17 Range/Units 06:05 06:05 06:05 WBC (3.8-10.6) k/uL RBC 2.47 L (4.30-5.90) m/uL Hgb 8.1 L (13.0-17.5) gm/dL Hct 24.9 L (39.0-53.0) % MCV 101.0 H (80.0-100.0) fL Plt Count 115 L (150-450) k/uL Neutrophils # 8.0 H (1.3-7.7) k/uL Lymphocytes # (1.0-4.8) k/uL INR (<1.2) APTT 39.3 H (22.0-30.0) sec Sodium 136 L (137-145) mmol/L Potassium 5.4 H (3.5-5.1) mmol/L Carbon Dioxide 18 L (22-30) mmol/L BUN 49 H (9-20) mg/dL Creatinine 2.13 H (0.66-1.25) mg/dL Glucose 115 H (74-99) mg/dL POC Glucose (mg/dL) (75-99) mg/dL ALT 18 L (21-72) U/L Total Protein 5.4 L (6.3-8.2) g/dL Albumin 3.1 L (3.5-5.0) g/dL Chest x-ray: report reviewed (Is followed) Assessment and Plan (1) CAD (coronary artery disease) Status: Acute (2) History of cardiac arrest Status: Acute Plan: Impression: 1. Medical debility. 2. Cardiac disease status post 5 vessel cord bypass. 3. Chronic kidney disease. 4. Hard of hearing. 5. Sleep apnea. 6. History of PE. 7. Reflux. 8. History of syncope. Line 7.Comments and plan: At this time PT and OT are ongoing. Safety concerns noted as demonstrating the ability tolerate and benefit from therapies. Have discussed possible inpatient rehab with patient and he seems agreeable.
[2017-01-26] MEDS: ASPIRIN 325 MG TAB PO SCH (07:56)
[2017-01-26] MEDS: ATORVASTATIN 40 MG TAB PO SCH (07:56)
[2017-01-26] MEDS: CITALOPRAM HYDROBROMIDE 20 MG TAB PO SCH (07:56)
[2017-01-26] MEDS: CLOPIDOGREL 75 MG TAB PO SCH (07:56)
[2017-01-26] MEDS: METOPROLOL TARTRATE 25 MG TAB PO SCH (07:57)
[2017-01-26] MEDS: SIMETHICONE 80 MG CHEWABLE PO SCH ×4 (07:58→20:01)
[2017-01-26] MEDS: POLYETHYLENE GLYCOL 3350 17 GM POWD.PACK PO SCH (07:58)
[2017-01-26] MEDS: MULTIVITAMINS, THERA 1 EACH TAB PO SCH (07:59)
[2017-01-26] MEDS ORDERED: DARBEPOETIN ALFA 25 MCG/0.42 ML SYRINGE SQ SCH (09:00)
[2017-01-26 10:44] LABS: % Iron Saturation 19.3 % (20-50)
[2017-01-26] MEDS ORDERED: METOPROLOL TARTRATE 25 MG TAB PO STA (10:53)
[2017-01-26] MEDS: AMIODARONE 200 MG TAB PO SCH ×2 (11:03→20:01)
--- NOTE | 2017-01-26 11:06 | P.PN ---
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 Preserved left ventricular function. Hypertension. History of pulmonary embolus. Obstructive sleep apnea with CPAP use. History of syncope. Hypothyroid. History of cardiac arrest. Chronic kidney disease stage III. Chronic low back pain. Previous tobacco dependence. Family history of coronary artery disease. POD #4 urgent quadruple coronary artery bypass grafting with left internal mammary artery to the left anterior descending artery, reverse saphenous vein graft from the aorta to the first diagonal artery, reverse saphenous vein graft from the aorta to the obtuse marginal artery, and reverse saphenous vein graft from the aorta sequentially in a [id number] fashion to the posterior descending artery, then in an end to side fashion to the posterolateral branch of the right coronary artery. Bilateral endoscopic vein harvest except for the left below knee segment. Epi-aortic scanning. Intraoperative transesophageal echocardiogram. Graft flow measurement using the [employer] system. Postoperative atrial fibrillation, inherent outcome of surgery. Currently sitting up in bed in no acute distress. States pain is better controlled. Appears more comfortable. Left pleural chest tube discontinued yesterday. Patient had atrial fibrillation with rapid ventricular response yesterday, started on amiodarone drip, converted back to sinus rhythm Objective - Vital Signs Vital signs: Vital Signs Temp 98.9 F 01/26/17 08:00 Pulse 69 01/26/17 08:00 Resp 16 01/26/17 08:00 BP 143/79 01/26/17 08:00 Pulse Ox 99 01/26/17 08:00 Intake & Output 01/25/17 01/26/17 01/26/17 18:59 06:59 18:59 Intake Total 600 1030.000 Output Total 301 675 1 Balance 299 355.000 -1 Weight 97.9 kg 100.4 kg Intake: Intake, IV Titration 250.000 Amount Amiodarone 450 mg In 250.000 Dextrose 5% in Water 250 ml @ 1 MG/MIN 33.33 mls/ hr IV .Q7H31M [facility] Rx#: [id number] Oral 600 780 Output: Urine 300 675 Stool 1 1 Other: Voiding Method Toilet Urinal Urinal Urinal # Voids 1 ABP, PAP, CO, CI - Last Documented Arterial Blood Pressure 113/56 Pulmonary Artery Pressure 32/16 Cardiac Output 6.4 Cardiac Index 3.2 - Constitutional General appearance: Present: cooperative, no acute distress - Respiratory Details: Lungs sounds diminished bilaterally. Respirations even, nonlabored. Currently on 2 L nasal cannula with oxygen saturation 98%. - Cardiovascular Details: S1, S2 present. Regular rate and rhythm, normal sinus rhythm on telemetry. Sternum stable. Heart hugger in place with patient demonstrating appropriate use. Trace lower extremity edema present. Palpable pulses bilaterally. Teds/ SCDs present. - Gastrointestinal Gastrointestinal Comment(s): Abdomen soft, nontender, slightly distended. Active bowel sounds 4 quadrants. Tolerating minimal diet. Minimal bowel movement yesterday. - Genitourinary Genitourinary Comment(s): Continues to void clear, yellow urine. - Integumentary Integumentary Comment(s): Anterior chest incision well approximated with Dermabond dressing. Bilateral lower extremity EVH site well approximated, multiple areas of ecchymosis present which is expected after surgery. - Neurologic Neurologic: Present: CNII-XII intact - Musculoskeletal Musculoskeletal: Present: gait normal, strength equal bilaterally - Psychiatric Psychiatric: Present: A&O x's 3, appropriate affect, intact judgment & insight - Allied health notes Allied health notes reviewed: nursing - Labs CBC & Chem 7: 01/26/17 06:05 01/26/17 06:05 Labs: Abnormal Lab Results - Last 24 Hours (Table) 01/25/17 01/25/17 01/25/17 Range/Units 11:25 12:00 12:10 WBC 11.8 H (3.8-10.6) k/uL RBC 2.64 L (4.30-5.90) m/uL Hgb 8.7 L (13.0-17.5) gm/dL Hct 26.4 L (39.0-53.0) % MCV (80.0-100.0) fL Plt Count 139 L (150-450) k/uL Neutrophils # 10.4 H (1.3-7.7) k/uL Lymphocytes # 0.7 L (1.0-4.8) k/uL INR (<1.2) APTT (22.0-30.0) sec Sodium (137-145) mmol/L Potassium (3.5-5.1) mmol/L Carbon Dioxide (22-30) mmol/L BUN (9-20) mg/dL Creatinine (0.66-1.25) mg/dL Glucose (74-99) mg/dL POC Glucose (mg/dL) 140 H 147 H (75-99) mg/dL Iron (49-181) ug/dL TIBC (261-462) ug/dL % Saturation (20-50) % ALT (21-72) U/L Total Protein (6.3-8.2) g/dL Albumin (3.5-5.0) g/dL 01/25/17 01/25/17 01/25/17 Range/Units 12:10 16:45 18:25 WBC (3.8-10.6) k/uL RBC (4.30-5.90) m/uL Hgb (13.0-17.5) gm/dL Hct (39.0-53.0) % MCV (80.0-100.0) fL Plt Count (150-450) k/uL Neutrophils # (1.3-7.7) k/uL Lymphocytes # (1.0-4.8) k/uL INR 1.2 H (<1.2) APTT 31.2 H 49.8 H (22.0-30.0) sec Sodium (137-145) mmol/L Potassium (3.5-5.1) mmol/L Carbon Dioxide (22-30) mmol/L BUN (9-20) mg/dL Creatinine (0.66-1.25) mg/dL Glucose (74-99) mg/dL POC Glucose (mg/dL) 125 H (75-99) mg/dL Iron (49-181) ug/dL TIBC (261-462) ug/dL % Saturation (20-50) % ALT (21-72) U/L Total Protein (6.3-8.2) g/dL Albumin (3.5-5.0) g/dL 01/25/17 01/26/17 01/26/17 Range/Units 20:51 02:02 05:41 WBC (3.8-10.6) k/uL RBC (4.30-5.90) m/uL Hgb (13.0-17.5) gm/dL Hct (39.0-53.0) % MCV (80.0-100.0) fL Plt Count (150-450) k/uL Neutrophils # (1.3-7.7) k/uL Lymphocytes # (1.0-4.8) k/uL INR (<1.2) APTT (22.0-30.0) sec Sodium (137-145) mmol/L Potassium (3.5-5.1) mmol/L Carbon Dioxide (22-30) mmol/L BUN (9-20) mg/dL Creatinine (0.66-1.25) mg/dL Glucose (74-99) mg/dL POC Glucose (mg/dL) 131 H 125 H 131 H (75-99) mg/dL Iron (49-181) ug/dL TIBC (261-462) ug/dL % Saturation (20-50) % ALT (21-72) U/L Total Protein (6.3-8.2) g/dL Albumin (3.5-5.0) g/dL 01/26/17 01/26/17 01/26/17 Range/Units 06:05 06:05 06:05 WBC (3.8-10.6) k/uL RBC 2.47 L (4.30-5.90) m/uL Hgb 8.1 L (13.0-17.5) gm/dL Hct 24.9 L (39.0-53.0) % MCV 101.0 H (80.0-100.0) fL Plt Count 115 L (150-450) k/uL Neutrophils # 8.0 H (1.3-7.7) k/uL Lymphocytes # (1.0-4.8) k/uL INR (<1.2) APTT 39.3 H (22.0-30.0) sec Sodium 136 L (137-145) mmol/L Potassium 5.4 H (3.5-5.1) mmol/L Carbon Dioxide 18 L (22-30) mmol/L BUN 49 H (9-20) mg/dL Creatinine 2.13 H (0.66-1.25) mg/dL Glucose 115 H (74-99) mg/dL POC Glucose (mg/dL) (75-99) mg/dL Iron (49-181) ug/dL TIBC (261-462) ug/dL % Saturation (20-50) % ALT 18 L (21-72) U/L Total Protein 5.4 L (6.3-8.2) g/dL Albumin 3.1 L (3.5-5.0) g/dL 01/26/17 Range/Units 06:05 WBC (3.8-10.6) k/uL RBC (4.30-5.90) m/uL Hgb (13.0-17.5) gm/dL Hct (39.0-53.0) % MCV (80.0-100.0) fL Plt Count (150-450) k/uL Neutrophils # (1.3-7.7) k/uL Lymphocytes # (1.0-4.8) k/uL INR (<1.2) APTT (22.0-30.0) sec Sodium (137-145) mmol/L Potassium (3.5-5.1) mmol/L Carbon Dioxide (22-30) mmol/L BUN (9-20) mg/dL Creatinine (0.66-1.25) mg/dL Glucose (74-99) mg/dL POC Glucose (mg/dL) (75-99) mg/dL Iron 33 L (49-181) ug/dL TIBC 171 L (261-462) ug/dL % Saturation 19.3 L (20-50) % ALT (21-72) U/L Total Protein (6.3-8.2) g/dL Albumin (3.5-5.0) g/dL - Imaging and Cardiology Chest x-ray: report reviewed, image reviewed Assessment and Plan (1) Chest pain Status: Acute (2) Hypertension Status: Acute (3) History of pulmonary embolism Status: Acute (4) History of cardiac arrest Status: Acute (5) Hypothyroid Status: Acute (6) Chronic kidney disease Status: Acute (7) Tobacco dependence in remission Status: Acute (8) Family history of coronary artery disease Status: Acute (9) Chronic low back pain Status: Acute (10) History of syncope Status: Acute (11) Obstructive sleep apnea on CPAP Status: Acute Plan: 1. Continue aspirin, Lipitor, Plavix, Lopressor. Lopressor increased to 50 mg twice daily. Will maximize beta skip therapy as tolerated. 2. Amiodarone drip to be continued until bag is finished. Oral amiodarone initiated for atrial fibrillation prophylaxis. 3. Encourage incentive spirometry use. 4. Increase activity. Ambulate in hallway. Physical therapy to follow. 5. GI/DVT prophylaxis. 6. Daily labs, chest x-rays 7. Insulin management per primary care service 8. More recommendations as patient progresses. Discharge planning in progress. Dr. Rowell was consulted for recommendations regarding inpatient rehab versus subacute. Patient will need rehabilitation services after discharge. Time with Patient: Greater than 30
[2017-01-26 11:53] LABS: Glucose,Whole Blood 113 mg/dL (75-99)
--- NOTE | 2017-01-26 14:14 | P.PN ---
Subjective This is a very pleasant 81-year-old gentleman follows with Dr. Antonio as his primary care physician. He has a history of esophageal reflux disease, hypertension, pulmonary embolism causing cardiac arrest in 1985, obstructive sleep apnea, hypothyroidism, arthritis, chronic back pain, multiple orthopedic surgeries, depression. He has a remote history of smoking for approximate 10 years 1-2 packs per day but quit 43 years ago. He presented here on 01/15/2017 with complaints of left-sided chest pain. He had been seen and followed by cardiology. He had undergone a stress testing which revealed some evidence of ischemia with subsequent cardiac catheterization revealing diffuse triple- vessel disease including a 50-60% left main stenosis, 90% LAD stenosis, 50% circumflex and 85-90% right coronary artery stenosis. Echocardiogram revealed preserved left ventricular systolic function with estimated ejection fraction 55 -60%. CT angiogram ruled out pulmonary embolism. The lungs were clear of consolidation. No pleural effusion. He is seen today in consultation in anticipation of coronary artery revascularization on 01/22/2017. He is awake and alert in no acute distress. He has been up ambulating in the hallway without any significant chest discomfort, no palpitations, lightheadedness or dizziness. No worsening shortness of breath. No cough or congestion. No leukocytosis. Hemoglobin 12.8. Creatinine 2.07. He is maintaining good O2 saturations in the upper 90s on room air. He is afebrile. Hemodynamically stable. The patient is seen again today 01/20/2017 in follow-up on the selective care unit. He is awake and alert in no acute distress. He is now ambulating in the hallway. He states he did have some level of anxiety last evening and did receive Xanax. He slept well after that. He denies any chest pain currently. No shortness of breath cough or congestion. Continues to maintain good O2 saturations in the high 90s on room air. He is afebrile. Hemodynamically stable. His creatinine is improving currently 1.81. On 01/22/2017 I'm seeing this patient in follow-up. The patient underwent coronary artery bypass surgery, 5-vessel bypass and currently is in the intensive care unit. He is on sedation with 25 mics of the prevent. Is on a mechanical ventilator on assist control mode rate of 12, tidal volume of 500, FiO2 of 100% and PEEP of 5. The blood gases showed a pH of 7.28 with a pCO2 of 48 and pO2 of 381. Based on this, I increase the tidal volume to 600 and drop the FiO2 down to 50%. His chest x-ray showed adequate expansion of both lungs. There may be a component of volume overload. Left basilar atelectatic changes seen. The patient has an ET tube in place, NG tube in place, 2 pleural chest tubes the right and left and mediastinal chest tube in place, and [place] catheter in place. Cardiac output is 10 with an index of 5.0. PA artery pressures are 32/15. Producing adequate amount of urine output. Ultrasound the chest tubes out approximately 30-40 mL an hour from each of the chest tubes. Postoperative hemoglobin is at 7.7 with a platelet count of 67. The patient has a component of chronic renal failure. Postoperative renal function showed a creatinine of 1.42. On 01/23/2017 I'm seeing this patient in follow-up. The patient underwent four- vessel bypass surgery. The patient was weaned off the mechanical ventilator other major difficulties and he was extubated yesterday at around 9 PM. It morning it is on oxygen at 2 L per minute nasal cannula. His chest x-ray showing postoperative surgical changes with some elevation of left hemidiaphragm. The mediastinal chest tubes and pleural chest tubes are all in place. Output from the chest tube has been approximately 50 mL an hour total. The patient did not require any packed RBC transfusions. His hemoglobin is up to 8.6. The patient also has a chronic renal failure. Creatinine is at 2.0. Producing adequate amount of urine output. No nausea. No vomiting no focal logical deficits. The patient was seen again on 01/24/2017 in follow-up in the intensive care unit. He is currently resting fairly comfortably in bed. He is awake and alert in no acute distress. Pain is fairly well controlled. He's been gaining good O2 saturations in the mid to upper 90s on 2 L/m per nasal cannula. He is afebrile. His chest x-ray reveals persistent bilateral consolidations with small effusions. His right and mediastinal chest tubes have been discontinued. He's been hemodynamically stable. Currently on no drips. On 01/25/2017 the patient is being seen in follow-up on a medical surgical floor with telemetry. The left pleural chest tube was also removed. The patient is pulling approximately thousand on incentive spirometer. Is on 2 L of oxygen nasal cannula. Further wound is dry clean and intact. No nausea. No vomiting. No syncope shortness of breath. He would like to gradually increase the level of activity as tolerated. He is tolerating his diet. No nausea. No vomiting. No abdominal distention. No emesis. He'll be given a laxative today. His hemoglobin is stable at 8.7. Renal function is impaired give the patient is a chronic renal failure. Creatinine is at 2.2. On 01/26/2017 the patient is being seen in follow-up. He has no specific complaints. Overnight he went into an atrial fibrillation with rapid ventricular response. He was started on amiodarone drip and he converted back to normal sinus rhythm. Note that the left-sided chest tube has been removed. The patient was also given IV heparin which was discontinued. No plans for long -term anticoagulation. The patient is being loaded with amiodarone for now. He is pulling more than 1000 on his incentive spirometer. His presenting good control. He is sitting up on a chair. Is tolerating his diet. No nausea or vomiting. No chest pain. Chest x-ray shows no evidence of any pneumothorax and is essentially postsurgical changes, post thoracotomy. Objective - Vital Signs Vital signs: Vital Signs Temp 98.9 F 01/26/17 08:00 Pulse 61 01/26/17 12:00 Resp 16 01/26/17 12:00 BP 146/76 01/26/17 12:00 Pulse Ox 100 01/26/17 12:00 Intake & Output 01/25/17 01/26/17 01/26/17 18:59 06:59 18:59 Intake Total 600 1030.000 377 Output Total 301 675 1 Balance 299 355.000 376 Weight 97.9 kg 100.4 kg Intake: Intake, IV Titration 250.000 40 Amount Amiodarone 450 mg In 250.000 Dextrose 5% in Water 250 ml @ 1 MG/MIN 33.33 mls/ hr IV .Q7H31M [facility] Rx#: [id number] Heparin Sodium,Porcine/ 40 D5w Pmx 25,000 unit In Dextrose/Water 1 500ml. bag @ 10.2 UNITS/KG/HR 19 .97 mls/hr IV .Q24H [facility] Rx#:[id number] Oral 600 780 337 Output: Urine 300 675 Stool 1 1 Other: Voiding Method Toilet Urinal Urinal Urinal # Voids 1 ABP, PAP, CO, CI - Last Documented Arterial Blood Pressure 113/56 Pulmonary Artery Pressure 32/16 Cardiac Output 6.4 Cardiac Index 3.2 - Exam Head exam was generally normal. There was no scleral icterus or corneal arcus. Mucous membranes were moist.Neck was supple and without jugular venous distension, thyromegaly, or carotid bruits. Carotids were easily palpable bilaterally. There was no adenopathy. Lung sounds are diminished bilaterally especially in the lung bases. Heart sounds are regular, sternum stable clean and intact. Normal S1-S2. No significant murmurs appreciated.Abdominal exam revealed normal bowel sounds. The abdomen was soft, non-tender, and without masses, organomegaly, or appreciable enlargement of the abdominal aorta. Extremities are slightly edematous. Surgical wound sites are clean and that WESLY drains are removed. Neurologically the patient is awake and alert. No focal neurological deficit at this point. - Labs CBC & Chem 7: 01/26/17 06:05 01/26/17 06:05 Labs: Abnormal Lab Results - Last 24 Hours (Table) 01/25/17 01/25/17 01/25/17 Range/Units 16:45 18:25 20:51 RBC (4.30-5.90) m/uL Hgb (13.0-17.5) gm/dL Hct (39.0-53.0) % MCV (80.0-100.0) fL Plt Count (150-450) k/uL Neutrophils # (1.3-7.7) k/uL APTT 49.8 H (22.0-30.0) sec Sodium (137-145) mmol/L Potassium (3.5-5.1) mmol/L Carbon Dioxide (22-30) mmol/L BUN (9-20) mg/dL Creatinine (0.66-1.25) mg/dL Glucose (74-99) mg/dL POC Glucose (mg/dL) 125 H 131 H (75-99) mg/dL Iron (49-181) ug/dL TIBC (261-462) ug/dL % Saturation (20-50) % ALT (21-72) U/L Total Protein (6.3-8.2) g/dL Albumin (3.5-5.0) g/dL 01/26/17 01/26/17 01/26/17 Range/Units 02:02 05:41 06:05 RBC 2.47 L (4.30-5.90) m/uL Hgb 8.1 L (13.0-17.5) gm/dL Hct 24.9 L (39.0-53.0) % MCV 101.0 H (80.0-100.0) fL Plt Count 115 L (150-450) k/uL Neutrophils # 8.0 H (1.3-7.7) k/uL APTT (22.0-30.0) sec Sodium (137-145) mmol/L Potassium (3.5-5.1) mmol/L Carbon Dioxide (22-30) mmol/L BUN (9-20) mg/dL Creatinine (0.66-1.25) mg/dL Glucose (74-99) mg/dL POC Glucose (mg/dL) 125 H 131 H (75-99) mg/dL Iron (49-181) ug/dL TIBC (261-462) ug/dL % Saturation (20-50) % ALT (21-72) U/L Total Protein (6.3-8.2) g/dL Albumin (3.5-5.0) g/dL 01/26/17 01/26/17 01/26/17 Range/Units 06:05 06:05 06:05 RBC (4.30-5.90) m/uL Hgb (13.0-17.5) gm/dL Hct (39.0-53.0) % MCV (80.0-100.0) fL Plt Count (150-450) k/uL Neutrophils # (1.3-7.7) k/uL APTT 39.3 H (22.0-30.0) sec Sodium 136 L (137-145) mmol/L Potassium 5.4 H (3.5-5.1) mmol/L Carbon Dioxide 18 L (22-30) mmol/L BUN 49 H (9-20) mg/dL Creatinine 2.13 H (0.66-1.25) mg/dL Glucose 115 H (74-99) mg/dL POC Glucose (mg/dL) (75-99) mg/dL Iron 33 L (49-181) ug/dL TIBC 171 L (261-462) ug/dL % Saturation 19.3 L (20-50) % ALT 18 L (21-72) U/L Total Protein 5.4 L (6.3-8.2) g/dL Albumin 3.1 L (3.5-5.0) g/dL 01/26/17 Range/Units 11:40 RBC (4.30-5.90) m/uL Hgb (13.0-17.5) gm/dL Hct (39.0-53.0) % MCV (80.0-100.0) fL Plt Count (150-450) k/uL Neutrophils # (1.3-7.7) k/uL APTT (22.0-30.0) sec Sodium (137-145) mmol/L Potassium (3.5-5.1) mmol/L Carbon Dioxide (22-30) mmol/L BUN (9-20) mg/dL Creatinine (0.66-1.25) mg/dL Glucose (74-99) mg/dL POC Glucose (mg/dL) 113 H (75-99) mg/dL Iron (49-181) ug/dL TIBC (261-462) ug/dL % Saturation (20-50) % ALT (21-72) U/L Total Protein (6.3-8.2) g/dL Albumin (3.5-5.0) g/dL Assessment and Plan Plan: Assessment 1 Multivessel coronary artery disease/diffuse triple-vessel coronary artery disease status post carotid bypass surgery. The patient underwent 5-vessel bypass. Currently postop day #4 2 postoperative atrial fibrillation, currently rhythm is sinus and the patient is on amiodarone drip. 3 skeletal postsurgical pain, expected and the patient is pulling approximately thousand on his incentive spirometer. 4 postoperative anemia with a hemoglobin of 8.1 5 postoperative thrombocytopenia, recovering 6 hypertension 7 hyperlipidemia 8 chronic renal failure 9 hypothyroidism 10 chronic back pain 11 obstructive sleep apnea. Plan All of the chest tubes have been removed. Renal function is stable with a creatinine of 2.1. Hemoglobin stable at 8.1. The patient is using incentive spirometer. Complete amiodarone drip and it was this patient oral amiodarone. The patient is currently in normal sinus rhythm. Continue Lopressor. Continue aspirin and Plavix. Continue Lipitor. Ambulate in the hallway. We'll continue to follow.
--- NOTE | 2017-01-26 14:32 | P.PN ---
Subjective Principal diagnosis: CAD This is a 81-year-old gentleman with history of hypertension, hypothyroidism, sleep apnea, prior PE, who presented to the hospital with symptoms of chest discomfort. He was taken to the cardiac catheterization lab by Dr. VC Finn, and was found to have significant triple-vessel coronary artery disease. He was seen in consultation by cardiothoracic surgery and is scheduled to undergo coronary artery bypass grafting surgery tomorrow. Patient was seen and examined this morning, denies any chest pain or difficulty in breathing. He has been up ambulating without any difficulty. BUN 35, creatinine 1.7 today. 01/20/2017 Patient seen and examined this morning, denies any chest pain or difficulty in breathing. Scheduled for coronary artery bypass grafting surgery tomorrow. Let pressure 118/80 with a heart rate in the 60s. 01/25/2017 Patient is status post coronary bypass grafting surgery, is being followed today on the telemetry unit. This morning around 9 AM patient went into atrial fibrillation with a rapid ventricular response. He was initiated on IV heparin , dose of beta skip increased to 3 times a day. Blood pressure 125/68, heart rate currently in the 1 teens. 01/26/2017. Patient seen and examined today, much more alert and oriented. He' s been up ambulating in the hallway today. Early in normal sinus rhythm. Objective - Vital Signs Vital signs: Vital Signs Temp 98.9 F 01/26/17 08:00 Pulse 61 01/26/17 12:00 Resp 16 01/26/17 12:00 BP 146/76 01/26/17 12:00 Pulse Ox 100 01/26/17 12:00 Intake & Output 01/25/17 01/26/17 01/26/17 18:59 06:59 18:59 Intake Total 600 1030.000 377 Output Total 301 675 1 Balance 299 355.000 376 Weight 97.9 kg 100.4 kg Intake: Intake, IV Titration 250.000 40 Amount Amiodarone 450 mg In 250.000 Dextrose 5% in Water 250 ml @ 1 MG/MIN 33.33 mls/ hr IV .Q7H31M [facility] Rx#: [id number] Heparin Sodium,Porcine/ 40 D5w Pmx 25,000 unit In Dextrose/Water 1 500ml. bag @ 10.2 UNITS/KG/HR 19 .97 mls/hr IV .Q24H [facility] Rx#:[id number] Oral 600 780 337 Output: Urine 300 675 Stool 1 1 Other: Voiding Method Toilet Urinal Urinal Urinal # Voids 1 ABP, PAP, CO, CI - Last Documented Arterial Blood Pressure 113/56 Pulmonary Artery Pressure 32/16 Cardiac Output 6.4 Cardiac Index 3.2 - Exam PHYSICAL EXAMINATION: HEENT: Head is atraumatic, normocephalic. Pupils equal, round. Neck is supple. There is no elevated jugular venous pressure. HEART EXAMINATION: Heart S1, S2 normal . No murmur or gallop heard. CHEST EXAMINATION: Lungs are clear to auscultation and precussion. No chest wall tenderness is noted on palpation or with deep breathing. ABDOMEN: Soft, nontender. Bowel sounds are heard. No organomegaly noted. Right groin soft, no evidence of any hematoma. EXTREMITIES: 2+ peripheral pulses with no evidence of peripheral edema and no calf tenderness noted. NEUROLOGIC patient is awake, alert and oriented -3. . - Labs CBC & Chem 7: 01/26/17 06:05 01/26/17 06:05 Labs: Abnormal Lab Results - Last 24 Hours (Table) 01/25/17 01/25/17 01/25/17 Range/Units 16:45 18:25 20:51 RBC (4.30-5.90) m/uL Hgb (13.0-17.5) gm/dL Hct (39.0-53.0) % MCV (80.0-100.0) fL Plt Count (150-450) k/uL Neutrophils # (1.3-7.7) k/uL APTT 49.8 H (22.0-30.0) sec Sodium (137-145) mmol/L Potassium (3.5-5.1) mmol/L Carbon Dioxide (22-30) mmol/L BUN (9-20) mg/dL Creatinine (0.66-1.25) mg/dL Glucose (74-99) mg/dL POC Glucose (mg/dL) 125 H 131 H (75-99) mg/dL Iron (49-181) ug/dL TIBC (261-462) ug/dL % Saturation (20-50) % ALT (21-72) U/L Total Protein (6.3-8.2) g/dL Albumin (3.5-5.0) g/dL 01/26/17 01/26/17 01/26/17 Range/Units 02:02 05:41 06:05 RBC 2.47 L (4.30-5.90) m/uL Hgb 8.1 L (13.0-17.5) gm/dL Hct 24.9 L (39.0-53.0) % MCV 101.0 H (80.0-100.0) fL Plt Count 115 L (150-450) k/uL Neutrophils # 8.0 H (1.3-7.7) k/uL APTT (22.0-30.0) sec Sodium (137-145) mmol/L Potassium (3.5-5.1) mmol/L Carbon Dioxide (22-30) mmol/L BUN (9-20) mg/dL Creatinine (0.66-1.25) mg/dL Glucose (74-99) mg/dL POC Glucose (mg/dL) 125 H 131 H (75-99) mg/dL Iron (49-181) ug/dL TIBC (261-462) ug/dL % Saturation (20-50) % ALT (21-72) U/L Total Protein (6.3-8.2) g/dL Albumin (3.5-5.0) g/dL 01/26/17 01/26/17 01/26/17 Range/Units 06:05 06:05 06:05 RBC (4.30-5.90) m/uL Hgb (13.0-17.5) gm/dL Hct (39.0-53.0) % MCV (80.0-100.0) fL Plt Count (150-450) k/uL Neutrophils # (1.3-7.7) k/uL APTT 39.3 H (22.0-30.0) sec Sodium 136 L (137-145) mmol/L Potassium 5.4 H (3.5-5.1) mmol/L Carbon Dioxide 18 L (22-30) mmol/L BUN 49 H (9-20) mg/dL Creatinine 2.13 H (0.66-1.25) mg/dL Glucose 115 H (74-99) mg/dL POC Glucose (mg/dL) (75-99) mg/dL Iron 33 L (49-181) ug/dL TIBC 171 L (261-462) ug/dL % Saturation 19.3 L (20-50) % ALT 18 L (21-72) U/L Total Protein 5.4 L (6.3-8.2) g/dL Albumin 3.1 L (3.5-5.0) g/dL 01/26/17 Range/Units 11:40 RBC (4.30-5.90) m/uL Hgb (13.0-17.5) gm/dL Hct (39.0-53.0) % MCV (80.0-100.0) fL Plt Count (150-450) k/uL Neutrophils # (1.3-7.7) k/uL APTT (22.0-30.0) sec Sodium (137-145) mmol/L Potassium (3.5-5.1) mmol/L Carbon Dioxide (22-30) mmol/L BUN (9-20) mg/dL Creatinine (0.66-1.25) mg/dL Glucose (74-99) mg/dL POC Glucose (mg/dL) 113 H (75-99) mg/dL Iron (49-181) ug/dL TIBC (261-462) ug/dL % Saturation (20-50) % ALT (21-72) U/L Total Protein (6.3-8.2) g/dL Albumin (3.5-5.0) g/dL Assessment and Plan (1) Hyperlipemia Status: Acute (2) S/P cardiac catheterization Status: Acute (3) CAD (coronary artery disease) Status: Acute (4) Chest pain Status: Acute (5) Chronic kidney disease Status: Acute (6) Family history of coronary artery disease Status: Acute (7) History of pulmonary embolism Status: Acute (8) Hypertension Status: Acute (9) Hypothyroid Status: Acute (10) Obstructive sleep apnea on CPAP Status: Acute Plan: From cardiology's perspective, we will continue patient on his current medications. He has again been encouraged regarding the use of his incentive spirometry. Complaining of mild constipation today. No other complaints. DNP note has been reviewed, I agree with a documented findings and plan of care. Patient was seen and examined.
[2017-01-26] MEDS: HEPARIN SODIUM,PORCINE 5,000 UNIT/ML 1 ML VIAL SQ SCH ×2 (16:44→23:34)
[2017-01-26] MEDS: MAGNESIUM HYDROXIDE 2,400 MG/10 ML CUP PO PRN (16:46)
[2017-01-26 16:50] LABS: Glucose,Whole Blood 99 mg/dL (75-99)
[2017-01-26] MEDS: SENNOSIDES-DOCUSATE SODIUM 1 EACH TAB PO SCH (20:01)
[2017-01-26] MEDS: MONTELUKAST 10 MG TAB PO SCH (20:01)
[2017-01-26] MEDS: METOPROLOL TARTRATE 50 MG TAB PO SCH (20:01)
[2017-01-26 20:52] LABS: Glucose,Whole Blood 144 mg/dL (75-99)
[2017-01-27 02:06] LABS: Glucose,Whole Blood 136 mg/dL (75-99)
[2017-01-27 05:35] LABS: Glucose,Whole Blood 134 mg/dL (75-99)
[2017-01-27] MEDS: INSULIN LISPRO (humaLOG) 300 UNIT/3 ML VIAL SQ SCH ×4 (06:30→21:45)
[2017-01-27] MEDS: LEVOTHYROXINE 75 MCG TAB PO SCH (06:30)
[2017-01-27] MEDS: PANTOPRAZOLE 40 MG TABLET PO SCH (06:30)
[2017-01-27 06:47] LABS: Basophils % (A) 0 %; CH 32.6; CHCM 31.3; Eosinophils # (A) 0.3 k/uL (0-0.7); Eosinophils % (A) 4 %; HCT 26.5 % (39.0-53.0); HDW 2.71; HGB 8.3 gm/dL (13.0-17.5); Hypochromasia Slight; Luc # (Auto) 0.18; Luc % (Auto) 2; Lymphocytes # (A) 1.1 k/uL (1.0-4.8); Lymphocytes % (A) 13 %; MCH 32.7 pg (25.0-35.0); MCHC 31.1 g/dL (31.0-37.0); Macrocytosis Slight; Mean Platelet Volume 8.6; Monocytes # (A) 0.5 k/uL (0-1.0); Monocytes % (A) 6 %; Neutrophils # (A) 6.6 k/uL (1.3-7.7); Neutrophils % (A) 75 %; RBC 2.52 m/uL (4.30-5.90); RDW 13.3 % (11.5-15.5); WBC 8.8 k/uL (3.8-10.6); WBC (Perox) 8.58
[2017-01-27 07:03] LABS: Calcium 8.8 mg/dL (8.4-10.2); Potassium 4.9 mmol/L (3.5-5.1); Total Bilirubin 0.8 mg/dL (0.2-1.3); Total Protein 5.9 g/dL (6.3-8.2)
--- NOTE | 2017-01-27 07:04 | PN ---
The patient is seen for follow-up for chronic kidney disease and acute kidney injury post CABG. The patient has been transferred out of the ICU. He is sitting up in bed. He is comfortable. He appears to be weak. However, he is alert and oriented times three. On examination today, blood pressure is 162/88. Heart rate is 72 per minute. He is afebrile. Examination of the heart, S1, S2. Examination of the lungs bilateral breath sounds are heard. Decreased breath sounds at the bases. Abdomen is soft. Nontender. Examination of the lower extremities shows bilateral extremities to be wrapped. Labs are pending from today. Hemoglobin 8.1. ASSESSMENT: 1. Acute kidney injury postoperatively likely underlying acute tubular necrosis, currently nonoliguric. Renal function fairly stable with creatinine staying at about 2 to 2.2. The patient is not on any diuretics or IV fluids at this time. 2. Status post coronary artery bypass surgery doing fairly well. 3. Chronic kidney disease. NKF Stage III secondary to nephrosclerosis with baseline creatinine about 1.7. 4. Anemia, postoperatively with no active bleeding noted. We will give one dose of Aranesp. MTDD
--- NOTE | 2017-01-27 07:43 | XR ---
EXAMINATION TYPE: XR chest 2V DATE OF EXAM: 01/27/2017 COMPARISON: 01/26/2017 HISTORY: 81-year-old male postop cardiac surgery TECHNIQUE: Frontal and lateral views FINDINGS: Degenerative changes of the right shoulder and partially visualized reversed left shoulder arthroplas ty. The heart remains lines mildly enlarged. Strandy areas of atelectasis in the upper to mid lungs. Small left pleural effusion persists with patchy retrocardiac opacity. Additional retrocardiac lucenc y suspected to represent a moderate sized hernia. IMPRESSION: Overall stable exam with small left pleural effusion. Left basilar and retrocardiac patchy opacity, l ikely atelectasis. Suspect a moderate underlying hiatal hernia.
[2017-01-27] MEDS: ATORVASTATIN 40 MG TAB PO SCH (08:57)
[2017-01-27] MEDS: AMIODARONE 200 MG TAB PO SCH ×2 (08:57→21:44)
[2017-01-27] MEDS: SIMETHICONE 80 MG CHEWABLE PO SCH ×4 (08:58→21:44)
[2017-01-27] MEDS: CLOPIDOGREL 75 MG TAB PO SCH (08:58)
[2017-01-27] MEDS: CITALOPRAM HYDROBROMIDE 20 MG TAB PO SCH (08:58)
[2017-01-27] MEDS: METOPROLOL TARTRATE 50 MG TAB PO SCH ×2 (08:58→21:44)
[2017-01-27] MEDS: ASPIRIN 325 MG TAB PO SCH (08:58)
[2017-01-27] MEDS: POLYETHYLENE GLYCOL 3350 17 GM POWD.PACK PO SCH (08:59)
[2017-01-27] MEDS: HEPARIN SODIUM,PORCINE 5,000 UNIT/ML 1 ML VIAL SQ SCH ×3 (09:02→23:35)
--- NOTE | 2017-01-27 09:03 | P.PN ---
Subjective Patient is seen in follow-up for acute kidney injury on chronic kidney disease. Patient has chronic kidney disease stage III with baseline creatinine in the range of 1.6-1.8 secondary to nephrosclerosis. Urinalysis is noted to be benign. Renal function today is stable. Patient had a CABG in 01/22/2017. Currently sitting up in chair. He's been ambulating to the best of his ability. Denies chest pain. Vital signs are stable. General: The patient appeared well nourished and normally developed. HEENT: Head exam is unremarkable. Neck is without jugular venous distension. LUNGS: Lungs are clear to auscultation and percussion. Breath sounds decreased. HEART: Rate and Rhythm are regular. First and second heart sounds normal. No murmurs, rubs or gallops. ABDOMEN: Abdominal exam reveals normal bowel sounds. Non-tender and non- distended. No evidence of peritonitis. EXTREMITITES: No clubbing, cyanosis, or edema. Objective - Vital Signs Vital signs: Vital Signs Temp 98.2 F 01/27/17 04:00 Pulse 55 L 01/27/17 04:00 Resp 20 01/27/17 04:00 BP 157/89 01/27/17 04:00 Pulse Ox 100 01/27/17 04:00 Intake & Output 01/26/17 01/27/17 01/27/17 18:59 06:59 18:59 Intake Total 1044 360 Output Total 577 1075 Balance 467 -715 Weight 100.7 kg Intake: Intake, IV Titration 40 Amount Heparin Sodium,Porcine/ 40 D5w Pmx 25,000 unit In Dextrose/Water 1 500ml. bag @ 10.2 UNITS/KG/HR 19 .97 mls/hr IV .Q24H [facility] Rx#:[id number] Oral 1004 360 Output: Urine 575 1075 Stool 2 Other: Voiding Method Urinal ABP, PAP, CO, CI - Last Documented Arterial Blood Pressure 113/56 Pulmonary Artery Pressure 32/16 Cardiac Output 6.4 Cardiac Index 3.2 - Labs CBC & Chem 7: 01/27/17 06:31 01/27/17 06:31 Labs: Abnormal Lab Results - Last 24 Hours (Table) 01/26/17 01/26/17 01/26/17 Range/Units 06:05 11:40 20:50 RBC (4.30-5.90) m/uL Hgb (13.0-17.5) gm/dL Hct (39.0-53.0) % MCV (80.0-100.0) fL Chloride (98-107) mmol/L Carbon Dioxide (22-30) mmol/L BUN (9-20) mg/dL Creatinine (0.66-1.25) mg/dL Glucose (74-99) mg/dL POC Glucose (mg/dL) 113 H 144 H (75-99) mg/dL Iron 33 L (49-181) ug/dL TIBC 171 L (261-462) ug/dL % Saturation 19.3 L (20-50) % Total Protein (6.3-8.2) g/dL Albumin (3.5-5.0) g/dL 01/27/17 01/27/17 01/27/17 Range/Units 02:04 05:34 06:31 RBC 2.52 L (4.30-5.90) m/uL Hgb 8.3 L (13.0-17.5) gm/dL Hct 26.5 L (39.0-53.0) % MCV 105.0 H (80.0-100.0) fL Chloride (98-107) mmol/L Carbon Dioxide (22-30) mmol/L BUN (9-20) mg/dL Creatinine (0.66-1.25) mg/dL Glucose (74-99) mg/dL POC Glucose (mg/dL) 136 H 134 H (75-99) mg/dL Iron (49-181) ug/dL TIBC (261-462) ug/dL % Saturation (20-50) % Total Protein (6.3-8.2) g/dL Albumin (3.5-5.0) g/dL 01/27/17 Range/Units 06:31 RBC (4.30-5.90) m/uL Hgb (13.0-17.5) gm/dL Hct (39.0-53.0) % MCV (80.0-100.0) fL Chloride 108 H (98-107) mmol/L Carbon Dioxide 21 L (22-30) mmol/L BUN 42 H (9-20) mg/dL Creatinine 1.92 H (0.66-1.25) mg/dL Glucose 112 H (74-99) mg/dL POC Glucose (mg/dL) (75-99) mg/dL Iron (49-181) ug/dL TIBC (261-462) ug/dL % Saturation (20-50) % Total Protein 5.9 L (6.3-8.2) g/dL Albumin 3.4 L (3.5-5.0) g/dL Assessment and Plan Plan: Assessment: #1. Nonoliguric acute kidney injury secondary to ischemic ATN status post CABG. Renal function a little improved with creatinine at 1.92 today. #2. Chronic kidney disease stage III secondary to nephrosclerosis with baseline creatinine in the range of 1.6-1.8. #3. Postoperative anemia. Hemoglobin 8.3 today. #4. Status post CABG on 01/22/2017. Plan: Continue to avoid nephrotoxic agents and hypotensive episodes. Repeat electrolytes in the morning. Continue physical therapy. Potential discharge to rehab on Sunday.
[2017-01-27 11:42] LABS: Glucose,Whole Blood 101 mg/dL (75-99)
--- NOTE | 2017-01-27 12:09 | P.PN ---
Subjective Principal diagnosis: Severe CAD This is a pleasant 81-year-old gentleman who presented to the hospital with a chest discomfort and underwent a heart catheterization by Dr. 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 The patient underwent CABG yesterday. He is maintaining normal sinus mechanism. He is hemodynamically stable. The patient is on dual antiplatelet therapy, amiodarone, beta skip, and statin. The plan is to go to rehab this coming Sunday. Objective - Vital Signs Vital signs: Vital Signs Temp 96.3 F L 01/27/17 08:00 Pulse 87 01/27/17 08:00 Resp 18 01/27/17 08:00 BP 143/72 01/27/17 08:00 Pulse Ox 94 L 01/27/17 08:00 Intake & Output 01/26/17 01/27/17 01/27/17 18:59 06:59 18:59 Intake Total 1044 360 Output Total 577 1075 Balance 467 -715 Weight 100.7 kg Intake: Intake, IV Titration 40 Amount Heparin Sodium,Porcine/ 40 D5w Pmx 25,000 unit In Dextrose/Water 1 500ml. bag @ 10.2 UNITS/KG/HR 19 .97 mls/hr IV .Q24H [facility] Rx#:[id number] Oral 1004 360 Output: Urine 575 1075 Stool 2 Other: Voiding Method Urinal # Voids 1 # Bowel Movements 1 ABP, PAP, CO, CI - Last Documented Arterial Blood Pressure 113/56 Pulmonary Artery Pressure 32/16 Cardiac Output 6.4 Cardiac Index 3.2 - Constitutional General appearance: Present: no acute distress - Respiratory Respiratory: bilateral: CTA - Cardiovascular Rhythm: regular Heart sounds: normal: S1, S2 - Labs CBC & Chem 7: 01/27/17 06:31 01/27/17 06:31 Labs: Abnormal Lab Results - Last 24 Hours (Table) 01/26/17 01/27/17 01/27/17 Range/Units 20:50 02:04 05:34 RBC (4.30-5.90) m/uL Hgb (13.0-17.5) gm/dL Hct (39.0-53.0) % MCV (80.0-100.0) fL Chloride (98-107) mmol/L Carbon Dioxide (22-30) mmol/L BUN (9-20) mg/dL Creatinine (0.66-1.25) mg/dL Glucose (74-99) mg/dL POC Glucose (mg/dL) 144 H 136 H 134 H (75-99) mg/dL Total Protein (6.3-8.2) g/dL Albumin (3.5-5.0) g/dL 01/27/17 01/27/17 01/27/17 Range/Units 06:31 06:31 11:33 RBC 2.52 L (4.30-5.90) m/uL Hgb 8.3 L (13.0-17.5) gm/dL Hct 26.5 L (39.0-53.0) % MCV 105.0 H (80.0-100.0) fL Chloride 108 H (98-107) mmol/L Carbon Dioxide 21 L (22-30) mmol/L BUN 42 H (9-20) mg/dL Creatinine 1.92 H (0.66-1.25) mg/dL Glucose 112 H (74-99) mg/dL POC Glucose (mg/dL) 101 H (75-99) mg/dL Total Protein 5.9 L (6.3-8.2) g/dL Albumin 3.4 L (3.5-5.0) g/dL Assessment and Plan Plan: Clinically the patient is doing well. Hemodynamically he is a stable beside being slightly hypertensive. We'll continue monitor the blood pressure and heart rate. Continue the current medical treatment.
[2017-01-27] MEDS: MULTIVITAMINS, THERA 1 EACH TAB PO SCH (12:38)
--- NOTE | 2017-01-27 13:06 | PN ---
DATE OF SERVICE: 01/26/2017 This 81-year-old gentleman who was admitted with CAD, had CABG. The patient is postoperative day three. The patient is able to ambulate with some support. No chest pain, no palpitation, no fever. On exam, alert and oriented x3. Pulse 61, blood pressure 140/70, respirations 16, temperature normal, pulse ox 100% on room air. HEENT: Conjunctivae normal. CARDIOVASCULAR: S1/S2 muffled. RESPIRATORY: Breath sounds diminished, especially at the bases. Scattered rhonchi. ABDOMEN: Soft, nontender. LEGS: No edema. NERVOUS SYSTEM: No focal deficits. LABS: WBC 10, hemoglobin 8.1. Sodium 130, potassium 5.0. Creatinine 2.13. ASSESSMENT: 1. Coronary artery disease status post coronary artery bypass graft. 2. Three vessel coronary artery disease. 3. Chronic kidney disease stage 3, stable. 4. Anemia. 5. Elevated d-dimer. 6. Hypothyroidism. 7. Hypertension. RECOMMENDATIONS AND DISCUSSION: Recommend to continue current medication, continue to monitor, continue symptomatic evaluation, PT and OT evaluation, closely follow with cardiothoracic surgery. Further recommendations to follow. [email or web address]
--- NOTE | 2017-01-27 13:17 | P.PN ---
Subjective This is a very pleasant 81-year-old gentleman follows with Dr. Antonio as his primary care physician. He has a history of esophageal reflux disease, hypertension, pulmonary embolism causing cardiac arrest in 1985, obstructive sleep apnea, hypothyroidism, arthritis, chronic back pain, multiple orthopedic surgeries, depression. He has a remote history of smoking for approximate 10 years 1-2 packs per day but quit 43 years ago. He presented here on 01/15/2017 with complaints of left-sided chest pain. He had been seen and followed by cardiology. He had undergone a stress testing which revealed some evidence of ischemia with subsequent cardiac catheterization revealing diffuse triple- vessel disease including a 50-60% left main stenosis, 90% LAD stenosis, 50% circumflex and 85-90% right coronary artery stenosis. Echocardiogram revealed preserved left ventricular systolic function with estimated ejection fraction 55 -60%. CT angiogram ruled out pulmonary embolism. The lungs were clear of consolidation. No pleural effusion. He is seen today in consultation in anticipation of coronary artery revascularization on 01/22/2017. He is awake and alert in no acute distress. He has been up ambulating in the hallway without any significant chest discomfort, no palpitations, lightheadedness or dizziness. No worsening shortness of breath. No cough or congestion. No leukocytosis. Hemoglobin 12.8. Creatinine 2.07. He is maintaining good O2 saturations in the upper 90s on room air. He is afebrile. Hemodynamically stable. The patient is seen again today 01/20/2017 in follow-up on the selective care unit. He is awake and alert in no acute distress. He is now ambulating in the hallway. He states he did have some level of anxiety last evening and did receive Xanax. He slept well after that. He denies any chest pain currently. No shortness of breath cough or congestion. Continues to maintain good O2 saturations in the high 90s on room air. He is afebrile. Hemodynamically stable. His creatinine is improving currently 1.81. On 01/22/2017 I'm seeing this patient in follow-up. The patient underwent coronary artery bypass surgery, 5-vessel bypass and currently is in the intensive care unit. He is on sedation with 25 mics of the prevent. Is on a mechanical ventilator on assist control mode rate of 12, tidal volume of 500, FiO2 of 100% and PEEP of 5. The blood gases showed a pH of 7.28 with a pCO2 of 48 and pO2 of 381. Based on this, I increase the tidal volume to 600 and drop the FiO2 down to 50%. His chest x-ray showed adequate expansion of both lungs. There may be a component of volume overload. Left basilar atelectatic changes seen. The patient has an ET tube in place, NG tube in place, 2 pleural chest tubes the right and left and mediastinal chest tube in place, and [place] catheter in place. Cardiac output is 10 with an index of 5.0. PA artery pressures are 32/15. Producing adequate amount of urine output. Ultrasound the chest tubes out approximately 30-40 mL an hour from each of the chest tubes. Postoperative hemoglobin is at 7.7 with a platelet count of 67. The patient has a component of chronic renal failure. Postoperative renal function showed a creatinine of 1.42. On 01/23/2017 I'm seeing this patient in follow-up. The patient underwent four- vessel bypass surgery. The patient was weaned off the mechanical ventilator other major difficulties and he was extubated yesterday at around 9 PM. It morning it is on oxygen at 2 L per minute nasal cannula. His chest x-ray showing postoperative surgical changes with some elevation of left hemidiaphragm. The mediastinal chest tubes and pleural chest tubes are all in place. Output from the chest tube has been approximately 50 mL an hour total. The patient did not require any packed RBC transfusions. His hemoglobin is up to 8.6. The patient also has a chronic renal failure. Creatinine is at 2.0. Producing adequate amount of urine output. No nausea. No vomiting no focal logical deficits. The patient was seen again on 01/24/2017 in follow-up in the intensive care unit. He is currently resting fairly comfortably in bed. He is awake and alert in no acute distress. Pain is fairly well controlled. He's been gaining good O2 saturations in the mid to upper 90s on 2 L/m per nasal cannula. He is afebrile. His chest x-ray reveals persistent bilateral consolidations with small effusions. His right and mediastinal chest tubes have been discontinued. He's been hemodynamically stable. Currently on no drips. On 01/25/2017 the patient is being seen in follow-up on a medical surgical floor with telemetry. The left pleural chest tube was also removed. The patient is pulling approximately thousand on incentive spirometer. Is on 2 L of oxygen nasal cannula. Further wound is dry clean and intact. No nausea. No vomiting. No syncope shortness of breath. He would like to gradually increase the level of activity as tolerated. He is tolerating his diet. No nausea. No vomiting. No abdominal distention. No emesis. He'll be given a laxative today. His hemoglobin is stable at 8.7. Renal function is impaired give the patient is a chronic renal failure. Creatinine is at 2.2. On 01/26/2017 the patient is being seen in follow-up. He has no specific complaints. Overnight he went into an atrial fibrillation with rapid ventricular response. He was started on amiodarone drip and he converted back to normal sinus rhythm. Note that the left-sided chest tube has been removed. The patient was also given IV heparin which was discontinued. No plans for long -term anticoagulation. The patient is being loaded with amiodarone for now. He is pulling more than 1000 on his incentive spirometer. His presenting good control. He is sitting up on a chair. Is tolerating his diet. No nausea or vomiting. No chest pain. Chest x-ray shows no evidence of any pneumothorax and is essentially postsurgical changes, post thoracotomy. On 01/27/2017, the patient is doing good. He has no specific complaints. He has completed the amiodarone loading, and currently is on oral amiodarone 400 mg by mouth twice a day. He is doing well otherwise. All of the chest tubes have been removed. The chest x-ray from today shows stable left-sided pleural effusion. There is also atelectatic changes in lung bases and a moderate-sized hiatal hernia. He is afebrile. He is hemodynamically stable. Sternum stable clean and intact. Objective - Vital Signs Vital signs: Vital Signs Temp 96.3 F L 01/27/17 08:00 Pulse 87 01/27/17 08:00 Resp 18 01/27/17 08:00 BP 143/72 01/27/17 08:00 Pulse Ox 94 L 01/27/17 08:00 Intake & Output 01/26/17 01/27/17 01/27/17 18:59 06:59 18:59 Intake Total 1044 360 Output Total 577 1075 Balance 467 -715 Weight 100.7 kg Intake: Intake, IV Titration 40 Amount Heparin Sodium,Porcine/ 40 D5w Pmx 25,000 unit In Dextrose/Water 1 500ml. bag @ 10.2 UNITS/KG/HR 19 .97 mls/hr IV .Q24H [facility] Rx#:[id number] Oral 1004 360 Output: Urine 575 1075 Stool 2 Other: Voiding Method Urinal # Voids 1 # Bowel Movements 1 ABP, PAP, CO, CI - Last Documented Arterial Blood Pressure 113/56 Pulmonary Artery Pressure 32/16 Cardiac Output 6.4 Cardiac Index 3.2 - Exam Head exam was generally normal. There was no scleral icterus or corneal arcus. Mucous membranes were moist.Neck was supple and without jugular venous distension, thyromegaly, or carotid bruits. Carotids were easily palpable bilaterally. There was no adenopathy. Lung sounds are diminished bilaterally especially in the lung bases. Heart sounds are regular, sternum stable clean and intact. Normal S1-S2. No significant murmurs appreciated.Abdominal exam revealed normal bowel sounds. The abdomen was soft, non-tender, and without masses, organomegaly, or appreciable enlargement of the abdominal aorta. Extremities are slightly edematous. Surgical wound sites are clean and that WESLY drains are removed. Neurologically the patient is awake and alert. No focal neurological deficit at this point. - Labs CBC & Chem 7: 01/27/17 06:31 01/27/17 06:31 Labs: Abnormal Lab Results - Last 24 Hours (Table) 01/26/17 01/27/17 01/27/17 Range/Units 20:50 02:04 05:34 RBC (4.30-5.90) m/uL Hgb (13.0-17.5) gm/dL Hct (39.0-53.0) % MCV (80.0-100.0) fL Chloride (98-107) mmol/L Carbon Dioxide (22-30) mmol/L BUN (9-20) mg/dL Creatinine (0.66-1.25) mg/dL Glucose (74-99) mg/dL POC Glucose (mg/dL) 144 H 136 H 134 H (75-99) mg/dL Total Protein (6.3-8.2) g/dL Albumin (3.5-5.0) g/dL 01/27/17 01/27/17 01/27/17 Range/Units 06:31 06:31 11:33 RBC 2.52 L (4.30-5.90) m/uL Hgb 8.3 L (13.0-17.5) gm/dL Hct 26.5 L (39.0-53.0) % MCV 105.0 H (80.0-100.0) fL Chloride 108 H (98-107) mmol/L Carbon Dioxide 21 L (22-30) mmol/L BUN 42 H (9-20) mg/dL Creatinine 1.92 H (0.66-1.25) mg/dL Glucose 112 H (74-99) mg/dL POC Glucose (mg/dL) 101 H (75-99) mg/dL Total Protein 5.9 L (6.3-8.2) g/dL Albumin 3.4 L (3.5-5.0) g/dL Assessment and Plan Plan: Assessment 1 Multivessel coronary artery disease/diffuse triple-vessel coronary artery disease status post carotid bypass surgery. The patient underwent 5-vessel bypass. Currently postop day #5 2 postoperative atrial fibrillation, currently rhythm is sinus on oral amiodarone 3 skeletal postsurgical pain, expected and improved 4 postoperative anemia with a hemoglobin of 8.3 5 postoperative thrombocytopenia, recovering 6 hypertension 7 hyperlipidemia 8 chronic renal failure, creatinine is at 1.9 9 hypothyroidism 10 chronic back pain 11 obstructive sleep apnea. Plan Ambulate. Provide an incentive spirometer. Hemoglobin stable at 8.3. Renal function stable at a creatinine of 1.9. He is on oral amiodarone. Rest of the cardiac medications are unchanged. Transfer this patient to Rehabilitation by Sunday
--- NOTE | 2017-01-27 14:52 | P.PN ---
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 Preserved left ventricular function. Hypertension. History of pulmonary embolus. Obstructive sleep apnea with CPAP use. History of syncope. Hypothyroid. History of cardiac arrest. Chronic kidney disease stage III. Chronic low back pain. Previous tobacco dependence. Family history of coronary artery disease. POD #5 urgent quadruple coronary artery bypass grafting with left internal mammary artery to the left anterior descending artery, reverse saphenous vein graft from the aorta to the first diagonal artery, reverse saphenous vein graft from the aorta to the obtuse marginal artery, and reverse saphenous vein graft from the aorta sequentially in a [id number] fashion to the posterior descending artery, then in an end to side fashion to the posterolateral branch of the right coronary artery. Bilateral endoscopic vein harvest except for the left below knee segment. Epi-aortic scanning. Intraoperative transesophageal echocardiogram. Graft flow measurement using the [email or web address] system. Postoperative atrial fibrillation, inherent outcome of surgery. Currently sitting up in a recliner in no acute distress. Denies pain, shortness of breath. Is in a very good mood and states he is feeling better than the previous several days. Has ambulated in the hallway. Objective - Vital Signs Vital signs: Vital Signs Temp 96.4 F L 01/27/17 12:00 Pulse 56 L 01/27/17 12:00 Resp 16 01/27/17 12:00 BP 151/84 01/27/17 12:00 Pulse Ox 95 01/27/17 12:00 Intake & Output 01/26/17 01/27/17 01/27/17 18:59 06:59 18:59 Intake Total 1044 360 Output Total 577 1075 300 Balance 467 -715 -300 Weight 100.7 kg Intake: Intake, IV Titration 40 Amount Heparin Sodium,Porcine/ 40 D5w Pmx 25,000 unit In Dextrose/Water 1 500ml. bag @ 10.2 UNITS/KG/HR 19 .97 mls/hr IV .Q24H [facility] Rx#:[id number] Oral 1004 360 Output: Urine 575 1075 300 Stool 2 Other: Voiding Method Urinal # Voids 1 # Bowel Movements 1 ABP, PAP, CO, CI - Last Documented Arterial Blood Pressure 113/56 Pulmonary Artery Pressure 32/16 Cardiac Output 6.4 Cardiac Index 3.2 - Constitutional General appearance: Present: cooperative, no acute distress - Respiratory Details: Lungs sounds diminished bilaterally. Respirations even, nonlabored. Currently on room air with oxygen saturation 95%. Able to achieve 1250 mL on his incentive spirometer. - Cardiovascular Details: S1, S2 present. Regular rate and rhythm, sinus rhythm to sinus bradycardia on telemetry. Sternum stable. Palpable pulses bilaterally. Trace bilateral lower extremity edema present. Teds/SCDs present. - Gastrointestinal Gastrointestinal Comment(s): Abdomen soft, nontender, nondistended. Active bowel sounds 4 quadrants. Tolerating diet. Positive bowel movement. - Genitourinary Genitourinary Comment(s): Continues to void clear, yellow urine. - Integumentary Integumentary Comment(s): Anterior chest incision well approximated with Dermabond dressing. Bilateral lower extremity EVH sites well approximated but with ecchymosis. - Neurologic Neurologic: Present: CNII-XII intact - Musculoskeletal Musculoskeletal: Present: gait normal, strength equal bilaterally - Psychiatric Psychiatric: Present: A&O x's 3, appropriate affect, intact judgment & insight - Allied health notes Allied health notes reviewed: nursing - Labs CBC & Chem 7: 01/27/17 06:31 01/27/17 06:31 Labs: Abnormal Lab Results - Last 24 Hours (Table) 01/26/17 01/27/17 01/27/17 Range/Units 20:50 02:04 05:34 RBC (4.30-5.90) m/uL Hgb (13.0-17.5) gm/dL Hct (39.0-53.0) % MCV (80.0-100.0) fL Chloride (98-107) mmol/L Carbon Dioxide (22-30) mmol/L BUN (9-20) mg/dL Creatinine (0.66-1.25) mg/dL Glucose (74-99) mg/dL POC Glucose (mg/dL) 144 H 136 H 134 H (75-99) mg/dL Total Protein (6.3-8.2) g/dL Albumin (3.5-5.0) g/dL 01/27/17 01/27/17 01/27/17 Range/Units 06:31 06:31 11:33 RBC 2.52 L (4.30-5.90) m/uL Hgb 8.3 L (13.0-17.5) gm/dL Hct 26.5 L (39.0-53.0) % MCV 105.0 H (80.0-100.0) fL Chloride 108 H (98-107) mmol/L Carbon Dioxide 21 L (22-30) mmol/L BUN 42 H (9-20) mg/dL Creatinine 1.92 H (0.66-1.25) mg/dL Glucose 112 H (74-99) mg/dL POC Glucose (mg/dL) 101 H (75-99) mg/dL Total Protein 5.9 L (6.3-8.2) g/dL Albumin 3.4 L (3.5-5.0) g/dL - Imaging and Cardiology Chest x-ray: report reviewed, image reviewed Assessment and Plan (1) Chest pain Status: Acute (2) Hypertension Status: Acute (3) History of pulmonary embolism Status: Acute (4) History of cardiac arrest Status: Acute (5) Hypothyroid Status: Acute (6) Chronic kidney disease Status: Acute (7) Tobacco dependence in remission Status: Acute (8) Family history of coronary artery disease Status: Acute (9) Chronic low back pain Status: Acute (10) History of syncope Status: Acute (11) Obstructive sleep apnea on CPAP Status: Acute Plan: 1. Continue aspirin, Lipitor, Plavix, Lopressor. Will maximize beta skip therapy as tolerated. Hytrin restarted 2. Continue amiodarone for atrial fibrillation prophylaxis. 3. Restart home losartan dose versus hydralazine for blood pressure control. Will discuss with nephrology for their recommendation. 3. Encourage incentive spirometry use. 4. Increase activity. Ambulate in hallway. Physical therapy to follow. 5. GI/DVT prophylaxis. 6. Daily labs, chest x-rays 7. Insulin management per primary care service 8. More recommendations as patient progresses. Discharge planning in progress. Will likely discharge to [facility] inpatient rehab on Sunday. Time with Patient: Greater than 30
[2017-01-27] MEDS: LOSARTAN 50 MG TAB PO SCH (16:27)
[2017-01-27] MEDS: TERAZOSIN 5 MG CAP PO SCH (16:27)
[2017-01-27 17:03] LABS: Glucose,Whole Blood 116 mg/dL (75-99)
[2017-01-27 21:03] LABS: Glucose,Whole Blood 148 mg/dL (75-99)
[2017-01-27] MEDS: SENNOSIDES-DOCUSATE SODIUM 1 EACH TAB PO SCH (21:45)
[2017-01-27] MEDS: MONTELUKAST 10 MG TAB PO SCH (21:45)
[2017-01-28 01:51] LABS: Glucose,Whole Blood 132 mg/dL (75-99)
[2017-01-28] MEDS: HYDROcodone/APAP 10-325MG 1 EACH TAB PO PRN ×2 (04:41→21:13)
[2017-01-28 05:54] LABS: Glucose,Whole Blood 120 mg/dL (75-99)
[2017-01-28] MEDS: INSULIN LISPRO (humaLOG) 300 UNIT/3 ML VIAL SQ SCH ×4 (06:06→21:06)
[2017-01-28] MEDS: PANTOPRAZOLE 40 MG TABLET PO SCH (06:30)
[2017-01-28] MEDS: LEVOTHYROXINE 75 MCG TAB PO SCH (06:30)
[2017-01-28 06:38] LABS: Basophils % (A) 0 %; CHCM 32.3; Eosinophils # (A) 0.4 k/uL (0-0.7); Eosinophils % (A) 6 %; HCT 22.7 % (39.0-53.0); HDW 2.65; HGB 7.2 gm/dL (13.0-17.5); Luc # (Auto) 0.18; Luc % (Auto) 2; Lymphocytes # (A) 0.8 k/uL (1.0-4.8); Lymphocytes % (A) 11 %; MCH 32.5 pg (25.0-35.0); MCHC 31.7 g/dL (31.0-37.0); MCV 102.7 fL (80.0-100.0); Macrocytosis Slight; Mean Platelet Volume 8.1; Monocytes # (A) 0.4 k/uL (0-1.0); Monocytes % (A) 6 %; Neutrophils # (A) 5.4 k/uL (1.3-7.7); Neutrophils % (A) 75 %; RBC 2.21 m/uL (4.30-5.90); RDW 13.6 % (11.5-15.5); WBC 7.2 k/uL (3.8-10.6)
[2017-01-28 06:56] LABS: Calcium 8.4 mg/dL (8.4-10.2); Potassium 4.6 mmol/L (3.5-5.1)
[2017-01-28] MEDS: AMIODARONE 200 MG TAB PO SCH ×2 (09:16→21:13)
[2017-01-28] MEDS: ASPIRIN 325 MG TAB PO SCH (09:16)
[2017-01-28] MEDS: CITALOPRAM HYDROBROMIDE 20 MG TAB PO SCH (09:17)
[2017-01-28] MEDS: METOPROLOL TARTRATE 50 MG TAB PO SCH ×2 (09:17→21:13)
[2017-01-28] MEDS: CLOPIDOGREL 75 MG TAB PO SCH (09:17)
[2017-01-28] MEDS: ATORVASTATIN 40 MG TAB PO SCH (09:17)
[2017-01-28] MEDS: SIMETHICONE 80 MG CHEWABLE PO SCH ×4 (09:17→21:12)
[2017-01-28] MEDS: TERAZOSIN 5 MG CAP PO SCH (09:17)
[2017-01-28] MEDS: LOSARTAN 50 MG TAB PO SCH (09:17)
[2017-01-28] MEDS: HEPARIN SODIUM,PORCINE 5,000 UNIT/ML 1 ML VIAL SQ SCH ×3 (09:18→23:19)
[2017-01-28] MEDS: POLYETHYLENE GLYCOL 3350 17 GM POWD.PACK PO SCH (09:18)
--- NOTE | 2017-01-28 10:38 | P.PN ---
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 Preserved left ventricular function. Hypertension. History of pulmonary embolus. Obstructive sleep apnea with CPAP use. History of syncope. Hypothyroid. History of cardiac arrest. Chronic kidney disease stage III. Chronic low back pain. Previous tobacco dependence. Family history of coronary artery disease. POD #6 urgent quadruple coronary artery bypass grafting with left internal mammary artery to the left anterior descending artery, reverse saphenous vein graft from the aorta to the first diagonal artery, reverse saphenous vein graft from the aorta to the obtuse marginal artery, and reverse saphenous vein graft from the aorta sequentially in a [id number] fashion to the posterior descending artery, then in an end to side fashion to the posterolateral branch of the right coronary artery. Bilateral endoscopic vein harvest except for the left below knee segment. Epi-aortic scanning. Intraoperative transesophageal echocardiogram. Graft flow measurement using the [employer] system. Postoperative atrial fibrillation, inherent outcome of surgery. Currently sitting up in a chair in no acute distress. Denies pain, shortness of breath. Has ambulated in the hallway. Objective - Vital Signs Vital signs: Vital Signs Temp 98 F 01/28/17 08:00 Pulse 66 01/28/17 08:00 Resp 16 01/28/17 08:00 BP 117/68 01/28/17 08:00 Pulse Ox 99 01/28/17 08:00 Intake & Output 01/27/17 01/28/17 01/28/17 18:59 06:59 18:59 Intake Total 240 Output Total 800 1200 Balance -560 -1200 Weight 100.8 kg Intake: Oral 240 Output: Urine 800 1200 Other: Voiding Method Urinal # Voids 2 1 2 # Bowel Movements 0 ABP, PAP, CO, CI - Last Documented Arterial Blood Pressure 113/56 Pulmonary Artery Pressure 32/16 Cardiac Output 6.4 Cardiac Index 3.2 - Constitutional General appearance: Present: cooperative, no acute distress - Respiratory Details: Lung sounds diminished bilaterally. Resp even/non-labored. Currently on room air with oxygen saturation 95%. Able to achieve 2000 ml on his incentive spirometry. - Cardiovascular Details: S1/S2 present. Reg rate and rhythm, NSR on telemetry. Sternum stable. A/V epicardial pacemaker wires present/capped. Heart hugger in place with patient demonstrating appropriate use. No edema present. Palpable pulses bilaterally. Teds/SCDs in place. - Gastrointestinal Gastrointestinal Comment(s): Abd soft/non-tender/non-distended. Active bowel sounds x 4 quad. Tolerating diet. - Genitourinary Genitourinary Comment(s): Continues to void clear yellow urine. - Integumentary Integumentary Comment(s): Ant chest incision well approximated with Dermabond dressing. - Neurologic Neurologic: Present: CNII-XII intact - Musculoskeletal Musculoskeletal: Present: gait normal, strength equal bilaterally - Psychiatric Psychiatric: Present: A&O x's 3, appropriate affect, intact judgment & insight - Allied health notes Allied health notes reviewed: nursing - Labs CBC & Chem 7: 01/28/17 06:13 01/28/17 06:13 Labs: Abnormal Lab Results - Last 24 Hours (Table) 01/27/17 01/27/17 01/27/17 Range/Units 11:33 16:55 21:02 RBC (4.30-5.90) m/uL Hgb (13.0-17.5) gm/dL Hct (39.0-53.0) % MCV (80.0-100.0) fL Lymphocytes # (1.0-4.8) k/uL Chloride (98-107) mmol/L BUN (9-20) mg/dL Creatinine (0.66-1.25) mg/dL Glucose (74-99) mg/dL POC Glucose (mg/dL) 101 H 116 H 148 H (75-99) mg/dL 01/28/17 01/28/17 01/28/17 Range/Units 01:50 05:53 06:13 RBC 2.21 L (4.30-5.90) m/uL Hgb 7.2 L (13.0-17.5) gm/dL Hct 22.7 L (39.0-53.0) % MCV 102.7 H (80.0-100.0) fL Lymphocytes # 0.8 L (1.0-4.8) k/uL Chloride (98-107) mmol/L BUN (9-20) mg/dL Creatinine (0.66-1.25) mg/dL Glucose (74-99) mg/dL POC Glucose (mg/dL) 132 H 120 H (75-99) mg/dL 08/13/17 Range/Units 06:13 RBC (4.30-5.90) m/uL Hgb (13.0-17.5) gm/dL Hct (39.0-53.0) % MCV (80.0-100.0) fL Lymphocytes # (1.0-4.8) k/uL Chloride 108 H (98-107) mmol/L BUN 38 H (9-20) mg/dL Creatinine 1.83 H (0.66-1.25) mg/dL Glucose 107 H (74-99) mg/dL POC Glucose (mg/dL) (75-99) mg/dL Assessment and Plan (1) Chest pain Status: Acute (2) Hypertension Status: Acute (3) History of pulmonary embolism Status: Acute (4) History of cardiac arrest Status: Acute (5) Hypothyroid Status: Acute (6) Chronic kidney disease Status: Acute (7) Tobacco dependence in remission Status: Acute (8) Family history of coronary artery disease Status: Acute (9) Chronic low back pain Status: Acute (10) History of syncope Status: Acute (11) Obstructive sleep apnea on CPAP Status: Acute Plan: 1. Continue aspirin, Lipitor, Plavix, Lopressor. Will maximize beta skip therapy as tolerated. Hytrin restarted yesterday 2. Continue amiodarone for atrial fibrillation prophylaxis. 3. Restarted home losartan dose yesterday per nephrology recommendations. BP under better control 3. Encourage incentive spirometry use. 4. Increase activity. Ambulate in hallway. Physical therapy following. 5. GI/DVT prophylaxis. 6. Daily labs, chest x-rays 7. Insulin management per primary care service 8. More recommendations as patient progresses. Discharge planning in progress. Will likely discharge to [facility] inpatient rehab on Sunday. Time with Patient: Greater than 30
--- NOTE | 2017-01-28 11:37 | P.PN ---
Subjective Principal diagnosis: Severe CAD This is a pleasant 81-year-old gentleman who presented to the hospital with a chest discomfort and underwent a heart catheterization by Dr. 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 The patient underwent CABG yesterday. He is maintaining normal sinus mechanism. He is hemodynamically stable. The patient is on dual antiplatelet therapy, amiodarone, beta skip, and statin. The plan is to go to rehab this coming Sunday. Objective - Vital Signs Vital signs: Vital Signs Temp 98 F 01/28/17 08:00 Pulse 66 01/28/17 08:00 Resp 16 01/28/17 08:00 BP 117/68 01/28/17 08:00 Pulse Ox 99 01/28/17 08:00 Intake & Output 01/27/17 01/28/17 01/28/17 18:59 06:59 18:59 Intake Total 240 Output Total 800 1200 400 Balance -560 -1200 -400 Weight 100.8 kg Intake: Oral 240 Output: Urine 800 1200 400 Other: Voiding Method Urinal # Voids 2 1 2 # Bowel Movements 0 ABP, PAP, CO, CI - Last Documented Arterial Blood Pressure 113/56 Pulmonary Artery Pressure 32/16 Cardiac Output 6.4 Cardiac Index 3.2 - Constitutional General appearance: Present: no acute distress - Respiratory Respiratory: bilateral: CTA - Cardiovascular Rhythm: regular Heart sounds: normal: S1, S2 - Labs CBC & Chem 7: 01/28/17 06:13 01/28/17 06:13 Labs: Abnormal Lab Results - Last 24 Hours (Table) 01/27/17 01/27/17 01/27/17 Range/Units 11:33 16:55 21:02 RBC (4.30-5.90) m/uL Hgb (13.0-17.5) gm/dL Hct (39.0-53.0) % MCV (80.0-100.0) fL Lymphocytes # (1.0-4.8) k/uL Chloride (98-107) mmol/L BUN (9-20) mg/dL Creatinine (0.66-1.25) mg/dL Glucose (74-99) mg/dL POC Glucose (mg/dL) 101 H 116 H 148 H (75-99) mg/dL 01/28/17 01/28/17 01/28/17 Range/Units 01:50 05:53 06:13 RBC 2.21 L (4.30-5.90) m/uL Hgb 7.2 L (13.0-17.5) gm/dL Hct 22.7 L (39.0-53.0) % MCV 102.7 H (80.0-100.0) fL Lymphocytes # 0.8 L (1.0-4.8) k/uL Chloride (98-107) mmol/L BUN (9-20) mg/dL Creatinine (0.66-1.25) mg/dL Glucose (74-99) mg/dL POC Glucose (mg/dL) 132 H 120 H (75-99) mg/dL 01/28/17 Range/Units 06:13 RBC (4.30-5.90) m/uL Hgb (13.0-17.5) gm/dL Hct (39.0-53.0) % MCV (80.0-100.0) fL Lymphocytes # (1.0-4.8) k/uL Chloride 108 H (98-107) mmol/L BUN 38 H (9-20) mg/dL Creatinine 1.83 H (0.66-1.25) mg/dL Glucose 107 H (74-99) mg/dL POC Glucose (mg/dL) (75-99) mg/dL Assessment and Plan Plan: Clinically the patient is doing well. Hemodynamically he is a stable beside being slightly hypertensive. We'll continue monitor the blood pressure and heart rate. Continue the current medical treatment.
[2017-01-28 12:16] LABS: Glucose,Whole Blood 114 mg/dL (75-99)
[2017-01-28] MEDS: FERROUS SULFATE 325 MG TAB PO SCH ×2 (12:21→17:35)
[2017-01-28] MEDS: MULTIVITAMINS, THERA 1 EACH TAB PO SCH (12:21)
--- NOTE | 2017-01-28 13:15 | P.PN ---
Subjective This is a very pleasant 81-year-old gentleman follows with Dr. Antonio as his primary care physician. He has a history of esophageal reflux disease, hypertension, pulmonary embolism causing cardiac arrest in 1985, obstructive sleep apnea, hypothyroidism, arthritis, chronic back pain, multiple orthopedic surgeries, depression. He has a remote history of smoking for approximate 10 years 1-2 packs per day but quit 43 years ago. He presented here on 01/15/2017 with complaints of left-sided chest pain. He had been seen and followed by cardiology. He had undergone a stress testing which revealed some evidence of ischemia with subsequent cardiac catheterization revealing diffuse triple- vessel disease including a 50-60% left main stenosis, 90% LAD stenosis, 50% circumflex and 85-90% right coronary artery stenosis. Echocardiogram revealed preserved left ventricular systolic function with estimated ejection fraction 55 -60%. CT angiogram ruled out pulmonary embolism. The lungs were clear of consolidation. No pleural effusion. He is seen today in consultation in anticipation of coronary artery revascularization on 01/22/2017. He is awake and alert in no acute distress. He has been up ambulating in the hallway without any significant chest discomfort, no palpitations, lightheadedness or dizziness. No worsening shortness of breath. No cough or congestion. No leukocytosis. Hemoglobin 12.8. Creatinine 2.07. He is maintaining good O2 saturations in the upper 90s on room air. He is afebrile. Hemodynamically stable. The patient is seen again today 01/20/2017 in follow-up on the selective care unit. He is awake and alert in no acute distress. He is now ambulating in the hallway. He states he did have some level of anxiety last evening and did receive Xanax. He slept well after that. He denies any chest pain currently. No shortness of breath cough or congestion. Continues to maintain good O2 saturations in the high 90s on room air. He is afebrile. Hemodynamically stable. His creatinine is improving currently 1.81. On 01/22/2017 I'm seeing this patient in follow-up. The patient underwent coronary artery bypass surgery, 5-vessel bypass and currently is in the intensive care unit. He is on sedation with 25 mics of the prevent. Is on a mechanical ventilator on assist control mode rate of 12, tidal volume of 500, FiO2 of 100% and PEEP of 5. The blood gases showed a pH of 7.28 with a pCO2 of 48 and pO2 of 381. Based on this, I increase the tidal volume to 600 and drop the FiO2 down to 50%. His chest x-ray showed adequate expansion of both lungs. There may be a component of volume overload. Left basilar atelectatic changes seen. The patient has an ET tube in place, NG tube in place, 2 pleural chest tubes the right and left and mediastinal chest tube in place, and [place]- Y[place]ia catheter in place. Cardiac output is 10 with an index of 5.0. PA artery pressures are 32/15. Producing adequate amount of urine output. Ultrasound the chest tubes out approximately 30-40 mL an hour from each of the chest tubes. Postoperative hemoglobin is at 7.7 with a platelet count of 67. The patient has a component of chronic renal failure. Postoperative renal function showed a creatinine of 1.42. On 01/23/2017 I'm seeing this patient in follow-up. The patient underwent four- vessel bypass surgery. The patient was weaned off the mechanical ventilator other major difficulties and he was extubated yesterday at around 9 PM. It morning it is on oxygen at 2 L per minute nasal cannula. His chest x-ray showing postoperative surgical changes with some elevation of left hemidiaphragm. The mediastinal chest tubes and pleural chest tubes are all in place. Output from the chest tube has been approximately 50 mL an hour total. The patient did not require any packed RBC transfusions. His hemoglobin is up to 8.6. The patient also has a chronic renal failure. Creatinine is at 2.0. Producing adequate amount of urine output. No nausea. No vomiting no focal logical deficits. The patient was seen again on 01/24/2017 in follow-up in the intensive care unit. He is currently resting fairly comfortably in bed. He is awake and alert in no acute distress. Pain is fairly well controlled. He's been gaining good O2 saturations in the mid to upper 90s on 2 L/m per nasal cannula. He is afebrile. His chest x-ray reveals persistent bilateral consolidations with small effusions. His right and mediastinal chest tubes have been discontinued. He's been hemodynamically stable. Currently on no drips. On 01/25/2017 the patient is being seen in follow-up on a medical surgical floor with telemetry. The left pleural chest tube was also removed. The patient is pulling approximately thousand on incentive spirometer. Is on 2 L of oxygen nasal cannula. Further wound is dry clean and intact. No nausea. No vomiting. No syncope shortness of breath. He would like to gradually increase the level of activity as tolerated. He is tolerating his diet. No nausea. No vomiting. No abdominal distention. No emesis. He'll be given a laxative today. His hemoglobin is stable at 8.7. Renal function is impaired give the patient is a chronic renal failure. Creatinine is at 2.2. On 01/26/2017 the patient is being seen in follow-up. He has no specific complaints. Overnight he went into an atrial fibrillation with rapid ventricular response. He was started on amiodarone drip and he converted back to normal sinus rhythm. Note that the left-sided chest tube has been removed. The patient was also given IV heparin which was discontinued. No plans for long -term anticoagulation. The patient is being loaded with amiodarone for now. He is pulling more than 1000 on his incentive spirometer. His presenting good control. He is sitting up on a chair. Is tolerating his diet. No nausea or vomiting. No chest pain. Chest x-ray shows no evidence of any pneumothorax and is essentially postsurgical changes, post thoracotomy. On 01/27/2017, the patient is doing good. He has no specific complaints. He has completed the amiodarone loading, and currently is on oral amiodarone 400 mg by mouth twice a day. He is doing well otherwise. All of the chest tubes have been removed. The chest x-ray from today shows stable left-sided pleural effusion. There is also atelectatic changes in lung bases and a moderate-sized hiatal hernia. He is afebrile. He is hemodynamically stable. Sternum stable clean and intact. On 01/28/2017 the patient has no specific complaints. Sternal sinus rhythm. The patient isn't currently is off oxygen. Ambulating in the hallway. Sternum is stable clean and intact. No fever. No other complaints otherwise. ECF discharge probably by tomorrow. Hemoglobin stable at 7.2. Function is stable with a creatinine of 1.8. Objective - Vital Signs Vital signs: Vital Signs Temp 98 F 01/28/17 08:00 Pulse 66 01/28/17 08:00 Resp 16 01/28/17 08:00 BP 117/68 01/28/17 08:00 Pulse Ox 99 01/28/17 08:00 Intake & Output 01/27/17 01/28/17 01/28/17 18:59 06:59 18:59 Intake Total 240 Output Total 800 1200 400 Balance -560 -1200 -400 Weight 100.8 kg Intake: Oral 240 Output: Urine 800 1200 400 Other: Voiding Method Urinal # Voids 2 1 2 # Bowel Movements 0 ABP, PAP, CO, CI - Last Documented Arterial Blood Pressure 113/56 Pulmonary Artery Pressure 32/16 Cardiac Output 6.4 Cardiac Index 3.2 - Exam Head exam was generally normal. There was no scleral icterus or corneal arcus. Mucous membranes were moist.Neck was supple and without jugular venous distension, thyromegaly, or carotid bruits. Carotids were easily palpable bilaterally. There was no adenopathy. Lung sounds are diminished bilaterally especially in the lung bases. Heart sounds are regular, sternum stable clean and intact. Normal S1-S2. No significant murmurs appreciated.Abdominal exam revealed normal bowel sounds. The abdomen was soft, non-tender, and without masses, organomegaly, or appreciable enlargement of the abdominal aorta. Extremities are slightly edematous. Surgical wound sites are clean and that WESLY drains are removed. Neurologically the patient is awake and alert. No focal neurological deficit at this point. - Labs CBC & Chem 7: 01/28/17 06:13 01/28/17 06:13 Labs: Abnormal Lab Results - Last 24 Hours (Table) 01/27/17 01/27/17 01/28/17 Range/Units 16:55 21:02 01:50 RBC (4.30-5.90) m/uL Hgb (13.0-17.5) gm/dL Hct (39.0-53.0) % MCV (80.0-100.0) fL Lymphocytes # (1.0-4.8) k/uL Chloride (98-107) mmol/L BUN (9-20) mg/dL Creatinine (0.66-1.25) mg/dL Glucose (74-99) mg/dL POC Glucose (mg/dL) 116 H 148 H 132 H (75-99) mg/dL 01/28/17 01/28/17 01/28/17 Range/Units 05:53 06:13 06:13 RBC 2.21 L (4.30-5.90) m/uL Hgb 7.2 L (13.0-17.5) gm/dL Hct 22.7 L (39.0-53.0) % MCV 102.7 H (80.0-100.0) fL Lymphocytes # 0.8 L (1.0-4.8) k/uL Chloride 108 H (98-107) mmol/L BUN 38 H (9-20) mg/dL Creatinine 1.83 H (0.66-1.25) mg/dL Glucose 107 H (74-99) mg/dL POC Glucose (mg/dL) 120 H (75-99) mg/dL 01/28/17 Range/Units 11:59 RBC (4.30-5.90) m/uL Hgb (13.0-17.5) gm/dL Hct (39.0-53.0) % MCV (80.0-100.0) fL Lymphocytes # (1.0-4.8) k/uL Chloride (98-107) mmol/L BUN (9-20) mg/dL Creatinine (0.66-1.25) mg/dL Glucose (74-99) mg/dL POC Glucose (mg/dL) 114 H (75-99) mg/dL Assessment and Plan Plan: Assessment 1 Multivessel coronary artery disease/diffuse triple-vessel coronary artery disease status post carotid bypass surgery. The patient underwent 5-vessel bypass. Currently postop day #6 2 postoperative atrial fibrillation, currently rhythm is sinus on oral amiodarone 3 skeletal postsurgical pain, expected and improved 4 postoperative anemia with a hemoglobin of 7.2. We'll monitor the hemoglobin. No signs of any bleeding. 5 postoperative thrombocytopenia, recovering 6 hypertension 7 hyperlipidemia 8 chronic renal failure, creatinine is at 1.8, and this is a stable renal function. 9 hypothyroidism 10 chronic back pain 11 obstructive sleep apnea. Plan Ambulate. Provide an incentive spirometer. Continue supportive care. Clinically stable. Will follow. Transfer to [facility] by tomorrow. Blood pressures under good control. The patient was started on losartan. The patient is also on a combination of aspirin, Plavix, Lipitor and Lopressor. Amiodarone was being given for atrial fibrillation prophylaxis.
[2017-01-28 13:48] VITALS: RESP 18
[2017-01-28 16:31] LABS: Glucose,Whole Blood 118 mg/dL (75-99)
[2017-01-28 21:01] LABS: Glucose,Whole Blood 126 mg/dL (75-99)
[2017-01-28] MEDS: MONTELUKAST 10 MG TAB PO SCH (21:13)
[2017-01-28] MEDS: SENNOSIDES-DOCUSATE SODIUM 1 EACH TAB PO SCH (21:13)
--- NOTE | 2017-01-28 22:27 | PN ---
DATE OF SERVICE: 01/27/17 This 81-year-old gentleman who was admitted with CAD, CABG is improving significantly. No chest pain. No palpitations. No fever. Inpatient rehab is considered. PHYSICAL EXAMINATION: On exam, the patient is alert and oriented times three. Pulse 56. Blood pressure 151/84. Respiratory rate 16. Temperature 97.4. Pulse ox 94% on room air. HEENT: Conjunctivae normal. NECK: no JVD. CARDIOVASCULAR: S1, S2 muffled. RESPIRATORY: Breath sounds diminished at the bases. A few scattered rhonchi and crackles. Abdomen is soft. Nontender. Legs no edema. No swelling. Nervous system: Diffusely weak. LABS: Creatinine 1.9, hemoglobin 8.3. ASSESSMENT: 1. Coronary artery disease status post CABG. 2. Three vessel coronary artery disease. 3. Chronic kidney disease Stage III, stable. 4. Gait dysfunction. 5. Anemia. RECOMMENDATIONS AND DISCUSSION: Recommend to continue the current medications. Continue with monitoring and symptomatic treatment. Otherwise, we will monitor the creatinine closely. Continue PT/OT evaluation. Possible inpatient rehab. Further recommendations to follow. MTDD
[2017-01-29 02:08] LABS: Glucose,Whole Blood 157 mg/dL (75-99)
[2017-01-29] MEDS: HYDROcodone/APAP 10-325MG 1 EACH TAB PO PRN (05:29)
[2017-01-29] MEDS: INSULIN LISPRO (humaLOG) 300 UNIT/3 ML VIAL SQ SCH (06:10)
[2017-01-29 06:12] LABS: Glucose,Whole Blood 122 mg/dL (75-99)
[2017-01-29 06:35] LABS: Basophils % (A) 0 %; CHCM 31.7; Eosinophils # (A) 0.6 k/uL (0-0.7); Eosinophils % (A) 8 %; HCT 23.5 % (39.0-53.0); HDW 2.69; HGB 7.4 gm/dL (13.0-17.5); Hypochromasia Slight; Luc # (Auto) 0.14; Luc % (Auto) 2; Lymphocytes # (A) 0.9 k/uL (1.0-4.8); Lymphocytes % (A) 13 %; MCH 33.1 pg (25.0-35.0); MCHC 31.6 g/dL (31.0-37.0); MCV 104.8 fL (80.0-100.0); Macrocytosis Slight; Mean Platelet Volume 8.4; Monocytes # (A) 0.4 k/uL (0-1.0); Monocytes % (A) 6 %; Neutrophils # (A) 4.9 k/uL (1.3-7.7); Neutrophils % (A) 70 %; RBC 2.25 m/uL (4.30-5.90); RDW 14.2 % (11.5-15.5); WBC (Perox) 7.02
[2017-01-29 06:51] LABS: Calcium 8.5 mg/dL (8.4-10.2); Potassium 4.7 mmol/L (3.5-5.1)
[2017-01-29] MEDS: LEVOTHYROXINE 75 MCG TAB PO SCH (06:51)
[2017-01-29] MEDS: PANTOPRAZOLE 40 MG TABLET PO SCH (06:51)
[2017-01-29] MEDS: FERROUS SULFATE 325 MG TAB PO SCH (06:51)
[2017-01-29] MEDS: HEPARIN SODIUM,PORCINE 5,000 UNIT/ML 1 ML VIAL SQ SCH (08:34)
[2017-01-29] MEDS: AMIODARONE 200 MG TAB PO SCH (08:34)
[2017-01-29] MEDS: TERAZOSIN 5 MG CAP PO SCH (08:35)
[2017-01-29] MEDS: ATORVASTATIN 40 MG TAB PO SCH (08:35)
[2017-01-29] MEDS: CITALOPRAM HYDROBROMIDE 20 MG TAB PO SCH (08:36)
[2017-01-29] MEDS: SIMETHICONE 80 MG CHEWABLE PO SCH (08:36)
[2017-01-29] MEDS: LOSARTAN 50 MG TAB PO SCH (08:36)
[2017-01-29] MEDS: CLOPIDOGREL 75 MG TAB PO SCH (08:36)
[2017-01-29] MEDS: ASPIRIN 325 MG TAB PO SCH (08:36)
[2017-01-29] MEDS: METOPROLOL TARTRATE 50 MG TAB PO SCH (08:36)
[2017-01-29] MEDS: MULTIVITAMINS, THERA 1 EACH TAB PO SCH (08:37)
--- NOTE | 2017-01-29 09:39 | P.PN ---
Subjective Patient is seen in follow-up for acute kidney injury on chronic kidney disease. Patient has chronic kidney disease stage III with baseline creatinine in the range of 1.6-1.8 secondary to nephrosclerosis. Urinalysis is noted to be benign. Renal function today is mildly worsened with creatinine at 2. Patient had a CABG in 01/22/2017. Currently sitting up in chair. He's been ambulating to the best of his ability. Denies chest pain. Cozaar has been resumed and blood pressures are better controlled. Vital signs are stable. General: The patient appeared well nourished and normally developed. HEENT: Head exam is unremarkable. Neck is without jugular venous distension. LUNGS: Lungs are clear to auscultation and percussion. Breath sounds decreased. HEART: Rate and Rhythm are regular. First and second heart sounds normal. No murmurs, rubs or gallops. ABDOMEN: Abdominal exam reveals normal bowel sounds. Non-tender and non- distended. No evidence of peritonitis. EXTREMITITES: No clubbing, cyanosis, or edema. Objective - Vital Signs Vital signs: Vital Signs Temp 97.6 F 01/29/17 04:00 Pulse 54 L 01/29/17 04:00 Resp 18 01/29/17 04:00 BP 113/54 01/29/17 04:00 Pulse Ox 98 01/29/17 04:00 Intake & Output 01/28/17 01/29/17 01/29/17 18:59 06:59 18:59 Output Total 500 1325 Balance -500 -1325 Weight 98.2 kg Output: Urine 500 1325 Other: Voiding Method Urinal # Voids 2 1 # Bowel Movements 1 ABP, PAP, CO, CI - Last Documented Arterial Blood Pressure 113/56 Pulmonary Artery Pressure 32/16 Cardiac Output 6.4 Cardiac Index 3.2 - Labs CBC & Chem 7: 01/29/17 05:40 01/29/17 05:40 Labs: Abnormal Lab Results - Last 24 Hours (Table) 01/28/17 01/28/17 01/28/17 Range/Units 11:59 16:07 20:59 RBC (4.30-5.90) m/uL Hgb (13.0-17.5) gm/dL Hct (39.0-53.0) % MCV (80.0-100.0) fL Lymphocytes # (1.0-4.8) k/uL Chloride (98-107) mmol/L Carbon Dioxide (22-30) mmol/L BUN (9-20) mg/dL Creatinine (0.66-1.25) mg/dL Glucose (74-99) mg/dL POC Glucose (mg/dL) 114 H 118 H 126 H (75-99) mg/dL 01/29/17 01/29/17 01/29/17 Range/Units 02:06 05:40 05:40 RBC 2.25 L (4.30-5.90) m/uL Hgb 7.4 L (13.0-17.5) gm/dL Hct 23.5 L (39.0-53.0) % MCV 104.8 H (80.0-100.0) fL Lymphocytes # 0.9 L (1.0-4.8) k/uL Chloride 108 H (98-107) mmol/L Carbon Dioxide 21 L (22-30) mmol/L BUN 40 H (9-20) mg/dL Creatinine 2.00 H (0.66-1.25) mg/dL Glucose 104 H (74-99) mg/dL POC Glucose (mg/dL) 157 H (75-99) mg/dL 01/29/17 Range/Units 06:06 RBC (4.30-5.90) m/uL Hgb (13.0-17.5) gm/dL Hct (39.0-53.0) % MCV (80.0-100.0) fL Lymphocytes # (1.0-4.8) k/uL Chloride (98-107) mmol/L Carbon Dioxide (22-30) mmol/L BUN (9-20) mg/dL Creatinine (0.66-1.25) mg/dL Glucose (74-99) mg/dL POC Glucose (mg/dL) 122 H (75-99) mg/dL Assessment and Plan Plan: Assessment: #1. Nonoliguric acute kidney injury secondary to ischemic ATN status post CABG. Renal function a little worse with creatinine at 2 today. #2. Chronic kidney disease stage III secondary to nephrosclerosis with baseline creatinine in the range of 1.6-1.8. #3. Postoperative anemia. Hemoglobin 7.4 today. #4. Status post CABG on 01/22/2017. Plan: Continue to avoid nephrotoxic agents and hypotensive episodes. Continue physical therapy. Potential discharge to rehab today.
--- NOTE | 2017-01-29 11:40 | P.PN ---
Subjective Principal diagnosis: Severe symptomatic triple-vessel coronary artery disease, including left main stenosis, preserved left venticular function, history of pulmonary embolus, sleep apnea with CPAP, syncope, thyroid disorder, history of cyst on his kidneys with chronic kidney disease, stage III, hypertension and hyperlipidemia. POD #7 urgent quadruple coronary artery bypass grafting with left internal mammary artery to the left anterior descending artery, reverse saphenous vein graft from the aorta to the first diagonal artery, reverse saphenous vein graft from the aorta to the obtuse marginal artery, and reverse saphenous vein graft from the aorta sequentially in a [id number]-[id number] fashion to the posterior descending artery, then in an end to side fashion to the posterolateral branch of the right coronary artery. Bilateral endoscopic vein harvest except for the left below knee segment. Epi-aortic scanning. Intraoperative transesophageal echocardiogram. Graft flow measurement using the [employer] system. He is sitting up to the bedside chair, eating his breakfast. He denies complaints of pain, no acute distress. He does complain of some shortness of breath this morning. Objective - Vital Signs Vital signs: Vital Signs Temp 97.6 F 01/29/17 04:00 Pulse 54 L 01/29/17 04:00 Resp 18 01/29/17 04:00 BP 113/54 01/29/17 04:00 Pulse Ox 98 01/29/17 04:00 Intake & Output 01/28/17 01/29/17 01/29/17 18:59 06:59 18:59 Intake Total 240 Output Total 500 1325 Balance -500 -1325 240 Weight 98.2 kg Intake: Oral 240 Output: Urine 500 1325 Other: Voiding Method Urinal # Voids 2 1 # Bowel Movements 1 ABP, PAP, CO, CI - Last Documented Arterial Blood Pressure 113/56 Pulmonary Artery Pressure 32/16 Cardiac Output 6.4 Cardiac Index 3.2 - Constitutional General appearance: Present: cooperative, no acute distress - EENT Eyes: Present: PERRLA, normal appearance ENT: Present: hearing grossly normal - Neck Details: No JVD present - Respiratory Details: Essentially clear to his upper lobes, few scattered crackles to his bilateral lower lobes. Respirations are symmetrical and unlabored. His oxygen saturations are 98% on room air. He is achieving 1850 mL on his incentive spirometry. - Cardiovascular Details: Regular rhythm and rate. S1 and S2 present, negative for S3, gallop or murmur. Sternum is stable. Atrial and ventricular epicardial pacemaker wires present and grounded. Heart hugger in place, he is demonstrating appropriate use of his heart hugger. No edema present. Knee-high SUZY hose and sequential compression devices in place to his bilateral lower extremities. Remote telemetry showing normal sinus bradycardia heart rate 56 - Gastrointestinal Gastrointestinal Comment(s): Abdomen is soft, nontender, and nondistended. Positive bowel movement this a.m. Positive bowel sounds to all 4 abdominal quadrants. Tolerating oral intake - Genitourinary Genitourinary Comment(s): Adequate urine output, clear yellow urine. - Integumentary Integumentary Comment(s): Midline sternal incision clean dry and well approximated. Dermabond dressing clean dry and intact. No drainage noted. Bilateral leg EVH harvest sites clean dry and intact. No drainage noted. - Musculoskeletal Musculoskeletal: Present: gait normal, generalized weakness, strength equal bilaterally - Psychiatric Psychiatric: Present: A&O x's 3, appropriate affect, intact judgment & insight - Allied health notes Allied health notes reviewed: nursing - Labs CBC & Chem 7: 01/29/17 05:40 01/29/17 05:40 Labs: Abnormal Lab Results - Last 24 Hours (Table) 01/28/17 01/28/17 01/28/17 Range/Units 11:59 16:07 20:59 RBC (4.30-5.90) m/uL Hgb (13.0-17.5) gm/dL Hct (39.0-53.0) % MCV (80.0-100.0) fL Lymphocytes # (1.0-4.8) k/uL Chloride (98-107) mmol/L Carbon Dioxide (22-30) mmol/L BUN (9-20) mg/dL Creatinine (0.66-1.25) mg/dL Glucose (74-99) mg/dL POC Glucose (mg/dL) 114 H 118 H 126 H (75-99) mg/dL 01/29/17 01/29/17 01/29/17 Range/Units 02:06 05:40 05:40 RBC 2.25 L (4.30-5.90) m/uL Hgb 7.4 L (13.0-17.5) gm/dL Hct 23.5 L (39.0-53.0) % MCV 104.8 H (80.0-100.0) fL Lymphocytes # 0.9 L (1.0-4.8) k/uL Chloride 108 H (98-107) mmol/L Carbon Dioxide 21 L (22-30) mmol/L BUN 40 H (9-20) mg/dL Creatinine 2.00 H (0.66-1.25) mg/dL Glucose 104 H (74-99) mg/dL POC Glucose (mg/dL) 157 H (75-99) mg/dL 01/29/17 Range/Units 06:06 RBC (4.30-5.90) m/uL Hgb (13.0-17.5) gm/dL Hct (39.0-53.0) % MCV (80.0-100.0) fL Lymphocytes # (1.0-4.8) k/uL Chloride (98-107) mmol/L Carbon Dioxide (22-30) mmol/L BUN (9-20) mg/dL Creatinine (0.66-1.25) mg/dL Glucose (74-99) mg/dL POC Glucose (mg/dL) 122 H (75-99) mg/dL Assessment and Plan (1) Chronic kidney disease, stage III (moderate) Status: Acute (2) CAD (coronary artery disease) Status: Acute (3) Chronic low back pain Status: Acute (4) Family history of coronary artery disease Status: Acute (5) History of pulmonary embolism Status: Acute (6) History of syncope Status: Acute (7) Hyperlipemia Status: Acute (8) Hypertension Status: Acute (9) Hypothyroid Status: Acute (10) Obstructive sleep apnea on CPAP Status: Acute (11) S/P cardiac catheterization Status: Acute (12) Tobacco dependence in remission Status: Acute Plan: 1. Continue aspirin, Lipitor, Plavix, and his Lopressor. 2. Continue amiodarone for atrial fibrillation prophylaxis. We will taper his amiodarone as scheduled. Amiodarone 400 mg by mouth twice a day 1 week, then decreased amiodarone 200 mg by mouth twice a day 1 week, then decrease to amiodarone 200 mg by mouth daily thereafter. 3. Losartan home dose has been added per nephrology recommendations. BP under better control 3. Encourage incentive spirometry use every hour while awake. 4. Increase activity. Ambulate in hallway. Physical therapy following. 5. GI/DVT prophylaxis. 6. Daily labs, chest x-rays 7. Insulin management per primary care service 8. His epicardial pacemaker wires were removed this a.m. and he will be on bed rest for 1 hour post pacemaker wire removal. 9. More recommendations as patient progresses. Discharge planning in progress. Will likely discharge to [facility] inpatient rehab today. His epicardial pacemaker wires were removed at 9:20 AM this morning without incident. He will be on bed rest for 1 hour post pacemaker wire removal. Time with Patient: Greater than 30
[2017-01-29 11:47] LABS: Glucose,Whole Blood 108 mg/dL (75-99)
--- NOTE | 2017-01-29 11:49 | CDI ---
In responding to this query, please exercise your independent professional judgment. The [facility] Coding Staff and Clinical Documentation Specialists appreciate your assistance in clarifying documentation, maintaining compliance with coding guidelines, accurately documenting patients condition and capturing severity of illness. The fact that a question is asked does not imply that any particular answer is desired or expected. Communication forms are a method of clarifying documentation and are not made part of the Legal Health Record. Thank you in advance for your clarification. Last Revision, Jul 2016 Jonathan Trotter [address] [place] [address] Documentation Clarification Form Date: 01/29/2017 11:26:00 AM From: Jenniferbrianda Sebastian Admit Date: 01/18/2017 8:16:00 AM Patient Name: Lebron Vila Visit Number: [id number] Discharge Date: Dr. Cece Heart Post operative atelectasis /effusion are documented in your progress note on 03/2017. Patients Admitting Diagnosis: Triple-vessel coronary artery disease Post-Operative Diagnosis: Same Procedure performed: 5-vessel bypass History/Risk Factors: Hypertension, Chronic renal failure stage III, Obstructive sleep apnea, Former smoker Clinical Indicators: The patient was weaned off the mechanical ventilator with out major difficulties. Chest x-ray showing postoperative surgical changes with some elevation of left hemidiaphragm. Vital Signs: 125/68 67 16 98.7 97 % 2/L NC Treatment: Incentive spirometer Monitor O2 Sat's (titrate) Duoneb's per orders In order to accurately reflect this patients severity of illness, please clarify if the post-operative atelectasis/small effusion diagnosis is: An expected post-procedural or post-surgical condition Integral to the procedure Inherent to the procedure An unexpected post-procedural or post-surgical condition, related to surgical care Other, please specify Unable to determine Please document in your progress notes in order to capture severity of illness and risk of mortality. Include clinical findings that support your diagnosis. FYI: Press F11 to launch patient chart MTDD
[2017-01-29 12:24] VITALS: BP 112/56; PULSE 78; TEMP 97.1
--- NOTE | 2017-01-29 12:47 | P.DS ---
Providers Date of admission: 01/18/17 08:16 Attending physician: Cristo Munoz Consults: 01/15/17 15:18 Consult Physician Urgent Consulting Provider: [facility] Consult Reason/Comments: Chest pain Do you want consulting provider notified?: Yes 01/18/17 08:57 Consult Physician Urgent Consulting Provider: Cristo Munoz Consult Reason/Comments: cad Do you want consulting provider notified?: Already Contacted 01/18/17 10:53 Consult Physician Routine Consulting Provider: Justo Monae Consult Reason/Comments: heel lift gouger management-preop cabg Do you want consulting provider notified?: Already Contacted 01/18/17 17:33 Consult Physician Routine Consulting Provider: Kacy Chang Consult Reason/Comments: crf Do you want consulting provider notified?: Yes 01/22/17 16:02 Consult Physician Routine Consulting Provider: Faizan Forbes Consult Reason/Comments: medical management Do you want consulting provider notified?: Already Contacted 01/25/17 17:46 Consult Physician Routine Consulting Provider: Davion Rowell Consult Reason/Comments: rehab recommendations Do you want consulting provider notified?: Yes Primary care physician: Cristo Munoz - Discharge Diagnosis(es) (1) Chronic kidney disease, stage III (moderate) Current Visit: Yes Status: Acute (2) CAD (coronary artery disease) Current Visit: Yes Status: Acute (3) Chronic low back pain Current Visit: Yes Status: Acute (4) Family history of coronary artery disease Current Visit: Yes Status: Acute (5) History of pulmonary embolism Current Visit: Yes Status: Acute (6) History of syncope Current Visit: Yes Status: Acute (7) Hyperlipemia Current Visit: Yes Status: Acute (8) Hypertension Current Visit: Yes Status: Acute (9) Hypothyroid Current Visit: Yes Status: Acute (10) Obstructive sleep apnea on CPAP Current Visit: Yes Status: Acute (11) S/P cardiac catheterization Current Visit: Yes Status: Acute (12) Tobacco dependence in remission Current Visit: Yes Status: Acute Hospital Course: FINAL DIAGNOSIS: 1. Symptomatic triple vessel coronary artery disease 2. Unstable angina 3. Preserved left ventricular function 4. Chronic kidney disease stage III 5. Hypertension 6. Hyperlipidemia 7. Hypothyroidism 8. History of pulmonary embolus 9. Sleep apnea 10. Postoperative acute blood loss anemia, expected outcome of surgery. 11. Postoperative paroxysmal atrial fibrillation, expected outcome of surgery. PRINCIPAL PROCEDURE: 1. Urgent quadruple coronary artery bypass grafting using the left internal mammary artery to the left anterior descending coronary artery, a reverse greater saphenous vein graft from the aorta to the first diagonal coronary artery, a reverse greater saphenous vein graft from the aorta to the obtuse marginal coronary artery, and a reverse greater saphenous vein graft from the aorta sequentially in a [id number] fashion to the posterior descending coronary artery and then in an end-to-side fashion to the posterior lateral branch of the right coronary artery. 2. Bilateral endoscopic vein harvest except for the left below the knee segment 3. Intraoperative transesophageal Echocardiogram, epi-aortic scanning, and medistim graft flow measurement. 4. Left heart catheterization HISTORY OF PRESENT ILLNESS: This is a 81-year-old gentleman who is followed by Dr. Guera Antonio on an outpatient basis. On 01/15/2017 the patient presented to the emergency department here at [facility] with complaints of chest pain which awoke him from his sleep. In the emergency Department the patient underwent a 12-lead EKG which showed normal sinus rhythm with no ischemic changes and his troponins were negative. A CTA scan of his chest was completed which was negative for pulmonary embolism. Subsequently due to his presenting symptoms the patient admitted for further cardiac workup and evaluation by Dr. VC Finn from [facility]. HOSPITAL COURSE: On 01/16/2017 the patient underwent a 2-D echocardiogram which showed normal sinus rhythm, trace tricuspid valve regurgitation, and mild concentric left ventricular hypertrophy with an overall left ventricular systolic function to be normal and an ejection fraction between 55 and 60%. Also on 01/16/2017 the patient underwent a Lexiscan stress test which was positive for pharmacologically induced left ventricular myocardial ischemia. Due to the patient's presenting symptoms and positive Lexiscan stress test and cardiac catheterization was recommended. On 01/17/2017 after obtaining consent the patient underwent a cardiac catheterization which demonstrated a 50-60% stenosis to his left main coronary artery, a 90% stenosis to his right coronary artery, a 50% stenosis to a circumflex coronary artery, and a 90% stenosis to his mid left anterior descending coronary artery. Heart catheterization results were reviewed with the patient and his family and an urgent coronary artery bypass grafting surgery was recommended. Subsequently Dr. Cristo Munoz from cardiothoracic surgery was consulted also reviewed the cardiac catheterization results findings with the patient and his family. After discussing the risks and benefits of undergoing a coronary artery bypass grafting surgery the patient decided to proceed with the surgery. On 2016 after obtaining consent the patient was taken to the operating room where Dr. Cristo Munoz performed an urgent quadruple coronary artery bypass grafting using the left internal mammary artery to the left anterior descending coronary artery, a reverse greater saphenous vein graft from the aorta to the first diagonal coronary artery, a reverse greater saphenous vein graft from the aorta to the obtuse marginal coronary artery, and a reverse greater saphenous vein graft from the aorta sequentially in a [id number] fashion to the posterior descending coronary artery and then in an end-to-side fashion to the posterior lateral branch of the right coronary artery. He also underwent bilateral endoscopic vein harvest except for the left below the knee segment, an intraoperative transesophageal Echocardiogram, epi-aortic scanning, and medistim graft flow measurement. He was transferred to the cardiovascular intensive care unit where he was recovered, monitored hemodynamically, and where he progressed cardiac rehabilitation phase 1. The patient was extubated, his drips and invasive lines were discontinued and he was subsequently transferred to [address] [place] [address] for further monitoring and rehabilitation. The patient did have some postoperative paroxysmal atrial fibrillation which was treated accordingly. Discharge instructions have been reviewed with the patient and his family and his questions have been answered. COMPLICATIONS: His postoperative period was complicated by some paroxysmal atrial fibrillation which was treated accordingly. CONSULTATIONS: 1. Dr. VC Finn for cardiology management 2. Dr. Chang for nephrology management 3. Dr. Monae for pulmonary and ventilator management\\ 4. Dr. Rowell for rehab management 5. Dr. Forbes for medical management DISCHARGE INSTRUCTIONS: 1. No driving for 4 weeks, or until physician gives their ok. 2. The patient should sleep in their own bed, no medical bed needed. 3. Stairs are not an issue. If the bedroom is upstairs, it is advised that the patient go up at night and down in the morning for the first week. Go slowly, using handrail and take 1 step at a time. 4. SUZY hose are to be worn for 30 days or until physician discontinues. 5. Heart hugger is to be worn 100% of the time until physician discontinues.( except when showering) 6. No lifting, pushing, or pulling more than 10 pounds for 12 weeks. The physician will advise of any restriction changes. 7. The patient is expected to continue the prescribed walking program. 8. Continue pain control per as needed orders. 9. Continue with incentive spirometry and splinting/heart hugger until otherwise directed by the physician. 10. Must shower daily using liquid antibacterial soap and a separate white washcloth for each individual incision. 11. Routine sternal incision care, no ointments, lotions or powders on the incisions. 12. Please notify surgeon/nurse practitioner for temperature greater than 101F or purulent drainage from incisions 13. Prescriptions for first 30 days given per cardiac surgery service. After 30 days, all prescription refills obtained through cardiology/primary care physician. 14. Physical therapy to evaluate and treat, occupational therapy to evaluate and treat. Inpatient rehab HEALTH SERVICES TO PROVIDE: RN SKILLED HOME CARE SERVICES FOR POST-OP SURGICAL PATIENTS WITH THE FOLLOWING: Coronary Artery Bypass Surgery (CABG), Mitral Valve Replacement/ Repair ( MVR), Aortic Valve Replacement/Repair (AVR) RN TO CONTINUE EDUCATION FROM ``ROAD TO A HEALTH HEART PATIENT EDUCATION MANUAL" (GIVEN TO PATIENT IN THE HOSPITAL) MEDICATION RECONCILIATION WITH EDUCATION NEEDED ON FIRST HOME VISIT EMPHASIZE IMPORTANCE OF WEARING BREAST SUPPORT/HEART HUGGER ENCOURAGE USE OF INCENTIVE SPIROMETER 10 X EVERY HOUR WHILE AWAKE ENCOURAGE UTILIZATION OF LOWER EXTREMITY COMPRESSION STOCKINGS/SUZY HOSE and ELEVATE LEGS ABOVE LEVEL OF HEART WHILE AT REST. ENCOURAGE AMBULATION 3-5x/day INCREASING TOLERATES, WHILE AVOID EXTREMES IN TEMPERATURE LABORATORY: CBC, CMP TO BE DRAWN ON THE THIRD DAY HOME, 02/01/2017 (RAN STAT ) FAX RESULTS TO [phone]. TELEHEALTH PARAMETERS: WEIGHT: NOTIFY MD OF WEIGHT GAIN OF 2 LBS IN 24 HOURS OR 5 LBS IN ONE WEEK HR: NOTIFY MD OF HR <55 BPM OR HR>100 BPM BP: NOTIFY MD IF BP <90/55 OR BP>140/100 O2 SAT: NOTIFY MD IF PO2<93% ON ROOM AIR SEND TELEHEALTH REPORT TO CLEARANCE COORDINATOR AND CARDIOVASCULAR SURGEON THE FIRST WEEK OF CARE AND THEN BI-WEEKLY. PLEASE ADDITIONALLY COMMUNICATE ANY ABNORMALS AND NEW FINDINGS TO THE SURGEONS OFFICE. The patient is being discharged home with a red band and project read has been discussed with the patient and his family. Discharge instructions for amiodarone 400 mg by mouth twice a day until 2016, then on 02/03/2017 amiodarone 200 mg by mouth twice a day 1 week, then decrease to amiodarone 200 mg by mouth daily thereafter. Plan - Discharge Summary New Discharge Prescriptions: New Heparin Sodium,Porcine [Heparin Sodium] 5,000 unit SQ Q8HR vial Amiodarone [Cordarone] 400 mg PO BID tab Aspirin 325 mg PO DAILY tab Atorvastatin [Lipitor] 40 mg PO DAILY tab Bisacodyl [Dulcolax] 10 mg RECTAL DAILY PRN suppositor PRN Reason: Constipation Citalopram Hydrobromide [CeleXA] 40 mg PO DAILY tab Clopidogrel [Plavix] 75 mg PO DAILY tab Darbepoetin Armando [Aranesp] 25 mcg SQ Q7D syr Ferrous Sulfate [Iron (65 MG Elemental)] 325 mg PO BID-W/MEALS tab Levothyroxine Sodium [Synthroid] 150 mcg PO DAILY@0630 tab Losartan [Cozaar] 50 mg PO DAILY tab Metoprolol Tartrate [Lopressor] 50 mg PO BID tab Montelukast [Singulair] 10 mg PO HS tab Multivitamins, Thera [Multivitamin (formulary)] 1 each PO DAILY@1200 tab Pantoprazole [Protonix] 40 mg PO AC-BRKFST tab Sennosides-Docusate Sodium [Senokot-S] 2 each PO HS tab Terazosin [Hytrin] 5 mg PO DAILY cap Changed HYDROcodone/APAP 7.5-325MG [[facility] 7.5-325] 1 - 2 tab PO Q6H #120 Discontinued Losartan Potassium 50 mg PO DAILY Levothyroxine Sodium [Synthroid] 150 mcg PO DAILY Citalopram Hydrobromide [Citalopram HBr] 40 mg PO DAILY Terazosin [Hytrin] 5 mg PO HS Aspirin EC [Ecotrin Low Dose] 81 mg PO DAILY Multivitamins, Thera [Multivitamin (formulary)] 1 tab PO DAILY Ranitidine HCl 300 mg PO BID Montelukast Sodium [Singulair] 10 mg PO HS Discharge Medication List HYDROcodone/APAP 7.5-325MG [[facility] 7.5-325] 1 - 2 tab PO Q6H #120 01/26/17 [Rx] Amiodarone [Cordarone] 400 mg PO BID tab 01/29/17 [Rx] Aspirin 325 mg PO DAILY tab 01/29/17 [Rx] Atorvastatin [Lipitor] 40 mg PO DAILY tab 01/29/17 [Rx] Bisacodyl [Dulcolax] 10 mg RECTAL DAILY PRN suppositor 01/29/17 [Rx] Citalopram Hydrobromide [CeleXA] 40 mg PO DAILY tab 01/29/17 [Rx] Clopidogrel [Plavix] 75 mg PO DAILY tab 01/29/17 [Rx] Darbepoetin Armando [Aranesp] 25 mcg SQ Q7D syr 01/29/17 [Rx] Ferrous Sulfate [Iron (65 MG Elemental)] 325 mg PO BID-W/MEALS tab 01/29/17 [Rx ] Heparin Sodium,Porcine [Heparin Sodium] 5,000 unit SQ Q8HR vial 01/29/17 [Rx] Levothyroxine Sodium [Synthroid] 150 mcg PO DAILY@0630 tab 01/29/17 [Rx] Losartan [Cozaar] 50 mg PO DAILY tab 01/29/17 [Rx] Metoprolol Tartrate [Lopressor] 50 mg PO BID tab 01/29/17 [Rx] Montelukast [Singulair] 10 mg PO HS tab 01/29/17 [Rx] Multivitamins, Thera [Multivitamin (formulary)] 1 each PO DAILY@1200 tab [Rx] Pantoprazole [Protonix] 40 mg PO AC-BRKFST tab 01/29/17 [Rx] Sennosides-Docusate Sodium [Senokot-S] 2 each PO HS tab 01/29/17 [Rx] Terazosin [Hytrin] 5 mg PO DAILY cap 01/29/17 [Rx] Follow up Appointment(s)/Referral(s): Kacy Chang MD [STAFF PHYSICIAN] - 1 Week Cristo Munoz MD [Primary Care Provider] - 03/02/17 11:30 am Guera Antonio DO [REFERRING] - 02/08/17 2:20 pm Justo Monae DO [Doctor of Osteopathic Medicine] - 02/13/17 10:00 am Pamela Finn MD [STAFF PHYSICIAN] - 1 Week (Dr. Finn's office will call with a follow-up appointment.) Activity/Diet/Wound Care/Special Instructions: DISCHARGE INSTRUCTIONS: 1. No driving for 4 weeks, or until physician gives their ok. 2. The patient should sleep in their own bed, no medical bed needed. 3. Stairs are not an issue. If the bedroom is upstairs, it is advised that the patient go up at night and down in the morning for the first week. Go slowly, using handrail and take 1 step at a time. 4. USZY hose are to be worn for 30 days or until physician discontinues. 5. Heart hugger is to be worn 100% of the time until physician discontinues.( except when showering) 6. No lifting, pushing, or pulling more than 10 pounds for 12 weeks. The physician will advise of any restriction changes. 7. The patient is expected to continue the prescribed walking program. 8. Continue pain control per as needed orders. 9. Continue with incentive spirometry and splinting/heart hugger until otherwise directed by the physician. 10. Must shower daily using liquid antibacterial soap and a separate white washcloth for each individual incision. 11. Routine sternal incision care, no ointments, lotions or powders on the incisions. 12. Please notify surgeon/nurse practitioner for temperature greater than 101F or purulent drainage from incisions 13. Prescriptions for first 30 days given per cardiac surgery service. After 30 days, all prescription refills obtained through cardiology/primary care physician. Inpatient rehab HEALTH SERVICES TO PROVIDE: RN SKILLED HOME CARE SERVICES FOR POST-OP SURGICAL PATIENTS WITH THE FOLLOWING: Coronary Artery Bypass Surgery (CABG), Mitral Valve Replacement/ Repair ( MVR), Aortic Valve Replacement/Repair (AVR) RN TO CONTINUE EDUCATION FROM ``ROAD TO A HEALTH HEART PATIENT EDUCATION MANUAL" (GIVEN TO PATIENT IN THE HOSPITAL) MEDICATION RECONCILIATION WITH EDUCATION NEEDED ON FIRST HOME VISIT EMPHASIZE IMPORTANCE OF WEARING BREAST SUPPORT/HEART HUGGER ENCOURAGE USE OF INCENTIVE SPIROMETER 10 X EVERY HOUR WHILE AWAKE ENCOURAGE UTILIZATION OF LOWER EXTREMITY COMPRESSION STOCKINGS/SUZY HOSE and ELEVATE LEGS ABOVE LEVEL OF HEART WHILE AT REST. ENCOURAGE AMBULATION 3-5x/day INCREASING TOLERATES, WHILE AVOID EXTREMES IN TEMPERATURE LABORATORY: CBC, CMP TO BE DRAWN ON THE THIRD DAY HOME, 02/01/2017 (RAN STAT ) FAX RESULTS TO [phone]. TELEHEALTH PARAMETERS: WEIGHT: NOTIFY MD OF WEIGHT GAIN OF 2 LBS IN 24 HOURS OR 5 LBS IN ONE WEEK HR: NOTIFY MD OF HR <55 BPM OR HR>100 BPM BP: NOTIFY MD IF BP <90/55 OR BP>140/100 O2 SAT: NOTIFY MD IF PO2<93% ON ROOM AIR SEND TELEHEALTH REPORT TO CLEARANCE COORDINATOR AND CARDIOVASCULAR SURGEON THE FIRST WEEK OF CARE AND THEN BI-WEEKLY. PLEASE ADDITIONALLY COMMUNICATE ANY ABNORMALS AND NEW FINDINGS TO THE SURGEONS OFFICE. The patient is being discharged home with a red band and project read has been discussed with the patient and his family. Discharge instructions for amiodarone 400 mg by mouth twice a day until 2016, then on 02/03/2017 amiodarone 200 mg by mouth twice a day 1 week, then decrease to amiodarone 200 mg by mouth daily thereafter.
--- NOTE | 2017-01-29 13:08 | P.PN ---
Subjective Principal diagnosis: CAD This is a 81-year-old gentleman with history of hypertension, hypothyroidism, sleep apnea, prior PE, who presented to the hospital with symptoms of chest discomfort. He was taken to the cardiac catheterization lab by Dr. VC Finn, and was found to have significant triple-vessel coronary artery disease. He was seen in consultation by cardiothoracic surgery and is scheduled to undergo coronary artery bypass grafting surgery tomorrow. Patient was seen and examined this morning, denies any chest pain or difficulty in breathing. He has been up ambulating without any difficulty. BUN 35, creatinine 1.7 today. 01/20/2017 Patient seen and examined this morning, denies any chest pain or difficulty in breathing. Scheduled for coronary artery bypass grafting surgery tomorrow. Let pressure 118/80 with a heart rate in the 60s. 01/25/2017 Patient is status post coronary bypass grafting surgery, is being followed today on the telemetry unit. This morning around 9 AM patient went into atrial fibrillation with a rapid ventricular response. He was initiated on IV heparin , dose of beta skip increased to 3 times a day. Blood pressure 125/68, heart rate currently in the 1 teens. 01/26/2017. Patient seen and examined today, much more alert and oriented. He' s been up ambulating in the hallway today. Remaining in normal sinus rhythm. 01/29/2017 Patient seen and examined this morning, doing well overall. Arrangements being made to go to [facility] rehab today. Heart rate in the 50s at rest, does go up into the 70s with activity. Blood pressure stable at 112/56. Objective - Vital Signs Vital signs: Vital Signs Temp 97.1 F L 01/29/17 08:00 Pulse 78 01/29/17 12:00 Resp 18 01/29/17 12:00 BP 112/56 01/29/17 08:00 Pulse Ox 97 01/29/17 08:00 Intake & Output 01/28/17 01/29/17 01/29/17 18:59 06:59 18:59 Intake Total 920 Output Total 500 1325 1 Balance -500 -1325 919 Weight 98.2 kg Intake: Oral 920 Output: Urine 500 1325 Stool 1 Other: Voiding Method Urinal Urinal # Voids 2 1 1 # Bowel Movements 1 1 ABP, PAP, CO, CI - Last Documented Arterial Blood Pressure 113/56 Pulmonary Artery Pressure 32/16 Cardiac Output 6.4 Cardiac Index 3.2 - Exam PHYSICAL EXAMINATION: HEENT: Head is atraumatic, normocephalic. Pupils equal, round. Neck is supple. There is no elevated jugular venous pressure. HEART EXAMINATION: Heart S1, S2 normal . No murmur or gallop heard. CHEST EXAMINATION: Lungs are clear to auscultation and precussion. No chest wall tenderness is noted on palpation or with deep breathing. ABDOMEN: Soft, nontender. Bowel sounds are heard. No organomegaly noted. Right groin soft, no evidence of any hematoma. EXTREMITIES: 2+ peripheral pulses with no evidence of peripheral edema and no calf tenderness noted. NEUROLOGIC patient is awake, alert and oriented -3. . - Labs CBC & Chem 7: 01/29/17 05:40 01/29/17 05:40 Labs: Abnormal Lab Results - Last 24 Hours (Table) 01/28/17 01/28/17 01/29/17 Range/Units 16:07 20:59 02:06 RBC (4.30-5.90) m/uL Hgb (13.0-17.5) gm/dL Hct (39.0-53.0) % MCV (80.0-100.0) fL Lymphocytes # (1.0-4.8) k/uL Chloride (98-107) mmol/L Carbon Dioxide (22-30) mmol/L BUN (9-20) mg/dL Creatinine (0.66-1.25) mg/dL Glucose (74-99) mg/dL POC Glucose (mg/dL) 118 H 126 H 157 H (75-99) mg/dL 01/29/17 01/29/17 01/29/17 Range/Units 05:40 05:40 06:06 RBC 2.25 L (4.30-5.90) m/uL Hgb 7.4 L (13.0-17.5) gm/dL Hct 23.5 L (39.0-53.0) % MCV 104.8 H (80.0-100.0) fL Lymphocytes # 0.9 L (1.0-4.8) k/uL Chloride 108 H (98-107) mmol/L Carbon Dioxide 21 L (22-30) mmol/L BUN 40 H (9-20) mg/dL Creatinine 2.00 H (0.66-1.25) mg/dL Glucose 104 H (74-99) mg/dL POC Glucose (mg/dL) 122 H (75-99) mg/dL 01/29/17 Range/Units 11:41 RBC (4.30-5.90) m/uL Hgb (13.0-17.5) gm/dL Hct (39.0-53.0) % MCV (80.0-100.0) fL Lymphocytes # (1.0-4.8) k/uL Chloride (98-107) mmol/L Carbon Dioxide (22-30) mmol/L BUN (9-20) mg/dL Creatinine (0.66-1.25) mg/dL Glucose (74-99) mg/dL POC Glucose (mg/dL) 108 H (75-99) mg/dL Assessment and Plan (1) Hyperlipemia Status: Acute (2) S/P cardiac catheterization Status: Acute (3) CAD (coronary artery disease) Status: Acute (4) Chest pain Status: Acute (5) Chronic kidney disease Status: Acute (6) Family history of coronary artery disease Status: Acute (7) History of pulmonary embolism Status: Acute (8) Hypertension Status: Acute (9) Hypothyroid Status: Acute (10) Obstructive sleep apnea on CPAP Status: Acute Plan: From cardiology's perspective, we will continue patient on his current medications. Arrangements are being made for transfer to [facility] rehab today. DNP note has been reviewed, I agree with a documented findings and plan of care. Patient was seen and examined.
--- NOTE | 2017-01-29 15:23 | PN ---
DATE OF SERVICE: 01/28/2017 This is a 81-year-old gentleman admitted with CAD, CABG, improved significantly. No chest pain or palpitation. Hemoglobin is slightly low. On exam, alert and oriented x3. Pulse is 62, blood pressure 121/63, respirations 18, temperature is 98.1, pulse ox 97% on room air. HEENT: Conjunctivae normal, mild pallor present. CARDIOVASCULAR SYSTEM: S1, S2, muffled. No S3, no S4. RESPIRATORY: Breath sounds diminished at the bases, no rhonchi, no crackles. ABDOMEN: Soft, nontender. LEGS: No edema, no swelling. NERVOUS SYSTEM: No focal deficits. LABS: Hemoglobin is 7.2, Accu-Cheks noted. ASSESSMENT: 1. Coronary artery disease, coronary artery bypass grafting. 2. Three-vessel coronary artery disease. 3. Chronic kidney disease, stage III stable. 4. Anemia. 5. Elevated D-dimer. 6. Hypothyroidism. 7. Hypertension. RECOMMENDATION: Recommend to continue with the current medication. Continue with the monitoring and symptomatic treatment. Otherwise, closely follow with Cardiothoracic Surgery. Further recommendations to follow. MEENAKSHID
--- NOTE | 2017-01-29 19:07 | P.PN ---
Subjective -year-old gentleman was admitted after CABG. Patient also had chronic kidney disease. He is improving. Inpatient rehab is being considered. Also has anemia. No chest pain palpitations shortness of breath. Objective - Vital Signs Vital signs: Vital Signs Temp 97.1 F L 01/29/17 08:00 Pulse 78 01/29/17 12:00 Resp 18 01/29/17 12:00 BP 112/56 01/29/17 08:00 Pulse Ox 97 01/29/17 08:00 Intake & Output 01/29/17 01/29/17 01/30/17 06:59 18:59 06:59 Intake Total 1160 Output Total 1325 1 Balance -1325 1159 Weight 98.2 kg Intake: Oral 1160 Output: Urine 1325 Stool 1 Other: Voiding Method Urinal Urinal # Voids 1 1 # Bowel Movements 1 ABP, PAP, CO, CI - Last Documented Arterial Blood Pressure 113/56 Pulmonary Artery Pressure 32/16 Cardiac Output 6.4 Cardiac Index 3.2 - Exam On exam, alert and oriented x3. HEENT: Conjunctivae normal. eyes normal. NECK: No JVD. No thyroid enlargement. No LNs CARDIOVASCULAR: S1, S2 muffled. No murmur RESPIRATION: Breath sounds diminished in the bases. No rhonchi or crackles. No bronchial breathing. ABDOMEN: Soft, nontender . No guarding. no masses palpable. No ascites, No hepatosplenomegaly.Bowel sounds heard. LEGS: No edema. no swelling NERVOUS SYSTEM: Cranial N 2-12 grossly normal. Moves all 4 limbs. No focal deficits. No sensory deficit. No signs of cerebellar dysfucntion. Skin: no ulcer no rash Joints: No active swelling. No inflammation. Lymphatic system. No LN neck axilla or groin. - Labs CBC & Chem 7: 01/29/17 05:40 01/29/17 05:40 Labs: Abnormal Lab Results - Last 24 Hours (Table) 01/28/17 01/29/17 01/29/17 Range/Units 20:59 02:06 05:40 RBC 2.25 L (4.30-5.90) m/uL Hgb 7.4 L (13.0-17.5) gm/dL Hct 23.5 L (39.0-53.0) % MCV 104.8 H (80.0-100.0) fL Lymphocytes # 0.9 L (1.0-4.8) k/uL Chloride (98-107) mmol/L Carbon Dioxide (22-30) mmol/L BUN (9-20) mg/dL Creatinine (0.66-1.25) mg/dL Glucose (74-99) mg/dL POC Glucose (mg/dL) 126 H 157 H (75-99) mg/dL 01/29/17 01/29/17 01/29/17 Range/Units 05:40 06:06 11:41 RBC (4.30-5.90) m/uL Hgb (13.0-17.5) gm/dL Hct (39.0-53.0) % MCV (80.0-100.0) fL Lymphocytes # (1.0-4.8) k/uL Chloride 108 H (98-107) mmol/L Carbon Dioxide 21 L (22-30) mmol/L BUN 40 H (9-20) mg/dL Creatinine 2.00 H (0.66-1.25) mg/dL Glucose 104 H (74-99) mg/dL POC Glucose (mg/dL) 122 H 108 H (75-99) mg/dL Assessment and Plan Plan: Assessment 1. CAD status post CABG 2. Three-vessel coronary disease 3. Chronic kidney disease stage III 4. Anemia Plan In this 81-year-old gentleman presented with multiple compress medical issues at this time I would recommend to continue the current medications. Inpatient rehab is being recommended. Would recommend close follow-up with the primary physician. An supplementation. Periodic hemoglobin evaluation. Rest of the medications recommendations per cardiology and cardiothoracic surgery
--- NOTE | 2017-02-01 10:18 | P.PN ---
Progress Note - Text 5 meter walk preoperative: #1 4.78 sec, #2 3.78 sec, #3 4.16 sec
== END 2017-01-29 14:18 | DRG 233 ==
LOC: EC 12:58 → 3OBS 15:18 → 6SEL 01-17 14:31 → OBSVTOIN 01-18 08:16 → 6ICU 01-22 07:29 → 6SEL 01-24 15:36
PROVIDERS: ADMIT Hospitalist; ATTEND Surgery
PROC: 4A023N7 Measurement of Cardiac Sampling and Pressure, Left Heart, Percutaneous Approach (ICD-10-PCS; 2017-01-17)
PROC: B2111ZZ Fluoroscopy of Multiple Coronary Arteries using Low Osmolar Contrast (ICD-10-PCS; 2017-01-17)
PROC: 06BP4ZZ Excision of Right Saphenous Vein, Percutaneous Endoscopic Approach (ICD-10-PCS; principal; 2017-01-22 08:00)
PROC: 5A1221Z Performance of Cardiac Output, Continuous (ICD-10-PCS; principal; 2017-01-22 08:00)
PROC: 02100Z9 Bypass Coronary Artery, One Artery from Left Internal Mammary, Open Approach (ICD-10-PCS; principal; 2017-01-22 08:00)
PROC: 021209W Bypass Coronary Artery, Three Arteries from Aorta with Autologous Venous Tissue, Open Approach (ICD-10-PCS; principal; 2017-01-22 08:00)
DX: I25.110 Atherosclerotic heart disease of native coronary artery with unstable angina pectoris (principal); N17.0 Acute kidney failure with tubular necrosis; J90 Pleural effusion, not elsewhere classified; D69.59 Other secondary thrombocytopenia; Z86.74 Personal history of sudden cardiac arrest; E87.5 Hyperkalemia; N18.3 Chronic kidney disease, stage 3 (moderate); D62 Acute posthemorrhagic anemia; J98.11 Atelectasis; E03.9 Hypothyroidism, unspecified; E78.5 Hyperlipidemia, unspecified; F17.201 Nicotine dependence, unspecified, in remission; F32.9 Major depressive disorder, single episode, unspecified; F41.9 Anxiety disorder, unspecified; G47.33 Obstructive sleep apnea (adult) (pediatric); G89.29 Other chronic pain; H91.90 Unspecified hearing loss, unspecified ear; I12.9 Hypertensive chronic kidney disease with stage 1 through stage 4 chronic kidney disease, or unspecified chronic kidney disease; I48.0 Paroxysmal atrial fibrillation; I71.9 Aortic aneurysm of unspecified site, without rupture; K21.9 Gastro-esophageal reflux disease without esophagitis; K44.9 Diaphragmatic hernia without obstruction or gangrene; T50.8X5A Adverse effect of diagnostic agents, initial encounter; Z79.82 Long term (current) use of aspirin; Z79.899 Other long term (current) drug therapy; Z82.49 Family history of ischemic heart disease and other diseases of the circulatory system; Z82.5 Family history of asthma and other chronic lower respiratory diseases; Z86.711 Personal history of pulmonary embolism; Z86.79 Personal history of other diseases of the circulatory system; Z96.651 Presence of right artificial knee joint; M54.5 Low back pain
CPT/HCPCS: 36415; 36620; 70450; 71010; 71020; 71275; 76770; 78452; 80048; 80053; 80061; 80074; 81003; 82330; 82550; 82553; 82805; 83036; 83540; 83550; 83735; 83880; 84100; 84443; 84484; 85025; 85027; 85379; 85520; 85610; 85652; 85730; 86140; 86850; 86891; 86900; 86901; 86920; 87070; 87086; 93005; 93017; 93306; 93458; 93880; 93970; 94002; 94150; 94640

== ENCOUNTER → 2017-03-08 | Outpatient (CLI) | payer MEDICARE, BC ==
[2017-03-08 12:57] LABS: Appearance,Urine Clear (Clear); Basophils # (A) 0.1 k/uL (0-0.2); Basophils % (A) 1 %; Bilirubin,Urine Negative (Negative); CHCM 32.8; Eosinophils # (A) 0.6 k/uL (0-0.7); Eosinophils % (A) 9 %; Glucose,Urine (UA) Negative (Negative); HCT 38.1 % (39.0-53.0); HDW 2.61; HGB 12.2 gm/dL (13.0-17.5); Ketones,Urine Negative (Negative); Leukocyte Esterase,Urine Negative (Negative); Luc # (Auto) 0.13; Luc % (Auto) 2; Lymphocytes # (A) 1.5 k/uL (1.0-4.8); Lymphocytes % (A) 25 %; MCH 32.3 pg (25.0-35.0); MCV 101.1 fL (80.0-100.0); Macrocytosis Slight; Mean Platelet Volume 8.8; Monocytes # (A) 0.6 k/uL (0-1.0); Monocytes % (A) 9 %; Neutrophils # (A) 3.3 k/uL (1.3-7.7); Neutrophils % (A) 54 %; Nitrite,Urine Negative (Negative); Protein,Urine Negative (Negative); RBC 3.77 m/uL (4.30-5.90); RDW 13.9 % (11.5-15.5); Specific Gravity,Urine 1.012 (1.001-1.035); UA Billing (MACRO vs. MICRO) CHEM; Urobilinogen,Urine <2.0 mg/dL (<2.0); WBC 6.1 k/uL (3.8-10.6); WBC (Perox) 6.26
--- NOTE | 2017-03-08 12:57 | CT ---
"EXAMINATION TYPE: CT abdomen wo con DATE OF EXAM: 03/08/2017 COMPARISON: Correlation MRI 11/05/2014. CT abdomen and pelvis 01/30/2012. HISTORY: 81-year-old male with left renal cyst TECHNIQUE: Contiguous axial scanning of the abdomen without IV contrast. Coronal and sagittal reconst ructions performed. CT DLP: 732 mGycm Automated exposure control for dose reduction was used. FINDINGS: The heart is normal size with a mild pericardial fluid. Lung bases clear without pleural effusion. Th ere appears to be median sternotomy changes. Noncontrast appearance of the liver, gallbladder, right adrenal gland, spleen, and atrophic pancreas show no gross abnormality. There is a low density 1 cm nodule left adrenal gland with attenuation of 0.2 Hounsfield units compat ible with a benign adrenal adenoma. Dominant cyst within the upper pole right kidney measures 8.3 cm versus 8.2 cm on 01/30/2012. Some add itional scattered cysts and some hyperdense lesions are larger from 2011. There is a 9 mm mildly hyperdense lesion lower pole right kidney which is new and can be followed, 1. 8 cm hyperdense lesion mid pole right kidney which is larger (likely hemorrhagic cyst), and a 1.4 cm mildly hyperdense lesion posterior upper pole cortex which is new and should be followed. Dominant cyst upper pole left kidney is larger now measuring 3.8 cm. Few subcentimeter tiny hyperdens e lesions are too small for accurate CT characterization likely represent hemorrhagic cysts. No new d ominant left renal lesion is seen. Mild stool burden. Normal appendix. No mesenteric or retroperitoneal lymphadenopathy. Bones: Postsurgical changes lower lumbar spine and multilevel degenerative changes. Laminectomy is present. VASCULATURE: Aneurysm of the lower descending thoracic aorta 3.4 cm. Aneurysm of the upper abdominal aorta at 3.2 cm. Aneurysm of the midabdominal aorta 3.4 cm. Distal abdominal aortic aneurysm which involves the bifurcation as well is increased from 4.0 on 11/05 now to 4.6 measured on sagittal series. Additional aneurysms of the right and left common iliac arteries increased from 2.6 and 3.6 cm, respe ctively now 2.7 and 4.4 cm, respectively. There is some hyperdensity seen along the inferior margin of the left common iliac artery. Additional partially visualized aneurysm of the right internal iliac artery at 2.9 cm. IMPRESSION: 1. DIFFUSELY ANEURYSMAL AORTA THOUGH MARKEDLY AFFECTING THE DISTAL ABDOMINAL AORTA INCLUDING THE BIFU RCATION NOW MEASURING 4.6 CM VERSUS 4.0 CM ON 11/05/2014. 2. 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 3. WE NOTE SOME ECCENTRIC HYPERDENSITY ALONG THE INFERIOR ASPECT OF THE LEFT COMMON ILIAC ARTERY ANEU RYSM. THIS IS LARGELY NEW FROM 2011. THIS THIS COULD EITHER REPRESENT CALCIFICATION WITHIN PLAQUE/THR OMBUS OR SOME ACUTE INTRAPLAQUE HEMORRHAGE. RECOMMEND VASCULAR SURGERY CONSULTATION. ADDITIONAL ANEUR YSM RIGHT INTERNAL ILIAC ARTERY AT 2.9 CM. 4. MULTIPLE BILATERAL RENAL CYSTS, SOME OF WHICH ARE HEMORRHAGIC. TWO INDETERMINATE, MILDLY HYPERDENS E LESIONS ON THE RIGHT MEASURING 1.4 CM AND 9 MM ARE NEW, MAY REPRESENT HEMORRHAGIC CYSTS, AND SHOULD BE REASSESSED AT 6 MONTH FOLLOW-UP. A [place] message has been communicated to Kacy Chang MD via the [employer] | Critical Result s ystem on 03/08/2017 12:54 PM, Message ID [id number]."
[2017-03-08 13:05] LABS: Calcium 9.6 mg/dL (8.4-10.2); Potassium 4.8 mmol/L (3.5-5.1); Uric Acid 6.8 mg/dL (3.5-8.5)
== END | disposition home or self-care (01) ==
LOC: RADCTMAIN 11:10
PROVIDERS: ATTEND Internal Medicine Nephrology
DX: N28.1 Cyst of kidney, acquired (principal); I71.4 Abdominal aortic aneurysm, without rupture; I72.3 Aneurysm of iliac artery; N18.4 Chronic kidney disease, stage 4 (severe); D64.9 Anemia, unspecified; N39.0 Urinary tract infection, site not specified; R80.9 Proteinuria, unspecified; E21.3 Hyperparathyroidism, unspecified; E55.9 Vitamin D deficiency, unspecified; M10.9 Gout, unspecified
CPT/HCPCS: 74150; 80048; 81003; 82306; 82570; 83735; 83970; 84100; 84156; 84550; 85025

== ENCOUNTER → 2017-06-21 | Outpatient (CLI) | payer MEDICARE, BC ==
[2017-06-21 13:29] LABS: Basophils # (A) 0.1 k/uL (0-0.2); Basophils % (A) 1 %; Eosinophils # (A) 0.4 k/uL (0-0.7); Eosinophils % (A) 7 %; HCT 42.1 % (39.0-53.0); HGB 13.3 gm/dL (13.0-17.5); Lymphocytes % (A) 32 %; MCHC 31.6 g/dL (31.0-37.0); MCV 98.1 fL (80.0-100.0); Mean Platelet Volume 7.3; Monocytes # (A) 0.5 k/uL (0-1.0); Monocytes % (A) 7 %; Neutrophils # (A) 3.2 k/uL (1.3-7.7); Neutrophils % (A) 50 %; Platelet Count 166 k/uL (150-450); RBC 4.29 m/uL (4.30-5.90); RDW 13.8 % (11.5-15.5); WBC 6.3 k/uL (3.8-10.6)
[2017-06-21 13:34] LABS: Appearance,Urine Clear (Clear); Bilirubin,Urine Negative (Negative); Blood,Urine Negative (Negative); Color,Urine Yellow; Glucose,Urine (UA) Negative (Negative); Ketones,Urine Negative (Negative); Leukocyte Esterase,Urine Negative (Negative); Nitrite,Urine Negative (Negative); PH, Urine 5.5 (5.0-8.0); Protein,Urine Negative (Negative); Urobilinogen,Urine <2.0 mg/dL (<2.0)
[2017-06-21 13:48] LABS: Calcium 10.1 mg/dL (8.4-10.2); Phosphorus 4.3 mg/dL (2.5-4.5); Uric Acid 7.6 mg/dL (3.5-8.5)
[2017-06-21 14:19] LABS: Creatinine,Urine Random 79.8 mg/dL
[2017-06-21 21:38] LABS: Parathyroid Hormone Intact 96.1 pg/mL (14.0-72.0)
== END ==
LOC: LABWHC1 13:01
PROVIDERS: ATTEND Nurse Practitioner Family
DX: N18.4 Chronic kidney disease, stage 4 (severe) (principal); N39.0 Urinary tract infection, site not specified; R80.9 Proteinuria, unspecified; E21.3 Hyperparathyroidism, unspecified; E55.9 Vitamin D deficiency, unspecified; M10.9 Gout, unspecified
CPT/HCPCS: 36415; 80048; 81003; 82306; 82570; 83735; 83970; 84100; 84156; 84550; 85025

== ENCOUNTER → 2017-07-11 | Outpatient (CLI) | payer MEDICARE, BC | END | disposition home or self-care (01) | LOC: LABWHC1 08:34 | PROVIDERS: ATTEND Internal Medicine Cardiovascular Disease | DX: I25.10 Atherosclerotic heart disease of native coronary artery without angina pectoris (principal) | CPT/HCPCS: 36415; 83704 ==

== ENCOUNTER → 2017-12-03 | Outpatient (CLI) | payer MEDICARE, BC ==
[2017-12-03 13:16] LABS: Appearance,Urine Clear (Clear); Basophils % (A) 1 %; Bilirubin,Urine Negative (Negative); Blood,Urine Negative (Negative); Color,Urine Yellow; Eosinophils # (A) 0.3 k/uL (0-0.7); Eosinophils % (A) 6 %; Glucose,Urine (UA) Negative (Negative); HGB 13.3 gm/dL (13.0-17.5); Ketones,Urine Negative (Negative); Leukocyte Esterase,Urine Negative (Negative); Lymphocytes # (A) 1.8 k/uL (1.0-4.8); Lymphocytes % (A) 30 %; MCH 34.1 pg (25.0-35.0); MCHC 34.2 g/dL (31.0-37.0); MCV 99.8 fL (80.0-100.0); Mean Platelet Volume 7.2; Monocytes # (A) 0.5 k/uL (0-1.0); Monocytes % (A) 8 %; Neutrophils # (A) 3.1 k/uL (1.3-7.7); Neutrophils % (A) 52 %; Nitrite,Urine Negative (Negative); PH, Urine 6.5 (5.0-8.0); Platelet Count 146 k/uL (150-450); Protein,Urine Trace (Negative); RDW 14.4 % (11.5-15.5); Specific Gravity,Urine 1.015 (1.001-1.035); Urobilinogen,Urine <2.0 mg/dL (<2.0); WBC 5.9 k/uL (3.8-10.6)
[2017-12-03 13:35] LABS: Calcium 9.4 mg/dL (8.4-10.2); Phosphorus 3.6 mg/dL (2.5-4.5); Potassium 5.5 mmol/L (3.5-5.1); Uric Acid 6.9 mg/dL (3.5-8.5)
[2017-12-03 19:03] LABS: Vitamin D 25 Hydroxy 33.1 ng/mL (30.0-100.0)
[2017-12-03 21:22] LABS: Iron Saturation 35.31 (15.00-50.00)
== END | disposition home or self-care (01) ==
LOC: LABWHC1 12:01
PROVIDERS: ATTEND Internal Medicine Nephrology
DX: N18.4 Chronic kidney disease, stage 4 (severe) (principal)
CPT/HCPCS: 36415; 80048; 81003; 82306; 82728; 83540; 83550; 83735; 83970; 84100; 84550; 85025

== ENCOUNTER → 2018-01-30 | Outpatient (CLI) | payer MEDICARE, BC ==
--- NOTE | 2018-01-30 14:04 | CT ---
EXAMINATION TYPE: CT abdomen pelvis wo con DATE OF EXAM: 01/30/2018 COMPARISON: 03/08/2017 INDICATION: Follow up aneurysm DLP: 967 mGycm, Automated exposure control for dose reduction was used. CONTRAST: 0 mL of Isovue 300. Study performed without Oral Contrast TECHNIQUE: Axial images were obtained from above the diaphragm to the pubic rami in the axial plane a t 5 mm thick sections. Reconstructed images are reviewed on the computer in the coronal plane. FINDINGS: Limited CT sections are obtained the lung bases. The lung bases are clear. CT ABDOMEN: Liver: Normal Spleen: Normal Pancreas: Mild atrophy Adrenal glands: The adrenal glands are normal. Gallbladder: Normal Kidneys: No masses are evident. No hydronephrosis is present. There is 3.4 cm inferior pole right k idney. Large simple appearing right mid kidney cyst measuring 8.2 cm 1 Hounsfield unit is present. Ad ditional smaller cortical renal cysts are present at the inferior pole of the right kidney. There is a superior pole right renal cyst measuring 0.3 cm in 16 Hounsfield units. Delayed images were obtain ed through the kidneys, which remain unremarkable. Aorta: Aorta diaphragm superior mesenteric artery is 3.3 cm. Mid abdominal aorta measures 3.7 cm dist al abdominal aorta. Above the aortic bifurcation is a transverse 4.9 cm aneurysm. The proximal right common iliac artery has a transverse dimension of 2.9 cm in the proximal transvers e dimension. The proximal right internal iliac artery is aneurysmal measuring 3.1 cm. Minimal fusiform prominence of the proximal left internal iliac artery may be present. There is prominence of the common femoral arteries which measure 2.2 cm on the left and 2.3 cm on the right. Inferior vena cava: Normal. CT PELVIS: Left inguinal fat-containing hernia is present. Loops of bowel within the abdomen and pelvis are normal. Study is performed without oral contrast limiting bowel evaluation. Appendix: Serpiginous but Normal as visualized. Urinary bladder: Normal. Genitourinary structures: Prostate is prominent contains calcification. Osseous structures: No suspicious lytic or sclerotic lesions. IMPRESSIONS: 1. Inferior abdominal aortic aneurysm extending into the bifurcation, common iliac and internal cony c vessels as well as prominence of the common femoral arteries. This present previously. 2. Multiple bilateral renal cysts. 3. There may be hyperdense smaller lesions on the kidneys which were present previously.
== END | disposition home or self-care (01) ==
LOC: RADCTMAIN 09:12
PROVIDERS: ATTEND Thoracic Surgery (Cardiothoracic Vascular Surgery)
DX: I71.4 Abdominal aortic aneurysm, without rupture (principal); N28.1 Cyst of kidney, acquired; I72.3 Aneurysm of iliac artery
CPT/HCPCS: 74176

== ENCOUNTER → 2018-03-15 | Outpatient (CLI) | payer MEDICARE, BC ==
[2018-03-15 10:04] LABS: Basophils % (A) 1 %; Eosinophils # (A) 0.4 k/uL (0-0.7); Eosinophils % (A) 6 %; HCT 42.4 % (39.0-53.0); HGB 13.7 gm/dL (13.0-17.5); Lymphocytes # (A) 1.3 k/uL (1.0-4.8); Lymphocytes % (A) 22 %; MCHC 32.3 g/dL (31.0-37.0); Mean Platelet Volume 6.9; Monocytes # (A) 0.4 k/uL (0-1.0); Monocytes % (A) 8 %; Neutrophils # (A) 3.6 k/uL (1.3-7.7); Neutrophils % (A) 60 %; Platelet Count 149 k/uL (150-450); RBC 4.28 m/uL (4.30-5.90); RDW 12.9 % (11.5-15.5); WBC 5.9 k/uL (3.8-10.6)
[2018-03-15 10:15] LABS: Calcium 9.7 mg/dL (8.4-10.2); Potassium 5.2 mmol/L (3.5-5.1)
[2018-03-15 10:32] LABS: Appearance,Urine Clear (Clear); Bilirubin,Urine Negative (Negative); Blood,Urine Small (Negative); Color,Urine Light Yellow; Glucose,Urine (UA) Negative (Negative); Ketones,Urine Negative (Negative); Leukocyte Esterase,Urine Negative (Negative); Nitrite,Urine Negative (Negative); Protein,Urine Negative (Negative); RBC,Urine 2 /hpf (0-5); Specific Gravity,Urine 1.011 (1.001-1.035); Urobilinogen,Urine <2.0 mg/dL (<2.0); WBC,Urine <1 /hpf (0-5)
== END | disposition home or self-care (01) ==
LOC: LABWHC1 08:54
PROVIDERS: ATTEND Urology
DX: N48.6 Induration penis plastica (principal); N47.1 Phimosis
CPT/HCPCS: 36415; 80048; 81001; 85025; 93005

== ENCOUNTER → 2020-10-27 | Outpatient (CLI) | payer MEDICARE, BC ==
--- NOTE | 2020-10-27 12:09 | US ---
EXAMINATION TYPE: US venous doppler duplex LE LT DATE OF EXAM: 10/27/2020 11:47 AM COMPARISON: NONE CLINICAL HISTORY: M79.605 pain in left leg. Pt stated had PE 30 years ago; c/o left calf pain x 4 day s; no swelling observed now SIDE PERFORMED: Left TECHNIQUE: The lower extremity deep venous system is examined utilizing real time linear array sonog jordan with graded compression, doppler sonography and color-flow sonography. VESSELS IMAGED: Common Femoral Vein Deep Femoral Vein Greater Saphenous Vein * Femoral Vein Popliteal Vein Small Saphenous Vein * Proximal Calf Veins (* superficial vessels) Left Leg: Negative for DVT IMPRESSION: No evidence of DVT.
== END | disposition home or self-care (01) ==
LOC: RADUSWWP 11:26
PROVIDERS: ATTEND Family Medicine
DX: M79.605 Pain in left leg (principal)

== ENCOUNTER → 2021-03-22 | Outpatient (CLI) | payer MEDICARE, BC ==
--- NOTE | 2021-03-22 11:46 | US ---
EXAMINATION TYPE: US abdomen complete DATE OF EXAM: 03/22/2021 COMPARISON: CT 2018 CLINICAL HISTORY: I71.4 Abd aortic aneurysm w/o rupture. AAA. Hx renal cysts. EXAM MEASUREMENTS: Liver Length: 14.7 cm Gallbladder Wall: 0.27 cm CBD: 0.54 cm Spleen: 11.2 cm Right Kidney: 13.0 x 5.5 x 5.3 cm Left Kidney: 10.5 x 6.0 x 4.5 cm Pancreas: Appears heterogeneous. Limited visibility of tail. Liver: Appears coarse in echotexture. Gallbladder: Appears anechoic. Evidence for sonographic Gramajo's sign: No. CBD: Portions seen appear wnl. Spleen: Appears wnl. Right Kidney: Appears enlarged. Multiple anechoic areas seen, largest measures: 9.9 x 10.7 x 6.5 cm. Left Kidney: Multiple anechoic areas seen, largest measures: 4.5 x 3.9 x 4.0 cm. Upper IVC: Appears wnl. Abd Aorta: AAA visualized prox-distal aorta. Prox: 4.2 x 3.4 x 3.4 cm. Mid: 3.8 x 3.3 x 3.2 cm. Dist: 4.0 x 4.1 x 3.8 cm. Bifurcation not well seen due to gas and shadowing, possible tortuous iliac vessels. Known AAA more prominent at 4.2 cm transversely along proximal aspect and less well-seen to accuratel y measure at the bifurcation there was more prominent on 2018 CT. Advise further imaging to better ev aluate. IVC is unremarkable near the hepatic dome. Visualized portion of pancreas is heterogeneous consistent with diffuse fatty atrophy. Visualized liver slightly heterogeneous echotexture without worrisome mass or ductal dilatation. No s hadowing mobile gallstones. No surrounding ascites. There is increased cortical echogenicity and scat tered thin-walled cysts of varying size and shape scattered throughout both kidneys. Largest thin-wal led cyst measures at least 10.7 cm long axis with lobulated contour, this corresponds to the dominant 8.2 cm lesion on ultrasound. There may have been interval growth. This cannot be accurately characte rized on ultrasound due to size but shows no suspicious solid nodularity or thickened septa. Left pro minent cystic change left kidney is noted but present upper pole level. IMPRESSION: Evidence of chronic medical renal disease. Known AAA at prior most critical portion is lara boptimally seen on this study. It had bilateral common iliac arterial extension in 2018 CT. I advise further imaging with CT or MRA of the abdomen and pelvis to better evaluate and characterize known AA A. Proximal AAA is felt to have increased in size from 2018.
== END | disposition home or self-care (01) ==
LOC: RADUSWWP 07:43
PROVIDERS: ATTEND Family Medicine
DX: I71.4 Abdominal aortic aneurysm, without rupture (principal); N18.9 Chronic kidney disease, unspecified
CPT/HCPCS: 76700

== ENCOUNTER → 2021-04-14 | Outpatient (CLI) | payer MEDICARE, BC | END | disposition home or self-care (01) | LOC: RADCTMAIN 12:07 | PROVIDERS: ATTEND Family Medicine | DX: I71.4 Abdominal aortic aneurysm, without rupture (principal) | CPT/HCPCS: 82565; 84520 ==

== ENCOUNTER → 2021-10-25 | Outpatient (CLI) | payer MEDICARE, BC ==
--- NOTE | 2021-10-26 04:21 | MR ---
EXAMINATION TYPE: MR lumbar spine wo con DATE OF EXAM: 10/25/2021 COMPARISON: 11/05/2014 HISTORY: Low back pain for 45 years. Multiplanar multi echo imaging of the lumbar spine without contrast. The lumbar vertebra show fairly normal alignment. There is a minimal L3-4 subluxation. There is hyper trophic facet arthropathy at L2-3 and L3-4. There is spinal stenosis at L2-3. There is no lumbar para spinal mass. No compression fracture. There is severe narrowing of the disc spaces from L2 to S1. No evidence of focal bone destruction. There is 5.6 cm aneurysm of the lower abdominal aorta. IMPRESSION: Moderate multilevel lumbar spondylotic changes. No compression fracture. There is some mild spinal st enosis at L3-4 due to facet arthropathy and spurring of the endplates. Stenosis slightly increased co mpared to old exam. There is large lower abdominal aortic aneurysm not completely evaluated and is significantly increase d compared to old exam. Aneurysm measures more than [address] scan of 01/30/2018.
== END | disposition home or self-care (01) ==
LOC: RADMRIMAIN 09:54
PROVIDERS: ATTEND Family Medicine
DX: M48.061 Spinal stenosis, lumbar region without neurogenic claudication (principal); M47.816 Spondylosis without myelopathy or radiculopathy, lumbar region; I71.4 Abdominal aortic aneurysm, without rupture
CPT/HCPCS: 72148

== ENCOUNTER → 2022-01-11 | Outpatient (CLI) | payer OTHER, MEDICARE, BC ==
[2022-01-11 13:44] VITALS: BP 124/82; PULSE 74; RESP 18; TEMP 99
--- NOTE | 2022-01-11 15:29 | P.PAINCN ---
History of Present Illness - Reason for Consult Consult date: 01/11/22 - History of Present Illness Since his initial consultation visit for this 86 years old male with a chronic history of severe low back pain (was accompanied to the clinic by his caregiver ), he reported that the pain started more than 47 years ago , after fell at work, patient had 4 back surgery, including lumbar laminectomy and fusion surgery and he continued to have severe low back pain, the pain is constant localized in the low back area with radiation to the buttock bilaterally, he is able to ambulate on his own but he has difficulty secondary to the pain, denies any fever or night sweats he denies any change in bowel movement or urination, he reported that the pain increases with any activity and improved with the rest and with the pain medication patient currently on oral pain medication [place] 7.5/325 every 8 hours when necessary, [facility] therapy previously 6 years ago and he is currently using heat therapy and he used topical pain medication Past Medical History Past Medical History: GERD/Reflux, Hearing Disorder / Deafness, Hypertension, Pulmonary Embolus (PE), Sleep Apnea/CPAP/BIPAP, Syncope, Thyroid Disorder Additional Past Medical History / Comment(s): cardiac arrest d/t pe in 1985, bronchitis, cysts on kidneys-stated has 30% kidney function", psoriases,arthirstis,chronic back pain, cataracts, solomon wears linda hearing ai ds,glasses,"upper/lower partials","3 aneurysms-aaa and in groin area", past vertigo. History of Any Multi-Drug Resistant Organisms: None Reported Past Surgical History: Adenoidectomy, Back Surgery, Orthopedic Surgery, Tonsillectomy Additional Past Surgical History / Comment(s): left shoulder hemiarthroplasty then 2nd sx-total replacment, x3 back sx, rt knee replacement, rt shoulder rotator cuff sx, lt heel spur, egd/colonoscopy, rt inguinal hernia repair, lt ear drum sx"failed", CATARACTS. Past Anesthesia/Blood Transfusion Reactions: Postoperative Nausea & Vomiting (PONV) Smoking Status: Never smoker - Past Family History Father Family Medical History: Asthma Mother Family Medical History: Coronary Artery Disease (CAD) Additional Family Medical History / Comment(s): PACEMAKER Brother(s) Family Medical History: Coronary Artery Disease (CAD) Additional Family Medical History / Comment(s): Brother had recent double coronary artery bypass graft surgery. Medications and Allergies Home Medications Medication Instructions Recorded Confirmed Type HYDROcodone/APAP 7.5-325MG [[place] 1 - 2 tab PO Q6H #120 01/26/17 Rx 7.5-325] Amiodarone [Cordarone] 400 mg PO BID tab 01/29/17 Rx Aspirin 325 mg PO DAILY tab 01/29/17 Rx Atorvastatin [Lipitor] 40 mg PO DAILY tab 01/29/17 Rx Citalopram Hydrobromide [CeleXA] 40 mg PO DAILY tab 01/29/17 Rx Clopidogrel [Plavix] 75 mg PO DAILY tab 01/29/17 Rx Darbepoetin Armando [Aranesp] 25 mcg SQ Q7D syr 01/29/17 Rx Ferrous Sulfate [Iron (65 MG 325 mg PO BID-W/MEALS tab 01/29/17 Rx Elemental)] Heparin Sodium,Porcine [Heparin 5,000 unit SQ Q8HR vial 01/29/17 Rx Sodium] Levothyroxine Sodium [Synthroid] 150 mcg PO DAILY@0630 tab 01/29/17 Rx Losartan [Cozaar] 50 mg PO DAILY tab 01/29/17 Rx Metoprolol Tartrate [Lopressor] 50 mg PO BID tab 01/29/17 Rx Montelukast [Singulair] 10 mg PO HS tab 01/29/17 Rx Multivitamins, Thera [Multivitamin 1 each PO DAILY@1200 tab 01/29/17 Rx (formulary)] Pantoprazole [Protonix] 40 mg PO AC-BRKFST tab 01/29/17 Rx Sennosides-Docusate Sodium 2 each PO HS tab 01/29/17 Rx [Senokot-S] Terazosin [Hytrin] 5 mg PO DAILY cap 01/29/17 Rx bisacodyL [Dulcolax] 10 mg RECTAL DAILY PRN suppositor 01/29/17 Rx Celecoxib [CeleBREX] 100 mg PO BID PRN 30 Days #60 cap 01/11/22 Rx Allergies Allergy/AdvReac Type Severity Reaction Status Date / Time iodine AdvReac Anaphylaxis Verified 01/22/17 06:25 Penicillins AdvReac Rash/Hives Verified 01/22/17 06:25 Physical Exam Vitals: Vital Signs Temp Pulse Resp BP Pulse Ox 01/11/22 13:37 99.0 F 74 18 124/82 97 Intake and Output 01/11/22 01/11/22 01/11/22 06:59 14:59 22:59 Other: Weight 89.811 kg Physical Examinations : -Constitutiona : Cooperative , not in acute distress . -HEENT : nech : supple , no Lymphadenopathy , normal thyroid size . : eyes : no ptosis , no icterus, no photophobia . - neurologic : Cranial nerve II to XII intact , no focal neurological deffecit . -psychatric : alert , oriented X 3 , appropriate affect , intact judgment and insight . -Lymphatic : no Lymphadenopathy . - musculoskeltal : Lumber spine moter stegnth lower extremities ,thigh and legs 5/5 Right side , 5/5 Left side deep tendon reflexes : normal Knee Jerk , normal ankle Jerk lumber facet Loading Test =positive Right , positive Left Range of motion of the lumbar spine Flexion 30 degrees, extension 10 degrees strait leg raising test = positive at degree Fabere test= positive Right , and positive LT . Sever tenderness over the Sacroiliac joint on the Right , and Left sides Gaenslen test= positive right ,and positive left . Seated flexion test= positive right ,and positive Left . Distraction test= positive bilaterally Sacroiliac compression test= positive bilaterally Results Comments: MRI of the lumbar spine at L2 3 L3 4 facet joint arthropathy and disc narrowing between L2 to S1 Assessment and Plan Plan: Assessment and plan=1-bilateral sacroiliitis. 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 4-lumbar degenerative disc disease. He could benefit from bilateral sacroiliac joint steroid injections under fluoroscopy guidance. He could benefit from [place] 2 inhibitors Celebrex 200 mg twice a day when necessary (patient currently on Plavix ) Time with Patient: Greater than 30 PQRS Measure Charge Sheet Measure #130: Documentation of Current Meds in Medical Chart: Patient's medications documented in chart Measure #226: Tobacco Use: Screen & Cessation Intervention: Pt not a tobacco user Measure #47: Advance Care Plan: Advance care planning discussed & documented, pt chose/unable to give Measure #412: Opioid Treatment Agreement: No documentation of signed opioid treatment agreement Measure #408: Opioid Therapy Follow-up Evaluation: Patient had NO f/u eval minimum every 3 months during opioid therapy Measure #317: Preventitive Care & Scrn High Bld Press & F/U: Normal blood pressure, f/u not required Measure #128: Body Mass Index (BMI) Screening & Follow-up: BMI documented ABOVE normal parameters - f/u documented Measure #131: Pain Assessment & Follow-up: Pain positive & plan documented, Follow-up scheduled Measure #431: Unhealthy Alcohol Use Preventative Care & Scrn: Patient not identified as an unhealthy alcohol user Mode of Arrival: Ambulatory - Pain Location Bilateral Lower Back Non-Pharmacological Interventions: Heat, Inactivity, Sitting Pharmacological Interventions: Scheduled Medication, Topical Medication PQRS Narrative: Smoking Status Former smoker Blood Pressure 124/82 Pain Intensity [Bilateral 3 Lower Back] Scale Used Numeric (1 - 10) Hx Alcohol Use (MH) No Home Medications: Ambulatory Orders HYDROcodone/APAP 7.5-325MG [[place] 7.5-325] 1 - 2 tab PO Q6H #120 01/26/17 Amiodarone [Cordarone] 400 mg PO BID tab 01/29/17 Aspirin 325 mg PO DAILY tab 01/29/17 Atorvastatin [Lipitor] 40 mg PO DAILY tab 01/29/17 Citalopram Hydrobromide [CeleXA] 40 mg PO DAILY tab 01/29/17 Clopidogrel [Plavix] 75 mg PO DAILY tab 01/29/17 Darbepoetin Armando [Aranesp] 25 mcg SQ Q7D syr 01/29/17 Ferrous Sulfate [Iron (65 MG Elemental)] 325 mg PO BID-W/MEALS tab 01/29/17 Heparin Sodium,Porcine [Heparin Sodium] 5,000 unit SQ Q8HR vial 01/29/17 Levothyroxine Sodium [Synthroid] 150 mcg PO DAILY@0630 tab 01/29/17 Losartan [Cozaar] 50 mg PO DAILY tab 01/29/17 Metoprolol Tartrate [Lopressor] 50 mg PO BID tab 01/29/17 Montelukast [Singulair] 10 mg PO HS tab 01/29/17 Multivitamins, Thera [Multivitamin (formulary)] 1 each PO DAILY@1200 tab 01/29/17 Pantoprazole [Protonix] 40 mg PO AC-BRKFST tab 01/29/17 Sennosides-Docusate Sodium [Senokot-S] 2 each PO HS tab 01/29/17 Terazosin [Hytrin] 5 mg PO DAILY cap 01/29/17 bisacodyL [Dulcolax] 10 mg RECTAL DAILY PRN suppositor 01/29/17 Celecoxib [CeleBREX] 100 mg PO BID PRN 30 Days #60 cap 01/11/22
== END ==
LOC: PNWHC3 13:01
PROVIDERS: ATTEND Specialist
DX: M46.1 Sacroiliitis, not elsewhere classified (principal); M96.1 Postlaminectomy syndrome, not elsewhere classified; M47.816 Spondylosis without myelopathy or radiculopathy, lumbar region; M51.36 Other intervertebral disc degeneration, lumbar region; M48.061 Spinal stenosis, lumbar region without neurogenic claudication; K21.9 Gastro-esophageal reflux disease without esophagitis; I10 Essential (primary) hypertension; Z86.711 Personal history of pulmonary embolism; Z79.01 Long term (current) use of anticoagulants; Z79.899 Other long term (current) drug therapy; Z87.891 Personal history of nicotine dependence; Z91.041 Radiographic dye allergy status; Z88.0 Allergy status to penicillin
CPT/HCPCS: 99211

== ENCOUNTER 2022-02-28 11:45 | Day surgery (SDC) | payer MEDICARE, BC ==
[2022-02-27 13:56] VITALS: BMI 26.4
[~2022-02-28 11:45] MED LIST: LACTATED RINGERS 1,000 ML IV SCH; LIDOCAINE 1% (10MG/ML) FOR IV START INTRADERMA PRN
[2022-02-28 12:18] VITALS: TEMP 97.3
[2022-02-28] MEDS ORDERED: methylPREDNISolone ACETATE 40 MG/ML 1 ML VIAL ONE (12:27)
[2022-02-28] MEDS ORDERED: fentaNYL (PF) 50 MCG/ML 2 ML AMP ONE (12:27)
[2022-02-28] MEDS ORDERED: MIDAZOLAM 2 MG/2 ML VIAL ONE (12:27)
[2022-02-28] MEDS ORDERED: ROPIVACAINE 5MG/ML 20ML VIAL ONE (12:27)
--- NOTE | 2022-02-28 12:49 | P.PCN ---
Date of Procedure: 02/28/22 Procedure(s) Performed: Procedure= bilateral sacroiliac joints steroid injection under fluoroscopy guidance (fluoroscopy image stored on file in the radiology Department ) Preoperative diagnosis= 1-sacroiliitis 2-lumbar degenerative disc disease 3- lumbar facet arthropathy 4-postlaminectomy pain syndrome lumbar area Postoperative diagnosis=Same as preop Diagnosis . Complication = none Condition= stable Anesthesia= moderate sedation with intravenous Versed 0.5 mg , and fentanyl 25 micrograms . Sedation start time:12:30 Sedation end time : 12:45 Indication for the procedure= patient complaining of low back pain , examination was positive for severe tenderness over the sacroiliac joints bilaterally and patient diagnosed with sacroiliitis, for this reason he was good candidate for sacroiliac joint steroid injection. Description of the procedure= procedure risk and benefits discussed with the patient, including but not limited, risk of infection and bleeding, and ALLERGIC reaction to the medication and not complete pain relief and patient agreed with the preceding patient taken to the operating room, placed in prone position or standard monitors applied to the patient then after induction of anesthesia back prepped with chlorhexidine 3 times , Then under strict sterile technique, first I did the right sacroiliac joint the which was identified under fluoroscopy guidance been local infiltration of the skin and subcu interstitial with lidocaine 1% then 22-gauge Quincke Needle advanced slowly under fluoroscopy and placed in the right sacroiliac joint needle placement confirmed with AP and oblique and lateral view and after appropriate needle placement confirmed and after negative aspiration, or heme , then Ropivacaine 0.5% 4 mL, and 20 mg of Depo-Medrol mixed together and injected in the right sacroiliac joint after negative aspiration patient tolerated the procedure well without any complication. Then the left sacroiliac joint steroid injection done under strict sterile technique local infiltration of the skin and subcu interstitial at the location of the left sacroiliac joint then a 22-gauge Quincke Needle advanced slowly under fluoroscopy time placed in the left sacroiliac joint, needle placement confirmed with AP and oblique and lateral view then after appropriate needle placement confirmed and after negative aspiration 0.5% Ropivacaine 4 mL and 20 mg of Depo-Medrol injected in the left sacroiliac joint after negative aspiration patient tolerated the procedure well that any complications and she will follow up in clinic 3 weeks
[2022-02-28] MEDS ORDERED: IV FLUID CONTINUATION 1,000 ML IV ONE (12:52)
--- NOTE | 2022-02-28 12:57 | FL ---
EXAMINATION TYPE: FL guided pain mgmt statistic DATE OF EXAM: 02/28/2022 HISTORY: Fluoroscopy time 18 seconds of fluoroscopy provided. IMPRESSION: 1. Fluoroscopy time.
[2022-02-28 13:31] VITALS: RESP 16
[2022-02-28 13:32] VITALS: BP 136/85; PULSE 82
== END 2022-02-28 13:38 | disposition home or self-care (01) ==
LOC: ORPAIN 11:45
PROVIDERS: ATTEND Specialist
DX: M46.1 Sacroiliitis, not elsewhere classified (principal); M47.816 Spondylosis without myelopathy or radiculopathy, lumbar region; M51.36 Other intervertebral disc degeneration, lumbar region; Z91.041 Radiographic dye allergy status; M54.50 Low back pain, unspecified; M96.1 Postlaminectomy syndrome, not elsewhere classified
CPT/HCPCS: J2250; J1030; J3010; J2795; G0260 ×2

== ENCOUNTER → 2022-03-09 | Outpatient (CLI) | payer MEDICARE, BC ==
[~2022-03-09] MED LIST changes: -LACTATED RINGERS 1,000 ML IV SCH; -LIDOCAINE 1% (10MG/ML) FOR IV START INTRADERMA PRN; +REGADENOSON 0.4 MG/5 ML SYRINGE IV PRN
--- NOTE | 2022-03-09 12:35 | NM ---
"EXAMINATION TYPE: NM stress lexiscan cardiolite DATE OF EXAM: 03/09/2022 COMPARISON: Previous exam 01/16/2017 HISTORY: R 53.83 TECHNIQUE: After the intravenous administration of 9.4 mCi Tc 99m Sestamibi - Cardiolite resting SPE CT images acquired 50 minutes post injection. The patient received 0.4mg Lexiscan, 24.8 mCi Tc 99m Sestamibi - Stress images obtained [address] injection FINDINGS: Review of stress and rest SPECT images demonstrates decreased uptake along the inferior wall the left ventricle extending to the lateral wall which is somewhat greater on stress as compared to rest imag es towards the cardiac apex. Gated analysis shows normal wall motion with an estimated left ventricu lar ejection fraction of 57 %. 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 A Yellow level critical message alert has been initiated for Guera Vieira DO via the [employer] 36 0 | Critical Results System on 03/09/2022 9:32 AM. This message alert has been sent to Guera Vieira DO via the preferences provided by the clinician for the receipt of Radiology Critical Findings. [facility] ID [id number]."
== END | disposition home or self-care (01) ==
LOC: RADNMMAIN 07:55
PROVIDERS: ATTEND Family Medicine
DX: I25.6 Silent myocardial ischemia (principal)
CPT/HCPCS: 93017; 78452; A9500; J2785

== ENCOUNTER → 2022-04-27 | Outpatient (CLI) | payer OTHER, MEDICARE, BC ==
[2022-04-27 13:49] VITALS: BP 100/69; PULSE 100; RESP 18; TEMP 97.6
--- NOTE | 2022-05-01 13:27 | P.PAINPG ---
PQRS Measure Charge Sheet Comment: A 86 yr old wheelchair bound male w caregiver at side with a history of severe and chronic low back pain secondary to lumbar DDD and spondylosis with facet arthropathy without myelopathy presents today for evaluation s/p BL SI injection. Pt states he experienced 50% pain relief x 6 wks s/p procedure. Pain level is currently at 4/10 in intensity, constant, localized in the lower aspect of his lumbar spine where it meets the tailbone, dull/ achy in character w shooting towards the BL hips. Pain is provoked by sitting for periods of 10 min or more. Pain is alleviated with use of a wheelchair for ambulatory assistance, meds ([place] from Dr Vieira), topicals which are ineffective, heat, repositioning and rest. Interventional pain procedures completed include BL SI injection x2 Patient is currently on [place] Patient denies any side effects of the medication(s), denies excessive drowsiness or sleepiness, denies suicidal ideation and reports that the current pain medication is helping to control the pain and improve activities of daily living. Patient denies any motor or sensory deficits. Patient denies any fever or night sweats, denies any change in the bowel movements or urination. Physical Examination: -Constitutional: Cooperative. Not in acute distress . - Neurologic: Cranial nerve II to XII intact. No focal neurological deficits. - Psychatric: Alert & oriented x 3. Matching mood & appropriate affect. Judgment and insight intact. - Musculoskeletal: Cervical spine: Muscle bulk/ tone/ strength in the bilateral upper extremities normal Vertebral body tenderness to palpation over Spurling test positive Distraction test positive Facet loading test positive Thoracic spine Muscle bulk / tone/ strength in the bilateral paraspinal muscles normal Vertebral body tender to palpation over Facet loading test positive Lumbar spine: Motor bulk/ tone/ strength lower extremities , thigh and legs : 5/5 Deep tendon reflexes : Normal Knee Jerk. Normal Ankle Jerk . Vertebral body tenderness to palpation over L5 Lumbar Facet Loading Test positive Straight Leg Raise: positive at 30 degrees right side/ left side Gaenslen's Test positive Sacral spine : Severe tenderness over the Sacroiliac joint: right side / left side Range of motion: Flexion of the lumbar spine <60 degrees Range of motion: Extension of the lumbar spine <20 degrees Gaenslen's Test positive Laxmi test: positive right side / left side Thigh Thrust Test Sacral Thrust Test Assessment and plan: Chronic low back pain secondary to lumbar degenerative disc disease , lumbar spondylosis with facet arthropathy without myelopathy Pt has had L3-S1 fusion in 1999 w hardware removed in 2002. Recommendation of BL TFESI L5-S1. May need a series of injections, up to 3 within a 6 mo period, for optimal pain relief. Risks, benefits of procedure discussed and pt verbalized understanding. Admits to anticoagulant use or medical history of diabetes. Protocol for discontinuation/ continuation of medications ludwin procedure discussed. All patient questions answered I have spent less than 30 minutes on patient care today. Dr Langford was available by phone for the evaluation of this patient. The time was used to review the medical records including relevant urine studies and Prescription history (MAPs), review of the available imaging, evaluation and examination of the patient, coordination of care with the medical staff and if applicable referring physicians, as well as creation of the medical record PQRS Narrative: Smoking Status Former smoker Hx Alcohol Use (MH) No Home Medications: Ambulatory Orders Citalopram Hydrobromide [CeleXA] 40 mg PO DAILY tab 01/29/17 Levothyroxine Sodium [Synthroid] 150 mcg PO DAILY@0630 tab 01/29/17 Multivitamins, Thera [Multivitamin (formulary)] 1 each PO DAILY@1200 tab 01/29/17 Celecoxib [CeleBREX] 100 mg PO BID PRN 30 Days #60 cap 01/11/22 Aspirin 81 mg PO DAILY 02/27/22 Atorvastatin [Lipitor] 20 mg PO DAILY 02/27/22 Famotidine 40 mg PO BID 02/27/22 HYDROcodone/APAP 10-325MG [[place] 10-325] 1 tab PO TID PRN 02/27/22 Losartan [Cozaar] 0.5 tab PO DAILY 02/27/22 Lutein 20 mg PO DAILY 02/27/22 Rivaroxaban [Xarelto] 15 mg PO DAILY 02/27/22 Tamsulosin [Flomax] 0.4 mg PO DAILY 02/27/22 Ubidecarenone [Co Q-10] 200 mg PO DAILY 02/27/22 Lidocaine 5% Oint [Xylocaine 5% Oint] 1 applic TOPICAL Q24H PRN 30 Days #30 gm 04/12/22 Controlled Substance Measures - Controlled Substance Measures Is patient prescribed a controlled substance at discharge?: No
== END ==
LOC: PNWHC3 13:26
PROVIDERS: ATTEND Specialist
DX: M47.816 Spondylosis without myelopathy or radiculopathy, lumbar region (principal); M51.36 Other intervertebral disc degeneration, lumbar region; G89.29 Other chronic pain; Z79.01 Long term (current) use of anticoagulants; E11.9 Type 2 diabetes mellitus without complications; Z88.0 Allergy status to penicillin; Z91.041 Radiographic dye allergy status; Z87.891 Personal history of nicotine dependence; Z79.4 Long term (current) use of insulin
CPT/HCPCS: 99211

== ENCOUNTER 2022-06-13 13:24 | Day surgery (SDC) | payer MEDICARE, BC ==
[~2022-06-13 13:24] MED LIST changes: +LACTATED RINGERS 1,000 ML IV SCH; +LIDOCAINE 1% (10MG/ML) FOR IV START INTRADERMA PRN; -REGADENOSON 0.4 MG/5 ML SYRINGE IV PRN
[2022-06-13 13:45] VITALS: TEMP 98.4
[2022-06-13] MEDS ORDERED: MIDAZOLAM 2 MG/2 ML VIAL ONE (13:50)
[2022-06-13] MEDS ORDERED: fentaNYL (PF) 50 MCG/ML 2 ML AMP ONE (13:50)
[2022-06-13] MEDS ORDERED: methylPREDNISolone ACETATE 40 MG/ML 1 ML VIAL ONE (13:50)
[2022-06-13] MEDS ORDERED: IV FLUID CONTINUATION 600 ML IV ONE (14:09)
--- NOTE | 2022-06-13 14:10 | P.PCN ---
Date of Procedure: 06/13/22 Procedure(s) Performed: PREOPERATIVE DIAGNOSIS: 1-Lumbar radiculopathy . 2-lumbar degenerative disc disease. 3-lumbar spondylosis with lumbar facet arthropathy.4-sacroiliitis.. POSTOPERATIVE DIAGNOSIS: Same as preoperative diagnoses. PROCEDURE 1. Transforaminal epidural steroid injection under fluoroscopic guidance at bilateral L5-S1 level. (Fluoroscopy images stored on file in the radiology Department ANESTHESIA: Local with 1% lidocaine 3 ml , moderate sedation with intravenous Versed 0.5 mg and fentanyle 25 micrograms. Sedation start time :1354 . Sedation. stop time : 1404 . EBL: Minimal PROCEDURE INDICATION: The patient with low back pain and radiculopathy symptoms unresponsive to conservative treatment. PROCEDURE DESCRIPTION / TECHNIQUE: The patient was seen and identified in the preoperative area. Risks, benefits, complications, and alternatives were discussed with the patient. The patient agreed to proceed with the procedure and signed the consent. IV was started, and vital signs were stable. Patient was taken to the OR and time out was completed. The patient was placed in the prone position on procedure table and a pillow was placed under the abdomen to reduce lumbar lordosis. The lumbosacral area was prepped and draped in the usual sterile fashion. Critical pause was taken. Vital signs were closely monitored during the procedure. Conscious sedation was used during the procedure to decrease patient s anxiety. Using oblique fluoroscopy, the chin of the `Berthay dog at right L5-S1 level was identified, and the skin and deeper tissues just below was localized with 1% lidocaine. Subsequently, a 22-gauge 3.5-inch spinal needle was advanced under a tunneled view fluoroscopic guidance just underneath the chin of the `Berthay dog at the right L5-S1 Under lateral fluoroscopy, the needle was then advanced to the posterior border of the interforaminal space. After negative aspiration of CSF and blood and with no paresthesia ,then , 3 mL of block solution containing 20 mg Depo-Medrol and 2 mL of 0.9% normal saline PF was injected. Needle was removed and the same procedure was repeated at the left L5-S1 level . At the end of the procedure, skin was cleansed, and bandages were applied. note=Isovue was not injected because patient has an ALLERGY to iodine COMPLICATIONS:none DISPOSITION / PLANS: The patient was placed in a supine position and transferred to the recovery area in a stable condition for observation. There was no evidence of lower extremity motor or sensory deficit after the procedure. Patient was discharged from the recovery room after meeting discharge criteria. Home discharge instructions were given to the patient by the staff. The patient was reexamined prior to discharge.
[2022-06-13 14:15] VITALS: RESP 18
[2022-06-13 14:30] VITALS: BP 132/72; PULSE 80
--- NOTE | 2022-06-13 15:31 | FL ---
EXAMINATION TYPE: FL guided pain mgmt statistic DATE OF EXAM: 06/13/2022 FLUOROSCOPY Fluoroscopy time of 7 seconds was used during bilateral transforaminal epidural injection in the lumb ar spine. 2 image/s document/s the procedure.
== END 2022-06-13 15:21 | disposition home or self-care (01) ==
LOC: ORPAIN 13:24
PROVIDERS: ATTEND Specialist
DX: M51.16 Intervertebral disc disorders with radiculopathy, lumbar region (principal); M47.26 Other spondylosis with radiculopathy, lumbar region; M46.1 Sacroiliitis, not elsewhere classified; Z88.0 Allergy status to penicillin; Z88.8 Allergy status to other drugs, medicaments and biological substances
CPT/HCPCS: 64483; 99152

== ENCOUNTER → 2022-07-03 | Outpatient (CLI) | payer MEDICARE, BC ==
[2022-07-03 14:21] VITALS: BP 92/59; PULSE 78; RESP 14; TEMP 97.9
--- NOTE | 2022-07-03 15:25 | P.PAINPG ---
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 Pt states he experienced 0 % pain relief x 3 wks s/p procedure. Pain level is provoked at 4 /10 in intensity, constant, localized in the lumbar spine, sharp in character w shooting towards mid spine. Pain is provoked by any over activity. Pain is alleviated with PT without relief, heat, medications ([place] from Dr Vieira), use of a wheelchair, laying supine and rest. Interventional pain procedures completed include BL TFESI L5-S1 Patient is currently on [place] from Dr Vieira Patient denies any side effects of the medication(s), denies excessive drowsiness or sleepiness, denies suicidal ideation and reports that the current pain medication is helping to control the pain and improve activities of daily living. Patient denies any motor or sensory deficits. Patient denies any fever or night sweats, denies any change in the bowel movements or urination. Physical Examination: -Constitutional: Cooperative. Not in acute distress . - Neurologic: Cranial nerve II to XII intact. No focal neurological deficits. - Psychatric: Alert & oriented x 3. Matching mood & appropriate affect. Judgment and insight intact. - Musculoskeletal: Cervical spine: Muscle bulk/ tone/ strength in the bilateral upper extremities normal Vertebral body tenderness to palpation over Spurling test positive Distraction test positive Facet loading test positive Thoracic spine Muscle bulk / tone/ strength in the bilateral paraspinal muscles normal Vertebral body tender to palpation over Facet loading test positive Lumbar spine: Motor bulk/ tone/ strength lower extremities , thigh and legs : 5/5 Deep tendon reflexes : Normal Knee Jerk. Normal Ankle Jerk . Vertebral body tenderness to palpation over Lumbar Facet Loading Test positive BL paraspinal TTP Straight Leg Raise: positive at 30 degrees right side/ left side Gaenslen's Test positive Sacral spine : Severe tenderness over the Sacroiliac joint: right side / left side Range of motion: Flexion of the lumbar spine <60 degrees Range of motion: Extension of the lumbar spine <20 degrees Gaenslen's Test positive Laxmi test: positive right side / left side Thigh Thrust Test Sacral Thrust Test Assessment and plan: Chronic low back pain secondary to lumbar degenerative disc disease, spondylosis with facet arthropathy without myelopathy Recommendation of BL TPIs L1-S1. Patient may need a series of injections for optimal pain relief. Risks, benefits of procedure discussed and pt verbalized understanding. Admits anticoagulant use or medical history of diabetes. Protocol for discontinuation / continuation of medications ludwin procedure discussed. All patient questions answered I have spent less than 30 minutes on patient care today. Dr Langford was av ailable by phone for the evaluation of this patient. The time was used to review the medical records including relevant urine studies and Prescription history (MAPs), review of the available imaging, evaluation and examination of the patient, coordination of care with the medical staff and if applicable referring physicians, as well as creation of the medical record PQRS Narrative: Smoking Status Former smoker Hx Alcohol Use (MH) No Home Medications: Ambulatory Orders Citalopram Hydrobromide [CeleXA] 40 mg PO DAILY tab 01/29/17 Multivitamins, Thera [Multivitamin (formulary)] 1 each PO DAILY@1200 tab 01/29/17 Celecoxib [CeleBREX] 100 mg PO BID PRN 30 Days #60 cap 01/11/22 Aspirin 81 mg PO DAILY 02/27/22 Atorvastatin [Lipitor] 20 mg PO DAILY 02/27/22 Famotidine 40 mg PO BID 02/27/22 HYDROcodone/APAP 10-325MG [Ulen 10-325] 1 tab PO TID PRN 02/27/22 Losartan [Cozaar] 0.5 tab PO DAILY 02/27/22 Lutein 20 mg PO DAILY 02/27/22 Rivaroxaban [Xarelto] 15 mg PO DAILY 02/27/22 Tamsulosin [Flomax] 0.4 mg PO DAILY 02/27/22 Ubidecarenone [Co Q-10] 200 mg PO DAILY 02/27/22 Lidocaine 5% Oint [Xylocaine 5% Oint] 1 applic TOPICAL Q24H PRN 30 Days #30 gm 04/12/22 Levothyroxine Sodium [Synthroid] 150 mcg PO DAILY 06/08/22 Sucralfate [Carafate] 1 gm PO ACHS 06/08/22 Controlled Substance Measures - Controlled Substance Measures Is patient prescribed a controlled substance at discharge?: No
== END ==
LOC: PNWHC3 13:18
PROVIDERS: ATTEND Specialist
DX: M47.816 Spondylosis without myelopathy or radiculopathy, lumbar region (principal); M51.36 Other intervertebral disc degeneration, lumbar region; Z91.041 Radiographic dye allergy status; Z88.0 Allergy status to penicillin; Z87.891 Personal history of nicotine dependence
CPT/HCPCS: 99211

== ENCOUNTER 2022-09-16 16:28 | Inpatient (IN) | payer MEDICARE, BC ==
[2022-09-16 16:39] VITALS: TEMP 97.6
[2022-09-16 16:59] LABS: Basophils % (A) 0 %; Eosinophils # (A) 0.1 k/uL (0-0.7); Eosinophils % (A) 1 %; HGB 12.2 gm/dL (13.0-17.5); Lymphocytes # (A) 0.5 k/uL (1.0-4.8); Lymphocytes % (A) 7 %; MCH 33.7 pg (25.0-35.0); MCV 99.2 fL (80.0-100.0); Mean Platelet Volume 8.5; Monocytes # (A) 0.4 k/uL (0-1.0); Monocytes % (A) 6 %; Neutrophils # (A) 6.6 k/uL (1.3-7.7); Neutrophils % (A) 85 %; Platelet Count 127 k/uL (150-450); RBC 3.63 m/uL (4.30-5.90); RDW 13.1 % (11.5-15.5); WBC 7.8 k/uL (3.8-10.6)
--- NOTE | 2022-09-16 17:06 | ED ---
Abdominal Pain HPI - General Chief Complaint: Abdominal Pain Stated Complaint: GI bleed Time Seen by Provider: 09/16/22 16:30 Source: patient, EMS, RN notes reviewed Mode of arrival: EMS Limitations: no limitations - History of Present Illness Initial Comments: Patient is an 87-year-old male presenting to the emergency room via EMS with complaints of lower abdominal pain ongoing for several days and reports of constipation 5 days. He reports that he feels as though there is a plug preventing him from defecating. He attempted to disimpact himself without success. He does report that his attempts at disimpaction did cause some bleedi ng of his anus. He does have a history of hemorrhoids and is on Xarelto for history of atrial fibrillation and pulmonary emboli. He is taking Carafate along with Protonix for a known history of gastric ulcer. He reports some nausea but denies any vomiting or diarrhea. In addition to his GI history has a past medical history significant for abdominal aortic aneurysm with last size documented approximately 5.6 cm. He denies any other complaints or concerns at this time including any chest pain, shortness of breath, headache, dizziness, weakness, fevers or chills. In addition to his history as stated above his past medical history significant for hypertension, hard of hearing, sleep apnea, secretary specialist harjeet kidney disease, psoriasis, arthritis, chronic back pain, and hypothyroidism. - Related Data Home Medications Medication Instructions Recorded Confirmed Atorvastatin [Lipitor] 40 mg PO DAILY 02/27/22 09/16/22 Famotidine 40 mg PO BID 02/27/22 09/16/22 HYDROcodone/APAP 10-325MG [Cannon 1 tab PO TID PRN 02/27/22 09/16/22 10-325] Losartan [Cozaar] 25 tab PO DAILY 02/27/22 09/16/22 Lutein 20 mg PO DAILY 02/27/22 09/16/22 Rivaroxaban [Xarelto] 15 mg PO DAILY 02/27/22 09/16/22 Tamsulosin [Flomax] 0.4 mg PO DAILY 02/27/22 09/16/22 Sucralfate [Carafate] 1 gm PO ACHS 06/08/22 09/16/22 Aspirin EC [Ecotrin Low Dose] 81 mg PO DAILY 09/16/22 09/16/22 Calcium Carbonate [Tums] 500 - 1,000 mg PO ACHS PRN 09/16/22 09/16/22 Citalopram Hydrobromide [CeleXA] 40 mg PO DAILY 09/16/22 09/16/22 Levothyroxine Sodium [Synthroid] 150 mcg PO DAILY 09/16/22 09/16/22 Multivit-Min/FA/Lycopen/Lutein 1 tab PO DAILY 09/16/22 09/16/22 [Centrum Silver Men Tablet] Pantoprazole [Protonix] 40 mg PO DAILY 09/16/22 09/16/22 clonazePAM [KlonoPIN] 0.5 mg PO DAILY PRN 09/16/22 09/16/22 Allergies Allergy/AdvReac Type Severity Reaction Status Date / Time iodine Allergy Anaphylaxis Verified 09/16/22 17:30 Penicillins Allergy Unknown Verified 09/16/22 17:30 Review of Systems ROS Statement: Those systems with pertinent positive or pertinent negative responses have been documented in the HPI. ROS Other: All systems not noted in ROS Statement are negative. Past Medical History Past Medical History: GERD/Reflux, Hearing Disorder / Deafness, Hypertension, Pulmonary Embolus (PE), Sleep Apnea/CPAP/BIPAP, Syncope, Thyroid Disorder Additional Past Medical History / Comment(s): cardiac arrest d/t pe in 1985, bronchitis, cysts on kidneys-stated has 30% kidney function", psoriasis,arthritis,chronic back pain[place],glasses,"upper/lower partials","3 aneurysms-aaa and in groin area", past vertigo. taking sucralafate for an ulcer History of Any Multi-Drug Resistant Organisms: None Reported Past Surgical History: Adenoidectomy, Back Surgery, Orthopedic Surgery, Tonsillectomy Additional Past Surgical History / Comment(s): left shoulder hemiarthroplasty then 2nd sx-total replacement, x3 back sx, rt knee replacement, rt shoulder rotator cuff sx, lt heel spur, egd/colonoscopy, rt inguinal hernia repair, lt ear drum sx"failed", CATARACTS. Past Anesthesia/Blood Transfusion Reactions: Postoperative Nausea & Vomiting (PONV) Past Psychological History: Depression Smoking Status: Former smoker Past Alcohol Use History: None Reported Past Drug Use History: None Reported - Past Family History Father Family Medical History: Asthma Mother Family Medical History: Coronary Artery Disease (CAD) Additional Family Medical History / Comment(s): PACEMAKER Brother(s) Family Medical History: Coronary Artery Disease (CAD) Additional Family Medical History / Comment(s): Brother had recent double coronary artery bypass graft surgery. General Exam - General Exam Comments Initial Comments: ENERAL: No acute distress, well developed, well nourished. HEENT: Normocephalic, atraumatic. Pupils equal, round, reactive to light. Moist mucous membranes. LUNGS: No respiratory distress. Clear to auscultation, no adventitious sounds, no use of accessory muscles. HEART: regular rate, irregular rhythm with systolic murmur without diastolic murmur, rub, or gallop. ABDOMEN: Normal bowel sounds. Soft, non-distended. Abdominal tenderness bilateral lower quadrants and umbilical region. No rebound tenderness or guarding. digital rectal exam revealed internal hemorrhoids with poor rectal tone no rectal prolapse no rectal bleeding large amount of fecal content in rectal vault. BACK: Normal inspection. EXTREMITIES: No edema. No tenderness. Moves all extremities. NEUROLOGIC: Alert & oriented x 3. CN II-XII grossly intact. PSYCHIATRIC: Normal affect and behavior. DERMATOLOGIC: Bilateral hands with ecchymosis otherwise skin intact, without rashes or lesions noted. Limitations: no limitations Course Vital Signs 09/16/22 16:31 Temperature 97.6 F Respiratory 18 Rate Blood Pressure 126/90 O2 Sat by Pulse 97 Oximetry Medical Decision Making - Medical Decision Making Was pt. sent in by a medical professional or institution (, PA, [facility], urgent care, hospital, or [facility]...) When possible be specific @ -No Did you speak to anyone other than the patient for history (EMS, parent, family, police, friend...)? What history was obtained from this source @ -No Did you review nursing and triage notes (agree or disagree)? Why? @ -I reviewed and agree with nursing and triage notes Were old charts reviewed (outside hosp., previous admission, EMS record, old EKG, old radiological studies, urgent care reports/EKG's, [facility] records)? Report findings @ -Yes, I reviewed computed tomography scan from January 2018 was read recent EKG on file from 03/28/2022 and abdominal ultrasound from March 2021 and MRI of the lumbar spine completed 11/04/2021. Differential Diagnosis (chest pain, altered mental status, abdominal pain women, abdominal pain men, vaginal bleeding, weakness, fever, dyspnea, syncope, h eadache, dizziness, GI bleed, back pain, seizure, CVA, palpatations, mental health, musculoskeletal)? @ -Differential Abdominal Pain Men: Appendicitis, cholecystitis, diverticulosis, ischemic bowel, pancreatitis, hepatitis, UTI, gastroenteritis, AAA, incarcerated hernia, bowel obstruction, constipation, inflammatory bowel, hepatitis, peptic ulcer disease, splenic infarction, perforated viscus, testicular torsion, this is not meant to be an all-inclusive list EKG interpreted by me (3pts min.). @ -Sinus rhythm with first-degree AV block and occasional PACs. Ventricular rate 79 bpm, WA interval 213 ms, QRS duration 106 ms, QT/QTC 422/457 ms, PRT axes 87, 53, 44 X-rays interpreted by me (1pt min.). @ -None done CT interpreted by me (1pt min.). @ -Computed tomography scan abdomen and pelvis without contrast: large aortic aneurysm largest AP diameter 6.2 cm. Significant fecal burden in the rectum. No evidence of free air or free fluid in the abdomen. U/S interpreted by me (1pt. min.). @ -None done What testing was considered but not performed or refused? (CT, X-rays, U/S, labs)? Why? @ -CT of the abdomen and pelvis with contrast considered however deferred due to anaphylactic reaction to iodine and impaired renal function. What meds were considered but not given or refused? Why? @ -None Did you discuss the management of the patient with other professionals (professionals i.e. , PA, [facility] [facility], lab, RT, psych nurse, social studies department chair, gl accountant, teacher, loan service officer, adult protective caseworker)? Give summary @ -Calista Daily with [facility] services in regards to recommendation for admission for monitoring of laboratory studies, rehydration and treatment for fecal impaction. Dr. Gore with vascular surgery regarding aortic aneurysm in the setting of abdominal pain and chronic back pain he reports no need for vascular intervention and recommended consult with general surgeries. Spoke with Dr. Ina Lewis on with general surgery in regards to patient's case. She advised enemas regarding fecal impaction but no indication for surgical intervention or consult at this time. Was smoking cessation discussed for >3mins.? @ -No Was critical care preformed (if so, how long)? @ -No Were there social determinants of health that impacted care today? How? (Homelessness, low income, unemployed, alcoholism, drug addiction, t ransportation, low edu. Level, literacy, decrease access to med. care, intermediate, rehab)? @ -No Was there de-escalation of care discussed even if they declined (Discuss DNR or withdrawal of care, Hospice)? DNR status @ -DO NOT RESUSCITATE status discussed with patient. Patient wishes to change CODE STATUS to DO NOT RESUSCITATE. No indication for hospice consult at this time. What co-morbidities impacted this encounter? (DM, HTN, Smoking, COPD, CAD, Cancer, CVA, ARF, Chemo, Hep., AIDS, mental health diagnosis, sleep apnea, m orbid obesity)? @ -AAA, chronic back pain on opiate Was patient admitted / discharged? Hospital course, mention meds given and route, prescriptions, significant lab abnormalities, going to OR and other pertinent info. @ -87-year-old male presenting to the emergency room via EMS with complaints of abdominal pain and constipation ongoing for approximately 5 days despite stool softeners and attempts to manually disimpact. Attempting to move medially disimpact has resulted in a no bleeding as well. Patient with multiple risk factors including known aortic aneurysm of 5.2 cm will proceed with computed tomography scan of the abdomen without contrast the setting of iodine allergy. Will obtain EKG along with laboratory studies CBC, CMP, amylase, lipase, lactic acid, coags and troponin.. Will defer rectal exam until computed tomography scan resulted in the setting of known aortic aneurysm. Computed tomography scan demonstrates significant fecal load with enlarging aortic aneurysm. EKG demonstrates sinus rhythm with PACs and first degree AV block. Laboratory studies reveal slightly low hemoglobin but stable at 12.2 no leukocytosis platelet count low at 127 PTT stable 22.9 CMP shows low sodium 136 low carbon dioxide 20 elevated BUN/creatinine BUN 34 creatinine 2.4 with a GFR of 22 which is near his baseline renal status. Glucose elevated 159. Potassium chloride and on All normal liver enzymes normal troponin negative. Attempted milk of magnesia and molasses enema without results. Manually disimpacted patient with good stool production. we'll give IV hydration with IV fluid bolus and her maintenance fluids to primary care team.Spoke with vascular surgery, general surgery along with medicine regarding patient presentation and workup results recommending admission for further monitoring of abdominal pain and lact ic acidosis. No need for surgical intervention by vascular general surgery at this time. [facility] is accepting of admission. Will admit patient in stable condition to medical surgical unit under [facility] serv vinnie for abdominal pain with lactic acidosis and fecal impaction. Undiagnosed new problem with uncertain prognosis? @ -No Drug Therapy requiring intensive monitoring for toxicity (Heparin, Nitro, Insulin, Cardizem)? @ -No Were any procedures done? @ -No Diagnosis/symptom? @ -Abdominal pain Acute, or Chronic, or Acute on Chronic? @ -Acute Uncomplicated (without systemic symptoms) or Complicated (systemic symptoms)? @ -Complicated Side effects of treatment? @ -No Exacerbation, Progression, or Severe Exacerbation? @ -No Poses a threat to life or bodily function? How? (Chest pain, [place], PR, pneumonia, PE, COPD, DKA, ARF, appy, cholecystitis, CVA, Diverticulitis, Homicidal, Springer icidal, threat to staff... and all critical care pts) @ -As below Diagnosis/symptom? @ -fecal impaction Acute, or Chronic, or Acute on Chronic? @ -Acute Uncomplicated (without systemic symptoms) or Complicated (systemic symptoms)? @ -Complicated Side effects of treatment? @ -None Exacerbation, Progression, or Severe Exacerbation] @ -No Poses a threat to life or bodily function? @ -Yes Diagnosis/symptom? @ -lactic acidosis Acute, or Chronic, or Acute on Chronic? @ -Acute Uncomplicated (without systemic symptoms) or Complicated (systemic symptoms)? @ -Complicated Side effects of treatment? @ -none Exacerbation, Progression, or Severe Exacerbation] @ -no Poses a threat to life or bodily function? @ -yes. Case discussed with Dr. Lyon. - Lab Data Result diagrams: 09/16/22 16:43 09/16/22 16:43 Lab Results 09/16/22 09/16/22 09/16/22 Range/Units 16:43 16:43 16:43 WBC 7.8 (3.8-10.6) k/uL RBC 3.63 L (4.30-5.90) m/uL Hgb 12.2 L (13.0-17.5) gm/dL Hct 36.0 L (39.0-53.0) % MCV 99.2 (80.0-100.0) fL MCH 33.7 (25.0-35.0) pg MCHC 34.0 (31.0-37.0) g/dL RDW 13.1 (11.5-15.5) % Plt Count 127 L (150-450) k/uL MPV 8.5 Neutrophils % 85 % Lymphocytes % 7 % Monocytes % 6 % Eosinophils % 1 % Basophils % 0 % Neutrophils # 6.6 (1.3-7.7) k/uL Lymphocytes # 0.5 L (1.0-4.8) k/uL Monocytes # 0.4 (0-1.0) k/uL Eosinophils # 0.1 (0-0.7) k/uL Basophils # 0.0 (0-0.2) k/uL APTT 22.9 (22.0-30.0) sec Sodium 136 L (137-145) mmol/L Potassium 4.6 (3.5-5.1) mmol/L Chloride 102 (98-107) mmol/L Carbon Dioxide 20 L (22-30) mmol/L Anion Gap 14 mmol/L BUN 34 H (9-20) mg/dL Creatinine 2.54 H (0.66-1.25) mg/dL Est GFR (CKD-EPI)AfAm 26 (>60 ml/min/1.73 sqM) Est GFR (CKD-EPI)NonAf 22 (>60 ml/min/1.73 sqM) Glucose 159 H (74-99) mg/dL Plasma Lactic Acid Marciano (0.7-2.0) mmol/L Calcium 9.6 (8.4-10.2) mg/dL Total Bilirubin 1.2 (0.2-1.3) mg/dL AST 31 (17-59) U/L ALT 24 (4-49) U/L Alkaline Phosphatase 53 (38-126) U/L Troponin I (0.000-0.034) ng/mL Total Protein 6.7 (6.3-8.2) g/dL Albumin 4.0 (3.5-5.0) g/dL 09/16/22 09/16/22 Range/Units 16:43 16:43 WBC (3.8-10.6) k/uL RBC (4.30-5.90) m/uL Hgb (13.0-17.5) gm/dL Hct (39.0-53.0) % MCV (80.0-100.0) fL MCH (25.0-35.0) pg MCHC (31.0-37.0) g/dL RDW (11.5-15.5) % Plt Count (150-450) k/uL MPV Neutrophils % % Lymphocytes % % Monocytes % % Eosinophils % % Basophils % % Neutrophils # (1.3-7.7) k/uL Lymphocytes # (1.0-4.8) k/uL Monocytes # (0-1.0) k/uL Eosinophils # (0-0.7) k/uL Basophils # (0-0.2) k/uL APTT (22.0-30.0) sec Sodium (137-145) mmol/L Potassium (3.5-5.1) mmol/L Chloride (98-107) mmol/L Carbon Dioxide (22-30) mmol/L Anion Gap mmol/L BUN (9-20) mg/dL Creatinine (0.66-1.25) mg/dL Est GFR (CKD-EPI)AfAm (>60 ml/min/1.73 sqM) Est GFR (CKD-EPI)NonAf (>60 ml/min/1.73 sqM) Glucose (74-99) mg/dL Plasma Lactic Acid Marciano 4.6 H* (0.7-2.0) mmol/L Calcium (8.4-10.2) mg/dL Total Bilirubin (0.2-1.3) mg/dL AST (17-59) U/L ALT (4-49) U/L Alkaline Phosphatase (38-126) U/L Troponin I 0.012 (0.000-0.034) ng/mL Total Protein (6.3-8.2) g/dL Albumin (3.5-5.0) g/dL - Radiology Data Radiology results: report reviewed, image reviewed Disposition Clinical Impression: Elevated lactic acid level, Constipation, Abdominal pain Disposition: ADMITTED IP TO THIS [facility] Condition: Stable Referrals: Guera Vieira DO [Primary Care Provider] - 1-2 days Time of Disposition: 19:36
[2022-09-16 17:07] LABS: Calcium 9.6 mg/dL (8.4-10.2); Total Bilirubin 1.2 mg/dL (0.2-1.3); Total Protein 6.7 g/dL (6.3-8.2)
[2022-09-16 17:47] LABS: Potassium 4.6 mmol/L (3.5-5.1)
--- NOTE | 2022-09-16 18:04 | CT ---
EXAMINATION TYPE: CT abdomen pelvis wo con DATE OF EXAM: 09/16/2022 COMPARISON: None HISTORY: R/O GI Bleed CT DLP: 614.2 mGycm Automated exposure control for dose reduction was used. TECHNIQUE: Helical acquisition of images was performed from the lung bases through the pelvis. FINDINGS: The visualized lung bases are clear. The gallbladder is normal without distention, wall thickening, pericholecystic fluid or gallstones. There is no organomegaly involving the solid visceral organs of the upper abdomen. The pancreas is markedly atrophic. There is mild nodularity of the left adrenal gland. There are multiple cysts of the kidneys, largest of which is 7.2 cm the upper pole the right kidney. Multiple cysts in the right kidney are hyperdense most likely represent hemorrhagic cysts. Both kidne ys are moderately atrophic but there is no definite hydronephrosis. There is marked dilatation of the distal abdominal aorta and common iliac arteries. Distal abdominal aorta is 6.2 cm in AP dimension and 4.8 cm in transverse dimension. The left common iliac artery is m arkedly dilated and is 5.6 cm. The right common iliac artery is 3.8 cm. 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 The bowel loops are normal in caliber is no dilatation or obstruction. There is no free intraperitone al air or fluid. There is a marked amount of dense stool within the rectum. Prostate gland is mildly enlarged. The osseous structures are grossly intact. IMPRESSION: 1. Marked aneurysmal dilatation of the abdominal aorta and common iliac arteries and femoral arteries as described above. 2. Marked dense stool within the rectum. 3. Marked multiple renal cysts some of which are hyperdense. Moderate renal atrophy.
[2022-09-16] MEDS ORDERED: SODIUM CHLORIDE 0.9% 1,000 ML IV STA (18:36)
[2022-09-16] MEDS ORDERED: ONDANSETRON 4 MG/2 ML VIAL IVP PRN (19:38)
[2022-09-16] MEDS ORDERED: NALOXONE 0.4 MG/ML 1 ML VIAL IV PRN (19:38)
[2022-09-16] MEDS: HYDROcodone/APAP 10-325MG 1 EACH TAB PO PRN (21:26)
[2022-09-16] MEDS: CALCIUM CARBONATE 500 MG CHEWABLE PO PRN (21:27)
[2022-09-16] MEDS: DOCUSATE 100 MG CAP PO PRN (21:27)
[2022-09-16] MEDS ORDERED: SUCRALFATE 1 GM TAB PO STA (22:10)
[2022-09-17] MEDS ORDERED: CALCIUM CARBONATE 500 MG CHEWABLE PO PRN (10:28)
[2022-09-17] MEDS ORDERED: SENNOSIDES 8.6 MG TAB PO PRN (10:47)
[2022-09-17] MEDS: DOCUSATE 100 MG CAP PO PRN (10:52)
[2022-09-17] MEDS: CALCIUM CARBONATE 500 MG CHEWABLE PO PRN (10:52)
[2022-09-17] MEDS: HYDROcodone/APAP 10-325MG 1 EACH TAB PO PRN (10:52)
--- NOTE | 2022-09-17 10:57 | P.HPIM ---
History of Present Illness This is a pleasant 87 years old male with multiple medical problems including GERD, hypertension, pulmonary embolism, sleep apnea, syncope, hypothyroidism, chronic kidney disease, psoriasis, chronic low back pain, aortic abdominal a neurysm, peptic ulcer disease, depression Patient says that he came to the hospital because of constipation, he does not have bowel movements or 5 years, however he is on [place] for many years but also takes stool softeners but stopped working recently. He says that he has chronic epigastric pain for about 2.5 months, this looks stable. Patient with no recent worsening, actually he rates his pain today as 5/10 compared to last month 60/10. History as he has no nausea vomiting,. He says that he tolerates diet well. He denies any urinary symptoms like dysuria or urgency, no nausea vomiting, no chest pain, no dyspnea, no coughing. No headache dizziness weakness or numbness No history of smoking alcohol or illicit drugs He states that he was taken Xarelto for his pulmonary embolism, and aspirin his doctor explained to him to take it. He states that he was trying to manipulate his stool through the rectum using his finger when he noticed some blood on his finger, most likely secondary to topical trauma, no more bleeding after that as per patient Vitas looks stable and patient is afebrile. Labs showing anemia with hemoglobin of 12.2 Sodium 136 Creatinine 2.5 which is at baseline Elevated lactic acid came back to normal. Liver enzymes not elevated. Troponin is negative. CT of the abdomen and pelvis without contrast showing marked aneurysmal dilatation of the abdominal aorta (6.2 cm ) and common iliac arteries (5.6 cm ) and femoral arteries. Valentin dense stool within the rectum. Marked multiple renal cysts some of which are hyperdense. Likely represents hemorrhagic cyst Review of Systems Review of systems CONSTITUTIONAL: No fever, no malaise, no fatigue. HEENT: No recent visual problems or hearing problems. Denied any sore throat. CARDIOVASCULAR: No orthopnea, PND, no palpitations, no syncope. PULMONARY: No shortness of breath, no cough, no hemoptysis. GASTROINTESTINAL: No diarrhea,, no vomiting, . Normoactive bowel sounds. NEUROLOGICAL: No headaches, no weakness, no numbness. HEMATOLOGICAL: Denies any bleeding or petechiae. GENITOURINARY: Denies any burning micturition, frequency, or urgency. MUSCULOSKELETAL/RHEUMATOLOGICAL: Denies any joint pain, swelling, or any muscle pain. ENDOCRINE: Denies any polyuria or polydipsia. Past Medical History Past Medical History: GERD/Reflux, Hearing Disorder / Deafness, Hypertension, Pulmonary Embolus (PE), Sleep Apnea/CPAP/BIPAP, Syncope, Thyroid Disorder Additional Past Medical History / Comment(s): cardiac arrest d/t pe in 1985, bronchitis, cysts on kidneys-stated has 30% kidney function", psoriasis,arthritis,chronic back pain,[place] wears linda hearing aids,glasses,"upper/lower partials","3 aneurysms-aaa and in groin area", past vertigo. taking sucralafate for an ulcer History of Any Multi-Drug Resistant Organisms: None Reported Past Surgical History: Adenoidectomy, Back Surgery, Orthopedic Surgery, Tonsillectomy Additional Past Surgical History / Comment(s): left shoulder hemiarthroplasty then 2nd sx-total replacement, x3 back sx, rt knee replacement, rt shoulder rotator cuff sx, lt heel spur, egd/colonoscopy, rt inguinal hernia repair, lt ear drum sx"failed", CATARACTS. Past Anesthesia/Blood Transfusion Reactions: Postoperative Nausea & Vomiting (PONV) Past Psychological History: Depression Smoking Status: Former smoker Past Alcohol Use History: None Reported Past Drug Use History: None Reported - Past Family History Father Family Medical History: Asthma Mother Family Medical History: Coronary Artery Disease (CAD) Additional Family Medical History / Comment(s): PACEMAKER Brother(s) Family Medical History: Coronary Artery Disease (CAD) Additional Family Medical History / Comment(s): Brother had recent double coronary artery bypass graft surgery. Medications and Allergies Home Medications Medication Instructions Recorded Confirmed Type Atorvastatin [Lipitor] 40 mg PO DAILY 02/27/22 09/16/22 History Famotidine 40 mg PO BID 02/27/22 09/16/22 History HYDROcodone/APAP 10-325MG [[place] 1 tab PO TID PRN 02/27/22 09/16/22 History 10-325] Losartan [Cozaar] 25 tab PO DAILY 02/27/22 09/16/22 History Lutein 20 mg PO DAILY 02/27/22 09/16/22 History Rivaroxaban [Xarelto] 15 mg PO DAILY 02/27/22 09/16/22 History Tamsulosin [Flomax] 0.4 mg PO DAILY 02/27/22 09/16/22 History Sucralfate [Carafate] 1 gm PO ACHS 06/08/22 09/16/22 History Aspirin EC [Ecotrin Low Dose] 81 mg PO DAILY 09/16/22 09/16/22 History Calcium Carbonate [Tums] 500 - 1,000 mg PO ACHS PRN 09/16/22 09/16/22 History Citalopram Hydrobromide [CeleXA] 40 mg PO DAILY 09/16/22 09/16/22 History Levothyroxine Sodium [Synthroid] 150 mcg PO DAILY 09/16/22 09/16/22 History Multivit-Min/FA/Lycopen/Lutein 1 tab PO DAILY 09/16/22 09/16/22 History [Centrum Silver Men Tablet] Pantoprazole [Protonix] 40 mg PO DAILY 09/16/22 09/16/22 History clonazePAM [KlonoPIN] 0.5 mg PO DAILY PRN 09/16/22 09/16/22 History Allergies Allergy/AdvReac Type Severity Reaction Status Date / Time iodine Allergy Anaphylaxis Verified 09/16/22 17:30 Penicillins Allergy Unknown Verified 09/16/22 17:30 Physical Exam Vitals: Vital Signs Temp Pulse Resp BP Pulse Ox 09/17/22 09:13 65 20 132/81 68 L 09/17/22 05:00 58 L 19 118/76 96 09/17/22 04:00 62 19 114/80 95 09/17/22 03:00 70 19 115/82 96 09/16/22 21:14 90 18 108/80 97 09/16/22 19:39 98 18 105/80 95 09/16/22 16:31 97.6 F 18 126/90 97 Intake and Output 09/16/22 09/17/22 09/17/22 22:59 06:59 14:59 Other: Weight 81.647 kg -GENERAL: The patient is alert and oriented x3, not in any acute distress. Well developed, well nourished. Generally weak HEENT: Pupils are round and equally reacting to light. EOMI. No scleral icterus. No conjunctival pallor. Normocephalic, atraumatic. No pharyngeal erythema. No thyromegaly. CARDIOVASCULAR: S1 and S2 present. No murmurs, rubs, or gallops. PULMONARY: Chest is clear to auscultation, no wheezing or crackles. -ABDOMEN: Soft, mild epigastric and suprapubic tenderness, with no rebound tenderness or guarding, nondistended, normoactive bowel sounds. No palpable organomegaly. MUSCULOSKELETAL: No joint swelling or deformity. EXTREMITIES: No cyanosis, clubbing, or pedal edema. NEUROLOGICAL: Gross neurological examination did not reveal any focal deficits. SKIN: No rashes. no petechiae. Results CBC & Chem 7: 09/16/22 16:43 09/16/22 16:43 Labs: Abnormal Lab Results - Last 24 Hours (Table) 09/16/22 09/16/22 09/16/22 Range/Units 16:43 16:43 16:43 RBC 3.63 L (4.30-5.90) m/uL Hgb 12.2 L (13.0-17.5) gm/dL Hct 36.0 L (39.0-53.0) % Plt Count 127 L (150-450) k/uL Lymphocytes # 0.5 L (1.0-4.8) k/uL Sodium 136 L (137-145) mmol/L Carbon Dioxide 20 L (22-30) mmol/L BUN 34 H (9-20) mg/dL Creatinine 2.54 H (0.66-1.25) mg/dL Glucose 159 H (74-99) mg/dL Plasma Lactic Acid Marciano 4.6 H* (0.7-2.0) mmol/L Assessment and Plan Assessment: Constipation with the stool burden in the rectum Abdominal pain abdominal aortic aneurysm enlargement and dilatation (6.2 cm ) and common iliac arteries aneurysmal dilatation (5.6 cm ). 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 Hypertension Hypothyroidism History of pulmonary embolism History of sleep apnea History of syncope Right kidney disease stage IV History of psoriasis Chronic low back pain History of aortic abdominal aneurysm History of peptic ulcer disease History of depression, not in activation Plan: Consults vascular surgery team Consult urology steam Hold aspirin until cleared by vascular surgeryAnd urologist (discussed this r ecommendation with the bedside nurse) Patient told me he declines any surgical intervention regarding his aneurysm or others Resume levothyroxine and is overall to Resume losartan and consider holding it if creatinine worsens or blood pressure drops ( we placed holding parameters) continue with Flomax and check a bladder scan I explained to the patient risks of recurrent PE and heart attack or stroke while he is off blood thinners and aspirin Labs and medication were reviewed.. Continue same treatment. Continue with symptomatic treatment. Resume home medication. Monitor labs and vitals. DVT and GI prophylaxis. Further recommendations as per clinical course of the patient DVT prophylaxis: Mechanical . no anticaogulation for possible abdominal aneurysm over the aorta GI Prophylaxis: Pepcid and Protonix PT/OT: Pending Prognosis is guarded
[2022-09-17] MEDS ORDERED: SUCRALFATE 1 GM TAB PO SCH (12:30)
[2022-09-17 13:03] VITALS: PULSE 86; RESP 16
[2022-09-17 13:33] VITALS: BP 130/82
[2022-09-17] MEDS ORDERED: FAMOTIDINE 20 MG TAB PO SCH (21:00)
[2022-09-18] MEDS ORDERED: LEVOTHYROXINE 75 MCG TAB PO SCH (06:30)
[2022-09-18] MEDS ORDERED: PANTOPRAZOLE 40 MG TABLET PO SCH (07:30)
[2022-09-18] MEDS ORDERED: ATORVASTATIN 40 MG TAB PO SCH (09:00)
[2022-09-18] MEDS ORDERED: LOSARTAN 25 MG TAB PO SCH (09:00)
[2022-09-18] MEDS ORDERED: TAMSULOSIN 0.4 MG CAP.ER.24H PO SCH (09:00)
[2022-09-18] MEDS ORDERED: CITALOPRAM HYDROBROMIDE 20 MG TAB PO SCH (09:00)
== END 2022-09-17 13:33 | disposition left against medical advice (07) | DRG 389 ==
LOC: EC 16:28 → 4SSUR 19:38
PROVIDERS: ADMIT Hospitalist; ATTEND Hospitalist
DX: K56.41 Fecal impaction (principal); N18.4 Chronic kidney disease, stage 4 (severe); D64.9 Anemia, unspecified; I71.40 Abdominal aortic aneurysm, without rupture, unspecified; I48.91 Unspecified atrial fibrillation; I12.9 Hypertensive chronic kidney disease with stage 1 through stage 4 chronic kidney disease, or unspecified chronic kidney disease; Z66 Do not resuscitate; E03.9 Hypothyroidism, unspecified; L40.9 Psoriasis, unspecified; K21.9 Gastro-esophageal reflux disease without esophagitis; F32.A Depression, unspecified; M54.50 Low back pain, unspecified; G89.29 Other chronic pain; M19.90 Unspecified osteoarthritis, unspecified site; K64.9 Unspecified hemorrhoids; G47.30 Sleep apnea, unspecified; H91.93 Unspecified hearing loss, bilateral; I44.0 Atrioventricular block, first degree; N28.1 Cyst of kidney, acquired; N40.0 Benign prostatic hyperplasia without lower urinary tract symptoms; Z53.29 Procedure and treatment not carried out because of patient's decision for other reasons; Z79.82 Long term (current) use of aspirin; Z79.890 Hormone replacement therapy; Z79.01 Long term (current) use of anticoagulants; Z79.899 Other long term (current) drug therapy; Z86.74 Personal history of sudden cardiac arrest; Z86.711 Personal history of pulmonary embolism; Z87.11 Personal history of peptic ulcer disease; Z96.651 Presence of right artificial knee joint; Z96.612 Presence of left artificial shoulder joint; Z88.0 Allergy status to penicillin; Z88.8 Allergy status to other drugs, medicaments and biological substances
CPT/HCPCS: 36415; 74176; 80053; 83605; 84484; 85025; 85730; 93005; 96360; 96361; 99285

== ENCOUNTER 2024-10-25 10:36 | Emergency (ER) | payer MEDICARE, BC ==
--- NOTE | 2024-10-25 10:54 | ED ---
Psych HPI - General Chief Complaint: Psychiatric Symptoms Stated Complaint: mental health Time Seen by Provider: 10/25/24 10:43 Source: patient, police, RN notes reviewed, old records reviewed Mode of arrival: ambulatory Limitations: no limitations - History of Present Illness Initial Comments: 89-year-old male presents emergency room with police for psychiatric evaluation. Patient was picked up on the court order petition by family for his increasing depression, thoughts of suicide. Patient states he is severely depressed and suicidal secondary to his leaving him approximately 1 week ago. He also still mourning the of his 1 child and he has remaining 3 children. Patient denies any suicidal attempts denies any alcohol or drug use. - Related Data Home Medications Medication Instructions Recorded Confirmed Atorvastatin [Lipitor] 40 mg PO HS 02/27/22 10/25/24 Famotidine 40 mg PO BID 02/27/22 10/25/24 HYDROcodone/APAP 10-325MG [[place] 1 tab PO TID 02/27/22 10/25/24 10-325] Losartan [Cozaar] 50 mg PO DAILY 02/27/22 10/25/24 Rivaroxaban [Xarelto] 15 mg PO DAILY 02/27/22 10/25/24 Tamsulosin [Flomax] 0.4 mg PO BID 02/27/22 10/25/24 Citalopram Hydrobromide [CeleXA] 40 mg PO DAILY 09/16/22 10/25/24 Levothyroxine Sodium [Synthroid] 150 mcg PO AC-[id number] 09/16/22 10/25/24 Pantoprazole [Protonix] 40 mg PO BID 09/16/22 10/25/24 clonazePAM [KlonoPIN] 0.25 mg PO BID 09/16/22 10/25/24 Co Q-10(Unknown Dose) 1 cap PO DAILY 10/25/24 10/25/24 [place] 1 tab PO HS 10/25/24 10/25/24 Supplement(Unknown) Allergies Allergy/AdvReac Type Severity Reaction Status Date / Time iodine Allergy Anaphylaxis Verified 10/25/24 14:40 Penicillins Allergy see comment Verified 10/25/24 14:40 Review of Systems ROS Statement: Those systems with pertinent positive or pertinent negative responses have been documented in the HPI. ROS Other: All systems not noted in ROS Statement are negative. Past Medical History Past Medical History: GERD/Reflux, Hearing Disorder / Deafness, Hypertension, Pulmonary Embolus (PE), Sleep Apnea/CPAP/BIPAP, Syncope, Thyroid Disorder Additional Past Medical History / Comment(s): cardiac arrest d/t pe in 1985, bronchitis, cysts on kidneys-stated has 30% kidney function", ps oriasis,arthritis,chronic back pain,[place] wears linda hearing aids,glasses,"upper/lower partials","3 aneurysms-aaa and in groin area", past vertigo. taking sucralafate for an ulcer History of Any Multi-Drug Resistant Organisms: None Reported Past Surgical History: Adenoidectomy, Back Surgery, Orthopedic Surgery, Tonsillectomy Additional Past Surgical History / Comment(s): left shoulder hemiarthroplasty then 2nd sx-total replacement, x3 back sx, rt knee replacement, rt shoulder rotator cuff sx, lt heel spur, egd/colonoscopy, rt inguinal hernia repair, lt ear drum sx"failed", CATARACTS. Past Anesthesia/Blood Transfusion Reactions: Postoperative Nausea & Vomiting (PONV) Past Psychological History: Depression Smoking Status: Former smoker Past Alcohol Use History: None Reported Past Drug Use History: None Reported - Past Family History Father Family Medical History: Asthma Mother Family Medical History: Coronary Artery Disease (CAD) Additional Family Medical History / Comment(s): PACEMAKER Brother(s) Family Medical History: Coronary Artery Disease (CAD) Additional Family Medical History / Comment(s): Brother had recent double coronary artery bypass graft surgery. General Exam Limitations: no limitations General appearance: alert, in no apparent distress Head exam: Present: atraumatic, normocephalic, normal inspection Eye exam: Present: normal appearance, PERRL, EOMI. Absent: scleral icterus, conjunctival injection, periorbital swelling ENT exam: Present: normal exam, normal oropharynx, mucous membranes moist Neck exam: Present: normal inspection, full ROM. Absent: tenderness, meningismus, lymphadenopathy Respiratory exam: Present: normal lung sounds bilaterally. Absent: respiratory distress, wheezes, rales, rhonchi, stridor Cardiovascular Exam: Present: regular rate, normal rhythm, normal heart sounds. Absent: systolic murmur, diastolic murmur, rubs, gallop, clicks Neurological exam: Present: alert, oriented X3 Psychiatric exam: Present: depressed Skin exam: Present: warm, dry, intact, normal color. Absent: rash Course Vital Signs 10/25/24 10/25/24 10:37 13:27 Temperature 98.3 F Pulse Rate 100 72 Respiratory 18 18 Rate Blood Pressure 161/127 138/104 O2 Sat by Pulse 98 99 Oximetry Medical Decision Making - Medical Decision Making Was pt. sent in by a medical professional or institution (, PA, TILT WALL SUPERVISOR, urgent care, hospital, or fci...) When possible be specific @ -No Did you speak to anyone other than the patient for history (EMS, parent, family, police, friend...)? What history was obtained from this source @Police providing history Did you review nursing and triage notes (agree or disagree)? Why? @ -I reviewed and agree with nursing and triage notes Were old charts reviewed (outside hosp., previous admission, EMS record, old EKG, old radiological studies, urgent care reports/EKG's, fci records)? Report findings @ -No old charts were reviewed Differential Diagnosis (chest pain, altered mental status, abdominal pain women, abdominal pain men, vaginal bleeding, weakness, fever, dyspnea, syncope, headache, dizziness, GI bleed, back pain, seizure, CVA, palpatations, mental health, musculoskeletal)? @ -Differential Mental Health Depression, anxiety, bipolar, psychosis, schizophrenia, borderline personality, situational depression, adjustment disorder, behavioral disorder, brain tumor, malingering, substance abuse, encephalopathy, medication reaction, dementia, hypothyroidism, degenerative neurologic disorder, lupus.... This is not meant to be all-inclusive list EKG interpreted by me (3pts min.). @ -As above X-rays interpreted by me (1pt min.). @ -None done CT interpreted by me (1pt min.). @ -None done U/S interpreted by me (1pt. min.). @ -None done What testing was considered but not performed or refused? (CT, X-rays, U/S, labs)? Why? @ -None What meds were considered but not given or refused? Why? @ -None Did you discuss the management of the patient with other professionals (professionals i.e. , PA, TILT WALL SUPERVISOR, lab, RT, psych nurse, marriage and family social worker, outreach assistant, teacher, air control/anti air warfare officer, case packer)? Give summary @ -EPS evaluated patient recommended transfer to geriatric psych Was smoking cessation discussed for >3mins.? @ -No Was critical care preformed (if so, how long)? @ -No Were there social determinants of health that impacted care today? How? (Homelessness, low income, unemployed, alcoholism, drug addiction, transportation, low edu. Level, literacy, decrease access to med. care, shelter, rehab)? @ -No Was there de-escalation of care discussed even if they declined (Discuss DNR or withdrawal of care, Hospice)? DNR status @ -No What co-morbidities impacted this encounter? (DM, HTN, Smoking, COPD, CAD, Cancer, CVA, ARF, Chemo, Hep., AIDS, mental health diagnosis, sleep apnea, morbid obesity)? @ -None Was patient admitted / discharged? Hospital course, mention meds given and route, prescriptions, significant lab abnormalities, going to OR and other pertinent info. @ -Transfer to geriatric psych patient is medically cleared Undiagnosed new problem with uncertain prognosis? @ -No Drug Therapy requiring intensive monitoring for toxicity (Heparin, Nitro, Insulin, Cardizem)? @ -No Were any procedures done? @ -No Diagnosis/symptom? @ -[Depression, suicide ideation Acute, or Chronic, or Acute on Chronic? @ -Acute Uncomplicated (without systemic symptoms) or Complicated (systemic symptoms)? @ -Complicated Side effects of treatment? @ -No Exacerbation, Progression, or Severe Exacerbation? @ -No Poses a threat to life or bodily function? How? (Chest pain, [place], [place], pneumonia, PE, COPD, DKA, ARF, appy, cholecystitis, CVA, Diverticulitis, Homicidal, Suicidal, threat to staff... and all critical care pts) @ -Yes suicidal - Lab Data Result diagrams: 10/25/24 11:05 10/25/24 11:05 Lab Results 10/25/24 10/25/24 10/25/24 Range/Units 11:05 11:05 13:09 WBC 6.40 (4.50-10.00) 10*3/uL RBC 3.70 L (4.40-5.60) 10*6/uL Hgb 13.0 (13.0-17.0) g/dL Hct 37.9 L (39.6-50.0) % MCV 102.4 H (80.0-97.0) fL MCH 35.1 H (27.0-32.0) pg MCHC 34.3 (32.0-37.0) g/dL Plt Count 114 L (140-440) 10*3/uL MPV 10.9 (9.5-12.2) fL Immature Gran % (Auto) 0.3 % Neutrophils % 70.3 % Lymphocytes % 16.1 % Monocytes % 8.3 % Eosinophils % 4.2 % Basophils % 0.8 % Immature Gran # 0.02 (0.00-0.04) 10*3/uL Neutrophils # 4.50 (1.80-7.70) 10*3/uL Lymphocytes # 1.03 (0.90-5.00) 10*3/uL Monocytes # 0.53 (0.20-1.00) 10*3/uL Eosinophils # 0.27 (0.04-0.35) 10*3/uL Basophils # 0.05 (0.00-0.10) 10*3/uL Sodium 140 (137-145) mmol/L Potassium 4.5 (3.5-5.1) mmol/L Chloride 104 (98-107) mmol/L Carbon Dioxide 23 (22-30) mmol/L Anion Gap 13 mmol/L BUN 32 H (9-20) mg/dL Creatinine 2.61 H (0.66-1.25) mg/dL Est GFR (CKD-EPI)AfAm 24 (>60 ml/min/1.73 sqM) Est GFR (CKD-EPI)NonAf 21 (>60 ml/min/1.73 sqM) Glucose 108 H (74-99) mg/dL Calcium 10.1 (8.4-10.2) mg/dL Total Bilirubin 1.4 H (0.2-1.3) mg/dL AST 24 (17-59) U/L ALT 22 (4-49) U/L Alkaline Phosphatase 94 (38-126) U/L Total Protein 7.7 (6.3-8.2) g/dL Albumin 4.5 (3.5-5.0) g/dL Urine Color Light Yellow Urine Appearance Clear (Clear) Urine pH 5.5 (5.0-8.0) Ur Specific [place] 1.014 (1.001-1.035) Urine Protein Trace H (Negative) Urine Glucose (UA) Negative (Negative) Urine Ketones Negative (Negative) Urine Blood Moderate H (Negative) Urine Nitrite Negative (Negative) Urine Bilirubin Negative (Negative) Urine Urobilinogen <2.0 (<2.0) mg/dL Ur Leukocyte Esterase Negative (Negative) Urine RBC 20 H (0-5) /hpf Urine WBC <1 (0-5) /hpf Urine Mucus Rare H (None) /hpf Urine Opiates Screen Detected H (NotDetected) Ur Oxycodone Screen Not Detected (NotDetected) Urine Methadone Screen Not Detected (NotDetected) Ur Barbiturates Screen Not Detected (NotDetected) U Tricyclic Antidepress Not Detected (NotDetected) Ur Phencyclidine Scrn Not Detected (NotDetected) Ur Amphetamines Screen Not Detected (NotDetected) U Methamphetamines Scrn Not Detected (NotDetected) U Benzodiazepines Scrn Not Detected (NotDetected) Urine Cocaine Screen Not Detected (NotDetected) U Marijuana (THC) Screen Not Detected (NotDetected) SARS-CoV-2 (PCR) (Not Detectd) 10/25/24 Range/Units 15:11 WBC (4.50-10.00) 10*3/uL RBC (4.40-5.60) 10*6/uL Hgb (13.0-17.0) g/dL Hct (39.6-50.0) % MCV (80.0-97.0) fL MCH (27.0-32.0) pg MCHC (32.0-37.0) g/dL Plt Count (140-440) 10*3/uL MPV (9.5-12.2) fL Immature Gran % (Auto) % Neutrophils % % Lymphocytes % % Monocytes % % Eosinophils % % Basophils % % Immature Gran # (0.00-0.04) 10*3/uL Neutrophils # (1.80-7.70) 10*3/uL Lymphocytes # (0.90-5.00) 10*3/uL Monocytes # (0.20-1.00) 10*3/uL Eosinophils # (0.04-0.35) 10*3/uL Basophils # (0.00-0.10) 10*3/uL Sodium (137-145) mmol/L Potassium (3.5-5.1) mmol/L Chloride (98-107) mmol/L Carbon Dioxide (22-30) mmol/L Anion Gap mmol/L BUN (9-20) mg/dL Creatinine (0.66-1.25) mg/dL Est GFR (CKD-EPI)AfAm (>60 ml/min/1.73 sqM) Est GFR (CKD-EPI)NonAf (>60 ml/min/1.73 sqM) Glucose (74-99) mg/dL Calcium (8.4-10.2) mg/dL Total Bilirubin (0.2-1.3) mg/dL AST (17-59) U/L ALT (4-49) U/L Alkaline Phosphatase (38-126) U/L Total Protein (6.3-8.2) g/dL Albumin (3.5-5.0) g/dL Urine Color Urine Appearance (Clear) Urine pH (5.0-8.0) Ur Specific [place] (1.001-1.035) Urine Protein (Negative) Urine Glucose (UA) (Negative) Urine Ketones (Negative) Urine Blood (Negative) Urine Nitrite (Negative) Urine Bilirubin (Negative) Urine Urobilinogen (<2.0) mg/dL Ur Leukocyte Esterase (Negative) Urine RBC (0-5) /hpf Urine WBC (0-5) /hpf Urine Mucus (None) /hpf Urine Opiates Screen (NotDetected) Ur Oxycodone Screen (NotDetected) Urine Methadone Screen (NotDetected) Ur Barbiturates Screen (NotDetected) U Tricyclic Antidepress (NotDetected) Ur Phencyclidine Scrn (NotDetected) Ur Amphetamines Screen (NotDetected) U Methamphetamines Scrn (NotDetected) U Benzodiazepines Scrn (NotDetected) Urine Cocaine Screen (NotDetected) U Marijuana (THC) Screen (NotDetected) SARS-CoV-2 (PCR) Not Detected (Not Detectd) - EKG Data -: EKG Interpreted by Me EKG Comments: EKG performed at 15: 51 sinus rhythm rate of 95 TN 198 QRS 96 QT/QTc 396/449 Disposition Clinical Impression: Depression, Suicidal ideation Disposition: TRANSFER TO PSYCH HOSP/UNIT Referrals: Guera Vieira DO [Primary Care Provider] - 1-2 days Time of Disposition: 15:02
[2024-10-25 11:39] LABS: ALT 22 U/L (4-49); AST 24 U/L (17-59); African American GFR (CKD) 24 (>60 ml/min/1.73 sqM); Albumin 4.5 g/dL (3.5-5.0); Alkaline Phosphatase 94 U/L (38-126); Anion Gap 13 mmol/L; Blood Urea Nitrogen 32 mg/dL (9-20); Calcium 10.1 mg/dL (8.4-10.2); Carbon Dioxide 23 mmol/L (22-30); Chloride 104 mmol/L (98-107); Glucose 108 mg/dL (74-99); Non-African American GFR(CKD) 21 (>60 ml/min/1.73 sqM); Potassium 4.5 mmol/L (3.5-5.1); Sodium 140 mmol/L (137-145); Total Bilirubin 1.4 mg/dL (0.2-1.3); Total Protein 7.7 g/dL (6.3-8.2)
[2024-10-25 12:01] LABS: Basophils # (A) 0.05 10*3/uL (0.00-0.10); Basophils % (A) 0.8 %; Eosinophils # (A) 0.27 10*3/uL (0.04-0.35); Eosinophils % (A) 4.2 %; HCT 37.9 % (39.6-50.0); Lymphocytes # (A) 1.03 10*3/uL (0.90-5.00); Lymphocytes % (A) 16.1 %; MCH 35.1 pg (27.0-32.0); MCHC 34.3 g/dL (32.0-37.0); MCV 102.4 fL (80.0-97.0); Mean Platelet Volume 10.9 fL (9.5-12.2); Monocytes # (A) 0.53 10*3/uL (0.20-1.00); Monocytes % (A) 8.3 %; Neutrophils % (A) 70.3 %; Platelet Count 114 10*3/uL (140-440); RDW 12.2 % (11.5-14.5)
[2024-10-25] MEDS: HYDROcodone/APAP 10-325MG 1 EACH TAB PO ONE (12:17)
[2024-10-25 13:19] LABS: Appearance,Urine Clear (Clear); Bilirubin,Urine Negative (Negative); Blood,Urine Moderate (Negative); Color,Urine Light Yellow; Glucose,Urine (UA) Negative (Negative); Ketones,Urine Negative (Negative); Leukocyte Esterase,Urine Negative (Negative); Mucus,Urine Rare /hpf; Nitrite,Urine Negative (Negative); PH, Urine 5.5 (5.0-8.0); Protein,Urine Trace (Negative); RBC,Urine 20 /hpf (0-5); Specific Gravity,Urine 1.014 (1.001-1.035); Urobilinogen,Urine <2.0 mg/dL (<2.0); WBC,Urine <1 /hpf (0-5)
[2024-10-25 13:32] LABS: Amphetamine Screen,Urine Not Detected (NotDetected); Barbiturate Screen,Urine Not Detected (NotDetected); Benzodiazepines Screen,Urine Not Detected (NotDetected); Cocaine Screen,Urine Not Detected (NotDetected); Methadone Screen, Urine Not Detected (NotDetected); Opiate Screen,Urine Detected (NotDetected); Oxycodone Screen, Urine Not Detected (NotDetected); Phencyclidine Screen,Urine Not Detected (NotDetected); Tricyclic Antidepressant,Urine Not Detected (NotDetected); Urn Cannabinoid Scrn Not Detected (NotDetected)
[2024-10-25] MEDS: LOSARTAN 50 MG TAB PO STA (16:36)
[2024-10-25] MEDS: HYDROcodone/APAP 10-325MG 1 EACH TAB PO SCH (17:52)
[2024-10-25] MEDS: PANTOPRAZOLE 40 MG TABLET PO SCH (22:31)
[2024-10-25] MEDS: FAMOTIDINE 20 MG TAB PO SCH (22:31)
[2024-10-25] MEDS: ATORVASTATIN 40 MG TAB PO SCH (22:32)
[2024-10-25] MEDS: clonazePAM 0.5 MG TAB PO SCH (22:32)
[2024-10-25] MEDS: TAMSULOSIN 0.4 MG CAP.ER.24H PO SCH (22:32)
[2024-10-26 07:10] VITALS: RESP 18
[2024-10-26] MEDS: LEVOTHYROXINE 50 MCG TAB PO SCH (08:46)
[2024-10-26] MEDS: RIVAROXABAN 15 MG TAB PO SCH (08:47)
[2024-10-26] MEDS: LOSARTAN 50 MG TAB PO SCH (08:48)
[2024-10-26] MEDS: CITALOPRAM HYDROBROMIDE 20 MG TAB PO SCH (08:48)
[2024-10-26 08:54] VITALS: BP 112/70; PULSE 70; TEMP 98.4
== END 2024-10-26 08:55 ==
LOC: EC 10:36
DX: F32.A Depression, unspecified (principal); R45.851 Suicidal ideations; Z88.0 Allergy status to penicillin; Z91.041 Radiographic dye allergy status; Z11.52 Encounter for screening for COVID-19; Z87.891 Personal history of nicotine dependence
CPT/HCPCS: 36415; 80053; 80306; 81001; 82075; 85025; 87635; 93005; 99285